=== PATIENT | male | born 1970 | race Caucasian/White ===

== ENCOUNTER 2017-03-06 20:03 | Emergency (ER) | payer MEDICARE, OTHER ==
[~2017-03-06] VITALS: Ht 185.4 cm; Wt 80.0 kg
[2017-03-06 20:05] VITALS: BP 106/65; PULSE 108; RESP 16; TEMP 99.5; O2SAT 97
[2017-03-06 20:07] VITALS: BP 106/65; PULSE 108; RESP 16; TEMP 99.5; O2SAT 97
[2017-03-06] MEDS ORDERED: MIRT30TA PO (20:44)
[2017-03-06] MEDS ORDERED: ASPI81CH CHEW (20:44)
[2017-03-06] MEDS ORDERED: OXYC1CAP PO (20:44)
[2017-03-06] MEDS ORDERED: ATOR1TAB18 PO (20:45)
[2017-03-06] MEDS ORDERED: NEXI10GR (20:45)
[2017-03-06] MEDS ORDERED: ABIL15TA2 PO (20:46)
[2017-03-06] MEDS ORDERED: GABA100C4 PO (20:46)
[2017-03-06] MEDS ORDERED: VITA200C3 PO (20:47)
[2017-03-06] MEDS ORDERED: PHYT5TAB2 PO (20:47)
[2017-03-06] MEDS ORDERED: BUSP15TA PO (20:48)
[2017-03-06] MEDS ORDERED: THERTAB17 PO (20:48)
[2017-03-06 20:49] VITALS: BP 177/99; PULSE 95; RESP 18; O2SAT 98
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
[2017-03-06] MEDS ORDERED: SODIUM CHLOR 0.9% 1000 ML INJ 1,000 ML IV SCH (21:01)
[2017-03-06] MEDS ORDERED: SODIUM CHLORIDE 0.9% FLUSH 10 ML FLUSH IV FLUSH PRN (21:15)
[2017-03-06] MEDS ORDERED: HYDROmorphone HCL PF 1 MG/ML VIAL IVS ONE (21:15)
[2017-03-06] MEDS ORDERED: ONDANSETRON HCL 4 MG/2 ML VIAL IVP ONE (21:15)
[2017-03-06 21:27] VITALS: O2SAT 98
[2017-03-06 21:43] LABS: BASOPHIL % 0.2 % (0.0-2.0); EOSINOPHIL % 0.1 % (0.0-4.0); HEMATOCRIT 43.9 % (39.0-51.0); HEMO FLAGS DIFF FINAL; LYMPH % 8.6 % (9.0-44.0); LYMPHOCYTE # 0.8 TH/MM3 (1.0-4.8); MEAN CELL VOLUME 81.4 FL (80.0-100.0); MEAN CORPUSCULAR HEMOGLOBIN 26.1 PG (27.0-34.0); MEAN CORPUSCULAR HGB CONC 32.1 % (32.0-36.0); MONO % 2.1 % (0.0-8.0); PLATELET COUNT 184 TH/MM3 (150-450); RED BLOOD COUNT 5.39 MIL/MM3 (4.50-5.90); RED CELL DISTRIBUTION WIDTH 15.4 % (11.6-17.2)
[2017-03-06 22:15] LABS: ALKALINE PHOSPHATASE 162 U/L (45-117); ALT (GPT) 42 U/L (12-78); ANION GAP 9 MEQ/L (5-15); AST (GOT) 12 U/L (15-37); BICARBONATE 29.6 MEQ/L (21.0-32.0); BLOOD UREA NITROGEN 14 MG/DL (7-18); CHLORIDE 93 MEQ/L (98-107); GLOMERULAR FILTRATION RATE 80 ML/MIN (>89); SODIUM (NA) 132 MEQ/L (136-145); TOTAL BILIRUBIN ADULT 0.7 MG/DL (0.2-1.0)
--- NOTE | 2017-03-06 22:35 | PD ---
Data Data Last Documented VS Vital Signs Date Time Temp Pulse Resp B/P Pulse Ox O2 Delivery O2 Flow Rate FiO2 03/06/17 21:27 98 Room Air 03/06/17 20:49 95 18 177/99 03/06/17 20:07 99.5 Orders Complete Blood Count With Diff (03/06/17 21:01) Comprehensive Metabolic Panel (03/06/17 21:01) Lipase (03/06/17 21:01) Urinalysis - C+S If Indicated (03/06/17 21:01) Iv Access Insert/Monitor (03/06/17 21:01) Ecg Monitoring (03/06/17 21:01) Oximetry (03/06/17 21:01) Ondansetron Inj (Zofran Inj) (03/06/17 21:15) Sodium Chlor 0.9% 1000 Ml Inj (Ns 1000 M (03/06/17 21:01) Sodium Chloride 0.9% Flush (Ns Flush) (03/06/17 21:15) Hydromorphone Pf Inj (Dilaudid Pf Inj) (03/06/17 21:15) Hydromorphone Pf Inj (Dilaudid Pf Inj) (03/06/17 23:00) Ct Abd/Pel W Iv Contrast(Rout) (03/07/17 ) Iohexol 350 Inj (Omnipaque 350 Inj) (03/07/17 00:36) Bedside Glucose BAYRON.AC&HS (03/07/17 01:01) Metoclopramide Inj (Reglan Inj) (03/07/17 01:15) Ondansetron Inj (Zofran Inj) (03/07/17 01:45) Heparin Central Flush (Heparin Central F (03/07/17 01:45) Labs Laboratory Tests Test 03/06/17 03/06/17 21:15 23:40 White Blood Count 9.0 TH/MM3 Red Blood Count 5.39 MIL/MM3 Hemoglobin 14.1 GM/DL Hematocrit 43.9 % Mean Corpuscular Volume 81.4 FL Mean Corpuscular Hemoglobin 26.1 PG Mean Corpuscular Hemoglobin 32.1 % Concent Red Cell Distribution Width 15.4 % Platelet Count 184 TH/MM3 Mean Platelet Volume 9.2 FL Neutrophils (%) (Auto) 89.0 % Lymphocytes (%) (Auto) 8.6 % Monocytes (%) (Auto) 2.1 % Eosinophils (%) (Auto) 0.1 % Basophils (%) (Auto) 0.2 % Neutrophils # (Auto) 8.0 TH/MM3 Lymphocytes # (Auto) 0.8 TH/MM3 Monocytes # (Auto) 0.2 TH/MM3 Eosinophils # (Auto) 0.0 TH/MM3 Basophils # (Auto) 0.0 TH/MM3 CBC Comment DIFF FINAL Differential Comment Sodium Level 132 MEQ/L Potassium Level 4.0 MEQ/L Chloride Level 93 MEQ/L Carbon Dioxide Level 29.6 MEQ/L Anion Gap 9 MEQ/L Blood Urea Nitrogen 14 MG/DL Creatinine 1.00 MG/DL Estimat Glomerular Filtration 80 ML/MIN Rate Random Glucose 401 MG/DL Calcium Level 9.2 MG/DL Total Bilirubin 0.7 MG/DL Aspartate Amino Transf 12 U/L (AST/SGOT) Alanine Aminotransferase 42 U/L (ALT/SGPT) Alkaline Phosphatase 162 U/L Total Protein 7.8 GM/DL Albumin 4.0 GM/DL Lipase 43 U/L Urine Color YELLOW Urine Turbidity CLEAR Urine pH 5.5 Urine Specific [place] 1.036 Urine Protein NEG mg/dL Urine Glucose (UA) 1000 mg/dL Urine Ketones 40 mg/dL Urine Occult Blood MOD Urine Nitrite NEG Urine Bilirubin NEG Urine Urobilinogen LESS THAN 2.0 MG/DL Urine Leukocyte Esterase NEG Urine RBC 11 /hpf Urine WBC 3 /hpf Microscopic Urinalysis Comment CULT NOT INDICATED MDM Scripts Promethazine Supp (Phenergan Supp)25 Mg Supp25 Mg RECTAL Q6H PRN (NAUSEA OR VOMITING) #12 SUPP Ref 1 Prov:Efrain Shaikh MD 03/07/17 Efrain Shaikh MD Mar 06, 2017 22:35
[2017-03-06] MEDS ORDERED: HYDROmorphone HCL PF 1 MG/ML VIAL IV PUSH ONE (23:00)
[2017-03-06 23:57] LABS: BLOOD, URINE MOD (NEG); COMMENT (UR) CULT NOT INDICATED; CULTURE IF INDICATED CULT NOT INDICATED; GLUCOSE,URINE 1000 mg/dL (NEG); KETONE, URINE 40 mg/dL (NEG); NITRITE,URINE NEG (NEG); PH, URINE 5.5 (5.0-8.5); URINE COLOR YELLOW (YELLW/STRAW)
[2017-03-07] MEDS ORDERED: IOHEXOL 350 MG/ML 10 ML VIAL (for RAD DIAG) IV ONE (00:36)
--- NOTE | 2017-03-07 00:43 | RADRPT ---
EXAM DATE/TIME: 03/07/2017 00:14 [place] COMPARISON: No previous studies available for comparison. INDICATIONS : Abdomen pain with vomiting. IV CONTRAST: 80 cc Omnipaque 350 (iohexol) IV ORAL CONTRAST: No oral contrast ingested. RADIATION DOSE: 6.98 CTDIvol (mGy) MEDICAL HISTORY : Cardiovascular disease. Pancreatitis. Diabetes mellitus type 2. SURGICAL HISTORY : Cholecystectomy. ENCOUNTER: Initial ACUITY: 1 day PAIN SCALE: 8/10 LOCATION: abdomen TECHNIQUE: Volumetric scanning of the abdomen and pelvis was performed. Using automated exposure control and ad justment of the mA and/or kV according to patient size, radiation dose was kept as low as reasonably achievable to obtain optimal diagnostic quality images. DICOM format image data is available electro nically for review and comparison. FINDINGS: LOWER LUNGS: The visualized lower lungs are clear. LIVER: Homogeneous density without lesion. There is no dilation of the biliary tree. Status post cholecyste ctomy. SPLEEN: Normal size without lesion. PANCREAS: Within normal limits. KIDNEYS: Normal in size and shape. There is no mass, stone or hydronephrosis on the right. 2 nonobstructing c alculi in the lower pole left kidney measure 5 and 7 mm. ADRENAL GLANDS: Within normal limits. VASCULAR: There is no aortic aneurysm. BOWEL/MESENTERY: The stomach, small bowel, and colon demonstrate no acute abnormality. There is no free intraperitone al air or fluid. Normal appendix. ABDOMINAL WALL: Within normal limits. RETROPERITONEUM: There is no lymphadenopathy. BLADDER: No wall thickening or mass. REPRODUCTIVE: Within normal limits. INGUINAL: There is no lymphadenopathy or hernia. MUSCULOSKELETAL: Within normal limits for patient age. CONCLUSION: 1. 2 nonobstructing left-sided renal calculi. 2. Status post cholecystectomy. Magdiel Reno MD on March 07, 2017 at 0:38 Board Certified Radiologist. This report was verified electronically.
[2017-03-07] MEDS ORDERED: METOCLOPRAMIDE HCL 10 MG/2 ML VIAL IV PUSH ONE (01:15)
[2017-03-07] MEDS ORDERED: PROM1SUP7 RECTAL (01:30)
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
[2017-03-07] MEDS ORDERED: ONDANSETRON HCL 4 MG/2 ML VIAL IV PUSH ONE (01:45)
== END 2017-03-07 01:57 | disposition home or self-care (01) ==
LOC: NEPE 20:03
DX: R10.10 Upper abdominal pain, unspecified (principal); R11.2 Nausea with vomiting, unspecified; R19.7 Diarrhea, unspecified; E10.9 Type 1 diabetes mellitus without complications; I25.2 Old myocardial infarction; Z79.4 Long term (current) use of insulin; Z79.01 Long term (current) use of anticoagulants; Z87.39 Personal history of other diseases of the musculoskeletal system and connective tissue; Z86.59 Personal history of other mental and behavioral disorders; Z86.79 Personal history of other diseases of the circulatory system; Z87.19 Personal history of other diseases of the digestive system
CPT/HCPCS: 74177; 80053; 81001; 83690; 85025; 96361; 96374; 96375; 96376; 99285; J1170; J1642; J2405; J2765; J7030; Q9967

== ENCOUNTER 2017-03-08 21:01 | Observation (INO) | payer MEDICARE, OTHER ==
[~2017-03-08] VITALS: Ht 185.4 cm; Wt 77.0 kg
[~2017-03-08 21:01] MED LIST: ABIL15TA2 PO; ASPI81CH CHEW; ATOR1TAB18 PO; BUSP15TA PO; GABA100C4 PO; MIRT30TA PO; NEXI10GR; OXYC1CAP PO; PHYT5TAB2 PO; PROM1SUP7 RECTAL; THERTAB17 PO; VITA200C3 PO
[2017-03-08 21:03] VITALS: BP 115/73; PULSE 108; RESP 16; TEMP 99.6; O2SAT 97
--- NOTE | 2017-03-08 21:26 | PD ---
Physical Exam Time Seen by Provider: 21:23 Narrative 47yo M c/o continued vomiting and diarrhea due to pancreatitis. Was here Saturday w/ same complaints and lipase level was low so was sent home. Has c/ o continued abdominal pain also. Low grade fever 99.6 in triage. Patient seen in triage. VS reviewed. Patient awaiting bed placement. Data Data Last Documented VS Vital Signs Date Time Temp Pulse Resp B/P Pulse Ox O2 Delivery O2 Flow Rate FiO2 03/08/17 21:03 99.6 108 16 115/73 97 Room Air MDM Supervised Visit with ESE: Bre Zamudio Mar 08, 2017 21:26
[2017-03-08] MEDS ORDERED: SODIUM CHLORIDE 0.9% FLUSH 10 ML FLUSH IV FLUSH PRN ×2 (21:30→23:30)
--- NOTE | 2017-03-08 21:42 | PD ---
Data Data Last Documented VS Vital Signs Date Time Temp Pulse Resp B/P Pulse Ox O2 Delivery O2 Flow Rate FiO2 03/08/17 21:54 89 16 122/82 98 Room Air 03/08/17 21:03 99.6 Orders Complete Blood Count With Diff (03/08/17 21:30) Comprehensive Metabolic Panel (03/08/17 21:30) Lipase (03/08/17 21:30) Urinalysis - C+S If Indicated (03/08/17 21:30) Iv Access Insert/Monitor (03/08/17 21:30) Ecg Monitoring (03/08/17 21:30) Oximetry (03/08/17 21:30) Sodium Chloride 0.9% Flush (Ns Flush) (03/08/17 21:30) Ondansetron Inj (Zofran Inj) (03/08/17 21:45) Sodium Chlor 0.9% 1000 Ml Inj (Ns 1000 M (03/08/17 21:45) Morphine Inj (Morphine Inj) (03/08/17 21:45) Morphine Inj (Morphine Inj) (03/08/17 22:00) Morphine Inj (Morphine Inj) (03/08/17 21:52) Hydromorphone Pf Inj (Dilaudid Pf Inj) (03/08/17 22:45) Admit Order (Ed Use Only) (03/08/17 23:00) Labs Laboratory Tests Test 03/08/17 22:00 White Blood Count 9.6 TH/MM3 Red Blood Count 5.23 MIL/MM3 Hemoglobin 13.8 GM/DL Hematocrit 42.3 % Mean Corpuscular Volume 80.8 FL Mean Corpuscular Hemoglobin 26.3 PG Mean Corpuscular Hemoglobin 32.5 % Concent Red Cell Distribution Width 15.3 % Platelet Count 186 TH/MM3 Mean Platelet Volume 8.9 FL Neutrophils (%) (Auto) 81.0 % Lymphocytes (%) (Auto) 13.1 % Monocytes (%) (Auto) 5.5 % Eosinophils (%) (Auto) 0.1 % Basophils (%) (Auto) 0.3 % Neutrophils # (Auto) 7.8 TH/MM3 Lymphocytes # (Auto) 1.3 TH/MM3 Monocytes # (Auto) 0.5 TH/MM3 Eosinophils # (Auto) 0.0 TH/MM3 Basophils # (Auto) 0.0 TH/MM3 CBC Comment DIFF FINAL Differential Comment Sodium Level 132 MEQ/L Potassium Level 4.0 MEQ/L Chloride Level 92 MEQ/L Carbon Dioxide Level 30.0 MEQ/L Anion Gap 10 MEQ/L Blood Urea Nitrogen 14 MG/DL Creatinine 0.98 MG/DL Estimat Glomerular Filtration 82 ML/MIN Rate Random Glucose 364 MG/DL Calcium Level 9.0 MG/DL Total Bilirubin 0.8 MG/DL Aspartate Amino Transf 22 U/L (AST/SGOT) Alanine Aminotransferase 46 U/L (ALT/SGPT) Alkaline Phosphatase 121 U/L Total Protein 7.5 GM/DL Albumin 3.8 GM/DL Lipase 42 U/L MDM Supervised Visit with ESE: Yes Narrative Course I, Dr. Shaikh, have reviewed the advance practice practitioner's documentation and am in agreement, met with the patient face to face, made the diagnosis, and the medical decision making was done by me. *My assessment and Findings: Is a 47-year-old male with a history of chronic pancreatitis, no new me from last ER admission presents emergency department for evaluation of epigastric pain nausea and vomiting. He states that currently he is in a low between his pain and nausea. He's been taking Zofran and Phenergan suppositories at home and still been throwing up. Patient seen initially by me and appears well, Edson MERIDA and seen patient is well, agree with his documentation. Patient will be admitted for intractable abdominal pain. Diagnosis Primary Impression: Abdominal pain Qualified Code: R10.13 - Epigastric pain Additional Impression: Nausea & vomiting Qualified Code: R11.2 - Nausea and vomiting, intractability of vomiting not specified, unspecified vomiting type Admitting Information Admitting Physician Requests: Observation Condition: Stable Efrain Shaikh MD Mar 08, 2017 21:42
[2017-03-08] MEDS ORDERED: ONDANSETRON HCL 4 MG/2 ML VIAL IV PUSH ONE (21:45)
[2017-03-08] MEDS ORDERED: MORPHINE SULFATE 4 MG/ML INJ IV PUSH ONE (21:45)
[2017-03-08] MEDS ORDERED: SODIUM CHLOR 0.9% 1000 ML INJ 1,000 ML IV ONE (21:45)
--- NOTE | 2017-03-08 21:47 | PD ---
HPI Chief Complaint: Abdominal Pain Time Seen by Provider: 21:38 Travel History International Travel<30 days: No Contact w/Intl Traveler<30days: No Traveled to known affect area: No History of Present Illness HPI This is a 47-year-old male with history of chronic pancreatitis who presents for evaluation of 3-4 days of epigastric abdominal pain, nausea, vomiting, diarrhea. The pain is a sharp pain which is intermittent, radiates into the back. He reports a history of having a nerve plexus block one year ago which helped significantly with his chronic pancreatitis. The nerve block Block seems to have worn off and since then his pain has been worse. He endorses some chills at home. He reports multiple episodes of diarrhea on a daily basis , approximately every 2 hours. He reports that today his stools were black. He reports minimal oral intake over the past few days. He has Phenergan suppositories at home which haven't seemed to help very much with his nausea. He denies chest pain or shortness of breath, flank pain, dysuria. The patient was seen here for evaluation of similar symptoms on March 06. His workup revealed a glucose of 401. CT of the abdomen and pelvis revealed no acute abnormalities. He returns today because symptoms have been persistent. He reports that he is unable to get an appointment with a woods laborer on an outpatient basis through the [facility] until April 22. He has no other complaints. PFSH Past Medical History Hx Anticoagulant Therapy: Yes Depression: Yes Cardiovascular Problems: Yes (DC) Diabetes: Yes (TYPE 1-INSULIN PUMP) Patient Takes Glucophage: No Diminished Hearing: No Musculoskeletal: Yes (dasha hands operation due to IUD) Myocardial Infarction: Yes (2004 with 1 stent ) Pancreatitis: Yes Past Surgical History Cholecystectomy: Yes (2009) Coronary Stent: Yes Insulin Pump: Yes Other Surgery: Yes (AMPT OF RIGHT HAND, PARTIAL LEFT HAND AMPT, WHIPPLE PROCEDURE, SKIN GRAFTS) Social History Alcohol Use: Yes (occasional) Tobacco Use: No Substance Use: Yes (marijuana ) Allergies-Medications (Allergen,Severity, Reaction): Coded Allergies: No Known Allergies (Unverified , 03/08/17) Reported Meds & Prescriptions Reported Meds & Active Scripts Active Phenergan Supp (Promethazine HCl) 25 Mg Supp 25 Mg RECTAL Q6H PRN Reported Thera-M (Multiple Vitamins W/ Minerals) 1 Tab 1 Tab PO DAILT Buspirone (Buspirone HCl) 15 Mg Tab 15 Mg PO BID Vitamin E 200 Unit Cap 400 Units PO DAILY Mephyton (Phytonadione) 5 Mg Tab 5 Mg PO DAILY Abilify (Aripiprazole) 15 Mg Tab 15 Mg PO DAILY Gabapentin 100 Mg Cap 100 Mg PO HS Nexium (Esomeprazole) 10 Mg Pkt Atorvastatin (Atorvastatin Calcium) 80 Mg Tab 40 Mg PO HS Mirtazapine 30 Mg Tab 30 Mg PO HS Oxycodone (Oxycodone HCl) 5 Mg Cap 5 Mg PO Q6H PRN Aspirin 81 Mg Chew 81 Mg CHEW ONCE Review of Systems Except as stated in HPI: all other systems reviewed are Neg Physical Exam Narrative GENERAL: Well-developed well-nourished male in no acute distress. SKIN: Warm and dry. Extensive scarring noted over most of the anterior body surface. HEAD: Atraumatic. Normocephalic. EYES: Pupils equal and round. No scleral icterus. No injection or drainage. ENT: No nasal bleeding or discharge. Mucous membranes pink and moist. NECK: Trachea midline. No JVD. CARDIOVASCULAR: Regular rate and rhythm. No murmur appreciated. RESPIRATORY: No accessory muscle use. Clear to auscultation. Breath sounds equal bilaterally. GASTROINTESTINAL: Abdomen soft, tenderness to palpation in the epigastrium. MUSCULOSKELETAL: No obvious deformities. Previous amputations noted to portions of the upper extremities. NEUROLOGICAL: Awake and alert. No obvious cranial nerve deficits. Motor grossly within normal limits. Normal speech. PSYCHIATRIC: Appropriate mood and affect; insight and judgment normal. Data Data Last Documented VS Vital Signs Date Time Temp Pulse Resp B/P Pulse Ox O2 Delivery O2 Flow Rate FiO2 03/08/17 21:54 89 16 122/82 98 Room Air 03/08/17 21:03 99.6 Orders Complete Blood Count With Diff (03/08/17 21:30) Comprehensive Metabolic Panel (03/08/17 21:30) Lipase (03/08/17 21:30) Urinalysis - C+S If Indicated (03/08/17 21:30) Iv Access Insert/Monitor (03/08/17 21:30) Ecg Monitoring (03/08/17 21:30) Oximetry (03/08/17 21:30) Sodium Chloride 0.9% Flush (Ns Flush) (03/08/17 21:30) Ondansetron Inj (Zofran Inj) (03/08/17 21:45) Sodium Chlor 0.9% 1000 Ml Inj (Ns 1000 M (03/08/17 21:45) Morphine Inj (Morphine Inj) (03/08/17 21:45) Morphine Inj (Morphine Inj) (03/08/17 22:00) Morphine Inj (Morphine Inj) (03/08/17 21:52) Hydromorphone Pf Inj (Dilaudid Pf Inj) (03/08/17 22:45) Labs Laboratory Tests Test 03/08/17 22:00 White Blood Count 9.6 TH/MM3 Red Blood Count 5.23 MIL/MM3 Hemoglobin 13.8 GM/DL Hematocrit 42.3 % Mean Corpuscular Volume 80.8 FL Mean Corpuscular Hemoglobin 26.3 PG Mean Corpuscular Hemoglobin 32.5 % Concent Red Cell Distribution Width 15.3 % Platelet Count 186 TH/MM3 Mean Platelet Volume 8.9 FL Neutrophils (%) (Auto) 81.0 % Lymphocytes (%) (Auto) 13.1 % Monocytes (%) (Auto) 5.5 % Eosinophils (%) (Auto) 0.1 % Basophils (%) (Auto) 0.3 % Neutrophils # (Auto) 7.8 TH/MM3 Lymphocytes # (Auto) 1.3 TH/MM3 Monocytes # (Auto) 0.5 TH/MM3 Eosinophils # (Auto) 0.0 TH/MM3 Basophils # (Auto) 0.0 TH/MM3 CBC Comment DIFF FINAL Differential Comment Sodium Level 132 MEQ/L Potassium Level 4.0 MEQ/L Chloride Level 92 MEQ/L Carbon Dioxide Level 30.0 MEQ/L Anion Gap 10 MEQ/L Blood Urea Nitrogen 14 MG/DL Creatinine 0.98 MG/DL Estimat Glomerular Filtration 82 ML/MIN Rate Random Glucose 364 MG/DL Calcium Level 9.0 MG/DL Total Bilirubin 0.8 MG/DL Aspartate Amino Transf 22 U/L (AST/SGOT) Alanine Aminotransferase 46 U/L (ALT/SGPT) Alkaline Phosphatase 121 U/L Total Protein 7.5 GM/DL Albumin 3.8 GM/DL Lipase 42 U/L MDM Medical Decision Making Medical Screen Exam Complete: Yes Emergency Medical Condition: Yes Medical Record Reviewed: Yes Differential Diagnosis Recurrent pancreatitis, dehydration, electrolyte abnormality, colitis, renal stone, perforated viscus, peptic ulcer disease Narrative Course 47-year-old male with history of chronic pancreatitis presents with 3 days of worsening epigastric abdominal pain, nausea, vomiting, multiple episodes of diarrhea today, decreased oral intake. His Phenergan suppositories have not been helping with his nausea. He reports black stools today. Rectal examination was performed and it was Hemoccult negative. There was no stool in his rectal vault. The patient was seen here with similar complaints 2 days ago and his symptoms have persisted since then. His temperature was slightly elevated in triage, 99.6. Plan is for basic lab work. He will be given 1 L of IV fluids, morphine and Zofran. The patient was reexamined, he continues to have persistent epigastric abdominal pain. A 0.5 mg dose of Dilaudid was administered. The patient's lab work has been reviewed which is reassuring. His blood glucose is 364. His lipase is 42. At this point in time the plan would be to admit the patient for intractable abdominal pain with persistent nausea, vomiting and diarrhea. He is agreeable to this plan. Discussed with Dr. Delgadillo who is agreeable with admission. HemaPrompt Point of Care Internal Pos. & Neg. Controls: Passed Fecal Specimen Occult Blood: Negative Diagnosis Primary Impression: Abdominal pain Qualified Code: R10.13 - Epigastric pain Additional Impression: Nausea & vomiting Qualified Code: R11.2 - Nausea and vomiting, intractability of vomiting not specified, unspecified vomiting type Admitting Information Admitting Physician Requests: Observation Edson Yang Mar 08, 2017 21:47 Edson Yang Mar 08, 2017 21:47
[2017-03-08] MEDS ORDERED: MORPHINE SULFATE 8 MG/ML INJ ONE (21:52)
[2017-03-08 21:54] VITALS: BP 122/82; PULSE 89; RESP 16; O2SAT 98
[2017-03-08] MEDS ORDERED: MORPHINE SULFATE 8 MG/ML INJ IV PUSH ONE (22:00)
[2017-03-08 22:29] LABS: AUTOMATED NEUTROPHIL # 7.8 TH/MM3 (1.8-7.7); BASOPHIL % 0.3 % (0.0-2.0); EOSINOPHIL % 0.1 % (0.0-4.0); HEMATOCRIT 42.3 % (39.0-51.0); HEMO FLAGS DIFF FINAL; LYMPH % 13.1 % (9.0-44.0); LYMPHOCYTE # 1.3 TH/MM3 (1.0-4.8); MEAN CELL VOLUME 80.8 FL (80.0-100.0); MEAN CORPUSCULAR HEMOGLOBIN 26.3 PG (27.0-34.0); MEAN CORPUSCULAR HGB CONC 32.5 % (32.0-36.0); MONO % 5.5 % (0.0-8.0); PLATELET COUNT 186 TH/MM3 (150-450); RED BLOOD COUNT 5.23 MIL/MM3 (4.50-5.90); RED CELL DISTRIBUTION WIDTH 15.3 % (11.6-17.2); WHITE BLOOD COUNT 9.6 TH/MM3 (4.0-11.0)
[2017-03-08] MEDS ORDERED: HYDROmorphone HCL PF 1 MG/ML VIAL IV PUSH ONE (22:45)
[2017-03-08 22:46] LABS: ALT (GPT) 46 U/L (12-78); ANION GAP 10 MEQ/L (5-15); AST (GOT) 22 U/L (15-37); BLOOD UREA NITROGEN 14 MG/DL (7-18); CHLORIDE 92 MEQ/L (98-107); GLOMERULAR FILTRATION RATE 82 ML/MIN (>89); SODIUM (NA) 132 MEQ/L (136-145)
[2017-03-08 22:48] LABS: ALKALINE PHOSPHATASE 121 U/L (45-117); TOTAL BILIRUBIN ADULT 0.8 MG/DL (0.2-1.0)
[2017-03-08] MEDS ORDERED: NALOXONE HCL 0.4 MG/ML AMP IV PRN (23:30)
[2017-03-08] MEDS ORDERED: LACTULOSE SYRUP 20 GM/30 ML CUP PO PRN (23:30)
[2017-03-08] MEDS ORDERED: BISACODYL 10 MG SUPP RECTAL PRN (23:30)
[2017-03-08] MEDS ORDERED: SENNOSIDES 8.6 MG TAB PO PRN (23:30)
[2017-03-08] MEDS ORDERED: MORPHINE SULFATE 8 MG/ML INJ IV PUSH PRN (23:30)
[2017-03-08] MEDS ORDERED: MAGNESIUM HYDROXIDE SUSP 30 ML CUP PO PRN (23:30)
[2017-03-08] MEDS: NS + KCL 20 MEQ INJ 1,000 ML IV SCH (23:59)
[2017-03-09] VITALS (7 sets, daily range): BP systolic 118–137; BP diastolic 58–81; PULSE 69–76; RESP 16–18; TEMP 97.2–98.8; O2SAT 95–98
[2017-03-09] MEDS ORDERED: NOVOLOGP2 SQ (00:17)
[2017-03-09] MEDS ORDERED: GLUCAGON 1 MG/ML VIAL OTHER PRN (01:45)
[2017-03-09] MEDS ORDERED: DEXTROSE 50% IN WATER 50 ML VIAL(D50) IV PRN (01:45)
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
[2017-03-09] MEDS: ONDANSETRON HCL 4 MG/2 ML VIAL IVP PRN ×3 (02:55→21:04)
[2017-03-09] MEDS: MORPHINE SULFATE 8 MG/ML INJ IV PUSH PRN ×5 (02:55→21:04)
[2017-03-09] MEDS: INSULIN ASPART SUPPLEMENTAL SCALE SQ SCH ×4 (06:33→21:00)
[2017-03-09 07:02] LABS: AUTOMATED NEUTROPHIL # 4.7 TH/MM3 (1.8-7.7); BASOPHIL % 0.3 % (0.0-2.0); EOSINOPHIL # 0.1 TH/MM3 (0-0.4); EOSINOPHIL % 1.1 % (0.0-4.0); HEMATOCRIT 38.6 % (39.0-51.0); HEMO FLAGS DIFF FINAL; LYMPH % 29.1 % (9.0-44.0); LYMPHOCYTE # 2.2 TH/MM3 (1.0-4.8); MEAN CELL VOLUME 80.4 FL (80.0-100.0); MEAN CORPUSCULAR HGB CONC 32.3 % (32.0-36.0); MONO % 5.7 % (0.0-8.0); NEUT % 63.8 % (16.0-70.0); PLATELET COUNT 162 TH/MM3 (150-450); RED CELL DISTRIBUTION WIDTH 15.3 % (11.6-17.2); WHITE BLOOD COUNT 7.4 TH/MM3 (4.0-11.0)
[2017-03-09 07:30] LABS: BICARBONATE 29.1 MEQ/L (21.0-32.0); POTASSIUM 3.9 MEQ/L (3.5-5.1)
[2017-03-09] MEDS: SODIUM CHLORIDE 0.9% FLUSH 10 ML FLUSH IV FLUSH SCH ×2 (09:00→21:00)
[2017-03-09] MEDS: NS + KCL 20 MEQ INJ 1,000 ML IV SCH ×2 (09:32→21:04)
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
[2017-03-09] MEDS: PANTOPRAZOLE SODIUM 40 MG VIAL IV PUSH SCH (11:20)
[2017-03-09 12:55] LABS: BLOOD, URINE TRACE (NEG); COMMENT (UR) CULT NOT INDICATED; CULTURE IF INDICATED CULT NOT INDICATED; GLUCOSE,URINE 1000 mg/dL (NEG); KETONE, URINE 80 mg/dL (NEG); NITRITE,URINE NEG (NEG); SQUAMOUS EPITHELIAL CELL URINE <1 /hpf (0-5); URINE COLOR YELLOW (YELLW/STRAW)
[2017-03-09] MEDS ORDERED: PROPOFOL 200 MG/20 ML AMP IV ONE (12:57)
[2017-03-09] MEDS ORDERED: DO NOT ADM ANY ANTICOAGULANT DRUGS PRN (13:11)
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
[2017-03-09] MEDS ORDERED: LIPASE/PROTEASE/AMYLASE (12,000/38,000/60,000) CAP PO SCH (13:30)
[2017-03-09] MEDS ORDERED: HYDROmorphone HCL PF 1 MG/ML VIAL IV PUSH ONE (18:15)
[2017-03-09] MEDS ORDERED: MIRTAZAPINE 15 MG TAB PO SCH (21:00)
[2017-03-09] MEDS ORDERED: GABAPENTIN 100 MG CAP PO SCH (21:00)
[2017-03-09] MEDS ORDERED: ATORVASTATIN 40 MG TAB PO SCH (21:00)
[2017-03-09] MEDS: busPIRone HCL 5 MG TAB PO SCH (21:03)
[2017-03-10] MEDS: MORPHINE SULFATE 8 MG/ML INJ IV PUSH PRN ×4 (00:06→12:11)
[2017-03-10 00:23] VITALS: BP 152/79; PULSE 62; RESP 18; TEMP 98.7; O2SAT 96
[2017-03-10] MEDS: ONDANSETRON HCL 4 MG/2 ML VIAL IVP PRN ×3 (03:42→15:00)
[2017-03-10 04:01] VITALS: BP 135/74; PULSE 64; RESP 18; TEMP 98.2; O2SAT 96
[2017-03-10] MEDS: NS + KCL 20 MEQ INJ 1,000 ML IV SCH ×2 (05:30→09:40)
[2017-03-10] MEDS: INSULIN ASPART SUPPLEMENTAL SCALE SQ SCH ×2 (06:30→11:00)
[2017-03-10 07:16] VITALS: BP 150/88; PULSE 59; RESP 17; TEMP 97.8; O2SAT 95
[2017-03-10] MEDS: PANTOPRAZOLE SODIUM 40 MG VIAL IV PUSH SCH (08:58)
[2017-03-10] MEDS ORDERED: ARIPiprazole 15 MG TAB PO SCH (09:00)
[2017-03-10] MEDS: LIPASE/PROTEASE/AMYLASE (12,000/38,000/60,000) CAP PO SCH ×2 (09:00→13:12)
[2017-03-10] MEDS: SODIUM CHLORIDE 0.9% FLUSH 10 ML FLUSH IV FLUSH SCH (09:00)
[2017-03-10] MEDS: busPIRone HCL 5 MG TAB PO SCH (09:00)
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
[2017-03-10 11:59] VITALS: BP 155/91; PULSE 84; RESP 18; TEMP 98.1; O2SAT 96
[2017-03-10] MEDS ORDERED: PROT40TA PO (12:31)
[2017-03-10] MEDS ORDERED: CREON12 PO (12:31)
--- NOTE | 2017-03-10 12:33 | HHI.DCPOC ---
Discharge Care Plan Diagnosis: (1) Gastritis (2) Duodenitis (3) Abdominal pain (4) Nausea & vomiting (5) Pancreatitis Goals to Promote Your Health * To prevent worsening of your condition and complications * To maintain your health at the optimal level Directions to Meet Your Goals Take your medications as prescribed Follow your dietary instruction Follow activity as directed Keep your appointments as scheduled Take your immunizations and boosters as scheduled If your symptoms worsen call your PCP, if no PCP go to Urgent Care Center or Emergency Room Smoking is Dangerous to Your Health. Avoid second hand smoke Call the 24-hour hour crisis hotline for domestic abuse at Rea Pang PA-C Mar 10, 2017 12:32
== END 2017-03-10 15:37 | disposition home or self-care (01) ==
LOC: NEPC 21:01 → NEDA 23:01 → NEPGCP 03-09 00:54
PROVIDERS: ADMIT Family Medicine; ATTEND Family Medicine
DX: K85.90 Acute pancreatitis without necrosis or infection, unspecified (principal); R10.13 Epigastric pain; R11.2 Nausea with vomiting, unspecified; R19.7 Diarrhea, unspecified; K29.70 Gastritis, unspecified, without bleeding; K29.80 Duodenitis without bleeding; I86.4 Gastric varices; N20.0 Calculus of kidney; R19.5 Other fecal abnormalities; R50.9 Fever, unspecified; E10.65 Type 1 diabetes mellitus with hyperglycemia; I25.2 Old myocardial infarction; K21.9 Gastro-esophageal reflux disease without esophagitis; F32.9 Major depressive disorder, single episode, unspecified; K86.1 Other chronic pancreatitis; Z79.899 Other long term (current) drug therapy; Z79.82 Long term (current) use of aspirin; Z87.891 Personal history of nicotine dependence; Z89.112 Acquired absence of left hand; Z89.111 Acquired absence of right hand; F12.90 Cannabis use, unspecified, uncomplicated
CPT/HCPCS: 00740; 43239; 80048; 80053; 81001; 82948; 83690; 85025; 88305; 88312; 96361; 96374; 96375; 99285; C9113; G0378; J1170; J2270; J2405; J3480; J7030

== ENCOUNTER 2017-04-20 19:49 | Inpatient (IN) | payer MEDICARE, OTHER ==
[~2017-04-20] VITALS: Ht 180.3 cm; Wt 82.0 kg
[~2017-04-20 19:49] MED LIST changes: +CREON12 PO; +NOVOLOGP2 SQ; +PROT40TA PO
[2017-04-20 19:51] VITALS: BP 99/66; PULSE 115; RESP 16; TEMP 101.3; O2SAT 94
[2017-04-20 22:18] VITALS: BP 118/65; PULSE 87; RESP 20; O2SAT 97
[2017-04-20] MEDS ORDERED: SODIUM CHLOR 0.9% 1000 ML INJ 400 ML IV ONE (22:31)
[2017-04-20] MEDS ORDERED: SODIUM CHLOR 0.9% 1000 ML INJ 1,000 ML IV ONE ×2 (22:31)
[2017-04-20] MEDS ORDERED: VANCOMYCIN INJ 1,000 MG in SODIUM CHLOR 0.9% 250 ML INJ 250 ML IV STA (22:31)
[2017-04-20] MEDS ORDERED: PIPERACIL-TAZO 4.5 GM PREMIX 100 ML IV STA (22:31)
[2017-04-20] MEDS ORDERED: ONDANSETRON HCL 4 MG/2 ML VIAL IV ONE (22:45)
[2017-04-20] MEDS ORDERED: ACETAMINOPHEN 325 MG TAB PO ONE (22:45)
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
[2017-04-20] MEDS ORDERED: MORPHINE SULFATE 4 MG/ML INJ IV PUSH ONE (23:45)
[2017-04-20 23:50] LABS: AUTOMATED NEUTROPHIL # 4.2 TH/MM3 (1.8-7.7); BASOPHIL % 0.4 % (0.0-2.0); EOSINOPHIL % 0.5 % (0.0-4.0); HEMATOCRIT 25.9 % (39.0-51.0); HEMO FLAGS DIFF FINAL; LYMPH % 15.2 % (9.0-44.0); LYMPHOCYTE # 0.9 TH/MM3 (1.0-4.8); MEAN CELL VOLUME 82.7 FL (80.0-100.0); MEAN CORPUSCULAR HEMOGLOBIN 27.5 PG (27.0-34.0); MEAN CORPUSCULAR HGB CONC 33.2 % (32.0-36.0); MONO % 8.2 % (0.0-8.0); NEUT % 75.7 % (16.0-70.0); PLATELET COUNT 115 TH/MM3 (150-450); RED BLOOD COUNT 3.13 MIL/MM3 (4.50-5.90); RED CELL DISTRIBUTION WIDTH 15.6 % (11.6-17.2); WHITE BLOOD COUNT 5.6 TH/MM3 (4.0-11.0)
[2017-04-21] VITALS (7 sets, daily range): BP systolic 100–130; BP diastolic 55–81; PULSE 65–77; RESP 16–20; TEMP 97.5–99.4; O2SAT 94–100
[2017-04-21 00:18] LABS: ALT (GPT) 16 U/L (12-78); ANION GAP 9 MEQ/L (5-15); AST (GOT) 10 U/L (15-37); BICARBONATE 30.3 MEQ/L (21.0-32.0); BLOOD UREA NITROGEN 12 MG/DL (7-18); CHLORIDE 97 MEQ/L (98-107); GLOMERULAR FILTRATION RATE 79 ML/MIN (>89); POTASSIUM 3.9 MEQ/L (3.5-5.1); SODIUM (NA) 136 MEQ/L (136-145)
[2017-04-21 00:21] LABS: ALKALINE PHOSPHATASE 101 U/L (45-117); TOTAL BILIRUBIN ADULT 0.3 MG/DL (0.2-1.0)
[2017-04-21] MEDS ORDERED: MAGNESIUM HYDROXIDE SUSP 30 ML CUP PO PRN (00:45)
[2017-04-21] MEDS ORDERED: SODIUM CHLORIDE 0.9% FLUSH 10 ML FLUSH IV FLUSH PRN (00:45)
[2017-04-21] MEDS ORDERED: ACETAMINOPHEN 325 MG TAB PO PRN (00:45)
[2017-04-21] MEDS ORDERED: LACTULOSE SYRUP 20 GM/30 ML CUP PO PRN (00:45)
[2017-04-21] MEDS ORDERED: BISACODYL 10 MG SUPP RECTAL PRN (00:45)
[2017-04-21] MEDS ORDERED: SENNOSIDES 8.6 MG TAB PO PRN (00:45)
[2017-04-21] MEDS ORDERED: Vancomycin Consult Pharmacy 1 EA OTHER SCH (00:45)
[2017-04-21] MEDS ORDERED: ONDANSETRON HCL 4 MG/2 ML VIAL IVP PRN (00:45)
[2017-04-21] MEDS ORDERED: GLUCAGON 1 MG/ML VIAL OTHER PRN (01:00)
[2017-04-21] MEDS ORDERED: DEXTROSE 50% IN WATER 50 ML VIAL(D50) IV PRN (01:00)
[2017-04-21] MEDS ORDERED: ASPIRIN 81 MG CHEW TAB CHEW SCH (01:00)
[2017-04-21] MEDS: diphenhydrAMINE HCL 50 MG/ML VIAL IV PUSH PRN ×2 (01:26→14:55)
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
[2017-04-21] MEDS: INSULIN ASPART SUPPLEMENTAL SCALE SQ SCH ×4 (04:52→21:00)
[2017-04-21] MEDS: MORPHINE SULFATE 4 MG/ML INJ IV PRN ×5 (04:58→23:05)
[2017-04-21] MEDS: SODIUM CHLOR 0.9% 1000 ML INJ 1,000 ML IV SCH ×2 (04:59→14:44)
[2017-04-21] MEDS: CEFEPIME INJ 1,000 MG in SODIUM CHLORIDE 0.9% INJ 100 ML IV SCH ×3 (09:00→21:21)
[2017-04-21] MEDS: ENOXAPARIN SODIUM 40 MG/0.4 ML SYRINGE SQ SCH (09:00)
[2017-04-21] MEDS: PANTOPRAZOLE SOD 40 MG DELAYED RELEASE TAB PO SCH (09:00)
[2017-04-21] MEDS: LIPASE/PROTEASE/AMYLASE (12,000/38,000/60,000) CAP PO SCH ×3 (09:00→17:29)
[2017-04-21] MEDS: DOCUSATE SODIUM 50 MG/SENNA 8.6 MG TAB PO SCH ×2 (09:00→21:21)
[2017-04-21] MEDS: SODIUM CHLORIDE 0.9% FLUSH 10 ML FLUSH IV FLUSH SCH ×2 (09:00→21:00)
[2017-04-21] MEDS: busPIRone HCL 5 MG TAB PO SCH ×2 (09:00→21:22)
[2017-04-21] MEDS: ARIPiprazole 15 MG TAB PO SCH (11:00)
[2017-04-21] MEDS: ACETAMINOPHEN/HYDROcodone 325 MG/5 MG TAB PO PRN ×2 (11:00→21:23)
--- NOTE | 2017-04-21 14:07 | HHI.PR ---
Subjective Remarks Follow-up for cellulitis failed medical therapy with questionable sepsis Patient continues to complain about swelling of his right lower extremity. Otherwise he has no complaints. Patient remains afebrile. He stated that this has happened for over a month. He stated that he had a biopsy done about 3 days ago. Patient was also put on antibiotics for month with no resolution. Objective Vitals Vital Signs Date Time Temp Pulse Resp B/P (MAP) Pulse Ox O2 Delivery O2 Flow Rate FiO2 04/21/17 12:35 16 04/21/17 12:00 16 04/21/17 04:27 99.3 69 20 111/63 (79) 100 04/21/17 01:42 73 18 108/63 (78) 97 Room Air 04/21/17 00:23 99.4 77 18 100/55 (70) 94 Room Air 04/20/17 22:18 87 20 118/65 (82) 97 Room Air 04/20/17 19:51 101.3 115 16 99/66 (77) 94 Room Air Result Diagram: 04/20/17225204/20/172252 Objective Remarks GENERAL: In no acute distress CARDIOVASCULAR: Regular rate and rhythm without murmurs, gallops, or rubs. RESPIRATORY: Breath sounds equal bilaterally. No accessory muscle use. GASTROINTESTINAL: Abdomen soft, non-tender, nondistended. MUSCULOSKELETAL: Right lower extremity with edema around the foot and ankle area. Ulcer 2 with purulent discharge. Medications and IVs Current Medications Acetaminophen (Tylenol) 650 mg ONCE ONCE PO Last administered on 04/20/17 23: 12; Start 04/20/17 at 22:45; Stop 04/20/17 at 22:46; Status DC Ondansetron HCl (Zofran Inj) 4 mg ONCE ONCE IV Last administered on 04/20/17 23:14; Start 04/20/17 at 22:45; Stop 04/20/17 at 22:46; Status DC Piperacillin Sod/ Tazobactam Sod 100 ml @ 200 mls/hr ONCE STAT IV Last administered on 04/20/17 23:16; Start 04/20/17 at 22:31; Stop 04/20/17 at 23:00 ; Status DC Vancomycin HCl 1000 mg/Sodium Chloride 250 ml @ 250 mls/hr ONCE STAT IV Last administered on 04/21/17 01:25; Start 04/20/17 at 22:31; Stop 04/20/17 at 23:30 ; Status DC Sodium Chloride 1,000 ml @ 1,000 mls/hr Q1H ONCE IV Last administered on 23:19; Start 04/20/17 at 22:31; Stop 04/20/17 at 23:30; Status DC Sodium Chloride 1,000 ml @ 1,000 mls/hr Q1H ONCE IV Last administered on 23:19; Start 04/20/17 at 22:31; Stop 04/20/17 at 23:30; Status DC Sodium Chloride 400 ml @ 1,000 mls/hr Q24M ONCE IV Last administered on 01:24; Start 04/20/17 at 22:31; Stop 04/20/17 at 22:54; Status DC Morphine Sulfate (Morphine Inj) 4 mg ONCE ONCE IV PUSH Last administered on 23:48; Start 04/20/17 at 23:45; Stop 04/20/17 at 23:46; Status DC Pharmacy Profile Note 0 ml @ 0 mls/hr UNSCH OTHER ; Start 04/21/17 at 00:45 Cefepime HCl 1000 mg/Sodium Chloride 100 ml @ 200 mls/hr Q12H IV Last administered on 04/21/17 09:00; Start 04/21/17 at 09:00 Sodium Chloride 1,000 ml @ 100 mls/hr Q10H IV Last administered on 04/21/17 04:59; Start 04/21/17 at 00:41 Sodium Chloride (NS Flush) 2 ml UNSCH PRN IV FLUSH FLUSH AFTER USING IV ACCESS ; Start 04/21/17 at 00:45 Sodium Chloride (NS Flush) 2 ml BID IV FLUSH Last administered on 04/21/17 09: 00; Start 04/21/17 at 09:00 Ondansetron HCl (Zofran Inj) 4 mg Q6H PRN IVP NAUSEA OR VOMITING; Start at 00:45 Enoxaparin Sodium (Lovenox Inj) 40 mg Q24H SQ ; Start 04/21/17 at 09:00 Acetaminophen (Tylenol) 650 mg Q6H PRN PO FEVER/PAIN SCALE 1 TO 2; Start at 00:45 Acetaminophen/ Hydrocodone Bitart ([place] 5-325 Mg) 1 tab Q4H PRN PO PAIN SCALE 3 TO 5 Last administered on 04/21/17 11:00; Start 04/21/17 at 00:45 Morphine Sulfate (Morphine Inj) 2 mg Q3H PRN IV Pain 6-10 Last administered on 04/21/17 12:30; Start 04/21/17 at 00:45 Senna/Docusate Sodium (Jackie-Colace) 1 tab BID PO ; Start 04/21/17 at 09:00 Magnesium Hydroxide (Milk Of Magnesia Liq) 30 ml Q12H PRN PO MILD - MODERATE CONSTIPATION; Start 04/21/17 at 00:45 Sennosides (Senokot) 17.2 mg Q12H PRN PO MODERATE - SEVERE CONSTIPATION; Start 04/21/17 at 00:45 Bisacodyl (Dulcolax Supp) 10 mg DAILY PRN RECTAL SEVERE CONSITIPATION; Start at 00:45 Lactulose (Lactulose Liq) 30 ml DAILY PRN PO SEVERE CONSITIPATION; Start at 00:45 Dextrose (D50w (Vial) Inj) 50 ml UNSCH PRN IV HYPOGLYCEMIA-SEE COMMENTS; Start 04/21/17 at 01:00 Glucagon (Glucagon Inj) 1 mg UNSCH PRN OTHER HYPOGLYCEMIA-SEE COMMENTS; Start 04/21/17 at 01:00 Insulin Aspart (NovoLOG SUPPLEMENTAL SCALE) 1 ACHS SLIDING SCALE SQ ; Start at 07:00 Aripiprazole (Abilify) 15 mg DAILY PO Last administered on 04/21/17 11:00; Start 04/21/17 at 09:00 Aspirin (Aspirin Chew) 81 mg ONCE CHEW ; Start 04/21/17 at 01:00; Stop 04/21/17 at 02:40; Status DC Atorvastatin Calcium (Lipitor) 40 mg HS PO ; Start 04/21/17 at 21:00 Buspirone HCl (Buspar) 15 mg BID PO Last administered on 04/21/17 09:00; Start 04/21/17 at 09:00 Mirtazapine (Remeron) 30 mg HS PO ; Start 04/21/17 at 21:00 Amylase/Lipase/ Protease (Creon 12-38-60) 2 cap TID PO Last administered on 13:00; Start 04/21/17 at 09:00 Pantoprazole Sodium (Protonix) 40 mg DAILY PO Last administered on 04/21/17 09 :00; Start 04/21/17 at 09:00 Diphenhydramine HCl (Benadryl Inj) 25 mg Q4H PRN IV PUSH ITCHING Last administered on 04/21/17 01:26; Start 04/21/17 at 01:00 Vancomycin HCl 1250 mg/Sodium Chloride 262.5 ml @ 250 mls/hr Q12H IV ; Start at 14:00 Miscellaneous Information SPECIFIC LAB TO BE DRAWN:VANCOMY... ONCE ONCE .XX ; Start 04/23/17 at 01:45; Stop 04/23/17 at 01:46 A/P Problem List: (1) Sepsis ICD Code: A41.9 - Sepsis, unspecified organism Status: Acute (2) Cellulitis ICD Code: L03.90 - Cellulitis, unspecified Status: Acute (3) Thrombocytopenia ICD Code: D69.6 - Thrombocytopenia, unspecified Status: Acute (4) Anemia ICD Code: D64.9 - Anemia, unspecified Status: Acute (5) Pancreatitis ICD Code: K85.90 - Acute pancreatitis without necrosis or infection, unspecified Status: Chronic (6) DM (diabetes mellitus) ICD Code: E11.9 - Type 2 diabetes mellitus without complications Status: Acute Assessment and Plan 47-year-old male with peripheral neuropathy and a chronic ulcer who was treated with antibiotics X 4 weeks for his foot ulcers with no improvement Sepsis: Temp 101.3, HR 115, WBC normal, Source-Right Foot Infection. S/p Blood Cultures, IV Vanc/Zosyn. -Resolved quickly. See treatment as below. -Blood cultures negative 1 day. Right Foot Infection/ulcer: Recurrent. Following w/ Podiatry at [place], s/p biopsy on Saturday04/17/17, Saturday04/19/17 developed redness/swelling, no recent antibiotics. -MRI was ordered to rule out osteomyelitis, but MRI was cancelled by radiologist most likely secondary to hardware. -Will consult ball racker for further assistance. -Continue with vancomycin and Zosyn. Anemia: Hgb 8.6, previously 12.5 on 7/8/17. - No active bleeding at this time. -Continue monitor and trend. Thrombocytopenia: Platelets 115, previously 162 on 03/09/17. As above, no active bleeding. -Stable. Continue to monitor and trend. Pancreatitis, Chronic. -Asymptomatic. -Continue with home Creon. T2DM: -Continue with insulin sliding scale and hypoglycemia protocol. DVT Prophylaxis: Mechanical contraindication secondary to lower extremity wounds. Lovenox Problem Qualifiers (1) Sepsis: (2) Cellulitis: Renee Loomis MD Apr 21, 2017 14:07
[2017-04-21] MEDS: VANCOMYCIN INJ 1,250 MG in SODIUM CHLOR 0.9% 250 ML INJ 250 ML IV SCH (14:43)
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
[2017-04-21] MEDS ORDERED: ATORVASTATIN 80 MG TAB PO SCH (21:00)
[2017-04-21] MEDS ORDERED: MIRTAZAPINE 15 MG TAB PO SCH (21:00)
[2017-04-22 00:54] VITALS: BP 136/75; PULSE 69; RESP 20; TEMP 98.7; O2SAT 96
[2017-04-22] MEDS: VANCOMYCIN INJ 1,250 MG in SODIUM CHLOR 0.9% 250 ML INJ 250 ML IV SCH ×2 (02:42→14:00)
[2017-04-22] MEDS: diphenhydrAMINE HCL 50 MG/ML VIAL IV PUSH PRN (03:45)
[2017-04-22] MEDS: MORPHINE SULFATE 4 MG/ML INJ IV PRN (03:46)
[2017-04-22 05:49] VITALS: BP 160/77; PULSE 63; RESP 20; TEMP 97.5; O2SAT 97
[2017-04-22 08:00] VITALS: BP 150/82; PULSE 59; RESP 20; TEMP 97.9; O2SAT 96
[2017-04-22] MEDS: DOCUSATE SODIUM 50 MG/SENNA 8.6 MG TAB PO SCH (09:00)
[2017-04-22] MEDS: ARIPiprazole 15 MG TAB PO SCH (09:00)
[2017-04-22] MEDS: SODIUM CHLORIDE 0.9% FLUSH 10 ML FLUSH IV FLUSH SCH (09:00)
[2017-04-22] MEDS: ENOXAPARIN SODIUM 40 MG/0.4 ML SYRINGE SQ SCH (09:00)
[2017-04-22] MEDS: CEFEPIME INJ 1,000 MG in SODIUM CHLORIDE 0.9% INJ 100 ML IV SCH (09:01)
[2017-04-22] MEDS: LIPASE/PROTEASE/AMYLASE (12,000/38,000/60,000) CAP PO SCH ×2 (09:03→14:44)
[2017-04-22] MEDS: PANTOPRAZOLE SOD 40 MG DELAYED RELEASE TAB PO SCH (09:04)
[2017-04-22] MEDS: busPIRone HCL 5 MG TAB PO SCH (09:04)
[2017-04-22] MEDS: INSULIN ASPART SUPPLEMENTAL SCALE SQ SCH ×2 (11:00→16:00)
[2017-04-22 12:00] VITALS: BP 145/82; PULSE 58; RESP 20; TEMP 97.7; O2SAT 97
[2017-04-22] MEDS: ACETAMINOPHEN/HYDROcodone 325 MG/5 MG TAB PO PRN (13:58)
[2017-04-22] MEDS: SODIUM CHLOR 0.9% 1000 ML INJ 1,000 ML IV SCH (13:58)
[2017-04-22 14:05] LABS: AUTOMATED NEUTROPHIL # 3.5 TH/MM3 (1.8-7.7); BASOPHIL % 0.5 % (0.0-2.0); EOSINOPHIL # 0.1 TH/MM3 (0-0.4); EOSINOPHIL % 1.5 % (0.0-4.0); HEMATOCRIT 36.1 % (39.0-51.0); HEMO FLAGS DIFF FINAL; LYMPH % 22.8 % (9.0-44.0); LYMPHOCYTE # 1.1 TH/MM3 (1.0-4.8); MEAN CELL VOLUME 81.9 FL (80.0-100.0); MEAN CORPUSCULAR HEMOGLOBIN 26.5 PG (27.0-34.0); MEAN CORPUSCULAR HGB CONC 32.4 % (32.0-36.0); MONO % 6.4 % (0.0-8.0); NEUT % 68.8 % (16.0-70.0); PLATELET COUNT 181 TH/MM3 (150-450); RED BLOOD COUNT 4.41 MIL/MM3 (4.50-5.90); RED CELL DISTRIBUTION WIDTH 15.7 % (11.6-17.2)
[2017-04-22 14:40] LABS: ALKALINE PHOSPHATASE 74 U/L (45-117); ALT (GPT) 17 U/L (12-78); ANION GAP 8 MEQ/L (5-15); AST (GOT) 12 U/L (15-37); BICARBONATE 31.2 MEQ/L (21.0-32.0); BLOOD UREA NITROGEN 6 MG/DL (7-18); CHLORIDE 101 MEQ/L (98-107); GLOMERULAR FILTRATION RATE 167 ML/MIN (>89); SODIUM (NA) 140 MEQ/L (136-145); TOTAL BILIRUBIN ADULT 0.4 MG/DL (0.2-1.0)
--- NOTE | 2017-04-22 14:51 | HHI.PR ---
Subjective Remarks Follow-up Diabetic foot infection 04/22/17-patient seen and examined at home currently afebrile and no acute event overnight. He would like To be discharged home. Was seen by podiatry Objective Vitals Vital Signs Date Time Temp Pulse Resp B/P (MAP) Pulse Ox O2 Delivery O2 Flow Rate FiO2 04/22/17 08:00 97.9 59 20 150/82 (104) 96 04/22/17 05:49 97.5 63 20 160/77 (104) 97 04/22/17 00:54 98.7 69 20 136/75 (95) 96 04/21/17 20:00 98.3 67 18 130/75 (93) 96 04/21/17 20:00 98.3 67 18 130/75 (93) 96 04/21/17 17:35 16 04/21/17 16:00 97.5 72 17 122/74 (90) 96 I/O 04/21/17 04/21/17 04/21/17 04/22/17 04/22/17 04/22/17 06:59 14:59 22:59 06:59 14:59 22:59 Intake Total 1000 ml Output Total 2400 ml Balance -1400 ml Intake IV Total 1000 ml Output Urine Total 2400 ml # Voids 1 6 Result Diagram: 04/22/17 1345 04/22/17 1345 Objective Remarks GENERAL: NAD SKIN: Warm and dry. HEAD: Normocephalic. EYES: No scleral icterus. No injection or drainage. NECK: Supple, trachea midline. No JVD or lymphadenopathy. CARDIOVASCULAR: Regular rate and rhythm without murmurs, gallops, or rubs. RESPIRATORY: Breath sounds equal bilaterally. No accessory muscle use. GASTROINTESTINAL: Abdomen soft, non-tender, nondistended. MUSCULOSKELETAL: No cyanosis, or edema. BACK: Nontender without obvious deformity. No CVA tenderness. Procedures none A/P Problem List: (1) Sepsis ICD Code: A41.9 - Sepsis, unspecified organism Status: Resolved (2) Cellulitis ICD Code: L03.90 - Cellulitis, unspecified Status: Acute (3) Thrombocytopenia ICD Code: D69.6 - Thrombocytopenia, unspecified Status: Acute (4) Anemia ICD Code: D64.9 - Anemia, unspecified Status: Acute (5) Pancreatitis ICD Code: K85.90 - Acute pancreatitis without necrosis or infection, unspecified Status: Chronic (6) DM (diabetes mellitus) ICD Code: E11.9 - Type 2 diabetes mellitus without complications Status: Chronic Assessment and Plan 47-year-old male with peripheral neuropathy and a chronic ulcer who was treated with antibiotics X 4 weeks for his foot ulcers with no improvement Sepsis: Resolved -Resolved quickly. See treatment as below. -Blood cultures negative x 2 days Right Foot Infection/ulcer: Recurrent. He was seen by podiatry and will follow with Dr. Kenny 04/23/17 Continue current dressing with Maxorb extra AG dressings Discharge on Bactrim DS Anemia: Hgb 8.6, previously 12.5 on 03/09/17. - No active bleeding at this time. -Continue monitor and trend. Thrombocytopenia: Platelets 115, previously 162 on 03/09/17. As above, no active bleeding. -Stable. Continue to monitor and trend. Pancreatitis, Chronic. -Asymptomatic. -Continue with home Creon. T2DM: -Continue with insulin sliding scale and hypoglycemia protocol. DVT Prophylaxis: Mechanical contraindication secondary to lower extremity wounds. Lovenox Patient's condition tremendously improved therefore he will be discharged home Discharge Planning Discharge patient to home Condition on discharge: Improved Regular Diet as tolerated Ad Shweta activity Rx written:Bactrim DS 1 tab BID Follow-up with primary care physician in1 week Podiatry 04/23/17 Problem Qualifiers (1) Sepsis: (2) Cellulitis: (3) DM (diabetes mellitus): Qualified Codes: E10.42 - Type 1 diabetes mellitus with diabetic polyneuropathy Magdiel De La Garza MD Apr 22, 2017 14:51
[2017-04-22] MEDS ORDERED: BACT800T5 PO (15:00)
[2017-04-22 15:48] VITALS: PULSE 60
[2017-04-22 16:00] VITALS: BP 120/68; PULSE 68; RESP 20; TEMP 98.1; O2SAT 97
[2017-04-23] MEDS ORDERED: PHARMACY ORDERED LAB ONE (01:45)
[2017-05-07] MEDS ORDERED: BUSP15TA PO (14:25)
[2017-05-07] MEDS ORDERED: CEPH500C PO (14:28)
== END 2017-04-22 17:40 | disposition home or self-care (01) | DRG 872 ==
LOC: NEPE 19:49 → NEDA 04-21 00:50 → OBSVTOIN 04-21 00:50 → N05A 04-21 03:08
PROVIDERS: ADMIT Hospitalist; ATTEND Hospitalist
DX: A41.9 Sepsis, unspecified organism (principal); E10.621 Type 1 diabetes mellitus with foot ulcer; E10.42 Type 1 diabetes mellitus with diabetic polyneuropathy; D69.6 Thrombocytopenia, unspecified; E10.628 Type 1 diabetes mellitus with other skin complications; K86.1 Other chronic pancreatitis; L03.115 Cellulitis of right lower limb; L97.512 Non-pressure chronic ulcer of other part of right foot with fat layer exposed; D64.9 Anemia, unspecified; I10 Essential (primary) hypertension; F41.9 Anxiety disorder, unspecified; F32.9 Major depressive disorder, single episode, unspecified; F43.10 Post-traumatic stress disorder, unspecified; M21.931 Unspecified acquired deformity of right forearm; M21.932 Unspecified acquired deformity of left forearm; I25.2 Old myocardial infarction; Z79.4 Long term (current) use of insulin; Z95.5 Presence of coronary angioplasty implant and graft
CPT/HCPCS: 80053; 82948; 83605; 85025; 87040; 96361; 96365; 96375; J0692; J1200; J1642; J2270; J2405; J2543; J3370; J7030; J7050

== ENCOUNTER 2017-05-11 19:43 | Inpatient (IN) | payer MEDICARE, OTHER ==
[~2017-05-11] VITALS: Ht 185.4 cm; Wt 80.0 kg
[~2017-05-11 19:43] MED LIST changes: +CEPH500C PO; -GABA100C4 PO
[2017-05-11 19:47] VITALS: BP 118/84; PULSE 106; RESP 16; TEMP 99.3; O2SAT 98
--- NOTE | 2017-05-11 19:51 | PD ---
Physical Exam Date Seen by Provider: May 11, 2017 Time Seen by Provider: 19:48 Data Data Last Documented VS Vital Signs Date Time Temp Pulse Resp B/P (MAP) Pulse Ox O2 Delivery O2 Flow Rate FiO2 05/11/17 19:47 99.3 106 16 118/84 (95) 98 Room Air MDM Supervised Visit with ESE: No Narrative Course 47 YO M with complaint of 5/10 upper abdominal pain, N/D today. Patient states, "It's a pancreatitis attack." Vitals reviewed. Patient seen in triage, awaiting bed placement. Elyse Rodas May 11, 2017 19:51
[2017-05-11] MEDS ORDERED: VANCOMYCIN INJ 1,500 MG in SODIUM CHLORID 0.9% 500 ML INJ 500 ML IV STA (20:10)
[2017-05-11] MEDS ORDERED: PIPERACIL-TAZO 4.5 GM PREMIX 100 ML IV STA (20:10)
[2017-05-11] MEDS ORDERED: SODIUM CHLOR 0.9% 1000 ML INJ 1,000 ML IV SCH (20:10)
[2017-05-11] MEDS ORDERED: SODIUM CHLORIDE 0.9% FLUSH 10 ML FLUSH IV FLUSH PRN ×2 (20:15→22:45)
[2017-05-11] MEDS ORDERED: ONDANSETRON HCL 4 MG/2 ML VIAL IVP ONE (20:15)
[2017-05-11] MEDS ORDERED: HYDROmorphone HCL PF 1 MG/ML VIAL IVS ONE (20:15)
--- NOTE | 2017-05-11 20:49 | RADRPT ---
EXAM DATE/TIME: 05/11/2017 20:19 [facility] COMPARISON: No previous studies available for comparison. INDICATIONS : Right Foot pain and inflammation MEDICAL HISTORY : Cardiovascular disease. Pancreatitis. Diabetes mellitus type 2. SURGICAL HISTORY : Cholecystectomy. ENCOUNTER: Initial ACUITY: 1 day PAIN SCORE: 4/10 LOCATION: Right foot FINDINGS: Focal demineralization with cortical erosion is identified involving the proximal phalanx of the grea t toe adjacent to the interphalangeal joint. Significant soft tissue swelling is seen in the great to e. Deformity of the fourth and fifth metatarsals is compatible with prior trauma and healed fractures. No other acute bony abnormalities are seen. CONCLUSION: Erosive destructive change of the proximal phalanx of the great toe which may represent osteomyelitis . Old fractures of the fourth and fifth metatarsals. Edwin Wilson MD on May 11, 2017 at 20:45 Board Certified Radiologist. This report was verified electronically.
[2017-05-11 21:08] VITALS: RESP 18
[2017-05-11 21:27] LABS: AUTOMATED NEUTROPHIL # 6.3 TH/MM3 (1.8-7.7); BASOPHIL # 0.1 TH/MM3 (0-0.2); BASOPHIL % 0.7 % (0.0-2.0); EOSINOPHIL % 0.1 % (0.0-4.0); HEMATOCRIT 37.7 % (39.0-51.0); HEMO FLAGS DIFF FINAL; LYMPH % 8.7 % (9.0-44.0); LYMPHOCYTE # 0.6 TH/MM3 (1.0-4.8); MEAN CELL VOLUME 81.2 FL (80.0-100.0); MEAN CORPUSCULAR HGB CONC 33.2 % (32.0-36.0); MONO % 3.2 % (0.0-8.0); NEUT % 87.3 % (16.0-70.0); PLATELET COUNT 363 TH/MM3 (150-450); RED BLOOD COUNT 4.65 MIL/MM3 (4.50-5.90); RED CELL DISTRIBUTION WIDTH 14.9 % (11.6-17.2); WHITE BLOOD COUNT 7.2 TH/MM3 (4.0-11.0)
[2017-05-11 21:48] LABS: ALT (GPT) 17 U/L (12-78); ANION GAP 12 MEQ/L (5-15); AST (GOT) 15 U/L (15-37); BICARBONATE 28.3 MEQ/L (21.0-32.0); BLOOD UREA NITROGEN 10 MG/DL (7-18); CHLORIDE 94 MEQ/L (98-107); GLOMERULAR FILTRATION RATE 98 ML/MIN (>89); POTASSIUM 3.7 MEQ/L (3.5-5.1); SODIUM (NA) 134 MEQ/L (136-145)
[2017-05-11 21:51] LABS: ALKALINE PHOSPHATASE 101 U/L (45-117); TOTAL BILIRUBIN ADULT 0.5 MG/DL (0.2-1.0)
[2017-05-11] MEDS ORDERED: diphenhydrAMINE HCL 50 MG/ML VIAL IV PUSH ONE (22:15)
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
[2017-05-11] MEDS ORDERED: ASPIRIN 81 MG CHEW TAB CHEW ONE (22:45)
[2017-05-11] MEDS ORDERED: GLUCAGON 1 MG/ML VIAL OTHER PRN (22:45)
[2017-05-11] MEDS ORDERED: LACTULOSE SYRUP 20 GM/30 ML CUP PO PRN (22:45)
[2017-05-11] MEDS ORDERED: ACETAMINOPHEN 325 MG TAB PO PRN (22:45)
[2017-05-11] MEDS ORDERED: DEXTROSE 50% IN WATER 50 ML VIAL(D50) IV PRN (22:45)
[2017-05-11] MEDS ORDERED: Vancomycin Consult Pharmacy 1 EA OTHER SCH (22:45)
[2017-05-11] MEDS ORDERED: MAGNESIUM HYDROXIDE SUSP 30 ML CUP PO PRN (22:45)
[2017-05-11] MEDS ORDERED: SENNOSIDES 8.6 MG TAB PO PRN (22:45)
[2017-05-11] MEDS ORDERED: BISACODYL 10 MG SUPP RECTAL PRN (22:45)
[2017-05-11 22:48] VITALS: BP 111/72; PULSE 79; RESP 16; O2SAT 97
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
[2017-05-11] MEDS: MIRTAZAPINE 15 MG TAB PO SCH (23:14)
[2017-05-12] MEDS: ONDANSETRON HCL 4 MG/2 ML VIAL IVP PRN ×3 (00:27→20:31)
[2017-05-12 00:37] VITALS: BP 129/74; PULSE 72; RESP 18; TEMP 98.2; O2SAT 96
[2017-05-12] MEDS: HYDROmorphone HCL PF 1 MG/ML VIAL IV PRN ×3 (02:18→16:44)
[2017-05-12] MEDS ORDERED: PROMETHAZINE HCL 25 MG SUPP RECTAL ONE (05:15)
[2017-05-12] MEDS: INSULIN ASPART SUPPLEMENTAL SCALE SQ SCH ×4 (05:31→21:05)
[2017-05-12 06:03] LABS: AUTOMATED NEUTROPHIL # 5.2 TH/MM3 (1.8-7.7); BASOPHIL % 0.3 % (0.0-2.0); EOSINOPHIL # 0.1 TH/MM3 (0-0.4); EOSINOPHIL % 0.7 % (0.0-4.0); HEMATOCRIT 34.3 % (39.0-51.0); HEMO FLAGS DIFF FINAL; LYMPH % 18.7 % (9.0-44.0); LYMPHOCYTE # 1.4 TH/MM3 (1.0-4.8); MEAN CELL VOLUME 80.1 FL (80.0-100.0); MEAN CORPUSCULAR HEMOGLOBIN 26.7 PG (27.0-34.0); MEAN CORPUSCULAR HGB CONC 33.4 % (32.0-36.0); MONO % 9.2 % (0.0-8.0); NEUT % 71.1 % (16.0-70.0); PLATELET COUNT 328 TH/MM3 (150-450); RED BLOOD COUNT 4.28 MIL/MM3 (4.50-5.90); RED CELL DISTRIBUTION WIDTH 15.5 % (11.6-17.2); WHITE BLOOD COUNT 7.3 TH/MM3 (4.0-11.0)
[2017-05-12 06:29] LABS: ALT (GPT) 14 U/L (12-78); ANION GAP 8 MEQ/L (5-15); AST (GOT) 10 U/L (15-37); BICARBONATE 31.2 MEQ/L (21.0-32.0); BLOOD UREA NITROGEN 11 MG/DL (7-18); CHLORIDE 99 MEQ/L (98-107); GLOMERULAR FILTRATION RATE 100 ML/MIN (>89); POTASSIUM 3.8 MEQ/L (3.5-5.1); SODIUM (NA) 138 MEQ/L (136-145)
[2017-05-12 06:32] LABS: ALKALINE PHOSPHATASE 78 U/L (45-117); TOTAL BILIRUBIN ADULT 0.4 MG/DL (0.2-1.0)
[2017-05-12 08:00] VITALS: BP 136/78; PULSE 71; RESP 19; TEMP 97.4; O2SAT 95
[2017-05-12] MEDS: ENOXAPARIN SODIUM 40 MG/0.4 ML SYRINGE SQ SCH (08:44)
[2017-05-12] MEDS: ASPIRIN 81 MG CHEW TAB CHEW SCH (08:45)
[2017-05-12] MEDS: busPIRone HCL 5 MG TAB PO SCH ×3 (08:45→16:45)
[2017-05-12] MEDS: PANTOPRAZOLE SOD 40 MG DELAYED RELEASE TAB PO SCH (08:46)
[2017-05-12] MEDS: DOCUSATE SODIUM 50 MG/SENNA 8.6 MG TAB PO SCH ×2 (08:46→20:22)
[2017-05-12] MEDS: LIPASE/PROTEASE/AMYLASE (12,000/38,000/60,000) CAP PO SCH ×3 (08:47→16:45)
[2017-05-12] MEDS: ARIPiprazole 15 MG TAB PO SCH (08:48)
[2017-05-12] MEDS: cefTRIAXone INJ 1,000 MG in SODIUM CHLORIDE 0.9% INJ 100 ML IV SCH (08:49)
[2017-05-12] MEDS: SODIUM CHLORIDE 0.9% FLUSH 10 ML FLUSH IV FLUSH SCH ×2 (08:51→20:31)
[2017-05-12] MEDS: VANCOMYCIN INJ 1,500 MG in SODIUM CHLORID 0.9% 500 ML INJ 500 ML IV SCH ×2 (09:42→21:05)
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
[2017-05-12 12:00] VITALS: BP 157/82; PULSE 70; RESP 17; TEMP 97.3; O2SAT 96
[2017-05-12 12:43] LABS: HEMOGLOBIN A1b 2.3 %; HEMOGLOBIN Ao 79.5 %; HEMOGLOBIN LA1C 2.8 %; HEMOGLOBIN P3 4.9 %
[2017-05-12 16:00] VITALS: BP 132/80; PULSE 64; RESP 17; TEMP 96.9; O2SAT 96
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
--- NOTE | 2017-05-12 19:16 | RADRPT ---
EXAM DATE/TIME: 05/12/2017 18:52 [facility] COMPARISON: No previous studies available for comparison. INDICATIONS : Evaluate for pneumonia, pneumothorax or communicable disease. Pre op foot surgery. MEDICAL HISTORY : Myocardial infarction. Pancreatitis. Diabetes mellitus type II. SURGICAL HISTORY : Coronary artery stent. ENCOUNTER: Initial ACUITY: 1 day PAIN SCORE: 0/10 LOCATION: Bilateral chest FINDINGS: PA and lateral views of the chest demonstrate the lungs to be symmetrically aerated without evidence of mass, infiltrate or effusion. The cardiomediastinal contours are unremarkable. Osseous structure s are intact. Left-sided [id number] and intrathecal catheter are noted in place. CONCLUSION: No acute disease. Edwin Wilson MD on May 12, 2017 at 19:14 Board Certified Radiologist. This report was verified electronically.
[2017-05-12] MEDS: MIRTAZAPINE 15 MG TAB PO SCH (20:31)
[2017-05-12] MEDS: ATORVASTATIN 40 MG TAB PO SCH (20:32)
[2017-05-12 20:45] VITALS: BP 125/73; PULSE 72; RESP 18; TEMP 97.6; O2SAT 96
[2017-05-12] MEDS: diphenhydrAMINE HCL 50 MG/ML VIAL IV PUSH PRN (21:52)
[2017-05-13 00:24] VITALS: BP 143/82; PULSE 66; RESP 18; TEMP 98.1; O2SAT 94
[2017-05-13 00:46] LABS: PROTHROMBIN TIME - PATIENT 11.4 SEC (9.8-11.6)
[2017-05-13] MEDS: HYDROmorphone HCL PF 1 MG/ML VIAL IV PRN ×3 (01:24→09:13)
[2017-05-13] MEDS ORDERED: SODIUM CHLORID 0.9% 500 ML IV PRN (01:45)
[2017-05-13] MEDS ORDERED: METOPROLOL TARTRATE 25 MG TAB PO PRN (01:45)
[2017-05-13] MEDS ORDERED: CHLORHEXIDINE GLUCONATE 2 % 1 PACK (2 CLOTHS) TOPICAL PRN (01:45)
[2017-05-13] MEDS ORDERED: LACTATED RINGER'S 1000 ML IV PRN (01:45)
[2017-05-13] MEDS ORDERED: POVIDONE IODINE 5% (ANTISEPSIS KIT) 4 APPLICATIONS EACH NARE PRN (01:45)
[2017-05-13] MEDS ORDERED: INSULIN HUMAN REGULAR 1,000 UNITS/10 ML VIAL SQ PRN (01:45)
[2017-05-13] MEDS: ONDANSETRON HCL 4 MG/2 ML VIAL IVP PRN ×2 (04:06→14:52)
[2017-05-13 06:16] LABS: AUTOMATED NEUTROPHIL # 4.9 TH/MM3 (1.8-7.7); BASOPHIL % 0.8 % (0.0-2.0); EOSINOPHIL % 0.6 % (0.0-4.0); HEMATOCRIT 35.9 % (39.0-51.0); HEMO FLAGS DIFF FINAL; LYMPH % 16.4 % (9.0-44.0); LYMPHOCYTE # 1.1 TH/MM3 (1.0-4.8); MEAN CELL VOLUME 81.1 FL (80.0-100.0); MEAN CORPUSCULAR HEMOGLOBIN 26.7 PG (27.0-34.0); MEAN CORPUSCULAR HGB CONC 32.9 % (32.0-36.0); MONO % 7.4 % (0.0-8.0); NEUT % 74.8 % (16.0-70.0); PLATELET COUNT 293 TH/MM3 (150-450); RED BLOOD COUNT 4.43 MIL/MM3 (4.50-5.90); RED CELL DISTRIBUTION WIDTH 15.8 % (11.6-17.2); WHITE BLOOD COUNT 6.5 TH/MM3 (4.0-11.0)
[2017-05-13] MEDS: INSULIN ASPART SUPPLEMENTAL SCALE SQ SCH ×4 (06:22→21:15)
[2017-05-13] MEDS: DOCUSATE SODIUM 50 MG/SENNA 8.6 MG TAB PO SCH ×2 (07:37→21:00)
[2017-05-13] MEDS: ENOXAPARIN SODIUM 40 MG/0.4 ML SYRINGE SQ SCH (07:37)
[2017-05-13] MEDS: LIPASE/PROTEASE/AMYLASE (12,000/38,000/60,000) CAP PO SCH ×3 (07:37→17:05)
[2017-05-13] MEDS: ARIPiprazole 15 MG TAB PO SCH (07:39)
[2017-05-13] MEDS: busPIRone HCL 5 MG TAB PO SCH ×3 (07:39→17:05)
[2017-05-13] MEDS: ASPIRIN 81 MG CHEW TAB CHEW SCH (07:39)
[2017-05-13] MEDS: PANTOPRAZOLE SOD 40 MG DELAYED RELEASE TAB PO SCH (07:40)
[2017-05-13] MEDS: cefTRIAXone INJ 1,000 MG in SODIUM CHLORIDE 0.9% INJ 100 ML IV SCH (07:41)
[2017-05-13] MEDS: SODIUM CHLORIDE 0.9% FLUSH 10 ML FLUSH IV FLUSH SCH ×2 (07:55→21:02)
[2017-05-13 08:00] VITALS: BP 130/86; PULSE 82; RESP 17; TEMP 97.8; O2SAT 93
[2017-05-13] MEDS ORDERED: LIDOCAINE HCL 1% 50 ML VIAL ONE (08:53)
[2017-05-13] MEDS ORDERED: BUPIVACAINE HCL PF 0.5% 30 ML VIAL ONE (08:53)
[2017-05-13] MEDS ORDERED: ACETAMINOPHEN 1000 MG/100 ML 100 ML IV ONE (09:44)
[2017-05-13] MEDS ORDERED: PHARMACY ORDERED LAB ONE (09:45)
[2017-05-13] MEDS: VANCOMYCIN INJ 1,500 MG in SODIUM CHLORID 0.9% 500 ML INJ 500 ML IV SCH ×2 (09:57→21:01)
[2017-05-13] MEDS ORDERED: SODIUM CHLORIDE 0.9% FLUSH 10 ML FLUSH IV FLUSH PRN (11:00)
[2017-05-13] MEDS ORDERED: MORPHINE SULFATE 4 MG/ML INJ IV PRN (11:00)
[2017-05-13] MEDS ORDERED: Post-op Orders (for Pharmacy) MISC XX ONE (11:00)
[2017-05-13] MEDS ORDERED: NALOXONE HCL 0.4 MG/ML AMP IV PRN (11:00)
[2017-05-13] MEDS ORDERED: IBUPROFEN 400 MG TAB PO PRN (11:00)
[2017-05-13] MEDS ORDERED: oxyCODONE/ACETAMINOPHEN 5 MG/325 MG TAB PO PRN (11:00)
[2017-05-13] MEDS ORDERED: *diphenhydrAMINE HCL 50 MG/ML VIAL PERIprocedural Use ONLY ONE (11:08)
[2017-05-13] MEDS ORDERED: *morphine SULFATE 8 MG/ML PERIprocedure ONLY ONE (11:08)
--- NOTE | 2017-05-13 11:08 | PD.OP ---
Operative Report Date of Surgery: May 13, 2017 Preoperative Diagnosis: (1) Osteomyelitis (2) Diabetic foot ulcers Right hallux Postoperative Diagnosis: (1) Osteomyelitis (2) Diabetic foot ulcers Right hallux Procedure: Amputation of the right hallux Anesthesia: General inhalation Surgeon: Magdiel Kenny DPM Transition Manager(s): SAMUEL Alexandre Operation and Findings: Patient is brought to the OR and placed on the operating table in the supine position. A pneumatic ankle around the right ankle after adequate web roll padding. Patient was given general inhalation anesthesia and the right foot was prepped and draped in the usual sterile manner. After the appropriate timeout was performed the right lower extremity was elevated above the operating table for a period of 3 minutes at which time the pneumatic ankle cuff was inflated to 250 mmHg. Right foot was lowered to the operating table and attention was directed to the right hallux. Should be noted that there is a plantar ulceration at the level of the interphalangeal joint and probed to bone preoperative changes on radiographs of osteomyelitis. At this time a plantar semi-elliptical incision was made proximal to the ulceration. A dorsal elliptical incision was made at the level of the interval the distal phalanx of the right hallux was necrotic and bone was resected and sent for culture and sensitivity. Using an saw the proximal phalanx was transected and the hallux and the remaining distal phalanx and distal proximal phalanx was resected and sensitivity pathology areas flushed with copious amounts of sterile saline. Subcutaneous tissue is closed using 3-0 Vicryl and skin edges were reapproximated and closed using 4-0 Prolene in simple and mattress type sutures. Surgical skin stacy were also utilized for closure. Area was anesthetized with 10 cc of 0.5% Marcaine. The incision was dressed with Adaptic 4 x 4's Eitan. Pneumatic ankle cuff was deflated at 48 minute xena. Bone was sent for culture and sensitivity. The right hallux and remaining proximal phalanx was sent for pathology. Estimated blood loss was less than 10 cc. Sponge and instrument count were noted to be correct. Patient tolerated procedures and anesthesia well and left the OR to PACU with all vital signs stable and vascular status of the remaining toes of the right foot intact Magdiel Kenny DPM May 13, 2017 11:08
[2017-05-13] MEDS ORDERED: *HYDROmorphone PF 1 MG VIAL PERIprocedural Use ONLY ONE (11:14)
--- NOTE | 2017-05-13 11:14 | EKG ---
Date Performed: 05/12/2017 Time Performed: 20:01:14 PTAGE: 47 years EKG: Sinus rhythm NORMAL ECG NO PREVIOUS TRACING DOCTOR: Nano Rene Interpretating Date/Time 05/13/2017 11:12:26
[2017-05-13 12:00] VITALS: BP 146/83; PULSE 77; RESP 15; TEMP 97.4; O2SAT 94
[2017-05-13] MEDS ORDERED: ONDANSETRON HCL 4 MG/2 ML VIAL IV PUSH ONE (12:00)
[2017-05-13] MEDS ORDERED: PROPOFOL 200 MG/20 ML AMP IV ONE (12:00)
[2017-05-13] MEDS ORDERED: PHENYLEPH/NS 1000 MCG/10 ML SYR IV ONE (12:00)
--- NOTE | 2017-05-13 12:02 | RADRPT ---
EXAM DATE/TIME: 05/13/2017 11:08 [place] COMPARISON: FOOT RIGHT LIMITED (2VWS), May 11, 2017, 20:19. INDICATIONS : Post op right hallux amputation. MEDICAL HISTORY : Cardiovascular disease. Pancreatitis. Diabetes mellitus type II. SURGICAL HISTORY : Cholecystectomy. ENCOUNTER: Initial ACUITY: 1 day PAIN SCORE: 1/10 LOCATION: Right foot FINDINGS: Postsurgical features of right first hallux amputation at the metatarsal phalangeal joint. Postsurgic al soft tissue prominence, emphysema and surgical stacy are noted. First metatarsal head appears in tact without significant erosive change or acute fracture. Remainder of exam is unchanged. CONCLUSION: Expected postsurgical features of right hallux amputation, as above. Howie Ring MD on May 13, 2017 at 11:57 Board Certified Radiologist. This report was verified electronically.
[2017-05-13] MEDS: oxyCODONE/ACETAMINOPHEN 10 MG/325 MG TAB PO PRN ×2 (14:52→21:01)
[2017-05-13 16:00] VITALS: BP 124/85; PULSE 75; RESP 18; TEMP 98.4; O2SAT 94
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
[2017-05-13] MEDS: MORPHINE SULFATE 4 MG/ML INJ IV PRN (17:06)
[2017-05-13 20:39] VITALS: BP 123/64; PULSE 77; RESP 18; TEMP 98.3; O2SAT 96
[2017-05-13] MEDS: ATORVASTATIN 40 MG TAB PO SCH (21:00)
[2017-05-13] MEDS: MIRTAZAPINE 15 MG TAB PO SCH (21:00)
[2017-05-13] MEDS: diphenhydrAMINE HCL 50 MG/ML VIAL IV PUSH PRN (21:01)
[2017-05-13] MEDS: INSULIN DETEMIR 100 UNITS/ML VIAL SQ SCH (21:14)
[2017-05-14] MEDS: MORPHINE SULFATE 4 MG/ML INJ IV PRN ×5 (00:18→21:14)
[2017-05-14 00:51] VITALS: BP 143/76; PULSE 65; RESP 18; TEMP 97.9; O2SAT 96
[2017-05-14 04:16] VITALS: BP 141/67; PULSE 65; RESP 18; TEMP 97.7; O2SAT 96
[2017-05-14] MEDS: oxyCODONE/ACETAMINOPHEN 10 MG/325 MG TAB PO PRN ×3 (05:45→19:38)
[2017-05-14] MEDS: INSULIN ASPART SUPPLEMENTAL SCALE SQ SCH ×4 (07:07→21:24)
[2017-05-14 08:00] VITALS: BP 140/73; PULSE 70; RESP 16; TEMP 97.3; O2SAT 95
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
[2017-05-14] MEDS: ENOXAPARIN SODIUM 40 MG/0.4 ML SYRINGE SQ SCH (09:00)
[2017-05-14] MEDS: DOCUSATE SODIUM 50 MG/SENNA 8.6 MG TAB PO SCH ×2 (09:00→21:00)
[2017-05-14] MEDS: ARIPiprazole 15 MG TAB PO SCH (09:00)
[2017-05-14] MEDS: ASPIRIN 81 MG CHEW TAB CHEW SCH (09:26)
[2017-05-14] MEDS: LIPASE/PROTEASE/AMYLASE (12,000/38,000/60,000) CAP PO SCH ×3 (09:27→17:32)
[2017-05-14] MEDS: PANTOPRAZOLE SOD 40 MG DELAYED RELEASE TAB PO SCH (09:27)
[2017-05-14] MEDS: busPIRone HCL 5 MG TAB PO SCH ×3 (09:28→17:32)
[2017-05-14] MEDS: cefTRIAXone INJ 1,000 MG in SODIUM CHLORIDE 0.9% INJ 100 ML IV SCH (09:28)
[2017-05-14] MEDS: SODIUM CHLORIDE 0.9% FLUSH 10 ML FLUSH IV FLUSH SCH ×2 (09:29→21:11)
[2017-05-14] MEDS: VANCOMYCIN INJ 1,500 MG in SODIUM CHLORID 0.9% 500 ML INJ 500 ML IV SCH ×2 (10:35→21:27)
[2017-05-14] MEDS: diphenhydrAMINE HCL 50 MG/ML VIAL IV PUSH PRN ×2 (10:36→21:16)
--- NOTE | 2017-05-14 10:37 | PD.WCN.NOT ---
Wound Consult Description: Consult placed for Wound Management of Foot per Dr Barney on 05/11/17 Recommendation: Follow Dr Kenny's orders for dressings post operatively. Additional Information: Patient not seen for foot wound. Patient being followed by Dr Kenny, please refer to his nursing orders for dressing changes. Ostomy Date of Surgery: May 13, 2017 [facility] May 14, 2017 10:37
[2017-05-14 12:00] VITALS: BP 149/81; PULSE 68; RESP 16; TEMP 97.1; O2SAT 95
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
[2017-05-14 16:00] VITALS: BP 119/66; PULSE 68; RESP 16; TEMP 97.6; O2SAT 94
[2017-05-14 20:00] VITALS: BP 117/77; PULSE 75; RESP 20; TEMP 98.1; O2SAT 96
[2017-05-14] MEDS: ATORVASTATIN 40 MG TAB PO SCH (21:10)
[2017-05-14] MEDS: MIRTAZAPINE 15 MG TAB PO SCH (21:10)
[2017-05-14] MEDS: INSULIN DETEMIR 100 UNITS/ML VIAL SQ SCH (21:24)
[2017-05-14] MEDS: ONDANSETRON HCL 4 MG/2 ML VIAL IVP PRN (22:59)
[2017-05-15] VITALS: BP 130/79; PULSE 69; RESP 18; TEMP 98.8; O2SAT 96
[2017-05-15] MEDS: MORPHINE SULFATE 4 MG/ML INJ IV PRN ×6 (03:00→21:10)
[2017-05-15] MEDS: oxyCODONE/ACETAMINOPHEN 10 MG/325 MG TAB PO PRN ×3 (03:56→18:15)
[2017-05-15] MEDS: INSULIN ASPART SUPPLEMENTAL SCALE SQ SCH ×5 (06:04→22:03)
[2017-05-15 08:00] VITALS: BP 172/85; PULSE 70; RESP 16; TEMP 98; O2SAT 98
[2017-05-15] MEDS: ENOXAPARIN SODIUM 40 MG/0.4 ML SYRINGE SQ SCH (08:19)
[2017-05-15] MEDS: DOCUSATE SODIUM 50 MG/SENNA 8.6 MG TAB PO SCH ×2 (08:19→21:00)
[2017-05-15] MEDS: busPIRone HCL 5 MG TAB PO SCH ×3 (08:28→16:42)
[2017-05-15] MEDS: LIPASE/PROTEASE/AMYLASE (12,000/38,000/60,000) CAP PO SCH ×3 (08:28→16:42)
[2017-05-15] MEDS: cefTRIAXone INJ 1,000 MG in SODIUM CHLORIDE 0.9% INJ 100 ML IV SCH (08:28)
[2017-05-15] MEDS: ARIPiprazole 15 MG TAB PO SCH (08:29)
[2017-05-15] MEDS: ASPIRIN 81 MG CHEW TAB CHEW SCH (08:29)
[2017-05-15] MEDS: PANTOPRAZOLE SOD 40 MG DELAYED RELEASE TAB PO SCH (08:29)
[2017-05-15] MEDS: SODIUM CHLORIDE 0.9% FLUSH 10 ML FLUSH IV FLUSH SCH ×2 (08:29→21:20)
[2017-05-15] MEDS: diphenhydrAMINE HCL 50 MG/ML VIAL IV PUSH PRN ×2 (09:49→21:10)
[2017-05-15] MEDS: VANCOMYCIN INJ 1,500 MG in SODIUM CHLORID 0.9% 500 ML INJ 500 ML IV SCH ×2 (09:50→21:09)
[2017-05-15 12:00] VITALS: BP 130/81; PULSE 66; RESP 16; TEMP 97.5; O2SAT 96
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
[2017-05-15 16:00] VITALS: BP 130/77; PULSE 77; RESP 16; TEMP 98.2; O2SAT 97
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
[2017-05-15] MEDS: ATORVASTATIN 40 MG TAB PO SCH (21:09)
[2017-05-15] MEDS: MIRTAZAPINE 15 MG TAB PO SCH (21:09)
[2017-05-15] MEDS: INSULIN DETEMIR 100 UNITS/ML VIAL SQ SCH (22:02)
[2017-05-15] MEDS ORDERED: HYDROmorphone HCL PF 0.5 MG/0.5 ML SYRINGE IV PUSH ONE (22:45)
[2017-05-15] MEDS ORDERED: HYDROmorphone HCL PF 2 MG/ML VIAL IV PUSH ONE (22:45)
[2017-05-15] MEDS ORDERED: HYDROmorphone HCL PF 2 MG/ML VIAL IV ONE (22:45)
[2017-05-16] VITALS: BP 139/86; PULSE 72; RESP 18; TEMP 98.7; O2SAT 95
[2017-05-16] MEDS: oxyCODONE/ACETAMINOPHEN 10 MG/325 MG TAB PO PRN ×2 (01:21→08:29)
[2017-05-16] MEDS: MORPHINE SULFATE 4 MG/ML INJ IV PRN ×4 (02:33→13:26)
[2017-05-16] MEDS: INSULIN ASPART SUPPLEMENTAL SCALE SQ SCH ×3 (05:49→17:34)
[2017-05-16 06:07] LABS: AUTOMATED NEUTROPHIL # 4.4 TH/MM3 (1.8-7.7); BASOPHIL % 0.5 % (0.0-2.0); EOSINOPHIL # 0.1 TH/MM3 (0-0.4); EOSINOPHIL % 1.1 % (0.0-4.0); HEMATOCRIT 32.9 % (39.0-51.0); HEMO FLAGS DIFF FINAL; LYMPH % 24.6 % (9.0-44.0); LYMPHOCYTE # 1.6 TH/MM3 (1.0-4.8); MEAN CORPUSCULAR HEMOGLOBIN 26.8 PG (27.0-34.0); MEAN CORPUSCULAR HGB CONC 33.5 % (32.0-36.0); MONO % 8.2 % (0.0-8.0); NEUT % 65.6 % (16.0-70.0); PLATELET COUNT 229 TH/MM3 (150-450); RED BLOOD COUNT 4.11 MIL/MM3 (4.50-5.90); RED CELL DISTRIBUTION WIDTH 15.1 % (11.6-17.2); WHITE BLOOD COUNT 6.6 TH/MM3 (4.0-11.0)
[2017-05-16 06:53] LABS: BICARBONATE 34.7 MEQ/L (21.0-32.0); POTASSIUM 3.7 MEQ/L (3.5-5.1)
[2017-05-16 08:00] VITALS: BP 122/76; PULSE 76; RESP 18; TEMP 97.5; O2SAT 96
[2017-05-16] MEDS: ENOXAPARIN SODIUM 40 MG/0.4 ML SYRINGE SQ SCH (08:26)
[2017-05-16] MEDS: DOCUSATE SODIUM 50 MG/SENNA 8.6 MG TAB PO SCH (08:27)
[2017-05-16] MEDS: cefTRIAXone INJ 1,000 MG in SODIUM CHLORIDE 0.9% INJ 100 ML IV SCH (08:28)
[2017-05-16] MEDS: ASPIRIN 81 MG CHEW TAB CHEW SCH (08:29)
[2017-05-16] MEDS: LIPASE/PROTEASE/AMYLASE (12,000/38,000/60,000) CAP PO SCH ×3 (08:29→17:34)
[2017-05-16] MEDS: PANTOPRAZOLE SOD 40 MG DELAYED RELEASE TAB PO SCH (08:29)
[2017-05-16] MEDS: ARIPiprazole 15 MG TAB PO SCH (08:29)
[2017-05-16] MEDS: busPIRone HCL 5 MG TAB PO SCH ×3 (08:29→17:34)
[2017-05-16] MEDS: SODIUM CHLORIDE 0.9% FLUSH 10 ML FLUSH IV FLUSH SCH (08:30)
[2017-05-16] MEDS ORDERED: PHARMACY ORDERED LAB ONE (09:45)
[2017-05-16] MEDS: VANCOMYCIN INJ 1,500 MG in SODIUM CHLORID 0.9% 500 ML INJ 500 ML IV SCH (11:12)
[2017-05-16] MEDS: diphenhydrAMINE HCL 50 MG/ML VIAL IV PUSH PRN (11:12)
[2017-05-16 12:00] VITALS: BP 160/86; PULSE 71; RESP 16; TEMP 96.7; O2SAT 98
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
[2017-05-16 16:00] VITALS: BP 155/82; PULSE 61; RESP 16; TEMP 97.3; O2SAT 97
[2017-05-16] MEDS ORDERED: CEPH500C PO (17:49)
[2017-05-16] MEDS ORDERED: LACTCHW3 CHEW (17:49)
[2017-05-16] MEDS ORDERED: LEVEMIR SQ (17:56)
[2017-05-16] MEDS ORDERED: OXYC1CAP PO (17:56)
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
== END 2017-05-16 18:41 | disposition home or self-care (01) | DRG 617 ==
LOC: NEPD 19:43 → NEDA 22:30 → N07B 05-12 00:07
PROVIDERS: ADMIT Hospitalist; ATTEND Hospitalist
PROC: 0Y6P0Z0 Detachment at Right 1st Toe, Complete, Open Approach (ICD-10-PCS; principal; 2017-05-13 09:47)
DX: E10.621 Type 1 diabetes mellitus with foot ulcer (principal); M86.60 Other chronic osteomyelitis, unspecified site; K86.1 Other chronic pancreatitis; I10 Essential (primary) hypertension; L97.514 Non-pressure chronic ulcer of other part of right foot with necrosis of bone; L03.031 Cellulitis of right toe; Z79.4 Long term (current) use of insulin; Z96.41 Presence of insulin pump (external) (internal); F43.10 Post-traumatic stress disorder, unspecified; I25.2 Old myocardial infarction; K21.9 Gastro-esophageal reflux disease without esophagitis; Z87.442 Personal history of urinary calculi; Z87.891 Personal history of nicotine dependence; Z95.5 Presence of coronary angioplasty implant and graft
CPT/HCPCS: 71020; 73620; 73630; 80048; 80053; 80202; 82565; 82948; 83036; 83690; 85025; 85610; 87015; 87040; 87070; 87077; 87186; 87205; 88305; 88307; 88311; 93005; 96365; 96375; J0131; J0696; J1170; J1200; J1642; J1815; J2270; J2370; J2405; J2543; J3010; J3370; J7030; J7040; L3260

== ENCOUNTER 2017-08-13 16:44 | Inpatient (IN) | payer MEDICARE, OTHER ==
[~2017-08-13] VITALS: Ht 185.4 cm; Wt 71.7 kg
[~2017-08-13 16:44] MED LIST changes: -ABIL15TA2 PO; +ABIL15TA3 PO; +ASPI-516 CHEW; -ASPI81CH CHEW; -ATOR1TAB18 PO; +ATOR80TA45 PO; +LACTCHW3 CHEW; +LEVEMIR SQ
[2017-08-13 16:45] VITALS: BP 115/64; PULSE 118; RESP 16; TEMP 99.5; O2SAT 95
[2017-08-13] MEDS ORDERED: IOHEXOL 350 MG/ML 10 ML VIAL (for RAD DIAG) IVCONTRAST ONE (16:45)
[2017-08-13] MEDS ORDERED: SODIUM CHLOR 0.9% 1000 ML INJ 1,000 ML IV SCH ×2 (17:26→22:54)
[2017-08-13] MEDS ORDERED: SODIUM CHLORIDE 0.9% FLUSH 10 ML FLUSH IV FLUSH PRN (17:30)
[2017-08-13] MEDS ORDERED: ONDANSETRON HCL 4 MG/2 ML VIAL IVP ONE (17:30)
[2017-08-13] MEDS ORDERED: MORPHINE SULFATE 4 MG/ML INJ IV PUSH ONE ×2 (17:30→18:30)
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
[2017-08-13 18:14] LABS: AUTOMATED NEUTROPHIL # 7.1 TH/MM3 (1.8-7.7); BASOPHIL % 0.3 % (0.0-2.0); EOSINOPHIL % 0.5 % (0.0-4.0); HEMATOCRIT 41.2 % (39.0-51.0); HEMO FLAGS DIFF FINAL; LYMPH % 16.1 % (9.0-44.0); LYMPHOCYTE # 1.5 TH/MM3 (1.0-4.8); MEAN CELL VOLUME 81.5 FL (80.0-100.0); MEAN CORPUSCULAR HEMOGLOBIN 27.9 PG (27.0-34.0); MEAN CORPUSCULAR HGB CONC 34.3 % (32.0-36.0); MONO % 6.5 % (0.0-8.0); NEUT % 76.6 % (16.0-70.0); PLATELET COUNT 190 TH/MM3 (150-450); RED BLOOD COUNT 5.05 MIL/MM3 (4.50-5.90); RED CELL DISTRIBUTION WIDTH 16.7 % (11.6-17.2); WHITE BLOOD COUNT 9.3 TH/MM3 (4.0-11.0)
[2017-08-13 18:25] LABS: APTT (PATIENT) 36.4 SEC (24.3-30.1); PROTHROMBIN TIME - PATIENT 10.6 SEC (9.8-11.6)
[2017-08-13 18:27] LABS: ANION GAP 8 MEQ/L (5-15); AST (GOT) 19 U/L (15-37); BICARBONATE 30.3 MEQ/L (21.0-32.0); BLOOD UREA NITROGEN 17 MG/DL (7-18); CHLORIDE 96 MEQ/L (98-107); GLOMERULAR FILTRATION RATE 107 ML/MIN (>89); POTASSIUM 3.6 MEQ/L (3.5-5.1); SODIUM (NA) 134 MEQ/L (136-145)
[2017-08-13 18:28] LABS: ALT (GPT) 36 U/L (12-78)
[2017-08-13 18:31] LABS: ALKALINE PHOSPHATASE 116 U/L (45-117); TOTAL BILIRUBIN ADULT 0.5 MG/DL (0.2-1.0)
[2017-08-13] MEDS ORDERED: DIATRIZOATE MEGLUM/DIATRIZOATE SOD 9 ML CUP ONE (18:33)
[2017-08-13 18:54] VITALS: PULSE 88; O2SAT 96
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
[2017-08-13 20:35] LABS: BLOOD, URINE NEG (NEG); CALCIUM OXALATE CRYSTALS,URINE RARE /hpf; COMMENT (UR) CULT NOT INDICATED; CULTURE IF INDICATED CULT NOT INDICATED; GLUCOSE,URINE 300 mg/dL (NEG); KETONE, URINE NEG (NEG); MUCUS URINE FEW /lpf (OCC); NITRITE,URINE NEG (NEG); URINE COLOR YELLOW (YELLW/STRAW)
--- NOTE | 2017-08-13 21:12 | RADRPT ---
EXAM DATE/TIME: 08/13/2017 20:30 [facility] COMPARISON: No previous studies available for comparison. INDICATIONS : Epigastric pain, nausea, vomiting, dark urine. IV CONTRAST: 71 cc Omnipaque 350 (iohexol) IV ORAL CONTRAST: Prescribed oral contrast ingested. RADIATION DOSE: 12.68 CTDIvol (mGy) MEDICAL HISTORY : Pancreatitis. Renal calculi. Diabetes mellitus type 2. SURGICAL HISTORY : Cholecystectomy. ENCOUNTER: Initial ACUITY: 1 day PAIN SCALE: 6/10 LOCATION: Bilateral upper quadrant TECHNIQUE: Volumetric scanning of the abdomen and pelvis was performed. Using automated exposure control and ad justment of the mA and/or kV according to patient size, radiation dose was kept as low as reasonably achievable to obtain optimal diagnostic quality images. DICOM format image data is available electro nically for review and comparison. FINDINGS: Lung bases are clear. No acute findings in the liver, spleen, adrenals. Previous cholecystectomy. [place] creatic calcifications characteristic chronic pancreatitis. Nonobstructing calculi lower pole left ki dney ranging in size from 2-7 mm. No right renal calculi. No pelvic masses or free fluid. Spinal tube in otherwise present. CONCLUSION: 1. Multiple nonobstructing calculi lower pole left kidney. No hydronephrosis. 2. Chronic pancreatitis. 3. Previous cholecystectomy with mild biliary ductal dilatation. Kvng Brewster MD on August 13, 2017 at 21:07 Board Certified Radiologist. This report was verified electronically.
[2017-08-13] MEDS ORDERED: HYDROmorphone HCL PF 2 MG/ML VIAL IV PUSH ONE (21:15)
[2017-08-13] MEDS ORDERED: ONDANSETRON HCL 4 MG/2 ML VIAL IV PUSH ONE (21:15)
[2017-08-13 21:23] VITALS: BP 183/95; PULSE 89; RESP 20; O2SAT 97
[2017-08-13 22:07] VITALS: BP 144/83; PULSE 78; RESP 16; O2SAT 97
[2017-08-13 22:52] VITALS: BP 130/72; PULSE 77; RESP 16; O2SAT 96
[2017-08-13] MEDS ORDERED: GLUCAGON 1 MG/ML VIAL OTHER PRN (23:00)
[2017-08-13] MEDS ORDERED: DEXTROSE 50% IN WATER 50 ML VIAL(D50) IV PUSH PRN (23:00)
[2017-08-13] MEDS: SODIUM CHLORIDE 0.9% FLUSH 10 ML FLUSH IV FLUSH PRN (23:53)
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
[2017-08-14] MEDS: SODIUM CHLORIDE 0.9% FLUSH 10 ML FLUSH IV FLUSH PRN ×2 (00:23→03:27)
[2017-08-14] MEDS: HYDROmorphone HCL PF 2 MG/ML VIAL IV PUSH PRN ×5 (00:23→21:20)
[2017-08-14 00:28] VITALS: BP 146/86; PULSE 85; RESP 18; O2SAT 99
[2017-08-14] MEDS ORDERED: diphenhydrAMINE HCL 25 MG CAP PO ONE (01:30)
[2017-08-14] MEDS ORDERED: ASPIRIN 81 MG CHEW TAB CHEW SCH (01:30)
[2017-08-14] MEDS: ONDANSETRON HCL 4 MG/2 ML VIAL IV PUSH PRN ×3 (03:27→18:12)
[2017-08-14 04:10] VITALS: BP 156/67; PULSE 70; RESP 18; TEMP 98.2
[2017-08-14 07:18] LABS: AUTOMATED NEUTROPHIL # 3.9 TH/MM3 (1.8-7.7); BASOPHIL % 0.4 % (0.0-2.0); EOSINOPHIL # 0.1 TH/MM3 (0-0.4); EOSINOPHIL % 1.2 % (0.0-4.0); HEMATOCRIT 34.1 % (39.0-51.0); HEMO FLAGS DIFF FINAL; LYMPH % 34.9 % (9.0-44.0); LYMPHOCYTE # 2.4 TH/MM3 (1.0-4.8); MEAN CORPUSCULAR HEMOGLOBIN 27.7 PG (27.0-34.0); MEAN CORPUSCULAR HGB CONC 34.2 % (32.0-36.0); MONO % 5.9 % (0.0-8.0); NEUT % 57.6 % (16.0-70.0); PLATELET COUNT 143 TH/MM3 (150-450); RED BLOOD COUNT 4.21 MIL/MM3 (4.50-5.90); RED CELL DISTRIBUTION WIDTH 16.4 % (11.6-17.2); WHITE BLOOD COUNT 6.8 TH/MM3 (4.0-11.0)
[2017-08-14 07:28] LABS: BICARBONATE 28.7 MEQ/L (21.0-32.0)
[2017-08-14 07:37] LABS: POTASSIUM 2.6 MEQ/L (3.5-5.1)
[2017-08-14] MEDS ORDERED: POTASSIUM CHLORIDE 10 MEQ CONTROLLED RELEASE TAB PO ONE (07:45)
[2017-08-14 07:48] LABS: CALCIUM-PROTEIN CORRECTED 8.1 MG/DL (8.5-10.1)
[2017-08-14] MEDS: INSULIN ASPART SUPPLEMENTAL SCALE SQ SCH ×4 (08:00→21:00)
[2017-08-14] MEDS ORDERED: D5W + KCL 20 MEQ INJ 1,000 ML IV SCH (08:00)
[2017-08-14 08:10] VITALS: BP 124/76; PULSE 78; RESP 18; TEMP 98.1
[2017-08-14] MEDS: SODIUM CHLORIDE 0.9% FLUSH 10 ML FLUSH IV FLUSH SCH ×2 (09:00→21:15)
[2017-08-14] MEDS: busPIRone HCL 5 MG TAB PO SCH ×3 (09:00→18:07)
[2017-08-14] MEDS: NS + KCL 20 MEQ INJ 1,000 ML IV SCH ×2 (10:00→21:26)
[2017-08-14] MEDS ORDERED: PANTOPRAZOLE SOD 40 MG DELAYED RELEASE TAB PO ONE (10:00)
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
[2017-08-14] MEDS: CALCIUM CARBONATE 500 MG CHEWABLE TAB CHEW SCH ×2 (11:11→21:15)
[2017-08-14] MEDS: ARIPiprazole 15 MG TAB PO SCH (11:11)
[2017-08-14] MEDS ORDERED: POLYETHYLENE GLYCOL 17 GM PKG PO ONE (12:00)
[2017-08-14 12:07] VITALS: BP 142/79; PULSE 79; RESP 20; TEMP 98.2; O2SAT 97
[2017-08-14] MEDS ORDERED: MAGNESIUM SULFATE 1 GM PREMIX 100 ML IV ONE (12:30)
[2017-08-14] MEDS: LIPASE/PROTEASE/AMYLASE (12,000/38,000/60,000) CAP PO SCH ×2 (12:53→18:07)
--- NOTE | 2017-08-14 15:47 | EKG ---
Date Performed: 08/13/2017 Time Performed: 19:16:44 PTAGE: 47 years EKG: Sinus rhythm NORMAL ECG PREVIOUS TRACING : 05/12/2017 20.01 DOCTOR: Moises Peguero Interpretating Date/Time 08/14/2017 15:46:04
[2017-08-14 16:25] VITALS: BP 138/74; PULSE 74; RESP 20; TEMP 98.5; O2SAT 97
[2017-08-14] MEDS ORDERED: MIRTAZAPINE 15 MG TAB PO SCH (21:00)
[2017-08-14] MEDS ORDERED: ATORVASTATIN 40 MG TAB PO SCH (21:00)
[2017-08-14] MEDS: DOCUSATE SODIUM 50 MG/SENNA 8.6 MG TAB PO SCH (21:00)
[2017-08-14 21:06] VITALS: BP 154/84; PULSE 81; RESP 18; TEMP 98.6; O2SAT 97
[2017-08-14] MEDS: LACTOBACILLUS ACIDOPHILUS TAB PO SCH (21:16)
[2017-08-15 00:52] VITALS: BP 137/80; PULSE 82; RESP 18; TEMP 98.3; O2SAT 96
[2017-08-15] MEDS: MAGNESIUM OXIDE 400 MG TAB PO SCH ×2 (00:56→09:51)
[2017-08-15] MEDS: HYDROmorphone HCL PF 2 MG/ML VIAL IV PUSH PRN ×2 (00:57→06:42)
[2017-08-15] MEDS: ONDANSETRON HCL 4 MG/2 ML VIAL IV PUSH PRN ×2 (00:57→06:42)
[2017-08-15 05:11] VITALS: BP 124/74; PULSE 76; RESP 18; TEMP 98.4; O2SAT 96
[2017-08-15 07:20] VITALS: BP 138/96; PULSE 73; RESP 20; TEMP 96.7; O2SAT 96
[2017-08-15] MEDS ORDERED: oxyCODONE/ACETAMINOPHEN 10 MG/325 MG TAB PO PRN (07:45)
[2017-08-15] MEDS ORDERED: oxyCODONE/ACETAMINOPHEN 5 MG/325 MG TAB PO PRN (07:45)
[2017-08-15 07:58] LABS: BICARBONATE 31.8 MEQ/L (21.0-32.0); MAGNESIUM 1.9 MG/DL (1.5-2.5); POTASSIUM 3.3 MEQ/L (3.5-5.1)
[2017-08-15] MEDS: INSULIN ASPART SUPPLEMENTAL SCALE SQ SCH ×2 (08:00→12:00)
[2017-08-15] MEDS ORDERED: MULTIVITAMINS/MINERALS THERAPEUTIC TAB PO SCH (09:00)
[2017-08-15] MEDS ORDERED: PANTOPRAZOLE SOD 40 MG DELAYED RELEASE TAB PO SCH (09:00)
[2017-08-15] MEDS: SODIUM CHLORIDE 0.9% FLUSH 10 ML FLUSH IV FLUSH SCH (09:00)
[2017-08-15] MEDS: NS + KCL 20 MEQ INJ 1,000 ML IV SCH (09:50)
[2017-08-15] MEDS: LACTOBACILLUS ACIDOPHILUS TAB PO SCH (09:51)
[2017-08-15] MEDS: DOCUSATE SODIUM 50 MG/SENNA 8.6 MG TAB PO SCH (09:51)
[2017-08-15] MEDS: CALCIUM CARBONATE 500 MG CHEWABLE TAB CHEW SCH (09:51)
[2017-08-15] MEDS: ARIPiprazole 15 MG TAB PO SCH (09:52)
[2017-08-15] MEDS: busPIRone HCL 5 MG TAB PO SCH ×2 (09:52→14:01)
[2017-08-15] MEDS: LIPASE/PROTEASE/AMYLASE (12,000/38,000/60,000) CAP PO SCH ×2 (09:52→14:00)
[2017-08-15 11:08] VITALS: BP 139/86; PULSE 77; RESP 18; TEMP 96.1; O2SAT 98
[2017-08-15 15:17] VITALS: BP 137/77; PULSE 71; RESP 18; TEMP 95.9; O2SAT 99
--- NOTE | 2017-08-15 16:11 | HHI.DCPOC ---
Discharge Care Plan Diagnosis: (1) Abdominal pain (2) Nausea & vomiting (3) Hypocalcemia (4) Hypoglycemia (5) Pancreatitis (6) DM (diabetes mellitus) (7) Intractable abdominal pain (8) Intractable nausea and vomiting Goals to Promote Your Health * To prevent worsening of your condition and complications * To maintain your health at the optimal level Directions to Meet Your Goals Please follow up with design coordinator tomorrow to have insulin pump recalibrated to adjust basal insulin dose due to low blood sugars Take your medications as prescribed Follow your dietary instruction Follow activity as directed Keep your appointments as scheduled Take your immunizations and boosters as scheduled If your symptoms worsen call your PCP, if no PCP go to Urgent Care Center or Emergency Room Smoking is Dangerous to Your Health. Avoid second hand smoke Call the 24-hour hour crisis hotline for domestic abuse at Cata Antoine Aug 15, 2017 16:11
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
== END 2017-08-15 17:23 | disposition home or self-care (01) | DRG 440 ==
LOC: NEPE 16:44 → NEDA 21:29 → NEPHCDU 23:35 → OBSVTOIN 08-14 16:26
PROVIDERS: ADMIT Hospitalist; ATTEND Hospitalist
DX: K86.1 Other chronic pancreatitis (principal); E10.649 Type 1 diabetes mellitus with hypoglycemia without coma; I10 Essential (primary) hypertension; I25.2 Old myocardial infarction; K21.9 Gastro-esophageal reflux disease without esophagitis; I25.10 Atherosclerotic heart disease of native coronary artery without angina pectoris; E78.5 Hyperlipidemia, unspecified; E87.6 Hypokalemia; E83.51 Hypocalcemia; E83.42 Hypomagnesemia; M19.90 Unspecified osteoarthritis, unspecified site; F12.90 Cannabis use, unspecified, uncomplicated; F32.9 Major depressive disorder, single episode, unspecified; F41.9 Anxiety disorder, unspecified; F43.10 Post-traumatic stress disorder, unspecified; Z79.4 Long term (current) use of insulin; Z87.891 Personal history of nicotine dependence; Z90.411 Acquired partial absence of pancreas; Z95.5 Presence of coronary angioplasty implant and graft; Z96.41 Presence of insulin pump (external) (internal)
CPT/HCPCS: 74177; 80048; 80053; 81001; 82948; 83690; 83735; 84132; 84155; 85025; 85610; 85730; 93005; 96361; 96374; 96375; 96376; G0378; G8987-GP; G8988-GP; J1170; J2270; J2405; J3475; J3480; J7030; Q9963; Q9967

== ENCOUNTER 2017-09-03 14:11 | Inpatient (IN) | payer MEDICARE, OTHER ==
[~2017-09-03] VITALS: Ht 185.4 cm; Wt 67.4 kg
[~2017-09-03 14:11] MED LIST changes: -CEPH500C PO; -LEVEMIR SQ; -NEXI10GR; -OXYC1CAP PO; -PROM1SUP7 RECTAL
[2017-09-03 14:14] VITALS: BP 118/65; PULSE 100; RESP 15; TEMP 98.9; O2SAT 99
[2017-09-03] MEDS ORDERED: SODIUM CHLOR 0.9% 1000 ML INJ 1,000 ML IV ONE (15:00)
[2017-09-03] MEDS ORDERED: MORPHINE SULFATE 4 MG/ML INJ IV PUSH ONE (15:00)
[2017-09-03] MEDS ORDERED: VANCOMYCIN INJ 1,050 MG in SODIUM CHLOR 0.9% 250 ML INJ 250 ML IV ONE (15:00)
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
[2017-09-03] MEDS ORDERED: MORPHINE SULFATE 2 MG/ML INJ IV PUSH ONE (15:30)
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
[2017-09-03 16:25] LABS: AUTOMATED NEUTROPHIL # 5.3 TH/MM3 (1.8-7.7); BASOPHIL % 0.4 % (0.0-2.0); EOSINOPHIL # 0.1 TH/MM3 (0-0.4); EOSINOPHIL % 0.9 % (0.0-4.0); HEMATOCRIT 36.8 % (39.0-51.0); HEMOGLOBIN 12.6 GM/DL (13.0-17.0); LYMPHOCYTE # 1.8 TH/MM3 (1.0-4.8); MEAN CELL VOLUME 82.2 FL (80.0-100.0); MEAN CORPUSCULAR HEMOGLOBIN 28.1 PG (27.0-34.0); MEAN CORPUSCULAR HGB CONC 34.2 % (32.0-36.0); MEAN PLATELET VOLUME 7.5 FL (7.0-11.0); MONO % 6.7 % (0.0-8.0); MONOCYTE # 0.5 TH/MM3 (0-0.9); PLATELET COUNT 249 TH/MM3 (150-450); RED BLOOD COUNT 4.47 MIL/MM3 (4.50-5.90); RED CELL DISTRIBUTION WIDTH 15.8 % (11.6-17.2); WHITE BLOOD COUNT 7.6 TH/MM3 (4.0-11.0)
[2017-09-03 16:29] LABS: BICARBONATE 30.4 MEQ/L (21.0-32.0); C-REACTIVE PROTEIN 2.3 MG/DL (0.00-0.30); CALCIUM 8.7 MG/DL (8.5-10.1); CREATININE 0.79 MG/DL (0.60-1.30); INTERNATIONAL NORMALIZED RATIO 1.1 RATIO; PROTHROMBIN TIME - PATIENT 10.9 SEC (9.8-11.6)
[2017-09-03] MEDS ORDERED: NALOXONE HCL 0.4 MG/ML AMP IV PUSH PRN (17:45)
[2017-09-03] MEDS ORDERED: Vancomycin Consult Pharmacy 1 EA OTHER SCH (17:45)
[2017-09-03 18:14] VITALS: BP 111/75
[2017-09-03] MEDS: MORPHINE SULFATE 2 MG/ML INJ IV PUSH PRN ×2 (18:16→21:45)
[2017-09-03 19:02] VITALS: BP 107/67; PULSE 80; RESP 18; TEMP 98.1; O2SAT 96
[2017-09-03] MEDS ORDERED: ACETAMINOPHEN/HYDROcodone 325 MG/5 MG TAB PO PRN (20:45)
[2017-09-03] MEDS ORDERED: ASPIRIN 81 MG CHEW TAB CHEW SCH (20:45)
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
[2017-09-03] MEDS ORDERED: VANCOMYCIN 500 MG/NS 100 ML IV ONE ×2 (21:00)
[2017-09-03] MEDS ORDERED: diphenhydrAMINE HCL 50 MG/ML VIAL IV PUSH ONE (21:00)
[2017-09-03] MEDS ORDERED: DEXTROSE 50% IN WATER 50 ML VIAL(D50) IV PUSH PRN (21:00)
[2017-09-03] MEDS ORDERED: GLUCAGON 1 MG/ML VIAL OTHER PRN (21:00)
[2017-09-03] MEDS: INSULIN ASPART SUPPLEMENTAL SCALE SQ SCH (21:45)
[2017-09-03] MEDS: SODIUM CHLORIDE 0.9% FLUSH 10 ML FLUSH IV FLUSH SCH (21:45)
[2017-09-03] MEDS: LACTOBACILLUS ACIDOPHILUS TAB PO SCH (21:46)
[2017-09-03] MEDS: ATORVASTATIN 40 MG TAB PO SCH (21:46)
[2017-09-03] MEDS: MIRTAZAPINE 15 MG TAB PO SCH (21:46)
[2017-09-03] MEDS: PIPERACIL-TAZO 4.5 GM PREMIX 100 ML IV SCH (22:39)
[2017-09-03 23:28] VITALS: BP 141/93; PULSE 79; RESP 18; TEMP 98.2; O2SAT 95
[2017-09-04 03:46] VITALS: BP 133/82; PULSE 67; RESP 18; TEMP 98; O2SAT 97
[2017-09-04 04:25] LABS: AUTOMATED NEUTROPHIL # 3.6 TH/MM3 (1.8-7.7); BASOPHIL % 0.6 % (0.0-2.0); EOSINOPHIL # 0.1 TH/MM3 (0-0.4); EOSINOPHIL % 1.5 % (0.0-4.0); HEMATOCRIT 35.7 % (39.0-51.0); LYMPH % 24.9 % (9.0-44.0); LYMPHOCYTE # 1.4 TH/MM3 (1.0-4.8); MEAN CELL VOLUME 81.5 FL (80.0-100.0); MEAN CORPUSCULAR HEMOGLOBIN 27.4 PG (27.0-34.0); MEAN CORPUSCULAR HGB CONC 33.6 % (32.0-36.0); MEAN PLATELET VOLUME 7.1 FL (7.0-11.0); MONO % 7.7 % (0.0-8.0); MONOCYTE # 0.4 TH/MM3 (0-0.9); NEUT % 65.3 % (16.0-70.0); PLATELET COUNT 227 TH/MM3 (150-450); RED BLOOD COUNT 4.38 MIL/MM3 (4.50-5.90); RED CELL DISTRIBUTION WIDTH 15.8 % (11.6-17.2); WHITE BLOOD COUNT 5.5 TH/MM3 (4.0-11.0)
[2017-09-04] MEDS: PIPERACIL-TAZO 4.5 GM PREMIX 100 ML IV SCH ×4 (04:41→17:49)
[2017-09-04 04:54] LABS: BICARBONATE 26.6 MEQ/L (21.0-32.0); CALCIUM 6.7 MG/DL (8.5-10.1); CREATININE 0.55 MG/DL (0.60-1.30)
[2017-09-04 05:06] LABS: TOTAL PROTEIN 6.3 GM/DL (6.4-8.2)
[2017-09-04 05:07] LABS: CALCIUM-PROTEIN CORRECTED 7.1 MG/DL (8.5-10.1)
[2017-09-04] MEDS: MORPHINE SULFATE 2 MG/ML INJ IV PUSH PRN ×3 (05:21→22:17)
[2017-09-04] MEDS: diphenhydrAMINE HCL 50 MG/ML VIAL IV PUSH SCH ×2 (05:21→17:44)
[2017-09-04] MEDS ORDERED: VANCOMYCIN INJ 1,250 MG in SODIUM CHLOR 0.9% 250 ML INJ 250 ML IV SCH (06:00)
[2017-09-04 07:08] VITALS: PULSE 55
[2017-09-04 08:13] VITALS: BP 135/84; PULSE 72; RESP 18; TEMP 97.7; O2SAT 96
--- NOTE | 2017-09-04 08:39 | HHI.PR ---
Subjective Remarks f/u; infection of the right second toe resting comfortably. has mild pain to the right second toe. afebrile. no other complaints. Objective Vitals Vital Signs Date Time Temp Pulse Resp B/P (MAP) Pulse Ox O2 Delivery O2 Flow Rate FiO2 09/04/17 08:13 97.7 72 18 135/84 (101) 96 09/04/17 03:46 98.0 67 18 133/82 (99) 97 09/03/17 23:28 98.2 79 18 141/93 (109) 95 09/03/17 19:02 98.1 80 18 107/67 (80) 96 09/03/17 18:14 82 18 111/75 (87) 99 09/03/17 17:16 18 09/03/17 14:14 98.9 100 15 118/65 (82) 99 I/O 09/03/17 09/03/17 09/03/17 09/04/17 09/04/17 09/04/17 07:00 15:00 23:00 07:00 15:00 23:00 Intake Total 1250 ml Balance 1250 ml Intake IV Total 1250 ml Result Diagram: 09/04/17 0343 09/04/17 0343 Imaging Last Impressions Tibia/Fibula X-Ray 09/03/17 0000 Signed Impressions: Service Date/Time: Sunday, September 03, 2017 15:18 - CONCLUSION: No definite signs of osteomyelitis. René Kauffman MD Foot X-Ray 09/03/17 0000 Signed Impressions: Service Date/Time: Sunday, September 03, 2017 15:17 - CONCLUSION: No definite signs of osteomyelitis the technique. René Kauffman MD Objective Remarks GENERAL: This is a well-nourished, well-developed patient, in no apparent distress. CARDIOVASCULAR: Regular rate and regular rhythm without murmurs, gallops, or rubs. RESPIRATORY: Clear to auscultation. Breath sounds equal bilaterally. No wheezes , rales, or rhonchi. GASTROINTESTINAL: Abdomen soft, non-tender, nondistended. Normal, active bowel sounds MUSCULOSKELETAL: erythema, swelling of the right second toe. NEURO: Alert & Oriented x4 to person, place, time, situation. Moves all ext x4 Medications and IVs Inpatient Medications Acetaminophen/ Hydrocodone Bitart ([place] 5-325 Mg) 1 tab Q4H PRN PO PAIN SCALE 3 TO 5; Start 09/03/17 at 20:45 Acetaminophen/ Hydrocodone Bitart ([place] 7.5-325 Mg) 1 tab Q4H PRN PO PAIN SCALE 6 TO 10; Start 09/03/17 at 20:45 Amylase/Lipase/ Protease ([place] 12-38-60) 2 cap TID PO ; Start 09/04/17 at 09:00 Aripiprazole (Abilify) 15 mg DAILY PO ; Start 09/04/17 at 09:00 Aspirin (Aspirin Chew) 81 mg ONCE CHEW ; Start 09/03/17 at 20:45; Stop 09/03/17 at 20:54; Status DC Aspirin (Ecotrin Ec) 81 mg DAILY PO ; Start 09/04/17 at 09:00 Atorvastatin Calcium (Lipitor) 40 mg HS PO Last administered on 09/03/17at 21:46 ; Start 09/03/17 at 21:00 Buspirone HCl (Buspar) 15 mg TID PO ; Start 09/04/17 at 09:00 Calcium Carbonate (Tums Chew) 500 mg Q12HR CHEW ; Start 09/04/17 at 09:00; Stop 09/05/17 at 21:01 Dextrose (D50w (Vial) Inj) 50 ml UNSCH PRN IV PUSH HYPOGLYCEMIA-SEE COMMENTS; Start 09/03/17 at 21:00 Diphenhydramine HCl (Benadryl Inj) 25 mg ONCE ONCE IV PUSH Last administered on 09/03/17at 21:45; Start 09/03/17 at 21:00; Stop 09/03/17 at 21:01; Status DC Glucagon (Glucagon Inj) 1 mg UNSCH PRN OTHER HYPOGLYCEMIA-SEE COMMENTS; Start 09/03/17 at 21:00 Insulin Aspart (NovoLOG SUPPLEMENTAL SCALE) 1 ACHS SLIDING SCALE SQ Last administered on 09/03/17at 21:45; Start 09/03/17 at 21:00 Lactobacillus Acidophilus (Lactinex) 1 tab BID PO Last administered on at 21:46; Start 09/03/17 at 21:00 Mirtazapine (Remeron) 30 mg HS PO Last administered on 09/03/17at 21:46; Start at 21:00 Miscellaneous Information SPECIFIC LAB TO BE ... ONCE ONCE .XX ; Start at 05:45; Stop 09/05/17 at 05:46 Morphine Sulfate (Morphine Inj) 2 mg Q3H PRN IV PUSH breakthrough pain Last administered on 09/04/17at 05:21; Start 09/03/17 at 17:45 Multivitamins/ Minerals Therapeutic (Theragran M Tab) 1 tab DAILY PO ; Start 09/04/17 at 09:00 Naloxone HCl (Narcan Inj) 0.4 mg UNSCH PRN IV PUSH SEE LABEL COMMENTS; Start at 17:45 Pantoprazole Sodium (Protonix) 40 mg DAILY PO ; Start 09/04/17 at 09:00 Pharmacy Profile Note 0 ml @ 0 mls/hr UNSCH OTHER ; Start 09/03/17 at 17:45 Phytonadione (Mephyton Liq) 5 mg DAILY PO ; Start 09/04/17 at 09:00 Piperacillin Sod/ Tazobactam Sod 100 ml @ 200 mls/hr Q6H IV Last administered on 09/04/17at 04:41; Start 09/03/17 at 22:00 Sodium Chloride (NS Flush) 2 ml BID IV FLUSH Last administered on 09/03/17at 21: 45; Start 09/03/17 at 21:00 Vancomycin HCl 500 mg/Sodium Chloride 100 ml @ 200 mls/hr ONCE ONCE IV Last administered on 09/03/17at 21:44; Start 09/03/17 at 21:00; Stop 09/03/17 at 21:29; Status DC Vancomycin HCl 1050 mg/Sodium Chloride 260.5 ml @ 250 mls/hr ONCE ONCE IV Last administered on 09/03/17at 16:31; Start 09/03/17 at 15:00; Stop 09/03/17 at 16: 02; Status DC Vancomycin HCl 1250 mg/Sodium Chloride 262.5 ml @ 250 mls/hr Q12H IV Last administered on 09/04/17at 05:21; Start 09/04/17 at 06:00 A/P Problem List: (1) Cellulitis ICD Code: L03.90 - Cellulitis, unspecified Status: Acute (2) DM (diabetes mellitus) ICD Code: E11.9 - Type 2 diabetes mellitus without complications Status: Chronic Assessment and Plan A/P Right 2nd Toe Diabetic Foot Ulcer with Cellulitis, suspected Osteomyelitis: Failed Outpatient. S/p 1 week of Cipro 750mg bid prescribed by radar engineer at the [place]. +cellulitis on exam. -Right foot and tib/fib xray images reviewed and unremarkable -Unable to have MRI secondary to spinal stimulator -Continue antibiotics with IV Zosyn and IV Vancomycin . -[place] prn pain scale, IV morphine prn breakthrough pain -Consulted podiatry Diabetes mellitus, insulin-dependent: Patient typically on insulin pump at home , however fell off this morning. Last HgbA1c 8.7 on 05/12/17. -Monitor Accu-checks and cover with SSI -Diabetic diet CAD s/p Stent, Hypertension, Hyperlipidemia: chronic, stable, no complaints of chest pain -continue patient's aspirin and statin -BP well controlled, not on medications hypokalemia; will replace and monitor Anxiety/Depression: chronic, stable -continue home meds including mirtazapine, abilify, buspirone DVT Prophylaxis: teds/SCDs; avoid chemoprophylaxis until seen by podiatry incase surgery is indicated Problem Qualifiers (1) Cellulitis: Qualified Codes: L03.031 - Cellulitis of right toe Cari Davis MD Sep 04, 2017 08:38
[2017-09-04] MEDS ORDERED: ASPIRIN EC 81 MG TABEC PO SCH (09:00)
[2017-09-04] MEDS ORDERED: POTASSIUM CHLORIDE 10 MEQ CONTROLLED RELEASE TAB PO ONE ×2 (09:00→13:00)
[2017-09-04] MEDS: PANTOPRAZOLE SOD 40 MG DELAYED RELEASE TAB PO SCH (10:07)
[2017-09-04] MEDS: busPIRone HCL 5 MG TAB PO SCH ×3 (10:07→17:44)
[2017-09-04] MEDS: CALCIUM CARBONATE 500 MG CHEWABLE TAB CHEW SCH ×2 (10:07→20:14)
[2017-09-04] MEDS: MULTIVITAMINS/MINERALS THERAPEUTIC TAB PO SCH (10:07)
[2017-09-04] MEDS: LACTOBACILLUS ACIDOPHILUS TAB PO SCH ×2 (10:07→20:13)
[2017-09-04] MEDS: LIPASE/PROTEASE/AMYLASE (12,000/38,000/60,000) CAP PO SCH ×3 (10:08→17:44)
[2017-09-04] MEDS: PHYTONADIONE 5 MG/SWFI 5 ML ORAL SYR PO SCH (10:10)
[2017-09-04] MEDS: SODIUM CHLORIDE 0.9% FLUSH 10 ML FLUSH IV FLUSH SCH ×2 (10:11→20:22)
--- NOTE | 2017-09-04 10:14 | MP ---
cc: BLUE,SANDY DATE OF SURGERY 09/04/2017 CHIEF COMPLAINT Right second digit ulceration with cellulitis. HISTORY OF PRESENT ILLNESS Mr. Shannon is a 47-year-old male patient with type 1 diabetes. The patient states that about a week and half ago he noticed drainage and redness around the distal aspect of the second digit. He saw his PA grizzly worker at that time, was placed on ciprofloxacin. He did complete one week of Cipro, but states that the symptoms did not improve and in fact the pain began to worsen within the last one to two days. He was admitted to [facility] due to failed outpatient antibiotic treatment of an infection. Of note, the patient did have a right hallux amputation just a few months ago which did heal uneventfully. This was done with Dr. Kenny. Dr. Kenny was consulted by the patient, but deferred the consult to on-call doctor. The patient denied any nausea, vomiting, fever, headaches or chills. PAST MEDICAL HISTORY Includes: 1. Insulin dependent diabetes 2. Hypertension 3. Osteomyelitis of the right hallux 4. Arthritis 5. Anxiety 6. Depression 7. Coronary artery disease 8. GERD PAST SURGICAL HISTORY Includes: 1. Cholecystectomy 2. Three-quarter pancreas resection 3. Spinal stimulator 4. Cardiac catheterization 5. Right hand amputation 6. Left hand amputations 7. Shrapnel removal from bilateral leg 8. Multiple skin grafts ALLERGIES None MEDICATIONS Please see list. FAMILY HISTORY Noncontributory SOCIAL HISTORY The patient lives with family. Rarely uses alcohol. Does use marijuana on a fairly routine basis. PHYSICAL EXAM VITAL SIGNS: Temperature is 97.7 with a T-max of 98.9, pulse 72, respiratory rate 18, blood pressure 135/84, pulse ox 96% O2 on room air. LABORATORY DATA White count is 5.5 down from 7.6, hemoglobin 12.0, hematocrit 35.7, platelets 227. Sodium 149, potassium 3.1, chloride 106, carbon dioxide 26.6, BUN 9, creatinine 0.55, C-reactive protein 2.3, INR 1.1. Blood cultures are pending. Wound cultures are pending. IMAGING STUDIES X-rays are negative for any gas in the soft tissue and no definitive signs of osteomyelitis. However, there is a questionable erosion around the distal phalanx of the right second digit. PHYSICAL EXAMINATION On physical exam, the patient has severe trophic skin changes due to the skin grafts and davey bilaterally. Palpable PT and DP pulses. Cap fill time less than three seconds. Rigid hammer toes bilaterally. Left foot is ulceration-free. Right foot has a heavy hypertrophic sub met five and sub met four. The second digit has heavy at the distal aspect and approximately 5 mm x 5 mm x 5 mm ulceration which does probe to bone and is draining a sanguinous purulent drainage, erythema extends to the level of the MPJ. Mild tenderness on palpation. ASSESSMENT/PLAN 1)Right second digit cellulitis with suspected osteomyelitis. -The patient's radiographs read negative for osteomyelitis, however given the small area of concern, radiographs are not always clear. MRI is not available due to spinal stimulator. I spoke to the patient about the deep probing, as well as the pain he is experiencing and the questionable bony erosion on the radiograph and explained why I believe there is a strong likelihood that this is osteomyelitis. The patient is agreeing to the diagnosis and agreeable to the proposed treatment plan. -I spoke to the patient about amputating the distal aspect of the second digit in the near future. I would like to allow for an additional 24-48 hours of IV antibiotics to reduce the cellulitis and improve the likelihood of healing post amputation. -Wound cultures obtained and pending -Wound care orders entered for nursing staff. -We will plan for partial amputation in one to two days. Thank you for this consultation. Sandy DIXON /9:20 AM /9:48 AM CRISTHIAN
[2017-09-04] MEDS: INSULIN ASPART SUPPLEMENTAL SCALE SQ SCH ×4 (10:16→20:26)
[2017-09-04] MEDS: BACITRACIN OINT 0.9 GM PKT TOPICAL SCH (10:30)
[2017-09-04 11:07] VITALS: BP 135/92; PULSE 83; RESP 18; TEMP 97.7; O2SAT 96
[2017-09-04] MEDS: ARIPiprazole 15 MG TAB PO SCH (11:29)
[2017-09-04] MEDS: ACETAMINOPHEN/HYDROcodone 325 MG/7.5 MG TAB PO PRN ×2 (15:13→20:14)
[2017-09-04 16:00] VITALS: BP_SYST 145; BP_SYST 152; BP_DIAS 86; BP_DIAS 91; PULSE 70; PULSE 78; RESP 17; TEMP 97.4; TEMP 97.7; O2SAT 97; O2SAT 98
[2017-09-04] MEDS ORDERED: ONDANSETRON HCL 4 MG/2 ML VIAL IV PUSH PRN (16:45)
[2017-09-04] MEDS: VANCOMYCIN INJ 1,500 MG in SODIUM CHLORID 0.9% 500 ML INJ 500 ML IV SCH (17:42)
[2017-09-04 20:00] VITALS: BP 131/79; PULSE 70; RESP 16; TEMP 97.6; O2SAT 96
[2017-09-04] MEDS: ATORVASTATIN 40 MG TAB PO SCH (20:14)
[2017-09-04] MEDS: MIRTAZAPINE 15 MG TAB PO SCH (20:14)
[2017-09-05 00:29] VITALS: BP 112/70; PULSE 69; RESP 16; TEMP 97.9; O2SAT 92
[2017-09-05] MEDS: ACETAMINOPHEN/HYDROcodone 325 MG/7.5 MG TAB PO PRN ×5 (00:57→18:29)
[2017-09-05] MEDS: MORPHINE SULFATE 2 MG/ML INJ IV PUSH PRN ×4 (02:20→17:07)
[2017-09-05 04:15] VITALS: BP 115/78; PULSE 78; RESP 16; TEMP 97.8; O2SAT 94
[2017-09-05] MEDS: PIPERACIL-TAZO 4.5 GM PREMIX 100 ML IV SCH ×4 (04:17→21:39)
[2017-09-05] MEDS: diphenhydrAMINE HCL 50 MG/ML VIAL IV PUSH SCH ×2 (05:08→18:20)
[2017-09-05] MEDS: VANCOMYCIN INJ 1,500 MG in SODIUM CHLORID 0.9% 500 ML INJ 500 ML IV SCH ×2 (05:12→18:20)
[2017-09-05] MEDS ORDERED: PHARMACY ORDERED LAB ONE ×3 (05:45→17:45)
[2017-09-05 06:36] LABS: BICARBONATE 29.6 MEQ/L (21.0-32.0); CALCIUM 8.9 MG/DL (8.5-10.1); CREATININE 0.74 MG/DL (0.60-1.30)
[2017-09-05] MEDS: INSULIN ASPART SUPPLEMENTAL SCALE SQ SCH ×4 (07:43→20:31)
[2017-09-05] MEDS: LIPASE/PROTEASE/AMYLASE (12,000/38,000/60,000) CAP PO SCH ×3 (07:44→18:20)
[2017-09-05] MEDS: busPIRone HCL 5 MG TAB PO SCH ×3 (07:45→18:19)
[2017-09-05] MEDS: PHYTONADIONE 5 MG/SWFI 5 ML ORAL SYR PO SCH (07:45)
[2017-09-05] MEDS: PANTOPRAZOLE SOD 40 MG DELAYED RELEASE TAB PO SCH (07:45)
[2017-09-05] MEDS: LACTOBACILLUS ACIDOPHILUS TAB PO SCH ×2 (07:45→20:12)
[2017-09-05] MEDS: MULTIVITAMINS/MINERALS THERAPEUTIC TAB PO SCH (07:45)
[2017-09-05] MEDS: CALCIUM CARBONATE 500 MG CHEWABLE TAB CHEW SCH ×2 (07:47→20:12)
[2017-09-05] MEDS: SODIUM CHLORIDE 0.9% FLUSH 10 ML FLUSH IV FLUSH SCH ×2 (07:54→20:12)
[2017-09-05 08:00] VITALS: BP 121/84; PULSE 82; RESP 22; TEMP 97.7; O2SAT 96
[2017-09-05] MEDS: ARIPiprazole 15 MG TAB PO SCH (09:42)
[2017-09-05] MEDS: BACITRACIN OINT 0.9 GM PKT TOPICAL SCH (09:47)
[2017-09-05 11:39] VITALS: BP 135/60; PULSE 75; RESP 19; TEMP 98; O2SAT 96
--- NOTE | 2017-09-05 13:47 | HHI.PR ---
Subjective Remarks Resting comfortably in bed No event overnight Denied chest and or short of breath No fever or chills Objective Vitals Vital Signs Date Time Temp Pulse Resp B/P (MAP) Pulse Ox O2 Delivery O2 Flow Rate FiO2 09/05/17 11:39 98.0 75 19 135/60 (85) 96 09/05/17 08:00 97.7 82 22 121/84 (96) 96 09/05/17 04:15 97.8 78 16 115/78 (90) 94 09/05/17 00:29 97.9 69 16 112/70 (84) 92 09/04/17 20:00 97.6 70 16 131/79 (96) 96 09/04/17 16:13 18 09/04/17 16:00 97.4 70 17 152/91 (111) 98 09/04/17 16:00 97.7 78 17 145/86 (105) 97 I/O 09/04/17 09/04/17 09/04/17 09/05/17 09/05/17 09/05/17 07:00 15:00 23:00 07:00 15:00 23:00 Intake Total 755 ml 100 ml 120 ml Output Total 525 ml 750 ml Balance 230 ml -650 ml 120 ml Intake Oral 240 ml 120 ml IV Total 515 ml 100 ml Output Urine Total 525 ml 750 ml # Bowel Movements 0 Result Diagram: 09/04/17 0343 09/05/17 0551 Objective Remarks GENERAL: This is a well-nourished, well-developed patient, in no apparent distress. CARDIOVASCULAR: Regular rate and regular rhythm without murmurs, gallops, or rubs. RESPIRATORY: Clear to auscultation. Breath sounds equal bilaterally. No wheezes , rales, or rhonchi. GASTROINTESTINAL: Abdomen soft, non-tender, nondistended. Normal, active bowel sounds MUSCULOSKELETAL: right second toe , multiple amputations in upper extremities due to serving in [place] NEURO: Alert & Oriented x4 to person, place, time, situation. Moves all ext x4 A/P Problem List: (1) Cellulitis ICD Code: L03.90 - Cellulitis, unspecified Status: Acute (2) DM (diabetes mellitus) ICD Code: E11.9 - Type 2 diabetes mellitus without complications Status: Chronic Assessment and Plan 09/05/17: Culture showed 1 tube with MRSA we will repeat culture and monitor A/P: Right 2nd Toe Diabetic Foot Ulcer with Cellulitis, suspected Osteomyelitis: Failed Outpatient. S/p 1 week of Cipro 750mg bid prescribed by station mechanic at the [place]. +cellulitis on exam. -Right foot and tib/fib xray images reviewed and unremarkable -Unable to have MRI secondary to spinal stimulator -Continue antibiotics with IV Zosyn and IV Vancomycin . -[place] prn pain scale, IV morphine prn breakthrough pain -Appreciate podiatry consult status post debridement and amputation of gangrenous lesion in the second right toe Diabetes mellitus, insulin-dependent: Patient typically on insulin pump at home , however fell off this morning. Last HgbA1c 8.7 on 05/12/17. -Monitor Accu-checks and cover with SSI -Diabetic diet CAD s/p Stent, Hypertension, Hyperlipidemia: chronic, stable, no complaints of chest pain -continue patient's aspirin and statin -BP well controlled, not on medications hypokalemia; will replace and monitor Anxiety/Depression: chronic, stable -continue home meds including mirtazapine, abilify, buspirone DVT Prophylaxis: teds/SCDs; avoid chemoprophylaxis until seen by podiatry incase surgery is indicated Problem Qualifiers (1) Cellulitis: Qualified Codes: L03.031 - Cellulitis of right toe Oneyda Moore MD Sep 05, 2017 13:47
[2017-09-05 16:00] VITALS: BP 132/79; PULSE 87; RESP 21; TEMP 98.5; O2SAT 95
[2017-09-05] MEDS: SODIUM CHLORIDE 0.9% FLUSH 10 ML FLUSH IV FLUSH PRN ×2 (17:06→18:20)
[2017-09-05 20:00] VITALS: BP 134/76; PULSE 83; RESP 20; TEMP 98.6; O2SAT 98
[2017-09-05] MEDS: ACETAMINOPHEN/HYDROcodone 325 MG/10 MG TAB PO PRN (20:11)
[2017-09-05] MEDS: ATORVASTATIN 40 MG TAB PO SCH (20:12)
[2017-09-05] MEDS: MIRTAZAPINE 15 MG TAB PO SCH (20:12)
[2017-09-05] MEDS: MORPHINE SULFATE 2 MG/ML INJ IV PRN (21:39)
[2017-09-05] MEDS ORDERED: MORPHINE SULFATE 2 MG/ML INJ IV PUSH ONE (23:45)
[2017-09-06] VITALS (8 sets, daily range): BP systolic 117–143; BP diastolic 66–85; PULSE 75–93; RESP 16–20; TEMP 96.1–99.2; O2SAT 93–100
[2017-09-06] MEDS ORDERED: LACTATED RINGER'S 1000 ML IV PRN (01:00)
[2017-09-06] MEDS: ACETAMINOPHEN/HYDROcodone 325 MG/10 MG TAB PO PRN ×2 (02:59→23:48)
[2017-09-06] MEDS: MORPHINE SULFATE 2 MG/ML INJ IV PRN ×4 (04:29→22:20)
[2017-09-06] MEDS: PIPERACIL-TAZO 4.5 GM PREMIX 100 ML IV SCH ×4 (04:29→22:20)
[2017-09-06] MEDS: VANCOMYCIN INJ 1,500 MG in SODIUM CHLORID 0.9% 500 ML INJ 500 ML IV SCH ×3 (05:18→18:36)
[2017-09-06] MEDS: diphenhydrAMINE HCL 50 MG/ML VIAL IV PUSH SCH ×2 (05:20→18:38)
[2017-09-06] MEDS ORDERED: PHARMACY ORDERED LAB ONE (05:45)
[2017-09-06] MEDS ORDERED: BUPIVACAINE HCL PF 0.25% 30 ML VIAL ONE (06:34)
[2017-09-06] MEDS ORDERED: ACETAMINOPHEN 1000 MG/100 ML 100 ML IV ONE (07:22)
[2017-09-06] MEDS ORDERED: FAMOTIDINE 20 MG/2 ML VIAL ONE (07:22)
[2017-09-06] MEDS ORDERED: MIDAZOLAM HCL 2 MG/2 ML VIAL ONE (07:41)
[2017-09-06] MEDS: INSULIN ASPART SUPPLEMENTAL SCALE SQ SCH ×4 (08:00→21:00)
[2017-09-06] MEDS ORDERED: DO NOT ADM ANY ANTICOAGULANT DRUGS PRN (08:50)
[2017-09-06] MEDS ORDERED: *morphine SULFATE 10 MG/ML PERIprocedure ONLY ONE (08:58)
[2017-09-06] MEDS: BACITRACIN OINT 0.9 GM PKT TOPICAL SCH (09:00)
[2017-09-06] MEDS: PHYTONADIONE 5 MG/SWFI 5 ML ORAL SYR PO SCH (09:00)
[2017-09-06] MEDS: MULTIVITAMINS/MINERALS THERAPEUTIC TAB PO SCH (11:08)
[2017-09-06] MEDS: LACTOBACILLUS ACIDOPHILUS TAB PO SCH ×2 (11:08→22:21)
[2017-09-06] MEDS: PANTOPRAZOLE SOD 40 MG DELAYED RELEASE TAB PO SCH (11:08)
[2017-09-06] MEDS: busPIRone HCL 5 MG TAB PO SCH ×3 (11:09→18:06)
[2017-09-06] MEDS: LIPASE/PROTEASE/AMYLASE (12,000/38,000/60,000) CAP PO SCH ×3 (11:09→18:06)
[2017-09-06] MEDS: SODIUM CHLORIDE 0.9% FLUSH 10 ML FLUSH IV FLUSH SCH ×2 (11:10→22:20)
--- NOTE | 2017-09-06 11:11 | RADRPT ---
EXAM DATE/TIME: 09/06/2017 09:23 [facility] COMPARISON: FOOT RIGHT COMPLETE ([id number]), May 13, 2017, 11:08. INDICATIONS : Post-op partial amputation second toe. MEDICAL HISTORY : Diabetes mellitus type II. Hypertension SURGICAL HISTORY : Cholecystectomy. External fixator right ankle. Amputation right first toe. ENCOUNTER: Initial ACUITY: 4 - 6 days PAIN SCORE: 4/10 LOCATION: Right foot. FINDINGS: Status post resection of the first ray. Postoperative changes are evident. Minimal air is seen in t he soft tissues. CONCLUSION: Postoperative changes as above. Israel Johnston MD FACR on September 06, 2017 at 11:04 Board Certified Radiologist. This report was verified electronically.
[2017-09-06] MEDS: ARIPiprazole 15 MG TAB PO SCH (11:34)
[2017-09-06] MEDS ORDERED: ONDANSETRON HCL 4 MG/2 ML VIAL IV PUSH ONE (12:00)
[2017-09-06] MEDS ORDERED: LIDOCAINE HCL 1% PF 5 ML SYRINGE OTHER ONE (12:00)
[2017-09-06] MEDS ORDERED: PROPOFOL 200 MG/20 ML AMP IV ONE (12:00)
[2017-09-06] MEDS ORDERED: DEXAMETHASONE SOD PHOS 4 MG/ML VIAL IV ONE (12:00)
--- NOTE | 2017-09-06 16:59 | MP ---
cc: BYRON BLUE DPM DATE OF SURGERY 09/06/[address] Erum Blue GROCERY CLERK CHECKING Staff provided offset assistant press operator PREOPERATIVE DIAGNOSIS Right foot second digit osteomyelitis. POSTOPERATIVE DIAGNOSIS Right foot second digit osteomyelitis. Right foot third digit wound PROCEDURE 1. Right foot second digit amputation 2. Right foot wound debridement third digit. ANESTHESIA General HEMOSTASIS Pneumatic ankle tourniquet 250 mmHg ESTIMATED BLOOD LOSS 5 mL MATERIALS USED 3-0 Prolene COMPLICATIONS None INJECTABLES Six mL of 0.5% Marcaine plain COMPLICATIONS None INDICATIONS Mr. Shannon is a 47-year-old neuropathic male patient who developed a deep ulceration on the right second digit which appeared to be osteomyelitic on radiographs. The decision was made to amputate the distal aspect of the right second digit to remove the infection. He also has a subsequently wound on the right third digit. PROCEDURE IN DETAIL The patient was brought into the operating room, placed on the operating table in supine position. Following IV sedation pneumatic ankle tourniquet was applied around the right ankle and foot and then scrubbed, prepped and draped in the usual aseptic manner. An Esmarch bandage was used to exsanguinate the right foot. Attention was directed to the distal aspect of the second digit where there was a deep probing to bone ulceration. Two semi-elliptical incisions were created, one dorsally and one plantarly over the DIPJ deepened through skin and subcutaneous tissue with care being taken to identify and retract any vital neurovascular structures. The distal phalanx was disarticulated and removed from the field in toto and sent to pathology for further evaluation. The area was flushed with copious amounts of sterile saline and again all nonviable soft tissue was removed and the tendons were retracted away from the incision site and severed. The area was closed with 3-0 Prolene. Attention was directed to the distal aspect of the third metatarsal where a wound was noted as well. This one measured 0.5 cm x 0.5 cm x 0.5 cm. It did probe very deep, but there did not appear to be a feeling of bone and there was no exposed bone. The wound was debrided to a level of healthy bleeding tissue. This area was also cleansed with sterile saline and dressed with bacitracin and Adaptic. Adaptic was placed over the suture line as well. The pneumatic ankle tourniquet was released. There was a prompt hyperemic response to all digits of the right foot. Sterile dressing of 4x4s, cast padding and a light Javi wrap was applied. The patient tolerated the procedure and the anesthesia well. He will recover in the PACU for a period of time before being discharged back to his room. Byron MICHEL/ /4:08 PM /4:36 PM MTDMichelle
--- NOTE | 2017-09-06 19:44 | HHI.PR ---
Subjective Remarks Resting in bed doing well no complain No fever no chills no night sweat Objective Vitals Vital Signs Date Time Temp Pulse Resp B/P (MAP) Pulse Ox O2 Delivery O2 Flow Rate FiO2 09/06/17 17:49 97 Nasal Cannula 3.00 09/06/17 16:00 97.6 91 20 130/80 (97) 97 09/06/17 15:59 18 09/06/17 12:00 97.0 93 19 130/75 (93) 95 09/06/17 10:00 96.9 88 16 124/66 (85) 100 09/06/17 09:35 98.2 84 15 123/66 (85) 97 Room Air 09/06/17 09:15 82 15 118/68 (85) 97 Room Air 09/06/17 09:00 81 16 128/71 (90) 95 Room Air 09/06/17 08:45 84 15 133/72 (92) 98 Nasal Cannula 3 09/06/17 08:33 98.0 82 15 123/66 (85) 98 Nasal Cannula 3 09/06/17 04:55 96.1 75 18 143/85 (104) 96 09/06/17 00:00 97.7 77 18 143/76 (98) 96 09/05/17 20:00 98.6 83 20 134/76 (95) 98 I/O 09/05/17 09/05/17 09/05/17 09/06/17 09/06/17 09/06/17 07:00 15:00 23:00 07:00 15:00 23:00 Intake Total 100 ml 120 ml 100 ml 615 ml 700 ml 1200 ml Output Total 750 ml 700 ml 5 ml 1200 ml Balance -650 ml 120 ml 100 ml -85 ml 695 ml 0 ml Intake Oral 120 ml 1200 ml IV Total 100 ml 100 ml 615 ml 700 ml Output Urine Total 750 ml 700 ml 1200 ml Estimated Blood Loss 5 ml # Bowel Movements 1 Result Diagram: 09/04/17 0343 09/05/17 0551 Objective Remarks GENERAL: This is a well-nourished, well-developed patient, in no apparent distress. CARDIOVASCULAR: Regular rate and regular rhythm without murmurs, gallops, or rubs. RESPIRATORY: Clear to auscultation. Breath sounds equal bilaterally. No wheezes , rales, or rhonchi. GASTROINTESTINAL: Abdomen soft, non-tender, nondistended. Normal, active bowel sounds MUSCULOSKELETAL: right second toe , multiple amputations in upper extremities due to serving in [place] NEURO: Alert & Oriented x4 to person, place, time, situation. Moves all ext x4 A/P Problem List: (1) Cellulitis ICD Code: L03.90 - Cellulitis, unspecified Status: Acute (2) DM (diabetes mellitus) ICD Code: E11.9 - Type 2 diabetes mellitus without complications Status: Chronic Assessment and Plan 09/05/17: Culture showed 1 tube with MRSA we will repeat culture and monitor 09/06/17: Status post amputation and debridement, will continue following the repeated blood culture, no fever or chills no leukocytosis A/P: Right 2nd Toe Diabetic Foot Ulcer with Cellulitis, suspected Osteomyelitis: Failed Outpatient. S/p 1 week of Cipro 750mg bid prescribed by sleeper cutter at the [place]. +cellulitis on exam. -Right foot and tib/fib xray images reviewed and unremarkable -Unable to have MRI secondary to spinal stimulator -Continue antibiotics with IV Zosyn and IV Vancomycin . -[place] prn pain scale, IV morphine prn breakthrough pain -Appreciate podiatry consult status post debridement and amputation of gangrenous lesion in the second right toe Diabetes mellitus, insulin-dependent: Patient typically on insulin pump at home , however fell off this morning. Last HgbA1c 8.7 on 05/12/17. -Monitor Accu-checks and cover with SSI -Diabetic diet CAD s/p Stent, Hypertension, Hyperlipidemia: chronic, stable, no complaints of chest pain -continue patient's aspirin and statin -BP well controlled, not on medications hypokalemia; will replace and monitor Anxiety/Depression: chronic, stable -continue home meds including mirtazapine, abilify, buspirone DVT Prophylaxis: teds/SCDs; avoid chemoprophylaxis until seen by podiatry incase surgery is indicated Problem Qualifiers (1) Cellulitis: Qualified Codes: L03.031 - Cellulitis of right toe Oneyda Moore MD Sep 06, 2017 19:44
[2017-09-06] MEDS: ATORVASTATIN 40 MG TAB PO SCH (22:21)
[2017-09-06] MEDS: MIRTAZAPINE 15 MG TAB PO SCH (22:21)
[2017-09-07] VITALS: BP 121/69; PULSE 83; RESP 18; TEMP 98.5; O2SAT 96
[2017-09-07] MEDS: MORPHINE SULFATE 2 MG/ML INJ IV PRN ×3 (01:28→23:33)
[2017-09-07] MEDS: PIPERACIL-TAZO 4.5 GM PREMIX 100 ML IV SCH ×4 (03:54→20:27)
[2017-09-07] MEDS: diphenhydrAMINE HCL 50 MG/ML VIAL IV PUSH SCH ×2 (04:33→17:05)
[2017-09-07] MEDS: VANCOMYCIN INJ 1,500 MG in SODIUM CHLORID 0.9% 500 ML INJ 500 ML IV SCH ×2 (04:34→17:04)
[2017-09-07 08:00] VITALS: BP 138/62; PULSE 72; RESP 17; TEMP 97.6; O2SAT 95
[2017-09-07] MEDS: MULTIVITAMINS/MINERALS THERAPEUTIC TAB PO SCH (08:31)
[2017-09-07] MEDS: busPIRone HCL 5 MG TAB PO SCH ×3 (08:31→17:03)
[2017-09-07] MEDS: PANTOPRAZOLE SOD 40 MG DELAYED RELEASE TAB PO SCH (08:31)
[2017-09-07] MEDS: LACTOBACILLUS ACIDOPHILUS TAB PO SCH ×2 (08:31→20:27)
[2017-09-07] MEDS: LIPASE/PROTEASE/AMYLASE (12,000/38,000/60,000) CAP PO SCH ×3 (08:31→17:03)
[2017-09-07] MEDS: ARIPiprazole 15 MG TAB PO SCH (08:31)
[2017-09-07] MEDS: BACITRACIN TOP OINT 15 GM TUBE TOPICAL SCH (08:32)
[2017-09-07] MEDS: SODIUM CHLORIDE 0.9% FLUSH 10 ML FLUSH IV FLUSH SCH ×2 (08:32→20:27)
[2017-09-07] MEDS: ACETAMINOPHEN/HYDROcodone 325 MG/10 MG TAB PO PRN ×4 (08:43→20:28)
[2017-09-07] MEDS: INSULIN ASPART SUPPLEMENTAL SCALE SQ SCH ×4 (08:43→20:26)
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
[2017-09-07 12:00] VITALS: BP 122/64; PULSE 70; RESP 18; TEMP 97.6; O2SAT 98
--- NOTE | 2017-09-07 14:28 | HHI.IDPN ---
Note Infectious Disease Note Patient seen and examined. Full consult dictated. Vital Signs Date Time Temp Pulse Resp B/P (MAP) Pulse Ox O2 Delivery O2 Flow Rate FiO2 09/07/17 12:00 97.6 70 18 122/64 (83) 98 09/07/17 08:00 97.6 72 17 138/62 (87) 95 09/07/17 00:00 98.5 83 18 121/69 (86) 96 09/06/17 20:05 89 09/06/17 20:00 99.2 88 18 117/71 (86) 93 09/06/17 17:49 97 Nasal Cannula 3.00 09/06/17 16:00 97.6 91 20 130/80 (97) 97 09/06/17 16:00 88 09/06/17 15:59 18 MRSA bacteremia. 1 of 4 bottles positive. MRSA not typical contaminant. However patient is without symptoms of sepsis. Recommend: Follow blood culture to completion. If negative at 3 days he can be discharged on PO clindamycin 500 tid x 2 weeks because he has an infusaport in place. He has been notified to seek medical attention if he gets chills or fever after discharge. Christian Valdez MD Sep 07, 2017 14:28
[2017-09-07 16:00] VITALS: BP 131/71; PULSE 66; RESP 18; TEMP 96.3; O2SAT 92
--- NOTE | 2017-09-07 16:46 | MB ---
cc: NIEVES ADAME MD DATE OF CONSULTATION 09/07/[address] Moore REASON FOR CONSULTATION Bacteremia due to MRSA HISTORY OF PRESENT ILLNESS This is a 47-year-old white male who presented to the emergency department on September 03 with worsening pain and changes at the right second toe suggesting infection. He was seen by podiatry and was treated with ciprofloxacin, but after a week it was not improving. He reportedly had pain radiating up his right foot to mid calf and also chills. He recently had amputation of the right hallux in May 2017 for osteomyelitis. Culture at the time from the foot had E-coli. The patient underwent surgery this time on September 04 with right second digit partial amputation and third digit wound debridement at the tuft of the third toe. Blood cultures were taken on September 02 and one bottle from September 05 came back positive for MRSA. The patient has had no fevers and his white blood cell count has been normal. He denies chills, nausea or vomiting. Sedimentation rate was 30. X-rays studies of the foot did not show evidence of osteomyelitis. This consultation is requested because of the MRSA in the blood stream. The patient states that he feels fine. The repeat blood culture has no growth in 48 hours. The patient had an Rgpoyh-K-Dbuq in the right chest which was placed there for IV access and fluids. This has been in place for two years. The patient sustained multiple injuries from an IUD while serving in [facility] two years ago. PAST MEDICAL HISTORY 1. Insulin-dependent diabetes, 2. Hypertension, 3. Arthritis, 4. Anxiety, depression, 5. Gastroesophageal reflux disease, 6. Coronary artery disease 7. History of cholecystectomy, 8. History of the partial pancreas resection 9. 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 Multiple skin grafts for injuries from IUD. MEDICATIONS 1. Vancomycin. 2. Abilify 3. BuSpar 4. Theragran 5. Creon 6. Protonix 7. Rochelle 10 p.r.n. 8. Piperacillin/tazobactam 9. Lipitor 10. Remeron 11. Lactinex. SOCIAL HISTORY No tobacco. Occasional alcohol. No illicit drugs. FAMILY HISTORY Noncontributory. REVIEW OF SYSTEMS Negative on 10-point review. PHYSICAL EXAMINATION GENERAL: This is a pleasant well-developed male who is in no acute distress. He is awake, alert and oriented. VITAL SIGNS: Temperature 97.6, BP 122/64, respirations 18, heart rate 70. HEENT: Extraocular movements grossly intact, pupils reactive to light. No icterus. Oropharynx moist mucosa without lesions. NECK: Supple. No adenopathy. LUNGS: Clear breath sounds HEART: Regular S1-S2 without murmurs. ABDOMEN: Bowel sounds present, soft, nontender. RECTAL: Not performed. EXTREMITIES: The right second toe is post amputation and the suture line appears intact. The tuft OF the third toe at the tip appears clean and has no drainage. No visible erythema at the foot. Distal pulses are intact. SKIN: Multiple skin grafts apparent over the extremities and face which are well-healed. NEUROLOGIC: Nonfocal PSYCHIATRIC: The patient is calm and cooperative. LABORATORY DATA WBC 5.5, platelet 227, hemoglobin 12.06, 5% neutrophils, 24% lymphocytes. Creatinine 0.74, BUN nine, sodium 136. IMPRESSION 1. MRSA bacteremia. 2. Status post partial amputation of the left second toe secondary to cellulitis and wound which was not responsive to outpatient antibiotics. The patient has no clinical signs suggestive of sepsis. However, he does have an Aoyqak-A-Mfuf via which the blood cultures were taken and typically MRSA bacteremia is unlikely to be contaminant, but he is clinically stable and without signs of sepsis. He has been receiving vancomycin since 09/04/2017. RECOMMENDATIONS It is likely that this could be contamination. However, because of his Rmilfn-D-Ydvj I would follow up on the blood culture and, if it is negative at 72 hours, then he can be discharged on oral clindamycin for two weeks. He has been notified that if he gets any fever or feels sick, he will need to have evaluation and additional blood cultures since that might indicate the Puxkwu-W-Mblb being infected in which case it probably will have to be removed. Thank you for this consultation. Nieves Adame MD FD/ /1:58 PM /4:17 PM
[2017-09-07 16:53] LABS: CREATININE 0.82 MG/DL (0.60-1.30)
[2017-09-07 17:43] VITALS: O2SAT 92
[2017-09-07 20:00] VITALS: BP 131/68; PULSE 70; PULSE 73; RESP 20; TEMP 97.3; O2SAT 95
[2017-09-07] MEDS: ATORVASTATIN 40 MG TAB PO SCH (20:27)
[2017-09-07] MEDS: MIRTAZAPINE 15 MG TAB PO SCH (20:27)
--- NOTE | 2017-09-07 21:23 | HHI.PR ---
Subjective Remarks Resting comfortably in bed No event overnight Denied chest and or short of breath No fever or chills Objective Vitals Vital Signs Date Time Temp Pulse Resp B/P (MAP) Pulse Ox O2 Delivery O2 Flow Rate FiO2 09/07/17 20:00 97.3 70 20 131/68 (89) 95 09/07/17 17:43 92 Nasal Cannula 3.00 09/07/17 16:00 96.3 66 18 131/71 (91) 92 09/07/17 12:00 97.6 70 18 122/64 (83) 98 09/07/17 08:00 97.6 72 17 138/62 (87) 95 09/07/17 00:00 98.5 83 18 121/69 (86) 96 I/O 09/06/17 09/06/17 09/06/17 09/07/17 09/07/17 09/07/17 06:59 14:59 22:59 06:59 14:59 22:59 Intake Total 615 ml 800 ml 1815 ml 920 ml 100 ml 460 ml Output Total 700 ml 5 ml 1200 ml 600 ml Balance -85 ml 795 ml 615 ml 320 ml 100 ml 460 ml Intake Oral 1200 ml 720 ml 360 ml IV Total 615 ml 800 ml 615 ml 200 ml 100 ml 100 ml Output Urine Total 700 ml 1200 ml 600 ml Estimated Blood Loss 5 ml # Voids 3 3 # Bowel Movements 1 0 0 Result Diagram: 09/04/17 0343 09/07/17 1620 Objective Remarks GENERAL: This is a well-nourished, well-developed patient, in no apparent distress. CARDIOVASCULAR: Regular rate and regular rhythm without murmurs, gallops, or rubs. RESPIRATORY: Clear to auscultation. Breath sounds equal bilaterally. No wheezes , rales, or rhonchi. GASTROINTESTINAL: Abdomen soft, non-tender, nondistended. Normal, active bowel sounds MUSCULOSKELETAL: right second toe , multiple amputations in upper extremities due to serving in [place] NEURO: Alert & Oriented x4 to person, place, time, situation. Moves all ext x4 A/P Problem List: (1) Cellulitis ICD Code: L03.90 - Cellulitis, unspecified Status: Acute (2) DM (diabetes mellitus) ICD Code: E11.9 - Type 2 diabetes mellitus without complications Status: Chronic Assessment and Plan 09/05/17: Culture showed 1 tube with MRSA we will repeat culture and monitor 09/06/17: Status post amputation and debridement, , will continue following the repeated blood culture, no fever or chills no leukocytosis 09/07/17:Consult ID discussed with Dr. Valdez , he agree MRSA unlikely to be contamination but it's not impossible A/P: Right 2nd Toe Diabetic Foot Ulcer with Cellulitis, suspected Osteomyelitis: Failed Outpatient. S/p 1 week of Cipro 750mg bid prescribed by surgical garment assembler at the [facility]. +cellulitis on exam. -Right foot and tib/fib xray images reviewed and unremarkable -Unable to have MRI secondary to spinal stimulator -Continue antibiotics with IV Zosyn and IV Vancomycin . -[place] prn pain scale, IV morphine prn breakthrough pain -Appreciate podiatry consult status post debridement and amputation of gangrenous lesion in the second right toe Diabetes mellitus, insulin-dependent: Patient typically on insulin pump at home , however fell off this morning. Last HgbA1c 8.7 on 05/12/17. -Monitor Accu-checks and cover with SSI -Diabetic diet CAD s/p Stent, Hypertension, Hyperlipidemia: chronic, stable, no complaints of chest pain -continue patient's aspirin and statin -BP well controlled, not on medications hypokalemia; will replace and monitor Anxiety/Depression: chronic, stable -continue home meds including mirtazapine, abilify, buspirone DVT Prophylaxis: teds/SCDs; avoid chemoprophylaxis until seen by podiatry incase surgery is indicated Problem Qualifiers (1) Cellulitis: Qualified Codes: L03.031 - Cellulitis of right toe Oneyda Moore MD Sep 07, 2017 21:23
[2017-09-08] VITALS (7 sets, daily range): BP systolic 123–141; BP diastolic 58–81; PULSE 63–76; RESP 16–20; TEMP 97.2–98.2; O2SAT 94–97
[2017-09-08] MEDS: PIPERACIL-TAZO 4.5 GM PREMIX 100 ML IV SCH ×4 (04:09→21:08)
[2017-09-08] MEDS: diphenhydrAMINE HCL 50 MG/ML VIAL IV PUSH SCH ×2 (04:57→17:25)
[2017-09-08] MEDS: VANCOMYCIN INJ 1,500 MG in SODIUM CHLORID 0.9% 500 ML INJ 500 ML IV SCH ×2 (04:57→17:26)
[2017-09-08] MEDS: INSULIN ASPART SUPPLEMENTAL SCALE SQ SCH ×4 (08:00→21:07)
[2017-09-08] MEDS: PANTOPRAZOLE SOD 40 MG DELAYED RELEASE TAB PO SCH (08:17)
[2017-09-08] MEDS: LACTOBACILLUS ACIDOPHILUS TAB PO SCH ×2 (08:17→21:07)
[2017-09-08] MEDS: MULTIVITAMINS/MINERALS THERAPEUTIC TAB PO SCH (08:17)
[2017-09-08] MEDS: LIPASE/PROTEASE/AMYLASE (12,000/38,000/60,000) CAP PO SCH ×3 (08:17→17:26)
[2017-09-08] MEDS: ARIPiprazole 15 MG TAB PO SCH (08:17)
[2017-09-08] MEDS: BACITRACIN TOP OINT 15 GM TUBE TOPICAL SCH (08:17)
[2017-09-08] MEDS: busPIRone HCL 5 MG TAB PO SCH ×3 (08:17→17:26)
[2017-09-08] MEDS: SODIUM CHLORIDE 0.9% FLUSH 10 ML FLUSH IV FLUSH SCH ×2 (08:23→21:08)
[2017-09-08] MEDS: ACETAMINOPHEN/HYDROcodone 325 MG/10 MG TAB PO PRN (15:45)
--- NOTE | 2017-09-08 17:15 | ECHRPT ---
Indication: Positive BCX CONCLUSIONS Normal left ventricular size and wall thickness. The left ventricular systolic function is normal wi th an estimated ejection fraction in the range of 60-65%. Left ventricular diastolic function parameters a re normal. There is mild tricuspid valve regurgitation. The estimated pulmonary arterial pressure is 35.8 mmHg. Trace mitral valve regurgitation. BP: 129 / 68 HR: 99 Rhythm: Sinus MEASUREMENTS (Male / Female) Normal Values Technical Quality:Good 2D ECHO LV Diastolic Diameter PLAX 5.1 cm 4.2 - 5.9 / 3.9 - 5.3 cm LV Systolic Diameter PLAX 3.7 cm IVS Diastolic Thickness 1.0 cm 0.6 - 1.0 / 0.6 - 0.9 cm LVPW Diastolic Thickness 1.0 cm 0.6 - 1.0 / 0.6 - 0.9 cm LV Relative Wall Thickness 0.4 LVOT Diameter 2.0 cm M-MODE Aortic Root Diameter MM 3.2 cm LA Systolic Diameter MM 3.8 cm LA Ao Ratio MM 1.2 AV Cusp Separation MM 2.2 cm DOPPLER AV Peak Velocity 130.0 cm/s AV Peak Gradient 6.8 mmHg LVOT Peak Velocity 128.0 cm/s LVOT Peak Gradient 6.6 mmHg AV Area Cont Eq pk 3.1 cm MR Peak Velocity 360.0 cm/s MR Peak Gradient 51.8 mmHg Mitral E Point Velocity 81.4 cm/s Mitral A Point Velocity 40.0 cm/s Mitral E to A Ratio 2.0 LV E' Lateral Velocity 10.2 cm/s Mitral E to LV E' Lateral Ratio 8.0 LV E' Septal Velocity 10.0 cm/s Mitral E to LV E' Septal Ratio 8.1 TR Peak Velocity 254.0 cm/s TR Peak Gradient 25.8 mmHg Right Atrial Pressure 10.0 mmHg Pulmonary Artery Systolic Pressu 35.8 mmHg Right Ventricular Systolic Press 35.8 mmHg PV Peak Velocity 102.0 cm/s PV Peak Gradient 4.2 mmHg FINDINGS LEFT VENTRICLE Normal left ventricular size and wall thickness. The left ventricular systolic function is normal wi th an estimated ejection fraction in the range of 60-65%. Left ventricular diastolic function parameters a re normal. RIGHT VENTRICLE Normal right ventricular size and systolic function. LEFT ATRIUM The left atrial size is normal. RIGHT ATRIUM The right atrial size is normal. ATRIAL SEPTUM Normal atrial septal thickness without atrial level shunting by limited color doppler interrogation. AORTA The aortic root and proximal ascending aorta are normal in size on limited imaging. MITRAL VALVE Trace mitral valve regurgitation. AORTIC VALVE Trileaflet aortic valve. No aortic valve stenosis or regurgitation. TRICUSPID VALVE There is mild tricuspid valve regurgitation. The estimated pulmonary arterial pressure is 35.8 mmHg. PULMONARY VALVE No pulmonary valve regurgitation or stenosis. VESSELS The inferior vena cava is normal in size. PERICARDIUM No pericardial effusion. Bashir Zapata MD (Electronically Signed) Final Date:08 September 2017 17:14
[2017-09-08] MEDS: MORPHINE SULFATE 2 MG/ML INJ IV PRN ×2 (17:25→21:19)
--- NOTE | 2017-09-08 20:23 | HHI.PR ---
Subjective Remarks No acute issue overnight Afebrile No chest pain short of breath no night sweat Objective Vitals Vital Signs Date Time Temp Pulse Resp B/P (MAP) Pulse Ox O2 Delivery O2 Flow Rate FiO2 09/08/17 16:00 98.2 63 16 130/81 (97) 97 09/08/17 12:00 97.7 66 16 141/81 (101) 94 09/08/17 10:06 97 21 09/08/17 08:00 98.1 68 18 130/81 (97) 96 09/08/17 04:00 98.2 66 20 129/68 (88) 96 09/08/17 00:00 98.2 76 20 123/58 (79) 95 I/O 09/07/17 09/07/17 09/07/17 09/08/17 09/08/17 09/08/17 07:00 15:00 23:00 07:00 15:00 23:00 Intake Total 820 ml 100 ml 1075 ml 855 ml 100 ml 460 ml Output Total 600 ml 600 ml Balance 220 ml 100 ml 1075 ml 255 ml 100 ml 460 ml Intake Oral 720 ml 360 ml 240 ml 360 ml IV Total 100 ml 100 ml 715 ml 615 ml 100 ml 100 ml Output Urine Total 600 ml 600 ml # Voids 3 3 2 # Bowel Movements 0 0 0 1 Result Diagram: 09/04/17 0343 09/07/17 1620 Objective Remarks GENERAL: This is a well-nourished, well-developed patient, in no apparent distress. CARDIOVASCULAR: Regular rate and regular rhythm without murmurs, gallops, or rubs. RESPIRATORY: Clear to auscultation. Breath sounds equal bilaterally. No wheezes , rales, or rhonchi. GASTROINTESTINAL: Abdomen soft, non-tender, nondistended. Normal, active bowel sounds MUSCULOSKELETAL: right second toe , multiple amputations in upper extremities due to serving in [place] NEURO: Alert & Oriented x4 to person, place, time, situation. Moves all ext x4 A/P Problem List: (1) Cellulitis ICD Code: L03.90 - Cellulitis, unspecified Status: Acute (2) DM (diabetes mellitus) ICD Code: E11.9 - Type 2 diabetes mellitus without complications Status: Chronic Assessment and Plan A/P: Right 2nd Toe Diabetic Foot Ulcer with Cellulitis, suspected Osteomyelitis: Failed Outpatient. S/p 1 week of Cipro 750mg bid prescribed by stripper machine operator at the [place]. +cellulitis on exam. -Right foot and tib/fib xray images reviewed and unremarkable -Unable to have MRI secondary to spinal stimulator -Continue antibiotics with IV Zosyn and IV Vancomycin . -[place] prn pain scale, IV morphine prn breakthrough pain -Appreciate podiatry consult status post debridement and amputation of gangrenous lesion in the second right toe MRSA on 1 tube of blood culture, 2 days repeated blood culture no growth, discussed with ID he recommended following repeated blood culture and if it's no growth for 72 hours patient can be discharged on clindamycin for 2 weeks Otherwise he will need further workup Diabetes mellitus, insulin-dependent: Patient typically on insulin pump at home , however fell off this morning. Last HgbA1c 8.7 on 05/12/17. -Monitor Accu-checks and cover with SSI -Diabetic diet CAD s/p Stent, Hypertension, Hyperlipidemia: chronic, stable, no complaints of chest pain -continue patient's aspirin and statin -BP well controlled, not on medications hypokalemia; will replace and monitor Anxiety/Depression: chronic, stable -continue home meds including mirtazapine, abilify, buspirone DVT Prophylaxis: teds/SCDs; avoid chemoprophylaxis until seen by podiatry incase surgery is indicated Problem Qualifiers (1) Cellulitis: Qualified Codes: L03.031 - Cellulitis of right toe Oneyda Moore MD Sep 08, 2017 20:23
[2017-09-08] MEDS: ATORVASTATIN 40 MG TAB PO SCH (21:07)
[2017-09-08] MEDS: MIRTAZAPINE 15 MG TAB PO SCH (21:08)
[2017-09-09] VITALS: BP 116/62; PULSE 79; RESP 17; TEMP 98.6; O2SAT 96
[2017-09-09] MEDS: ACETAMINOPHEN/HYDROcodone 325 MG/10 MG TAB PO PRN (00:52)
[2017-09-09 04:00] VITALS: BP 152/89; PULSE 70; RESP 17; TEMP 97.1; O2SAT 96
[2017-09-09] MEDS: PIPERACIL-TAZO 4.5 GM PREMIX 100 ML IV SCH ×2 (04:50→09:18)
[2017-09-09] MEDS: VANCOMYCIN INJ 1,500 MG in SODIUM CHLORID 0.9% 500 ML INJ 500 ML IV SCH (05:33)
[2017-09-09] MEDS: diphenhydrAMINE HCL 50 MG/ML VIAL IV PUSH SCH (05:34)
[2017-09-09] MEDS ORDERED: PHARMACY ORDERED LAB ONE (05:45)
[2017-09-09 06:24] LABS: CREATININE 0.82 MG/DL (0.60-1.30); VANCOMYCIN TROUGH 13.3 MCG/ML (5.0-10.0)
[2017-09-09] MEDS: LACTOBACILLUS ACIDOPHILUS TAB PO SCH (07:58)
[2017-09-09] MEDS: PANTOPRAZOLE SOD 40 MG DELAYED RELEASE TAB PO SCH (07:58)
[2017-09-09] MEDS: ARIPiprazole 15 MG TAB PO SCH (07:58)
[2017-09-09] MEDS: LIPASE/PROTEASE/AMYLASE (12,000/38,000/60,000) CAP PO SCH ×2 (07:58→12:49)
[2017-09-09] MEDS: MULTIVITAMINS/MINERALS THERAPEUTIC TAB PO SCH (07:58)
[2017-09-09] MEDS: BACITRACIN TOP OINT 15 GM TUBE TOPICAL SCH (07:59)
[2017-09-09] MEDS: SODIUM CHLORIDE 0.9% FLUSH 10 ML FLUSH IV FLUSH SCH (07:59)
[2017-09-09] MEDS: busPIRone HCL 5 MG TAB PO SCH ×2 (07:59→12:49)
[2017-09-09 08:00] VITALS: BP 161/87; PULSE 64; RESP 16; TEMP 96.2; O2SAT 96
[2017-09-09] MEDS: INSULIN ASPART SUPPLEMENTAL SCALE SQ SCH ×2 (08:00→12:00)
[2017-09-09 12:00] VITALS: BP 136/76; PULSE 62; RESP 16; TEMP 96.8; O2SAT 98
--- NOTE | 2017-09-09 14:18 | HHI.PR ---
Subjective Remarks no complains looking forward to going home states good hypoglycemic awareness states have all supplies at home and goes to [facility] for diabetic care Objective Vitals Vital Signs Date Time Temp Pulse Resp B/P (MAP) Pulse Ox O2 Delivery O2 Flow Rate FiO2 09/09/17 12:00 96.8 62 16 136/76 (96) 98 09/09/17 08:00 96.2 64 16 161/87 (111) 96 09/09/17 04:00 97.1 70 17 152/89 (110) 96 09/09/17 00:00 98.6 79 17 116/62 (80) 96 09/08/17 20:00 74 09/08/17 20:00 97.2 68 17 135/77 (96) 97 09/08/17 16:00 98.2 63 16 130/81 (97) 97 I/O 09/08/17 09/08/17 09/08/17 09/09/17 09/09/17 09/09/17 07:00 15:00 23:00 07:00 15:00 23:00 Intake Total 855 ml 100 ml 1075 ml 340 ml Output Total 600 ml 600 ml 400 ml Balance 255 ml 100 ml 1075 ml -260 ml -400 ml Intake Oral 240 ml 360 ml 240 ml IV Total 615 ml 100 ml 715 ml 100 ml Output Urine Total 600 ml 600 ml 400 ml # Voids 2 2 # Bowel Movements 0 1 Result Diagram: 09/09/17 0545 Imaging Last Impressions Foot X-Ray 09/06/17 0000 Signed Impressions: Service Date/Time: Wednesday, September 06, 2017 09:23 - CONCLUSION: Postoperative changes as above. Israel Johnston MD FACR Tibia/Fibula X-Ray 09/03/17 0000 Signed Impressions: Service Date/Time: Sunday, September 03, 2017 15:18 - CONCLUSION: No definite signs of osteomyelitis. René Kauffman MD Objective Remarks awake and alert, no acute distress anicteric lungs clear regular rhythm abdomen soft, nontender right foot- 2nd toe- post distal amputation- sutures in place, dry no leg swelling neuroexam- unremarkable A/P Problem List: (1) Cellulitis ICD Code: L03.90 - Cellulitis, unspecified Status: Acute (2) DM (diabetes mellitus) ICD Code: E11.9 - Type 2 diabetes mellitus without complications Status: Chronic Assessment and Plan S/P debridement and amputation of distal 2nd right toe Right 2nd Toe Diabetic Foot Ulcer with Cellulitis, suspected Osteomyelitis: Failed Outpatient. S/p 1 week of Cipro 750mg bid prescribed [facility] human resources manager [facility]. +cellulitis on exam. -Right foot and tib/fib xray images reviewed and unremarkable -Unable to have MRI secondary to spinal stimulator -on IV Zosyn and IV Vancomycin .- change to po clindamycin on DC -[place] prn pain scale, IV morphine prn breakthrough pain - cleared for DC- OP ff up with Podiatry have po pain meds at home MRSA on 1 tube of blood culture, 2 days repeated blood culture no growth, discussed with ID he recommended following repeated blood culture and if it's no growth for 72 hours patient can be discharged on clindamycin for 2 weeks - DC today on clindamycin 600 mg po tid x 2 weeks Diabetes mellitus, insulin-dependent: Patient typically on insulin pump at home , however fell off this morning. Last HgbA1c 8.7 on 05/12/17. -Monitor Accu-checks and cover with SSI -Diabetic diet - per patient- family - care takers - all supplies complete CAD s/p Stent, Hypertension, Hyperlipidemia: chronic, stable, no complaints of chest pain -continue patient's aspirin and statin -BP well controlled, not on medications hypokalemia;corrected Anxiety/Depression: chronic, stable -continue home meds including mirtazapine, abilify, buspirone DC today OP ffup with [facility] OP ff up with Podiatry Problem Qualifiers (1) Cellulitis: Qualified Codes: L03.031 - Cellulitis of right toe Antonio Lal MD Sep 09, 2017 14:18
[2017-09-09] MEDS ORDERED: CLIN300C5 PO (14:21)
--- NOTE | 2017-09-09 14:24 | HHI.DS ---
Discharge Summary Admission Date Sep 04, 2017 at 10:35 Discharge Date: Sep 09, 2017 Admitting Diagnosis Cellulitis that failed outpatient, possible osteomyelitis (1) Cellulitis ICD Code: L03.90 - Cellulitis, unspecified Diagnosis: Principal Status: Acute (2) DM (diabetes mellitus) ICD Code: E11.9 - Type 2 diabetes mellitus without complications Diagnosis: Secondary Status: Chronic Procedures Debridement and amputation of right 2nd toe Brief History - From Admission 47-year-old male with history of type 1 diabetes, hypertension, osteomyelitis right hallux s/p amputation, anxiety/depression, CAD s/p stent, presents with a one-week history of right second toe pain and swelling. The patient reports approximately one week ago he started to notice increasing right second toe pain , edema, slight purulent discharge, and foul odor. He denies any fevers but does report chills. He states he saw his electrical test technician at the [facility] who prescribed him ciprofloxacin 750 mg bid x1 week which he recently completed. He states the symptoms did not improve. He has 5/10 constant throbbing pain at the right second toe with radiation up to the midcalf, worse with any ambulation. He has been smoking marijuana at home for pain relief. The patient usually follows with the electrical test technician at the [facility], however he is also known to Dr. Kenny who performed his right hallux amputation. The patient denies any other medical complaints at this time including no headache, lightheadedness, chest pain, palpitations, shortness of breath, abdominal pain, nausea/vomiting, or diarrhea. CBC/BMP: 09/09/17 0545 Significant Findings Laboratory Tests Test 09/07/17 16:20 09/09/17 05:45 Vancomycin Level Trough 13.3 MCG/ML (5.0-10.0) Imaging Last Impressions Foot X-Ray 09/06/17 0000 Signed Impressions: Service Date/Time: Wednesday, September 06, 2017 09:23 - CONCLUSION: Postoperative changes as above. Israel Johnston MD FACR Tibia/Fibula X-Ray 09/03/17 0000 Signed Impressions: Service Date/Time: Sunday, September 03, 2017 15:18 - CONCLUSION: No definite signs of osteomyelitis. K. Jimbo Kauffman MD PE at Discharge awake and alert, no acute distress anicteric lungs clear regular rhythm abdomen soft, nontender right foot- 2nd toe- post distal amputation- sutures in place, dry no leg swelling neuroexam- unremarkable Pt update on day of discharge awake and alert, afebrile no pain post op site- dry Hospital Course S/P debridement and amputation of distal 2nd right toe Right 2nd Toe Diabetic Foot Ulcer with Cellulitis, suspected Osteomyelitis: Failed Outpatient. S/p 1 week of Cipro 750mg bid prescribed by electrical test technician at the [facility]. +cellulitis on exam. -Right foot and tib/fib xray images reviewed and unremarkable -Unable to have MRI secondary to spinal stimulator -on antibiotics with IV Zosyn and IV Vancomycin .- change to po clindamycin on DC -[place] prn pain scale, IV morphine prn breakthrough pain - cleared for DC- OP ff up with Podiatry have po pain meds at home MRSA on 1 tube of blood culture, 2 days repeated blood culture no growth, discussed with ID he recommended following repeated blood culture and if it's no growth for 72 hours patient can be discharged on clindamycin for 2 weeks - DC today on clindamycin 600 mg po tid x 2 weeks Diabetes mellitus, insulin-dependent: Patient typically on insulin pump at home , however fell off this morning. Last HgbA1c 8.7 on 05/12/17. -Monitor Accu-checks and cover with SSI -Diabetic diet - per patient- family - care takers - all supplies complete CAD s/p Stent, Hypertension, Hyperlipidemia: chronic, stable, no complaints of chest pain -continue patient's aspirin and statin -BP well controlled, not on medications hypokalemia;corrected Anxiety/Depression: chronic, stable -continue home meds including mirtazapine, abilify, buspirone DC today OP ffup with [facility] OP ff up with Podiatry Pt Condition on Discharge: Stable Discharge Disposition: Discharge Home Discharge Time: <= 30 minutes Discharge Instructions DIET: Follow Instructions for: Heart Healthy Diet, Diabetic Diet Speech Therapy-Diet Recommends: Regular Activities you can perform: Weight Bearing as Александр Follow up Referrals: PCP Follow-up - [facility] - 3-5 Days with Sandy Campoverde DPM New Medications: Clindamycin (Clindamycin) 300 Mg Cap 600 MG PO Q8H for Infection for 12 Days, #72 CAP 0 Refills Continued Medications: Aripiprazole (Abilify) 15 Mg Tab 15 MG PO DAILY, #30 TAB 0 Refills Aspirin (Aspirin) 81 Mg Chew 81 MG CHEW ONCE, #1 TAB 0 Refills Atorvastatin (Atorvastatin) 80 Mg Tab 40 MG PO HS for Cholesterol Management, #30 TAB 0 Refills Buspirone (Buspirone) 15 Mg Tab 15 MG PO TID for Anxiety, TAB 0 Refills Insulin Aspart Inj (Novolog Inj) 1,000 Unit/10 Ml Vial 0 SQ DIRECTED for Blood Sugar Management, #10 ML 0 Refills Sliding Scale as directed. Lactobacillus Acidophilus (Lactinex) 1 Chew 1 TAB CHEW BID for Nutritional Supplement for 30 Days, #60 TAB 0 Refills Mirtazapine (Mirtazapine) 30 Mg Tab 30 MG PO HS for Depression Control, #30 TAB 0 Refills Multiple Vitamins W/ Minerals (Thera-M) 1 Tab 1 TAB PO DAILT for Nutritional Supplement, TAB 0 Refills Pancrelipase (Creon) 12,000-38,000-60,000 Units Cap 2 CAP PO TID for pancreas, #180 CAP Pantoprazole (Protonix) 40 Mg Tab 40 MG PO DAILY for gastritis, #30 TAB 0 Refills Phytonadione (Mephyton) 5 Mg Tab 5 MG PO DAILY, TAB 0 Refills Vitamin E (Vitamin E) 200 Unit Cap 400 UNITS PO DAILY for Nutritional Supplement, CAP 0 Refills Antonio Lal MD Sep 09, 2017 14:24
[2017-09-10] MEDS ORDERED: PHARMACY ORDERED LAB ONE (17:45)
== END 2017-09-09 15:42 | disposition home or self-care (01) | DRG 617 ==
LOC: NEPC 14:11 → NEDA 17:34 → NEPFCDU 18:19 → OBSVTOIN 09-04 10:35 → N07B 09-04 12:34
PROVIDERS: ADMIT Internal Medicine; ATTEND Internal Medicine
PROC: 0JDQ0ZZ Extraction of Right Foot Subcutaneous Tissue and Fascia, Open Approach (ICD-10-PCS; 2017-09-06)
PROC: 0Y6R0Z0 Detachment at Right 2nd Toe, Complete, Open Approach (ICD-10-PCS; principal; 2017-09-06 08:02)
DX: E10.69 Type 1 diabetes mellitus with other specified complication (principal); R78.81 Bacteremia; M86.171 Other acute osteomyelitis, right ankle and foot; E10.52 Type 1 diabetes mellitus with diabetic peripheral angiopathy with gangrene; I96 Gangrene, not elsewhere classified; L03.031 Cellulitis of right toe; E10.621 Type 1 diabetes mellitus with foot ulcer; I10 Essential (primary) hypertension; E78.5 Hyperlipidemia, unspecified; E87.6 Hypokalemia; I25.10 Atherosclerotic heart disease of native coronary artery without angina pectoris; K21.9 Gastro-esophageal reflux disease without esophagitis; F43.10 Post-traumatic stress disorder, unspecified; I25.2 Old myocardial infarction; L97.514 Non-pressure chronic ulcer of other part of right foot with necrosis of bone; B95.62 Methicillin resistant Staphylococcus aureus infection as the cause of diseases classified elsewhere; M19.90 Unspecified osteoarthritis, unspecified site; F12.90 Cannabis use, unspecified, uncomplicated; F32.9 Major depressive disorder, single episode, unspecified; Z79.4 Long term (current) use of insulin; Z89.111 Acquired absence of right hand; Z87.891 Personal history of nicotine dependence; Z89.112 Acquired absence of left hand; Z95.5 Presence of coronary angioplasty implant and graft; Z96.41 Presence of insulin pump (external) (internal)
CPT/HCPCS: 73590; 73620; 73630; 80048; 80202; 82040; 82565; 82948; 83605; 84155; 85025; 85610; 85652; 85730; 86140; 87040; 87186; 87205; 88305; 88311; 93306; 96365; 96366; 96372; 96375; 96376; G0378; J0131; J1100; J1200; J1815; J2250; J2270; J2405; J2543; J3010; J3370; J7030; J7040; J7050; L3260

== ENCOUNTER 2017-09-23 16:09 | Observation (INO) | payer MEDICARE, OTHER ==
[~2017-09-23 16:09] MED LIST changes: +CLIN300C5 PO
[2017-09-23 16:10] VITALS: BP 154/93; PULSE 89; RESP 16; TEMP 97.7; O2SAT 98
[2017-09-23] MEDS ORDERED: HYDROmorphone HCL PF 1 MG/ML VIAL IVS ONE (17:45)
[2017-09-23] MEDS ORDERED: KETOROLAC TROMETHAMINE 30 MG/ML (IVP) VIAL IVP ONE (17:45)
[2017-09-23] MEDS ORDERED: SODIUM CHLORIDE 0.9% FLUSH 10 ML FLUSH IV FLUSH PRN ×2 (17:45→22:45)
[2017-09-23] MEDS ORDERED: ONDANSETRON HCL 4 MG/2 ML VIAL IVP ONE (17:45)
[2017-09-23] MEDS: SODIUM CHLOR 0.9% 1000 ML INJ 1,000 ML IV SCH ×2 (18:00→19:08)
[2017-09-23] MEDS ORDERED: HYDROmorphone HCL PF 2 MG/ML VIAL IV ONE (18:15)
[2017-09-23 18:18] VITALS: O2SAT 98
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
[2017-09-23 18:46] LABS: AUTOMATED NEUTROPHIL # 7.5 TH/MM3 (1.8-7.7); BASOPHIL % 0.2 % (0.0-2.0); EOSINOPHIL % 0.1 % (0.0-4.0); HEMATOCRIT 40.6 % (39.0-51.0); HEMOGLOBIN 13.9 GM/DL (13.0-17.0); LYMPH % 12.5 % (9.0-44.0); LYMPHOCYTE # 1.2 TH/MM3 (1.0-4.8); MEAN CELL VOLUME 80.9 FL (80.0-100.0); MEAN CORPUSCULAR HEMOGLOBIN 27.7 PG (27.0-34.0); MEAN CORPUSCULAR HGB CONC 34.2 % (32.0-36.0); MEAN PLATELET VOLUME 8.4 FL (7.0-11.0); MONO % 5.9 % (0.0-8.0); MONOCYTE # 0.5 TH/MM3 (0-0.9); NEUT % 81.3 % (16.0-70.0); PLATELET COUNT 234 TH/MM3 (150-450); RED BLOOD COUNT 5.02 MIL/MM3 (4.50-5.90); RED CELL DISTRIBUTION WIDTH 16.1 % (11.6-17.2); WHITE BLOOD COUNT 9.2 TH/MM3 (4.0-11.0)
[2017-09-23 19:02] LABS: ALBUMIN 3.5 GM/DL (3.4-5.0); AST (GOT) 17 U/L (15-37); BICARBONATE 28.1 MEQ/L (21.0-32.0); BLOOD UREA NITROGEN 15 MG/DL (7-18); CALCIUM 8.1 MG/DL (8.5-10.1); CHLORIDE 100 MEQ/L (98-107); CREATININE 0.74 MG/DL (0.60-1.30); GLOMERULAR FILTRATION RATE 114 ML/MIN (>89); GLUCOSE,RANDOM 245 MG/DL (74-106); LIPASE 33 U/L (73-393); MAGNESIUM 1.3 MG/DL (1.5-2.5); SODIUM (NA) 138 MEQ/L (136-145)
[2017-09-23 19:08] VITALS: BP 114/67; PULSE 80; RESP 17; O2SAT 96
[2017-09-23 19:10] LABS: ALKALINE PHOSPHATASE 94 U/L (45-117); ALT (GPT) 21 U/L (12-78); TOTAL BILIRUBIN ADULT 0.5 MG/DL (0.2-1.0); TOTAL PROTEIN 6.6 GM/DL (6.4-8.2)
[2017-09-23] MEDS ORDERED: diphenhydrAMINE HCL 50 MG/ML VIAL IV PUSH ONE (20:00)
[2017-09-23] MEDS ORDERED: PROCHLORPERAZINE INJ 10 MG/2 ML VIAL IV PUSH ONE (20:00)
--- NOTE | 2017-09-23 20:40 | PD ---
Physical Exam Time Seen by Provider: 20:40 Narrative Please refer to previous providers documentation for details 9 patient's current visit. Data Data Last Documented VS Vital Signs Date Time Temp Pulse Resp B/P (MAP) Pulse Ox O2 Delivery O2 Flow Rate FiO2 09/23/17 19:09 17 09/23/17 19:08 80 114/67 (83) 96 Room Air 09/23/17 16:10 97.7 Orders Orders Complete Blood Count With Diff (09/23/17 17:36) Comprehensive Metabolic Panel (09/23/17 17:36) Lipase (09/23/17 17:36) Lactic Acid (09/23/17 17:36) Urinalysis - C+S If Indicated (09/23/17 17:36) Iv Access Insert/Monitor (09/23/17 17:36) Ecg Monitoring (09/23/17 17:36) Oximetry (09/23/17 17:36) Ondansetron Inj (Zofran Inj) (09/23/17 17:45) Sodium Chlor 0.9% 1000 Ml Inj (Ns 1000 M (09/23/17 17:36) Sodium Chloride 0.9% Flush (Ns Flush) (09/23/17 17:45) Ketorolac Inj (Toradol Inj) (09/23/17 17:45) Magnesium (Mg) (09/23/17 17:36) Hydromorphone Pf Inj (Dilaudid Pf Inj) (09/23/17 18:15) Prochlorperazine Inj (Compazine Inj) (09/23/17 20:00) Diphenhydramine Inj (Benadryl Inj) (09/23/17 20:00) Admit Order (Ed Use Only) (09/23/17 22:16) Labs Laboratory Tests Test 09/23/17 18:00 09/23/17 18:10 09/23/17 21:10 White Blood Count 9.2 TH/MM3 Red Blood Count 5.02 MIL/MM3 Hemoglobin 13.9 GM/DL Hematocrit 40.6 % Mean Corpuscular Volume 80.9 FL Mean Corpuscular Hemoglobin 27.7 PG Mean Corpuscular Hemoglobin Concent 34.2 % Red Cell Distribution Width 16.1 % Platelet Count 234 TH/MM3 Mean Platelet Volume 8.4 FL Neutrophils (%) (Auto) 81.3 % Lymphocytes (%) (Auto) 12.5 % Monocytes (%) (Auto) 5.9 % Eosinophils (%) (Auto) 0.1 % Basophils (%) (Auto) 0.2 % Neutrophils # (Auto) 7.5 TH/MM3 Lymphocytes # (Auto) 1.2 TH/MM3 Monocytes # (Auto) 0.5 TH/MM3 Eosinophils # (Auto) 0.0 TH/MM3 Basophils # (Auto) 0.0 TH/MM3 CBC Comment DIFF FINAL Differential Comment Blood Urea Nitrogen 15 MG/DL Creatinine 0.74 MG/DL Random Glucose 245 MG/DL Total Protein 6.6 GM/DL Albumin 3.5 GM/DL Calcium Level 8.1 MG/DL Magnesium Level 1.3 MG/DL Alkaline Phosphatase 94 U/L Aspartate Amino Transf (AST/SGOT) 17 U/L Alanine Aminotransferase (ALT/SGPT) 21 U/L Total Bilirubin 0.5 MG/DL Sodium Level 138 MEQ/L Potassium Level 3.3 MEQ/L Chloride Level 100 MEQ/L Carbon Dioxide Level 28.1 MEQ/L Anion Gap 10 MEQ/L Estimat Glomerular Filtration Rate 114 ML/MIN Lipase 33 U/L Lactic Acid Level 1.8 mmol/L Urine Color YELLOW Urine Turbidity HAZY Urine pH 7.0 Urine Specific [place] 1.015 Urine Protein NEG mg/dL Urine Glucose (UA) 300 mg/dL Urine Ketones 40 mg/dL Urine Occult Blood NEG Urine Nitrite NEG Urine Bilirubin NEG Urine Urobilinogen LESS THAN 2.0 MG/DL Urine Leukocyte Esterase NEG Urine RBC LESS THAN 1 /hpf Urine WBC 3 /hpf Urine Squamous Epithelial Cells <1 /hpf Urine Amorphous Sediment MOD Urine Bacteria OCC /hpf Urine Mucus FEW /lpf Microscopic Urinalysis Comment CULT NOT INDICATED MDM Medical Record Reviewed: Yes Supervised Visit with ESE: No Narrative Course Patient was signed out to me after being treated for pain is second time. I going discussed with the patient at that this time he is completely pain-free. I have suggested a by mouth challenge and he agrees to this prior to being a definite admission for observation. Patient drinks a small amount of water begins vomiting again. His abdominal pain returns. I discussed the patient my attending physician. We agree it is in his best interest to be admitted observation. I discussed the patient Dr. Sheehan. Patient be admitted [facility]. Diagnosis Primary Impression: Nausea & vomiting Qualified Codes: R11.14 - Bilious vomiting Additional Impression: Abdominal pain Qualified Codes: R10.84 - Generalized abdominal pain Condition: Stable Elmira Patricia Sep 23, 2017 20:40
[2017-09-23 21:47] LABS: AMORPHOUS SEDIMENT, URINE MOD; BACTERIA, URINE OCC /hpf; BILIRUBIN, URINE NEG (NEG); BLOOD, URINE NEG (NEG); GLUCOSE,URINE 300 mg/dL (NEG); KETONE, URINE 40 mg/dL (NEG); MUCUS URINE FEW /lpf (OCC); NITRITE,URINE NEG (NEG); SQUAMOUS EPITHELIAL CELL URINE <1 /hpf (0-5); URINE COLOR YELLOW (YELLW/STRAW); URINE LEUKOCYTE ESTERASE NEG (NEG)
[2017-09-23 22:27] VITALS: BP 196/91; PULSE 59; RESP 15; O2SAT 98
[2017-09-23] MEDS ORDERED: NS + KCL 20 MEQ INJ 1,000 ML IV SCH (22:43)
[2017-09-23] MEDS ORDERED: ONDANSETRON HCL 4 MG/2 ML VIAL IV PUSH PRN (22:45)
[2017-09-23] MEDS ORDERED: METOCLOPRAMIDE HCL 10 MG/2 ML VIAL IVS PRN (22:45)
[2017-09-23] MEDS ORDERED: MAGNESIUM SULFATE 1 GM PREMIX 100 ML IV ONE (22:45)
[2017-09-23] MEDS ORDERED: POTASSIUM CHLORIDE INJ 20 MEQ in DEXT 5%-NACL 0.9% 1000 ML INJ 1,000 ML IV SCH (23:00)
[2017-09-23] MEDS ORDERED: GLUCAGON 1 MG/ML VIAL OTHER PRN (23:00)
[2017-09-23] MEDS ORDERED: DEXTROSE 50% IN WATER 50 ML VIAL(D50) IV PUSH PRN (23:00)
[2017-09-23] MEDS: HYDROmorphone HCL PF 2 MG/ML VIAL IV PUSH PRN (23:40)
[2017-09-24 00:04] VITALS: BP 118/66; PULSE 77; RESP 15; O2SAT 96
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
[2017-09-24] MEDS: D5-NS + KCL 20 MEQ INJ 1,000 ML IV SCH ×2 (00:51→09:46)
[2017-09-24 03:27] VITALS: BP 148/78; PULSE 65; RESP 16; O2SAT 96
[2017-09-24] MEDS: HYDROmorphone HCL PF 2 MG/ML VIAL IV PUSH PRN (03:35)
[2017-09-24 03:48] VITALS: TEMP 98
[2017-09-24 04:25] LABS: AUTOMATED NEUTROPHIL # 4.4 TH/MM3 (1.8-7.7); BASOPHIL % 0.3 % (0.0-2.0); EOSINOPHIL # 0.1 TH/MM3 (0-0.4); EOSINOPHIL % 1.4 % (0.0-4.0); HEMATOCRIT 35.8 % (39.0-51.0); LYMPH % 26.4 % (9.0-44.0); LYMPHOCYTE # 1.8 TH/MM3 (1.0-4.8); MEAN CELL VOLUME 81.5 FL (80.0-100.0); MEAN CORPUSCULAR HEMOGLOBIN 27.2 PG (27.0-34.0); MEAN CORPUSCULAR HGB CONC 33.4 % (32.0-36.0); MONO % 5.7 % (0.0-8.0); MONOCYTE # 0.4 TH/MM3 (0-0.9); NEUT % 66.2 % (16.0-70.0); PLATELET COUNT 176 TH/MM3 (150-450); RED BLOOD COUNT 4.39 MIL/MM3 (4.50-5.90); RED CELL DISTRIBUTION WIDTH 15.6 % (11.6-17.2); WHITE BLOOD COUNT 6.7 TH/MM3 (4.0-11.0)
[2017-09-24 05:00] LABS: ALBUMIN 3.2 GM/DL (3.4-5.0); ALT (GPT) 22 U/L (12-78); AST (GOT) 13 U/L (15-37); BICARBONATE 32.5 MEQ/L (21.0-32.0); BLOOD UREA NITROGEN 14 MG/DL (7-18); CALCIUM 7.8 MG/DL (8.5-10.1); CHLORIDE 97 MEQ/L (98-107); CREATININE 0.77 MG/DL (0.60-1.30); GLOMERULAR FILTRATION RATE 109 ML/MIN (>89); GLUCOSE,RANDOM 293 MG/DL (74-106); MAGNESIUM 1.8 MG/DL (1.5-2.5); SODIUM (NA) 134 MEQ/L (136-145)
[2017-09-24 05:02] LABS: ALKALINE PHOSPHATASE 86 U/L (45-117); TOTAL BILIRUBIN ADULT 0.6 MG/DL (0.2-1.0); TOTAL PROTEIN 6.6 GM/DL (6.4-8.2)
[2017-09-24 07:41] VITALS: BP 143/83; PULSE 73; RESP 20; TEMP 98; O2SAT 96
[2017-09-24] MEDS ORDERED: ARIPiprazole 15 MG TAB PO SCH (09:00)
[2017-09-24] MEDS ORDERED: LACTOBACILLUS ACIDOPHILUS TAB PO SCH (09:00)
[2017-09-24] MEDS ORDERED: PHYTONADIONE 5 MG/SWFI 5 ML ORAL SYR PO SCH (09:00)
[2017-09-24] MEDS ORDERED: PANTOPRAZOLE SOD 40 MG DELAYED RELEASE TAB PO SCH (09:00)
[2017-09-24] MEDS ORDERED: SODIUM CHLORIDE 0.9% FLUSH 10 ML FLUSH IV FLUSH SCH (09:00)
[2017-09-24] MEDS: LIPASE/PROTEASE/AMYLASE (12,000/38,000/60,000) CAP PO SCH ×2 (09:13→13:03)
[2017-09-24] MEDS: busPIRone HCL 5 MG TAB PO SCH ×2 (09:13→13:03)
[2017-09-24] MEDS: INSULIN ASPART SUPPLEMENTAL SCALE SQ SCH ×2 (09:15→12:00)
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
[2017-09-24 11:35] VITALS: BP 142/75; PULSE 79; RESP 18; TEMP 97.2; O2SAT 97
--- NOTE | 2017-09-24 15:37 | HHI.DCPOC ---
Discharge Care Plan Diagnosis: (1) Nausea & vomiting (2) Abdominal pain (3) Pancreatitis (4) DM (diabetes mellitus) Goals to Promote Your Health * To prevent worsening of your condition and complications * To maintain your health at the optimal level Directions to Meet Your Goals Take your medications as prescribed Follow your dietary instruction Follow activity as directed Keep your appointments as scheduled Take your immunizations and boosters as scheduled If your symptoms worsen call your PCP, if no PCP go to Urgent Care Center or Emergency Room Smoking is Dangerous to Your Health. Avoid second hand smoke Call the 24-hour hour crisis hotline for domestic abuse at Rea Pang PA-C Sep 24, 2017 15:37
[2017-09-24 17:12] VITALS: BP 140/83; PULSE 73; RESP 18; TEMP 98.1; O2SAT 96
[2017-09-24] MEDS ORDERED: MIRTAZAPINE 15 MG TAB PO SCH (21:00)
[2017-09-24] MEDS ORDERED: ATORVASTATIN 40 MG TAB PO SCH (21:00)
== END 2017-09-24 18:03 | disposition home or self-care (01) ==
LOC: NEPD 16:09 → NEDA 22:18 → NEPFCDU 09-24 00:23
PROVIDERS: ADMIT Internal Medicine; ATTEND Internal Medicine
DX: K86.1 Other chronic pancreatitis (principal); E10.65 Type 1 diabetes mellitus with hyperglycemia; I25.10 Atherosclerotic heart disease of native coronary artery without angina pectoris; E78.5 Hyperlipidemia, unspecified; K21.9 Gastro-esophageal reflux disease without esophagitis; I10 Essential (primary) hypertension; R11.2 Nausea with vomiting, unspecified; F43.10 Post-traumatic stress disorder, unspecified; Z90.411 Acquired partial absence of pancreas; K86.81 Exocrine pancreatic insufficiency; M86.8X7 Other osteomyelitis, ankle and foot; M54.9 Dorsalgia, unspecified; Z79.4 Long term (current) use of insulin
CPT/HCPCS: 80053; 81001; 82948; 83605; 83690; 83735; 85025; 96361; 96365; 96366; 96375; 96376; 99285; G0378; J0780; J1170; J1200; J1642; J1815; J1885; J2405; J3475; J3480; J7030

== ENCOUNTER 2017-10-11 15:48 | Inpatient (IN) | payer MEDICARE, OTHER ==
[~2017-10-11] VITALS: Ht 185.4 cm; Wt 72.4 kg
[~2017-10-11 15:48] MED LIST changes: -CLIN300C5 PO
[2017-10-11 15:53] VITALS: BP 122/70; PULSE 91; RESP 16; TEMP 98.2; O2SAT 97
[2017-10-11] MEDS ORDERED: SODIUM CHLOR 0.9% 1000 ML INJ 1,000 ML IV SCH (19:42)
[2017-10-11] MEDS ORDERED: HYDROmorphone HCL PF 1 MG/ML VIAL IVS ONE (19:45)
[2017-10-11] MEDS ORDERED: SODIUM CHLORIDE 0.9% FLUSH 10 ML FLUSH IV FLUSH PRN ×2 (19:45→22:15)
[2017-10-11] MEDS ORDERED: ONDANSETRON HCL 4 MG/2 ML VIAL IVP ONE (19:45)
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
[2017-10-11] MEDS ORDERED: HYDROmorphone HCL PF 2 MG/ML VIAL ONE (20:02)
--- NOTE | 2017-10-11 20:22 | RADRPT ---
EXAM DATE/TIME: 10/11/2017 20:04 [facility] COMPARISON: No previous studies available for comparison. INDICATIONS : Cough. MEDICAL HISTORY : Myocardial infarction. Pancreatitis. Diabetes mellitus type II. Osteomyelitis. SURGICAL HISTORY : Coronary artery stent. Stimulator. Port. ENCOUNTER: Initial ACUITY: 1 day PAIN SCORE: 0/10 LOCATION: Bilateral chest FINDINGS: A single view of the chest demonstrates the lungs to be symmetrically aerated without evidence of mas s, infiltrate or effusion. The cardiomediastinal contours are unremarkable. Osseous structures are intact. There is a right-sided Drimml-m-Jhmi in place. There is a spinal catheter with the tip at the level of T6. There surgical clips in the left angle. CONCLUSION: No acute pulmonary infiltrates. Darrel Maya MD on October 11, 2017 at 20:19 Board Certified Radiologist. This report was verified electronically.
--- NOTE | 2017-10-11 20:27 | RADRPT ---
EXAM DATE/TIME: 10/11/2017 19:56 [facility] COMPARISON: FOOT RIGHT COMPLETE ([id number]), September 06, 2017, 9:23. INDICATIONS : Right foot pain and infection. MEDICAL HISTORY : Diabetes mellitus type II. Hypertension. Myocardial infarction. Pancreatitis. Osteomyelitis. SURGICAL HISTORY : Cholecystectomy. External fixator right ankle. Amputation right first toe. Coronary artery stent. ENCOUNTER: Initial ACUITY: 1 day PAIN SCORE: 4/10 LOCATION: Right Entired right foot. FINDINGS: Today's exam is compared to the prior study of 09/06/2017. There have been no new or significant change in the appearance of the foot. Patient is status post a previous amputation of the first toe.. There is an old healed fractures involving the fourth and fifth metatarsals. There is chronic calcificatio ns in the soft tissues adjacent to the first metatarsal. No bony destruction is seen. There is no air in the soft tissues. No significant soft tissue swelling. There is osteopenia. CONCLUSION: Stable plain films of the right foot compared to the prior examination. Darrel Maya MD on October 11, 2017 at 20:23 Board Certified Radiologist. This report was verified electronically.
[2017-10-11 20:45] VITALS: BP 102/56; PULSE 70; RESP 18; O2SAT 100
[2017-10-11 21:00] VITALS: BP 99/62; PULSE 72; RESP 16; O2SAT 97
[2017-10-11 21:02] LABS: AUTOMATED NEUTROPHIL # 4.9 TH/MM3 (1.8-7.7); BASOPHIL % 0.4 % (0.0-2.0); EOSINOPHIL # 0.1 TH/MM3 (0-0.4); EOSINOPHIL % 1.7 % (0.0-4.0); HEMOGLOBIN 12.5 GM/DL (13.0-17.0); LYMPH % 29.5 % (9.0-44.0); LYMPHOCYTE # 2.3 TH/MM3 (1.0-4.8); MEAN CELL VOLUME 81.3 FL (80.0-100.0); MEAN CORPUSCULAR HEMOGLOBIN 27.4 PG (27.0-34.0); MEAN CORPUSCULAR HGB CONC 33.7 % (32.0-36.0); MEAN PLATELET VOLUME 7.9 FL (7.0-11.0); MONO % 5.9 % (0.0-8.0); MONOCYTE # 0.5 TH/MM3 (0-0.9); NEUT % 62.5 % (16.0-70.0); PLATELET COUNT 213 TH/MM3 (150-450); RED BLOOD COUNT 4.55 MIL/MM3 (4.50-5.90); RED CELL DISTRIBUTION WIDTH 16.2 % (11.6-17.2); WHITE BLOOD COUNT 7.8 TH/MM3 (4.0-11.0)
[2017-10-11 21:15] LABS: PROTHROMBIN TIME - PATIENT 9.9 SEC (9.8-11.6)
[2017-10-11 21:19] LABS: ALBUMIN 3.6 GM/DL (3.4-5.0); AST (GOT) 23 U/L (15-37); BICARBONATE 32.8 MEQ/L (21.0-32.0); BLOOD UREA NITROGEN 18 MG/DL (7-18); CALCIUM 8.8 MG/DL (8.5-10.1); CHLORIDE 100 MEQ/L (98-107); CREATININE 0.82 MG/DL (0.60-1.30); GLOMERULAR FILTRATION RATE 101 ML/MIN (>89); GLUCOSE,RANDOM 81 MG/DL (74-106); SODIUM (NA) 137 MEQ/L (136-145)
[2017-10-11 21:21] LABS: ALT (GPT) 35 U/L (12-78)
[2017-10-11 21:23] LABS: ALKALINE PHOSPHATASE 107 U/L (45-117); TOTAL BILIRUBIN ADULT 0.2 MG/DL (0.2-1.0); TOTAL PROTEIN 6.8 GM/DL (6.4-8.2)
[2017-10-11 22:00] VITALS: BP 112/67; PULSE 74; RESP 15; O2SAT 97
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
[2017-10-11] MEDS ORDERED: ACETAMINOPHEN/HYDROcodone 325 MG/5 MG TAB PO PRN (22:15)
[2017-10-11] MEDS ORDERED: GLUCAGON 1 MG/ML VIAL OTHER PRN (22:15)
[2017-10-11] MEDS ORDERED: BISACODYL 10 MG SUPP RECTAL PRN (22:15)
[2017-10-11] MEDS ORDERED: ACETAMINOPHEN 325 MG TAB PO PRN (22:15)
[2017-10-11] MEDS ORDERED: MAGNESIUM HYDROXIDE SUSP 30 ML CUP PO PRN (22:15)
[2017-10-11] MEDS ORDERED: Vancomycin Consult Pharmacy 1 EA OTHER SCH (22:15)
[2017-10-11] MEDS ORDERED: SENNOSIDES 8.6 MG TAB PO PRN (22:15)
[2017-10-11] MEDS ORDERED: LACTULOSE SYRUP 20 GM/30 ML CUP PO PRN (22:15)
[2017-10-11 23:00] VITALS: BP 108/56; PULSE 74; RESP 15; O2SAT 96
[2017-10-12] VITALS (7 sets, daily range): BP systolic 102–154; BP diastolic 63–78; PULSE 66–71; RESP 15–20; TEMP 96.5–97.5; O2SAT 96–98
[2017-10-12] MEDS ORDERED: VANCOMYCIN 1,500 MG/NS 500 ML IV ONE ×2
[2017-10-12] MEDS: CEFEPIME INJ 1,000 MG in SODIUM CHLORIDE 0.9% INJ 100 ML IV SCH ×3 (00:21→11:50)
[2017-10-12] MEDS: MORPHINE SULFATE 2 MG/ML INJ IV PUSH PRN ×2 (00:21→03:29)
[2017-10-12] MEDS: SODIUM CHLOR 0.9% 1000 ML INJ 1,000 ML IV SCH ×3 (00:21→14:12)
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
[2017-10-12 07:25] LABS: AUTOMATED NEUTROPHIL # 3.4 TH/MM3 (1.8-7.7); BASOPHIL % 0.4 % (0.0-2.0); EOSINOPHIL # 0.1 TH/MM3 (0-0.4); EOSINOPHIL % 1.9 % (0.0-4.0); HEMOGLOBIN 11.2 GM/DL (13.0-17.0); LYMPH % 32.5 % (9.0-44.0); LYMPHOCYTE # 1.9 TH/MM3 (1.0-4.8); MEAN CELL VOLUME 81.2 FL (80.0-100.0); MEAN CORPUSCULAR HEMOGLOBIN 27.7 PG (27.0-34.0); MEAN CORPUSCULAR HGB CONC 34.1 % (32.0-36.0); MEAN PLATELET VOLUME 7.7 FL (7.0-11.0); MONOCYTE # 0.4 TH/MM3 (0-0.9); NEUT % 58.2 % (16.0-70.0); PLATELET COUNT 182 TH/MM3 (150-450); RED BLOOD COUNT 4.06 MIL/MM3 (4.50-5.90); RED CELL DISTRIBUTION WIDTH 16.4 % (11.6-17.2); WHITE BLOOD COUNT 5.9 TH/MM3 (4.0-11.0)
[2017-10-12 07:43] LABS: ALBUMIN 3.1 GM/DL (3.4-5.0); ALKALINE PHOSPHATASE 83 U/L (45-117); ALT (GPT) 28 U/L (12-78); AST (GOT) 20 U/L (15-37); BICARBONATE 29.5 MEQ/L (21.0-32.0); BLOOD UREA NITROGEN 15 MG/DL (7-18); CALCIUM 7.9 MG/DL (8.5-10.1); CHLORIDE 104 MEQ/L (98-107); CREATININE 0.62 MG/DL (0.60-1.30); GLOMERULAR FILTRATION RATE 140 ML/MIN (>89); GLUCOSE,RANDOM 53 MG/DL (74-106); SODIUM (NA) 139 MEQ/L (136-145); TOTAL BILIRUBIN ADULT 0.2 MG/DL (0.2-1.0)
[2017-10-12] MEDS: DEXTROSE 50% IN WATER 50 ML VIAL(D50) IV PUSH PRN ×2 (07:58→13:00)
[2017-10-12] MEDS: INSULIN ASPART SUPPLEMENTAL SCALE SQ SCH ×3 (08:00→16:52)
[2017-10-12] MEDS ORDERED: SODIUM CHLORIDE 0.9% FLUSH 10 ML FLUSH IV FLUSH SCH (09:00)
[2017-10-12] MEDS ORDERED: PANTOPRAZOLE SOD 40 MG DELAYED RELEASE TAB PO SCH (09:00)
[2017-10-12] MEDS: LIPASE/PROTEASE/AMYLASE (12,000/38,000/60,000) CAP PO SCH ×3 (09:00→16:53)
[2017-10-12] MEDS ORDERED: DOCUSATE SODIUM 50 MG/SENNA 8.6 MG TAB PO SCH (09:00)
[2017-10-12] MEDS ORDERED: ARIPiprazole 15 MG TAB PO SCH (09:00)
[2017-10-12] MEDS: busPIRone HCL 5 MG TAB PO SCH ×3 (09:01→16:52)
[2017-10-12] MEDS ORDERED: BUPIVACAINE HCL PF 0.25% 30 ML VIAL ONE (10:52)
[2017-10-12] MEDS ORDERED: NEOMYCIN/POLYMYXIN/BACITRACIN OINT 15 GM TUBE ONE (10:52)
[2017-10-12] MEDS ORDERED: NEOMYCIN/POLYMYXIN 1 ML G.U. IRRIGANT ONE (10:53)
[2017-10-12] MEDS ORDERED: ACETAMINOPHEN 1000 MG/100 ML 0 ML IV ONE (11:16)
[2017-10-12] MEDS ORDERED: ARTIFICIAL TEARS OPTH OINT 3.5 APPLIC/3.5 GM TUBO ONE (11:16)
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
[2017-10-12] MEDS ORDERED: PROPOFOL 200 MG/20 ML AMP IV ONE (12:00)
[2017-10-12] MEDS ORDERED: LIDOCAINE HCL 1% PF 5 ML SYRINGE OTHER ONE (12:00)
[2017-10-12] MEDS ORDERED: ONDANSETRON HCL 4 MG/2 ML VIAL IV ONE (12:00)
[2017-10-12] MEDS ORDERED: MIDAZOLAM HCL 2 MG/2 ML VIAL ONE (12:59)
[2017-10-12] MEDS ORDERED: Post-op Orders (for Pharmacy) XX ONE (13:00)
[2017-10-12] MEDS ORDERED: NALOXONE HCL 0.4 MG/ML AMP IV PUSH PRN (13:00)
[2017-10-12] MEDS ORDERED: VANCOMYCIN INJ 1,250 MG in SODIUM CHLOR 0.9% 250 ML INJ 250 ML IV SCH (13:00)
[2017-10-12] MEDS ORDERED: DO NOT ADM ANY ANTICOAGULANT DRUGS PRN (13:15)
[2017-10-12] MEDS ORDERED: *morphine SULFATE 4 MG/ML PERIprocedure ONLY ONE (13:24)
--- NOTE | 2017-10-12 14:09 | RADRPT ---
EXAM DATE/TIME: 10/12/2017 13:27 [facility] COMPARISON: FOOT RIGHT COMPLETE ([id number]), October 11, 2017, 19:56. INDICATIONS : Post op 2nd and 3rd digit amputations MEDICAL HISTORY : Diabetes mellitus type II. Hypertension. Myocardial infarction. Pancreatitis. Osteomyelitis SURGICAL HISTORY : Cholecystectomy. External fixator right ankle. Amputation right first toe. Coronary artery stent ENCOUNTER: Initial ACUITY: 1 day PAIN SCORE: 4/10 LOCATION: Right 2nd and 3rd digits FINDINGS: The views of the right foot are stable other than antrum amputation of the second and third toes beyo nd the distal aspect of the proximal phalanx. CONCLUSION: Surgical amputation second and third toes beyond the distal aspect of proximal phalanx. Cornel Fish MD on October 12, 2017 at 14:05 Board Certified Radiologist. This report was verified electronically.
[2017-10-12] MEDS ORDERED: BACT800T5 PO (16:36)
--- NOTE | 2017-10-12 16:37 | HHI.DCPOC ---
Discharge Care Plan Diagnosis: (1) Osteomyelitis (2) DM (diabetes mellitus) Goals to Promote Your Health * To prevent worsening of your condition and complications * To maintain your health at the optimal level Directions to Meet Your Goals Take your medications as prescribed Follow your dietary instruction Follow activity as directed Keep your appointments as scheduled Take your immunizations and boosters as scheduled If your symptoms worsen call your PCP, if no PCP go to Urgent Care Center or Emergency Room Smoking is Dangerous to Your Health. Avoid second hand smoke Call the 24-hour hour crisis hotline for domestic abuse at Kyler Delgadillo MD Oct 12, 2017 16:37
[2017-10-12] MEDS ORDERED: ATORVASTATIN 40 MG TAB PO SCH (21:00)
[2017-10-12] MEDS ORDERED: MIRTAZAPINE 15 MG TAB PO SCH (21:00)
--- NOTE | 2017-10-12 23:44 | EKG ---
Date Performed: 10/11/2017 Time Performed: 21:06:34 PTAGE: 47 years EKG: Sinus rhythm NORMAL ECG PREVIOUS TRACING : 08/13/2017 19.16 Since the prior tracing, there has been no significant peraza DOCTOR: Demarcus Gooden Interpretating Date/Time 10/12/2017 23:43:01
[2017-10-13] MEDS ORDERED: PHARMACY ORDERED LAB ONE (12:45)
--- NOTE | 2017-10-30 10:50 | MP ---
cc: Bren Borja DPM DATE OF OPERATION: 10/12/2017 SURGEON: Bren Borja DPM LEARNING MANAGER: None. PROCEDURE: Right second and third digit amputation. PREOPERATIVE DIAGNOSIS: Osteomyelitis. POSTOPERATIVE DIAGNOSIS: Osteomyelitis. ANESTHESIA: General. HEMOSTASIS: None. ESTIMATED BLOOD LOSS: Less than 5 ml MATERIALS: 3-0 Prolene. INJECTABLES: None. COMPLICATIONS: None. INDICATIONS: The patient was seen by Dr. Campoverde in the office at which time there was noted to be exposed bone to digits. The patient has been trying to heal ulcer, however, has been unsuccessful. He understands all risks, benefits, alternatives, and complications associated with the procedure. He would like to proceed with the procedure. DESCRIPTION OF PROCEDURE: The patient was brought back to the operating room, placed on the operating room table in the supine position. General anesthesia was then induced. A 10 mL of 0.5% Marcaine plain was infiltrated about the right foot. Right foot was then prepped and draped in the usual sterile fashion. Attention was then directed to the right second and third digits. There was noted to be exposed bone to both digits. [place] incision was made to both digits and they were disarticulated at the proximal interphalangeal joint. The proximal phalanx head was then resected and sent to pathology as a clear margin. Soft tissue cultures were taken. Sites were copiously irrigated with normal saline and skin was closed with 3-0 nylon, Adaptic, 4 x 4's, Eitan. Javi was then applied to the right foot. The patient tolerated procedure and anesthesia well. He was transferred from the OR to PACU with neurovascular status intact. Bren Borja DPM JIBrandy/DL/ , 07:55 AM , 09:08 AM
== END 2017-10-12 18:31 | disposition home or self-care (01) | DRG 617 ==
LOC: NEPC 15:48 → NEDA 21:52 → OBSVTOIN 22:05 → N07B 10-12 01:18
PROVIDERS: ADMIT Family Medicine; ATTEND Family Medicine
PROC: 0Y6T0Z1 Detachment at Right 3rd Toe, High, Open Approach (ICD-10-PCS; 2017-10-12)
PROC: 0Y6R0Z1 Detachment at Right 2nd Toe, High, Open Approach (ICD-10-PCS; principal; 2017-10-12 11:38)
DX: E11.69 Type 2 diabetes mellitus with other specified complication (principal); M86.8X7 Other osteomyelitis, ankle and foot; L97.518 Non-pressure chronic ulcer of other part of right foot with other specified severity; Z79.84 Long term (current) use of oral hypoglycemic drugs; F41.9 Anxiety disorder, unspecified; F32.9 Major depressive disorder, single episode, unspecified; G89.21 Chronic pain due to trauma; I25.2 Old myocardial infarction; Z95.5 Presence of coronary angioplasty implant and graft; Z94.7 Corneal transplant status; Z79.3 Long term (current) use of hormonal contraceptives; F12.90 Cannabis use, unspecified, uncomplicated
CPT/HCPCS: 71045; 73630; 80053; 82948; 83605; 85025; 85610; 85730; 87015; 87070; 87102; 87116; 87205; 87206; 88305; 88311; 93005; 94150; 96361; 96374; 96375; J0131; J0692; J1170; J1642; J2250; J2270; J2405; J3010; J3370; J7030; J7040; J7050

== ENCOUNTER 2017-10-16 20:42 | Inpatient (IN) | payer MEDICARE, OTHER ==
[~2017-10-16] VITALS: Ht 185.4 cm; Wt 67.3 kg
[~2017-10-16 20:42] MED LIST changes: +BACT800T5 PO
[2017-10-16 20:43] VITALS: BP 158/91; PULSE 90; RESP 20; TEMP 99.5; O2SAT 100
[2017-10-16 20:52] VITALS: BP 168/83; PULSE 111; RESP 22; O2SAT 100
[2017-10-16] MEDS ORDERED: CIPR500T2 PO (20:59)
[2017-10-16] MEDS ORDERED: FAMOTIDINE 20 MG/2 ML VIAL IV PUSH SCH (21:00)
[2017-10-16] MEDS ORDERED: ONDANSETRON HCL 4 MG/2 ML VIAL IV PUSH ONE (21:00)
[2017-10-16] MEDS ORDERED: SODIUM CHLOR 0.9% 1000 ML INJ 1,000 ML IV ONE (21:15)
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
[2017-10-16 21:51] LABS: AUTOMATED NEUTROPHIL # 7.4 TH/MM3 (1.8-7.7); BASOPHIL % 0.1 % (0.0-2.0); EOSINOPHIL % 0.2 % (0.0-4.0); HEMATOCRIT 40.5 % (39.0-51.0); HEMOGLOBIN 13.8 GM/DL (13.0-17.0); LYMPH % 9.8 % (9.0-44.0); LYMPHOCYTE # 0.8 TH/MM3 (1.0-4.8); MEAN CELL VOLUME 80.9 FL (80.0-100.0); MEAN CORPUSCULAR HEMOGLOBIN 27.6 PG (27.0-34.0); MEAN CORPUSCULAR HGB CONC 34.2 % (32.0-36.0); MONOCYTE # 0.3 TH/MM3 (0-0.9); NEUT % 86.9 % (16.0-70.0); PLATELET COUNT 245 TH/MM3 (150-450); WHITE BLOOD COUNT 8.5 TH/MM3 (4.0-11.0)
[2017-10-16 22:14] LABS: ALBUMIN 4.2 GM/DL (3.4-5.0); ALT (GPT) 30 U/L (12-78); AST (GOT) 17 U/L (15-37); BICARBONATE 28.2 MEQ/L (21.0-32.0); BLOOD UREA NITROGEN 16 MG/DL (7-18); CALCIUM 9.7 MG/DL (8.5-10.1); CHLORIDE 97 MEQ/L (98-107); GLOMERULAR FILTRATION RATE 65 ML/MIN (>89); GLUCOSE,RANDOM 158 MG/DL (74-106); SODIUM (NA) 136 MEQ/L (136-145)
[2017-10-16 22:17] LABS: ALKALINE PHOSPHATASE 107 U/L (45-117); TOTAL BILIRUBIN ADULT 0.6 MG/DL (0.2-1.0)
[2017-10-16 23:33] VITALS: BP 107/58; PULSE 79; RESP 18; O2SAT 98
[2017-10-17] VITALS (8 sets, daily range): BP systolic 121–155; BP diastolic 67–89; PULSE 18–88; RESP 15–20; TEMP 98.1–98.8; O2SAT 96–99
[2017-10-17] MEDS ORDERED: ONDANSETRON HCL 4 MG/2 ML VIAL IV PUSH ONE
[2017-10-17] MEDS ORDERED: PANTOPRAZOLE SODIUM 40 MG VIAL IV PUSH ONE (00:15)
[2017-10-17] MEDS ORDERED: PROCHLORPERAZINE 25 MG SUPP RECTAL PRN (01:00)
[2017-10-17] MEDS ORDERED: SODIUM CHLORIDE 0.9% FLUSH 10 ML FLUSH IV FLUSH PRN (01:00)
[2017-10-17] MEDS ORDERED: NALOXONE HCL 0.4 MG/ML AMP IV PUSH PRN (01:00)
[2017-10-17] MEDS: D5-1/2 NS + KCL 20 MEQ INJ 1,000 ML IV SCH ×2 (01:57→13:22)
[2017-10-17] MEDS: POTASSIUM CHLOR 20 MEQ PREMIX 100 ML IV SCH ×2 (01:57→03:58)
[2017-10-17] MEDS: ONDANSETRON HCL 4 MG/2 ML VIAL IVP PRN ×4 (02:48→23:01)
[2017-10-17] MEDS ORDERED: MORPHINE SULFATE 2 MG/ML INJ IV PUSH PRN (03:45)
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
[2017-10-17] MEDS: MORPHINE SULFATE 4 MG/ML INJ IV PUSH PRN ×5 (04:47→21:25)
[2017-10-17] MEDS: VITAMIN E 400 UNIT CAP PO SCH ×2 (05:00→09:19)
[2017-10-17] MEDS ORDERED: DEXTROSE 50% IN WATER 50 ML VIAL(D50) IV PUSH PRN (05:15)
[2017-10-17] MEDS ORDERED: GLUCAGON 1 MG/ML VIAL OTHER PRN (05:15)
[2017-10-17 05:25] LABS: AUTOMATED NEUTROPHIL # 6.8 TH/MM3 (1.8-7.7); BASOPHIL % 0.2 % (0.0-2.0); EOSINOPHIL % 0.4 % (0.0-4.0); HEMATOCRIT 37.2 % (39.0-51.0); HEMOGLOBIN 12.5 GM/DL (13.0-17.0); LYMPH % 22.3 % (9.0-44.0); LYMPHOCYTE # 2.2 TH/MM3 (1.0-4.8); MEAN CELL VOLUME 81.3 FL (80.0-100.0); MEAN CORPUSCULAR HEMOGLOBIN 27.4 PG (27.0-34.0); MEAN CORPUSCULAR HGB CONC 33.7 % (32.0-36.0); MEAN PLATELET VOLUME 7.6 FL (7.0-11.0); MONO % 6.4 % (0.0-8.0); MONOCYTE # 0.6 TH/MM3 (0-0.9); NEUT % 70.7 % (16.0-70.0); PLATELET COUNT 219 TH/MM3 (150-450); RED BLOOD COUNT 4.57 MIL/MM3 (4.50-5.90); RED CELL DISTRIBUTION WIDTH 16.2 % (11.6-17.2); WHITE BLOOD COUNT 9.7 TH/MM3 (4.0-11.0)
[2017-10-17 05:52] LABS: ALBUMIN 3.6 GM/DL (3.4-5.0); ALKALINE PHOSPHATASE 88 U/L (45-117); ALT (GPT) 23 U/L (12-78); AST (GOT) 12 U/L (15-37); BICARBONATE 30.7 MEQ/L (21.0-32.0); BLOOD UREA NITROGEN 17 MG/DL (7-18); CALCIUM 8.9 MG/DL (8.5-10.1); CHLORIDE 101 MEQ/L (98-107); CREATININE 0.94 MG/DL (0.60-1.30); GLOMERULAR FILTRATION RATE 86 ML/MIN (>89); GLUCOSE,RANDOM 125 MG/DL (74-106); SODIUM (NA) 139 MEQ/L (136-145); TOTAL BILIRUBIN ADULT 0.4 MG/DL (0.2-1.0); TOTAL PROTEIN 7.1 GM/DL (6.4-8.2)
[2017-10-17] MEDS: INSULIN ASPART SUPPLEMENTAL SCALE SQ SCH ×4 (08:00→21:00)
[2017-10-17] MEDS: LIPASE/PROTEASE/AMYLASE (12,000/38,000/60,000) CAP PO SCH ×4 (09:00→19:18)
[2017-10-17] MEDS ORDERED: PHYTONADIONE 5 MG TAB PO SCH (09:00)
[2017-10-17] MEDS: MULTIVITAMINS/MINERALS THERAPEUTIC TAB PO SCH (09:19)
[2017-10-17] MEDS: busPIRone HCL 5 MG TAB PO SCH ×3 (09:19→17:09)
[2017-10-17] MEDS: SULFAMETHOXAZOLE-TRIMETHOPRIM DS 800-160 MG TAB PO SCH ×2 (09:19→21:22)
[2017-10-17] MEDS: CIPROFLOXACIN 500 MG TAB PO SCH ×2 (09:19→21:22)
[2017-10-17] MEDS: ARIPiprazole 15 MG TAB PO SCH (09:19)
[2017-10-17] MEDS: SODIUM CHLORIDE 0.9% FLUSH 10 ML FLUSH IV FLUSH SCH ×2 (09:21→21:22)
[2017-10-17] MEDS: PHYTONADIONE 5 MG/SWFI 5 ML ORAL SYR PO SCH (09:21)
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
[2017-10-17] MEDS ORDERED: LIDOCAINE HCL 1% PF 5 ML SYRINGE OTHER ONE (12:00)
[2017-10-17] MEDS ORDERED: PROPOFOL 200 MG/20 ML AMP IV ONE (12:00)
--- NOTE | 2017-10-17 14:31 | HHI.PR ---
Addendum to Inpatient Note Addendum Reason: Additional Documentation Additional Information Follow-up coffee ground emesis Plan for EGD today 10/17/17 Magdiel De La Garza MD Oct 17, 2017 14:31
--- NOTE | 2017-10-17 16:11 | PD.PROCEDR ---
GI Procedure PROCEDURE PERFORMED EGD with biopsy INDICATION FOR PROCEDURE Coffee-ground emesis, epigastric pain, anemia PROCEDURE: The procedure, risks and benefits were discussed with Mr. Shannon and informed consent was obtained. Anesthesia sedated him with Diprivan. He was placed in the left lateral decubitus position. EGD: The Pentax videoscope was introduced through the oropharynx and advanced to the second portion of the duodenum under direct visualization. Retroflexion was performed in the stomach. FINDINGS: The esophagus appeared to be unremarkable and within normal limits The stomach the gastric mucosa appeared to be somewhat edematous with erythema noted in the gastric fundus and upper body as well as patchy erythema in the antrum these areas were biopsied there was also some food residue noted in the stomach suggesting gastroparesis The duodenum this was normal ESTIMATED BLOOD LOSS: None SPECIMENS REMOVED: Gastric biopsies COMPLICATIONS: None IMPRESSION: [place] gastritis Probable gastroparesis PLAN: We'll obtain gastric emptying scan Recommend PPI Await biopsies Advance diet Further recommendations shall depend on his hospital course Ander Martinez MD Oct 17, 2017 16:11
[2017-10-17] MEDS: PANTOPRAZOLE INJ 80 MG in SODIUM CHLORIDE 0.9% INJ 100 ML IV SCH (17:08)
[2017-10-17] MEDS ORDERED: LACTATED RINGER'S 1000 ML INJ 1,000 ML ONE (17:11)
[2017-10-17] MEDS: MIRTAZAPINE 15 MG TAB PO SCH (21:22)
[2017-10-17] MEDS: ATORVASTATIN 80 MG TAB PO SCH (21:22)
[2017-10-17] MEDS ORDERED: CHLORHEXIDINE GLUCONATE 2 % 1 PACK (2 CLOTHS) TOPICAL PRN (21:45)
[2017-10-17] MEDS ORDERED: SODIUM CHLORID 0.9% 500 ML IV PRN (21:45)
[2017-10-17] MEDS ORDERED: POVIDONE IODINE 5% (ANTISEPSIS KIT) 4 APPLICATIONS EACH NARE PRN (21:45)
[2017-10-17] MEDS ORDERED: LACTATED RINGER'S 1000 ML IV PRN (21:45)
[2017-10-17] MEDS ORDERED: METOPROLOL TARTRATE 25 MG TAB PO PRN (21:45)
[2017-10-18] VITALS (8 sets, daily range): BP systolic 130–175; BP diastolic 60–89; PULSE 60–88; RESP 17–20; TEMP 98.1–98.9; O2SAT 96–99
[2017-10-18] MEDS: D5-1/2 NS + KCL 20 MEQ INJ 1,000 ML IV SCH ×4 (01:02→16:20)
[2017-10-18] MEDS: PANTOPRAZOLE INJ 80 MG in SODIUM CHLORIDE 0.9% INJ 100 ML IV SCH ×3 (01:23→20:58)
[2017-10-18] MEDS: MORPHINE SULFATE 4 MG/ML INJ IV PUSH PRN ×5 (01:24→21:01)
[2017-10-18] MEDS: ONDANSETRON HCL 4 MG/2 ML VIAL IVP PRN ×4 (05:17→23:04)
[2017-10-18 05:47] LABS: HEMATOCRIT 35.1 % (39.0-51.0); HEMOGLOBIN 11.9 GM/DL (13.0-17.0); MEAN CELL VOLUME 81.6 FL (80.0-100.0); MEAN CORPUSCULAR HEMOGLOBIN 27.7 PG (27.0-34.0); MEAN PLATELET VOLUME 7.6 FL (7.0-11.0); PLATELET COUNT 181 TH/MM3 (150-450); RED BLOOD COUNT 4.31 MIL/MM3 (4.50-5.90); RED CELL DISTRIBUTION WIDTH 16.8 % (11.6-17.2); WHITE BLOOD COUNT 5.3 TH/MM3 (4.0-11.0)
[2017-10-18 06:03] LABS: ALBUMIN 3.5 GM/DL (3.4-5.0); AST (GOT) 18 U/L (15-37); BLOOD UREA NITROGEN 9 MG/DL (7-18); CALCIUM 8.5 MG/DL (8.5-10.1); CHLORIDE 101 MEQ/L (98-107); CREATININE 0.84 MG/DL (0.60-1.30); GLOMERULAR FILTRATION RATE 98 ML/MIN (>89); GLUCOSE,RANDOM 168 MG/DL (74-106); SODIUM (NA) 137 MEQ/L (136-145)
[2017-10-18 06:04] LABS: ALT (GPT) 26 U/L (12-78)
[2017-10-18 06:06] LABS: ALKALINE PHOSPHATASE 86 U/L (45-117); TOTAL BILIRUBIN ADULT 0.6 MG/DL (0.2-1.0); TOTAL PROTEIN 6.7 GM/DL (6.4-8.2)
[2017-10-18] MEDS: SODIUM CHLORIDE 0.9% FLUSH 10 ML FLUSH IV FLUSH SCH ×2 (07:38→21:00)
[2017-10-18] MEDS: INSULIN ASPART SUPPLEMENTAL SCALE SQ SCH ×4 (07:38→21:00)
[2017-10-18] MEDS: MULTIVITAMINS/MINERALS THERAPEUTIC TAB PO SCH (07:39)
[2017-10-18] MEDS: VITAMIN E 400 UNIT CAP PO SCH (07:39)
[2017-10-18] MEDS: LIPASE/PROTEASE/AMYLASE (12,000/38,000/60,000) CAP PO SCH ×3 (07:40→16:22)
[2017-10-18] MEDS: ARIPiprazole 15 MG TAB PO SCH ×2 (07:53→17:04)
[2017-10-18] MEDS: SULFAMETHOXAZOLE-TRIMETHOPRIM DS 800-160 MG TAB PO SCH ×2 (07:53→21:02)
[2017-10-18] MEDS: PHYTONADIONE 5 MG/SWFI 5 ML ORAL SYR PO SCH (07:54)
[2017-10-18] MEDS: CIPROFLOXACIN 500 MG TAB PO SCH ×2 (07:54→21:02)
[2017-10-18] MEDS: busPIRone HCL 5 MG TAB PO SCH ×3 (07:54→16:57)
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
--- NOTE | 2017-10-18 12:03 | HHI.GIFU ---
Subjective Remarks Continued epigastric pain. n/v improved, no further hematemesis. Awaiting GES. (Rosanna Ram) Objective Vitals I&O Vital Signs Date Time Temp Pulse Resp B/P (MAP) Pulse Ox O2 Delivery O2 Flow Rate FiO2 10/18/17 11:31 98.9 60 20 149/80 (103) 96 10/18/17 08:16 98.4 77 20 175/89 (117) 99 10/18/17 08:00 88 10/18/17 04:30 98.3 67 18 130/60 (83) 98 10/18/17 00:40 98.1 64 17 130/67 (88) 97 10/17/17 23:42 71 10/17/17 21:00 98.6 75 16 142/75 (97) 99 10/17/17 19:43 75 10/17/17 16:10 97.9 65 18 123/76 (92) 98 10/17/17 12:17 98.1 70 20 138/86 (103) 98 I/O 10/17/17 10/17/17 10/17/17 10/18/17 10/18/17 10/18/17 06:59 14:59 22:59 06:59 14:59 22:59 Intake Total 100 ml 900 ml 900 ml 40 ml Output Total 0 ml 3100 ml Balance 100 ml 900 ml -2200 ml 40 ml Intake Oral 0 ml 800 ml 900 ml IV Total 100 ml 40 ml Other 100 ml Output Urine Total 0 ml 3100 ml # Voids 2 # Bowel Movements 0 0 Laboratory Laboratory Tests Test 10/18/17 05:15 White Blood Count 5.3 Red Blood Count 4.31 Hemoglobin 11.9 Hematocrit 35.1 Mean Corpuscular Volume 81.6 Mean Corpuscular Hemoglobin 27.7 Mean Corpuscular Hemoglobin Concent 34.0 Red Cell Distribution Width 16.8 Platelet Count 181 Mean Platelet Volume 7.6 Blood Urea Nitrogen 9 Creatinine 0.84 Random Glucose 168 Total Protein 6.7 Albumin 3.5 Calcium Level 8.5 Alkaline Phosphatase 86 Aspartate Amino Transf (AST/SGOT) 18 Alanine Aminotransferase (ALT/SGPT) 26 Total Bilirubin 0.6 Sodium Level 137 Potassium Level 4.2 Chloride Level 101 Carbon Dioxide Level 28.0 Anion Gap 8 Estimat Glomerular Filtration Rate 98 Physical Exam HEENT: PERRL; normocephalic; atraumatic; no jaundice. CHEST: CTA CARDIAC: RRR ABDOMEN: Soft, nondistended, epigastric TTP; no hepatosplenomegaly; bowel sounds are present in all four quadrants. EXTREMITIES: LUE amputation SKIN: scarring throughout TISSUE TECHNOLOGIST: No focal deficits; alert and oriented times three. (Rosanna Ram) Assessment and Plan Plan ASSESSMENT - coffee ground emesis, epigastric pain - UGIB could be variceal vs ulcer. recent onsent n/v with coffee ground appearance and epigastric pain. had EGD 03/2017 showed duodenitis and gastric varices. hx chronic pancreatitis. - anemia - mild, HH was WNL on admission, had mild drop overnight. normocytic. 10/18/17 s/p EGD found pangastritis, probable gastroparesis. will have GES today. no further bleeding. mild drop HH 2/2 dilution? PLAN - await GES - monitor HH - further recs to follow pt seen by myself and Dr Martinez and this note is written on his behalf (Rosanna Ram) Physician Comments Patient seen and examined Agree with above Continue with current supportive care Monitor labs (Ander Martinez MD) Rosanna Ram Oct 18, 2017 12:03 Ander Martinez MD Oct 18, 2017 19:23
[2017-10-18] MEDS: ATORVASTATIN 80 MG TAB PO SCH (21:02)
[2017-10-18] MEDS: MIRTAZAPINE 15 MG TAB PO SCH (21:02)
[2017-10-18] MEDS: METOCLOPRAMIDE HCL 10 MG/2 ML VIAL IM PRN (21:52)
[2017-10-19] VITALS (8 sets, daily range): BP systolic 118–172; BP diastolic 71–98; PULSE 70–89; RESP 17–18; TEMP 98–99.4; O2SAT 97–99
[2017-10-19] MEDS: D5-1/2 NS + KCL 20 MEQ INJ 1,000 ML IV SCH ×2 (01:46→12:01)
[2017-10-19] MEDS: MORPHINE SULFATE 4 MG/ML INJ IV PUSH PRN ×4 (02:39→21:14)
[2017-10-19] MEDS: ONDANSETRON HCL 4 MG/2 ML VIAL IVP PRN ×3 (06:17→17:35)
[2017-10-19 06:25] LABS: HEMATOCRIT 39.6 % (39.0-51.0); HEMOGLOBIN 13.5 GM/DL (13.0-17.0)
[2017-10-19] MEDS: INSULIN ASPART SUPPLEMENTAL SCALE SQ SCH ×4 (07:31→21:00)
[2017-10-19] MEDS: SODIUM CHLORIDE 0.9% FLUSH 10 ML FLUSH IV FLUSH SCH ×2 (07:56→21:00)
[2017-10-19] MEDS: PANTOPRAZOLE INJ 80 MG in SODIUM CHLORIDE 0.9% INJ 100 ML IV SCH ×2 (07:57→15:43)
[2017-10-19] MEDS: ARIPiprazole 15 MG TAB PO SCH (07:58)
[2017-10-19] MEDS: VITAMIN E 400 UNIT CAP PO SCH (07:58)
[2017-10-19] MEDS: SULFAMETHOXAZOLE-TRIMETHOPRIM DS 800-160 MG TAB PO SCH ×2 (07:58→21:09)
[2017-10-19] MEDS: busPIRone HCL 5 MG TAB PO SCH ×3 (07:58→17:35)
[2017-10-19] MEDS: MULTIVITAMINS/MINERALS THERAPEUTIC TAB PO SCH (07:58)
[2017-10-19] MEDS: CIPROFLOXACIN 500 MG TAB PO SCH ×2 (07:58→21:09)
[2017-10-19] MEDS: PHYTONADIONE 5 MG/SWFI 5 ML ORAL SYR PO SCH (07:58)
[2017-10-19] MEDS: LIPASE/PROTEASE/AMYLASE (12,000/38,000/60,000) CAP PO SCH ×3 (07:59→17:35)
--- NOTE | 2017-10-19 11:51 | HHI.GIFU ---
Subjective Remarks Pt did not have GES yesterday but he is feeling better. He wants to eat. (Rosanna Ram) Objective Vitals I&O Vital Signs Date Time Temp Pulse Resp B/P (MAP) Pulse Ox O2 Delivery O2 Flow Rate FiO2 10/19/17 08:00 88 10/19/17 07:43 98.0 88 18 172/98 (122) 98 10/19/17 04:00 98.7 85 17 150/83 (105) 97 10/19/17 02:47 17 10/19/17 00:00 98.8 80 18 118/71 (87) 97 10/18/17 20:00 98.8 84 19 141/82 (101) 98 10/18/17 15:38 98.5 69 20 169/75 (106) 98 10/18/17 14:08 67 I/O 10/18/17 10/18/17 10/18/17 10/19/17 10/19/17 10/19/17 07:00 15:00 23:00 07:00 15:00 23:00 Intake Total 900 ml 40 ml 956 ml Output Total 2600 ml 700 ml 600 ml 1600 ml Balance -1700 ml -660 ml 356 ml -1600 ml Intake Oral 900 ml 0 ml IV Total 40 ml 956 ml Output Urine Total 2600 ml 700 ml 600 ml 1600 ml # Voids 2 # Bowel Movements 0 0 Laboratory Laboratory Tests Test 10/19/17 06:00 Hemoglobin 13.5 Hematocrit 39.6 Physical Exam HEENT: PERRL; normocephalic; atraumatic; no jaundice. CHEST: CTA CARDIAC: RRR ABDOMEN: Soft, nondistended, epigastric TTP; no hepatosplenomegaly; bowel sounds are present in all four quadrants. EXTREMITIES: LUE amputation SKIN: scarring throughout PRIMARY CARE NURSE: No focal deficits; alert and oriented times three. (Rosanna Ram) Assessment and Plan Plan ASSESSMENT - coffee ground emesis, epigastric pain - UGIB could be variceal vs ulcer. recent onsent n/v with coffee ground appearance and epigastric pain. had EGD 03/2017 showed duodenitis and gastric varices. hx chronic pancreatitis. - anemia - mild, HH was WNL on admission, had mild drop overnight. normocytic. 10/18/17 s/p EGD found pangastritis, probable gastroparesis. will have GES today. no further bleeding. mild drop HH 10/04 dilution? 10/19/17 GES not done. PRn reglan started, pt feels somewhat better. pain somewhat improved, wants to eat. PLAN - await GES - PRN reglan for now - no reglan prior to GES, - monitor HH pt seen by myself and Dr Andrea and this note is written on her behalf (Rosanna Ram) Physician Comments seen, examined agree with above (Daphnie Andrea MD) Rosanna Ram Oct 19, 2017 11:51 Daphnie Andrea MD Oct 19, 2017 18:37
[2017-10-19] MEDS: METOCLOPRAMIDE HCL 10 MG/2 ML VIAL IM PRN (13:30)
[2017-10-19] MEDS ORDERED: ENALAPRILAT 1.25 MG/ML VIAL IV PUSH PRN (15:00)
--- NOTE | 2017-10-19 15:26 | HHI.PR ---
Subjective Remarks Pt states he is feeling better, nausea has improved since starting the reglan. no vomiting. some epigastric pain but not as bad as before. Objective Vitals Vital Signs Date Time Temp Pulse Resp B/P (MAP) Pulse Ox O2 Delivery O2 Flow Rate FiO2 10/19/17 11:51 98.4 89 18 166/93 (117) 97 10/19/17 08:00 88 10/19/17 07:43 98.0 88 18 172/98 (122) 98 10/19/17 04:00 98.7 85 17 150/83 (105) 97 10/19/17 02:47 17 10/19/17 00:00 98.8 80 18 118/71 (87) 97 10/18/17 20:00 98.8 84 19 141/82 (101) 98 10/18/17 15:38 98.5 69 20 169/75 (106) 98 I/O 10/18/17 10/18/17 10/18/17 10/19/17 10/19/17 10/19/17 07:00 15:00 23:00 07:00 15:00 23:00 Intake Total 900 ml 40 ml 956 ml Output Total 2600 ml 700 ml 600 ml 1600 ml Balance -1700 ml -660 ml 356 ml -1600 ml Intake Oral 900 ml 0 ml IV Total 40 ml 956 ml Output Urine Total 2600 ml 700 ml 600 ml 1600 ml # Voids 2 # Bowel Movements 0 0 Result Diagram: 10/19/17 0600 10/18/17 0515 Objective Remarks GENERAL: appears more comfortable today SKIN: well healed skin grafts EYES: Extraocular motions intact. ENT: Airway patent. NECK: Trachea midline. CARDIOVASCULAR: Regular rate and rhythm without murmurs RESPIRATORY: Clear to auscultation. Breath sounds equal bilaterally. No wheezes GASTROINTESTINAL: Abdomen soft, epigastric tenderness but less compared to before, nondistended. MUSCULOSKELETAL: Extremities without edema. No joint tenderness, effusion, or edema noted. No calf tenderness. NEUROLOGICAL: Awake and alert. Motor and sensory grossly within normal limits. Normal speech. A/P Problem List: (1) Abdominal pain ICD Code: R10.9 - Unspecified abdominal pain Status: Acute (2) Type 1 diabetes ICD Code: E10.9 - Type 1 diabetes mellitus without complications Status: Chronic (3) Intractable nausea and vomiting ICD Code: R11.2 - Nausea with vomiting, unspecified (4) Osteomyelitis ICD Code: M86.9 - Osteomyelitis, unspecified Assessment and Plan 47 y/o male with a history of DM type 1, Multiple skin grafts from davey, gerd, anxiety and depression presented to the ED with complaints of abdominal pain, nausea and vomiting that began day before admission Intractable Abdominal pain with intractable nausea and vomiting, coffee ground emesis, suspect upper gi bleed -GI following, s/p EGD showing pangastritis and possible gastroparesis. scheduled for gastric emptying test on saturday. -continue pain management. -Protonix IV drip -Antiemetics as needed -IVF for hydration -reglan prn/zofran prn Hypokalemia secondary to vomiting -resolved. 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 Campoverde if needed DM, chronic -Accu checks with SSI DVT prophylaxis: SCDs Discharge Planning f/u on GI recs, scheduled for gastric emptying study on saturday Problem Qualifiers (1) Type 1 diabetes: Qualified Codes: E10.9 - Type 1 diabetes mellitus without complications Jo Abdi MD Oct 19, 2017 15:26
[2017-10-19] MEDS: amLODIPine BESYLATE 5 MG TAB PO SCH (15:42)
[2017-10-19] MEDS ORDERED: METOCLOPRAMIDE HCL 10 MG/2 ML VIAL IV PRN (16:15)
[2017-10-19] MEDS: ATORVASTATIN 80 MG TAB PO SCH (21:10)
[2017-10-19] MEDS: MIRTAZAPINE 15 MG TAB PO SCH (21:14)
[2017-10-20] VITALS (8 sets, daily range): BP systolic 113–158; BP diastolic 69–97; PULSE 78–104; RESP 18; TEMP 97.8–99.8; O2SAT 95–100
[2017-10-20] MEDS: ONDANSETRON HCL 4 MG/2 ML VIAL IVP PRN ×2 (00:39→10:35)
[2017-10-20] MEDS: MORPHINE SULFATE 4 MG/ML INJ IV PUSH PRN ×5 (00:43→22:02)
[2017-10-20] MEDS: PANTOPRAZOLE INJ 80 MG in SODIUM CHLORIDE 0.9% INJ 100 ML IV SCH (05:00)
[2017-10-20] MEDS: INSULIN ASPART SUPPLEMENTAL SCALE SQ SCH ×4 (08:00→21:00)
[2017-10-20] MEDS: busPIRone HCL 5 MG TAB PO SCH ×3 (09:50→18:26)
[2017-10-20] MEDS: LIPASE/PROTEASE/AMYLASE (12,000/38,000/60,000) CAP PO SCH ×3 (09:51→18:26)
[2017-10-20] MEDS: ARIPiprazole 15 MG TAB PO SCH (09:51)
[2017-10-20] MEDS: CIPROFLOXACIN 500 MG TAB PO SCH ×2 (09:51→22:02)
[2017-10-20] MEDS: VITAMIN E 400 UNIT CAP PO SCH (09:51)
[2017-10-20] MEDS: MULTIVITAMINS/MINERALS THERAPEUTIC TAB PO SCH (09:51)
[2017-10-20] MEDS: PHYTONADIONE 5 MG/SWFI 5 ML ORAL SYR PO SCH (09:52)
[2017-10-20] MEDS: amLODIPine BESYLATE 5 MG TAB PO SCH (09:52)
[2017-10-20] MEDS: SODIUM CHLORIDE 0.9% FLUSH 10 ML FLUSH IV FLUSH SCH ×2 (09:53→22:03)
[2017-10-20] MEDS: SULFAMETHOXAZOLE-TRIMETHOPRIM DS 800-160 MG TAB PO SCH ×2 (09:54→22:02)
--- NOTE | 2017-10-20 09:56 | HHI.PR ---
Subjective Remarks Patient states he feels much better this morning. No nausea at this time or vomiting. He was able to tolerate some potatoes last night and kept it down. Currently denies any pain. Objective Vitals Vital Signs Date Time Temp Pulse Resp B/P (MAP) Pulse Ox O2 Delivery O2 Flow Rate FiO2 10/20/17 07:41 98.6 91 18 158/90 (112) 99 10/20/17 04:37 97.8 97 18 154/97 (116) 95 10/20/17 01:10 99.8 97 18 113/76 (88) 97 10/19/17 21:09 99.4 87 18 141/82 (101) 99 10/19/17 17:27 83 10/19/17 15:41 98.3 70 18 155/92 (113) 98 10/19/17 11:51 98.4 89 18 166/93 (117) 97 I/O 10/19/17 10/19/17 10/19/17 10/20/17 10/20/17 10/20/17 06:59 14:59 22:59 06:59 14:59 22:59 Intake Total 544 ml 100 ml Output Total 1600 ml 600 ml Balance -1600 ml 544 ml -500 ml IV Total 544 ml 100 ml Output Urine Total 1600 ml 600 ml # Voids 6 Result Diagram: 10/19/17 0600 10/18/17 0515 Objective Remarks GENERAL: appears more comfortable this morning SKIN: well healed skin grafts EYES: Extraocular motions intact. CARDIOVASCULAR: Regular rate and rhythm without murmurs RESPIRATORY: Clear to auscultation. Breath sounds equal bilaterally. No wheezes GASTROINTESTINAL: Abdomen soft, nontender on exam this morning, nondistended. MUSCULOSKELETAL: Extremities without edema. No joint tenderness, effusion, or edema noted. No calf tenderness. NEUROLOGICAL: Awake and alert. Motor and sensory grossly within normal limits. Normal speech. A/P Problem List: (1) Abdominal pain ICD Code: R10.9 - Unspecified abdominal pain Status: Acute (2) Type 1 diabetes ICD Code: E10.9 - Type 1 diabetes mellitus without complications Status: Chronic (3) Intractable nausea and vomiting ICD Code: R11.2 - Nausea with vomiting, unspecified (4) Osteomyelitis ICD Code: M86.9 - Osteomyelitis, unspecified Assessment and Plan 47 y/o male with a history of DM type 1, Multiple skin grafts from davey, gerd, anxiety and depression presented to the ED with complaints of abdominal pain, nausea and vomiting that began day before admission Intractable Abdominal pain with intractable nausea and vomiting, coffee ground emesis, suspect upper gi bleed -GI following, s/p EGD showing pangastritis and possible gastroparesis. scheduled for gastric emptying test on saturday. -continue pain management. -We will switch to po Protonix daily -continue to alternate zofran/reglan as needed -IVF for hydration Hypokalemia secondary to vomiting -resolved. monitor HTN pt started on amlodipine 5mg po daily and BP's better controlled. continue to monitor and adjust BP meds. vasotec prn available. 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 Campoverde if needed DM, chronic -Accu checks with SSI DVT prophylaxis: SCDs Discharge Planning f/u on GI recs, scheduled for gastric emptying study on saturday Problem Qualifiers (1) Type 1 diabetes: Qualified Codes: E10.9 - Type 1 diabetes mellitus without complications Jo Abdi MD Oct 20, 2017 09:56
[2017-10-20] MEDS: PANTOPRAZOLE SOD 40 MG DELAYED RELEASE TAB PO SCH (10:34)
[2017-10-20 12:18] LABS: BICARBONATE 27.8 MEQ/L (21.0-32.0); CALCIUM 8.8 MG/DL (8.5-10.1); CREATININE 0.94 MG/DL (0.60-1.30)
--- NOTE | 2017-10-20 15:19 | HHI.PR ---
Subjective Remarks NOT seen Objective Vitals Vital Signs Date Time Temp Pulse Resp B/P (MAP) Pulse Ox O2 Delivery O2 Flow Rate FiO2 10/20/17 11:56 98.7 78 18 135/82 (99) 96 10/20/17 08:00 83 10/20/17 07:41 98.6 91 18 158/90 (112) 99 10/20/17 04:37 97.8 97 18 154/97 (116) 95 10/20/17 01:10 99.8 97 18 113/76 (88) 97 10/19/17 21:09 99.4 87 18 141/82 (101) 99 10/19/17 17:27 83 10/19/17 15:41 98.3 70 18 155/92 (113) 98 I/O 10/19/17 10/19/17 10/19/17 10/20/17 10/20/17 10/20/17 07:00 15:00 23:00 07:00 15:00 23:00 Intake Total 544 ml 100 ml Output Total 1600 ml 600 ml Balance -1600 ml 544 ml -500 ml IV Total 544 ml 100 ml Output Urine Total 1600 ml 600 ml # Voids 6 Result Diagram: 10/19/17 0600 10/20/17 1045 Objective Remarks GENERAL: SKIN: well healed skin grafts EYES: Extraocular motions intact. CARDIOVASCULAR: Regular rate and rhythm without murmurs RESPIRATORY: Clear to auscultation. Breath sounds equal bilaterally. No wheezes GASTROINTESTINAL: Abdomen soft, nontender on exam this morning, nondistended. MUSCULOSKELETAL: Extremities without edema. No joint tenderness, effusion, or edema noted. No calf tenderness. NEUROLOGICAL: Awake and alert. Motor and sensory grossly within normal limits. Normal speech. Procedures EGD A/P Problem List: (1) Abdominal pain ICD Code: R10.9 - Unspecified abdominal pain Status: Acute (2) Type 1 diabetes ICD Code: E10.9 - Type 1 diabetes mellitus without complications Status: Chronic (3) Intractable nausea and vomiting ICD Code: R11.2 - Nausea with vomiting, unspecified (4) Osteomyelitis ICD Code: M86.9 - Osteomyelitis, unspecified Assessment and Plan 47 y/o male with a history of DM type 1, Multiple skin grafts from davey, gerd, anxiety and depression presented to the ED with complaints of abdominal pain, nausea and vomiting that began day before admission Intractable Abdominal pain with intractable nausea and vomiting, coffee ground emesis, suspect upper gi bleed -GI following, s/p EGD showing pangastritis and possible gastroparesis. scheduled for gastric emptying test today -continue pain management. -We will switch to po Protonix daily -continue to alternate zofran/reglan as needed -IVF for hydration -hx CAD restart asa if ok with GI Hypokalemia secondary to vomiting -resolved. monitor HTN pt started on amlodipine 5mg po daily and BP's better controlled. continue to monitor and adjust BP meds. vasotec prn available. 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 Campoverde if needed DM, chronic -Accu checks with SSI Coagulopathy on Vit K DVT prophylaxis: SCDs. No chemical prophylaxis suspected GIB Problem Qualifiers (1) Type 1 diabetes: Qualified Codes: E10.9 - Type 1 diabetes mellitus without complications Gallo Aguilera MD Oct 20, 2017 15:19
[2017-10-20] MEDS: MIRTAZAPINE 15 MG TAB PO SCH (22:02)
[2017-10-20] MEDS: ATORVASTATIN 80 MG TAB PO SCH (22:03)
[2017-10-21 01:00] VITALS: PULSE 82
[2017-10-21 01:12] VITALS: BP 111/75; PULSE 89; RESP 18; TEMP 98.3; O2SAT 93
[2017-10-21] MEDS: MORPHINE SULFATE 4 MG/ML INJ IV PUSH PRN ×4 (02:14→13:58)
[2017-10-21 05:29] VITALS: BP 146/84; PULSE 92; RESP 18; TEMP 98.3; O2SAT 98
[2017-10-21] MEDS: D5-1/2 NS + KCL 20 MEQ INJ 1,000 ML IV SCH (06:12)
[2017-10-21 06:49] LABS: AUTOMATED NEUTROPHIL # 4.2 TH/MM3 (1.8-7.7); BASOPHIL % 0.4 % (0.0-2.0); EOSINOPHIL # 0.2 TH/MM3 (0-0.4); EOSINOPHIL % 2.2 % (0.0-4.0); HEMATOCRIT 40.5 % (39.0-51.0); HEMOGLOBIN 13.8 GM/DL (13.0-17.0); LYMPHOCYTE # 2.3 TH/MM3 (1.0-4.8); MEAN CELL VOLUME 80.4 FL (80.0-100.0); MEAN CORPUSCULAR HEMOGLOBIN 27.4 PG (27.0-34.0); MEAN CORPUSCULAR HGB CONC 34.1 % (32.0-36.0); MEAN PLATELET VOLUME 7.5 FL (7.0-11.0); MONO % 7.2 % (0.0-8.0); MONOCYTE # 0.5 TH/MM3 (0-0.9); NEUT % 58.2 % (16.0-70.0); PLATELET COUNT 194 TH/MM3 (150-450); RED BLOOD COUNT 5.04 MIL/MM3 (4.50-5.90); WHITE BLOOD COUNT 7.2 TH/MM3 (4.0-11.0)
[2017-10-21 07:07] LABS: BICARBONATE 28.9 MEQ/L (21.0-32.0); CALCIUM 8.9 MG/DL (8.5-10.1); CREATININE 0.93 MG/DL (0.60-1.30)
[2017-10-21 07:22] LABS: INTERNATIONAL NORMALIZED RATIO 1.1 RATIO; PROTHROMBIN TIME - PATIENT 10.9 SEC (9.8-11.6)
[2017-10-21 08:00] VITALS: BP 125/88; PULSE 105; RESP 18; TEMP 98.7; O2SAT 99
[2017-10-21] MEDS: VITAMIN E 400 UNIT CAP PO SCH (08:49)
[2017-10-21] MEDS: MULTIVITAMINS/MINERALS THERAPEUTIC TAB PO SCH (08:49)
[2017-10-21] MEDS: SULFAMETHOXAZOLE-TRIMETHOPRIM DS 800-160 MG TAB PO SCH (08:49)
[2017-10-21] MEDS: ARIPiprazole 15 MG TAB PO SCH (08:49)
[2017-10-21] MEDS: busPIRone HCL 5 MG TAB PO SCH ×2 (08:49→13:57)
[2017-10-21] MEDS: amLODIPine BESYLATE 5 MG TAB PO SCH (08:49)
[2017-10-21] MEDS: PHYTONADIONE 5 MG/SWFI 5 ML ORAL SYR PO SCH (08:50)
[2017-10-21] MEDS: PANTOPRAZOLE SOD 40 MG DELAYED RELEASE TAB PO SCH (08:50)
[2017-10-21] MEDS: CIPROFLOXACIN 500 MG TAB PO SCH (08:50)
[2017-10-21] MEDS: SODIUM CHLORIDE 0.9% FLUSH 10 ML FLUSH IV FLUSH SCH (08:51)
[2017-10-21] MEDS: INSULIN ASPART SUPPLEMENTAL SCALE SQ SCH ×2 (08:51→12:00)
[2017-10-21] MEDS: ONDANSETRON HCL 4 MG/2 ML VIAL IVP PRN (08:58)
[2017-10-21] MEDS: LIPASE/PROTEASE/AMYLASE (12,000/38,000/60,000) CAP PO SCH ×2 (09:00→13:00)
--- NOTE | 2017-10-21 09:53 | HHI.PR ---
Objective Vitals Vital Signs Date Time Temp Pulse Resp B/P (MAP) Pulse Ox O2 Delivery O2 Flow Rate FiO2 10/21/17 08:00 98.7 105 18 125/88 (100) 99 10/21/17 06:24 18 10/21/17 05:29 98.3 92 18 146/84 (104) 98 10/21/17 01:12 98.3 89 18 111/75 (87) 93 10/21/17 01:00 82 10/20/17 20:42 99.1 93 18 125/80 (95) 100 10/20/17 20:00 96 10/20/17 15:34 98.9 104 18 133/69 (90) 99 10/20/17 11:56 98.7 78 18 135/82 (99) 96 I/O 10/20/17 10/20/17 10/20/17 10/21/17 10/21/17 10/21/17 07:00 15:00 23:00 07:00 15:00 23:00 Intake Total 100 ml 546 ml Output Total 600 ml Balance -500 ml 546 ml IV Total 100 ml 546 ml Output Urine Total 600 ml # Voids 6 # Bowel Movements 1 Result Diagram: 10/21/17 0600 10/21/17 0600 Objective Remarks GENERAL: SKIN: well healed skin grafts EYES: Extraocular motions intact. CARDIOVASCULAR: Regular rate and rhythm without murmurs RESPIRATORY: Clear to auscultation. Breath sounds equal bilaterally. No wheezes GASTROINTESTINAL: Abdomen soft, nontender on exam this morning, nondistended. MUSCULOSKELETAL: Extremities without edema. No joint tenderness, effusion, or edema noted. No calf tenderness. NEUROLOGICAL: Awake and alert. Motor and sensory grossly within normal limits. Normal speech. Procedures EGD A/P Problem List: (1) Abdominal pain ICD Code: R10.9 - Unspecified abdominal pain Status: Acute (2) Type 1 diabetes ICD Code: E10.9 - Type 1 diabetes mellitus without complications Status: Chronic (3) Intractable nausea and vomiting ICD Code: R11.2 - Nausea with vomiting, unspecified (4) Osteomyelitis ICD Code: M86.9 - Osteomyelitis, unspecified Assessment and Plan 47 y/o male with a history of DM type 1, Multiple skin grafts from davey, gerd, anxiety and depression presented to the ED with complaints of abdominal pain, nausea and vomiting that began day before admission Intractable Abdominal pain with intractable nausea and vomiting, coffee ground emesis, suspect upper gi bleed -GI following, s/p EGD showing pangastritis and possible gastroparesis. scheduled for gastric emptying test today -continue pain management. -We will switch to po Protonix daily -continue to alternate zofran/reglan as needed -IVF for hydration -hx CAD restart asa if ok with GI Hypokalemia secondary to vomiting -resolved. monitor HTN pt started on amlodipine 5mg po daily and BP's better controlled. continue to monitor and adjust BP meds. vasotec prn available. 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 Campoverde if needed DM, chronic -Accu checks with SSI Coagulopathy on Vit K DVT prophylaxis: SCDs. No chemical prophylaxis suspected GIB Problem Qualifiers (1) Type 1 diabetes: Qualified Codes: E10.9 - Type 1 diabetes mellitus without complications Gallo Aguilera MD Oct 21, 2017 09:52
--- NOTE | 2017-10-21 11:24 | HHI.FF ---
Face to Face Verification Diagnosis: (1) Nausea & vomiting Home Health Nursing Order: Medical education Signs/symptoms of disease process Diabetic education Nursing assessment with vital signs I have seen patient Cruzito Shannon on 10/21/17. My clinical findings support the need for the requested home health care services because: Deconditioned w/ increased weakness I certify that my clinical findings support that this patient is homebound because: Unsafe to leave home unassisted Gallo Aguilera MD Oct 21, 2017 11:24
[2017-10-21] MEDS ORDERED: METOCLOPRAMIDE HCL 10 MG/2 ML VIAL ONE (12:30)
--- NOTE | 2017-10-21 13:41 | RADRPT ---
EXAM DATE/TIME: 10/21/2017 10:53 [facility] COMPARISON: No previous studies available for comparison. INDICATIONS : Nausea and vomiting. DOSE: 1 mCi Tc99m Sulfur Colloid Labeled Whole egg PO MEDICATONS: 1.) 5 mg Reglan IV at 90 minutes IMAGIN hrs MEDICAL HISTORY : Myocardial infarction. Hypertension. SURGICAL HISTORY : Cholecystectomy. Whipple and right hand amputation. ENCOUNTER: Initial ACUITY: >1 yr PAIN SCALE: 3/10 LOCATION: Bilateral Abdomen. TECHNIQUE: Following the oral ingestion of radiotracer-labeled meal, dynamic sequential images in the JAVIER projec tion were acquired with simultaneous computer acquisition. The data set was decay-corrected. FINDINGS: LAG PHASE: There is a 79 minutes before onset of gastric emptying. EMPTYING: Very little gastric emptying is observed with less than 10% emptying at the end of 2 hours. INTERVENTION: No change in gastric emptying after IV Reglan. CONCLUSION: Severe gastroparesis with a half-time of emptying in excess of 6 hours. There is also a markedly pro longed lag phase lasting longer than an hour. Willy Eldridge MD on October 21, 2017 at 13:37 Board Certified Radiologist. This report was verified electronically.
--- NOTE | 2017-10-21 13:58 | HHI.GIFU ---
Subjective Remarks Pt back from GES. Denies n/v. Still has some epigastric tenderness. (Rosanna Ram) Objective Vitals I&O Vital Signs Date Time Temp Pulse Resp B/P (MAP) Pulse Ox O2 Delivery O2 Flow Rate FiO2 10/21/17 08:00 98.7 105 18 125/88 (100) 99 10/21/17 06:24 18 10/21/17 05:29 98.3 92 18 146/84 (104) 98 10/21/17 01:12 98.3 89 18 111/75 (87) 93 10/21/17 01:00 82 10/20/17 20:42 99.1 93 18 125/80 (95) 100 10/20/17 20:00 96 10/20/17 15:34 98.9 104 18 133/69 (90) 99 I/O 10/20/17 10/20/17 10/20/17 10/21/17 10/21/17 10/21/17 06:59 14:59 22:59 06:59 14:59 22:59 Intake Total 100 ml 546 ml Output Total 600 ml Balance -500 ml 546 ml IV Total 100 ml 546 ml Output Urine Total 600 ml # Voids 6 # Bowel Movements 1 Laboratory Laboratory Tests Test 10/21/17 06:00 White Blood Count 7.2 Red Blood Count 5.04 Hemoglobin 13.8 Hematocrit 40.5 Mean Corpuscular Volume 80.4 Mean Corpuscular Hemoglobin 27.4 Mean Corpuscular Hemoglobin Concent 34.1 Red Cell Distribution Width 16.0 Platelet Count 194 Mean Platelet Volume 7.5 Neutrophils (%) (Auto) 58.2 Lymphocytes (%) (Auto) 32.0 Monocytes (%) (Auto) 7.2 Eosinophils (%) (Auto) 2.2 Basophils (%) (Auto) 0.4 Neutrophils # (Auto) 4.2 Lymphocytes # (Auto) 2.3 Monocytes # (Auto) 0.5 Eosinophils # (Auto) 0.2 Basophils # (Auto) 0.0 CBC Comment DIFF FINAL Differential Comment Prothrombin Time 10.9 Prothromb Time International Ratio 1.1 Activated Partial Thromboplast Time 27.9 Blood Urea Nitrogen 9 Creatinine 0.93 Random Glucose 60 Calcium Level 8.9 Sodium Level 136 Potassium Level 3.5 Chloride Level 101 Carbon Dioxide Level 28.9 Anion Gap 6 Estimat Glomerular Filtration Rate 87 Imaging Last Impressions Gastric Emptying Nuclear Medicine 10/21/17 0000 Signed Impressions: Service Date/Time: Saturday, October 21, 2017 10:53 - CONCLUSION: Severe gastroparesis with a half-time of emptying in excess of 6 hours. There is also a markedly prolonged lag phase lasting longer than an hour. Willy Eldridge MD Physical Exam HEENT: PERRL; normocephalic; atraumatic; no jaundice. CHEST: CTA CARDIAC: RRR ABDOMEN: Soft, nondistended, epigastric TTP; no hepatosplenomegaly; bowel sounds are present in all four quadrants. 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 (Rosanna Ram) Assessment and Plan Plan ASSESSMENT - coffee ground emesis, epigastric pain - UGIB could be variceal vs ulcer. recent onsent n/v with coffee ground appearance and epigastric pain. had EGD 03/2017 showed duodenitis and gastric varices. hx chronic pancreatitis. - anemia - mild, HH was WNL on admission, had mild drop overnight. normocytic. 10/18/17 s/p EGD found pangastritis, probable gastroparesis. will have GES today. no further bleeding. mild drop HH 2/2 dilution? 10/19/17 GES not done. PRn reglan started, pt feels somewhat better. pain somewhat improved, wants to eat. 10/21/17 GES noted, severe gastroparesis, no change with reglan so no need start regular reglan. would trial EES but concern for poss interaction with zofran, other QT prolonging meds. low residue diet per RN pt needing zofran maybe once per day. seems to be improved from admission HH improved, path still pending PLAN - trial bethanechol 25mg q8h - low residue diet - await EGD bx - monitor HH - supportive care pt seen by myself and Dr Sethi and this note is written on his behalf (Rosanna Ram) Physician Comments Seen and examined with [employer], GES shows gastroparesis. Going home today on bethanecol. GI fu in 02 weeks upon dc. Discussed with him and family. Thank you (Yury Sethi MD) Rosanna Ram Oct 21, 2017 13:58 Yury Sethi MD Oct 21, 2017 17:25
[2017-10-21] MEDS ORDERED: BETHANECHOL CHL 25 MG TAB PO SCH (14:00)
[2017-10-21] MEDS ORDERED: PANT40TA3 PO (15:29)
[2017-10-21] MEDS ORDERED: AMLO5 PO (15:29)
[2017-10-21] MEDS ORDERED: BETH25 PO (15:29)
--- NOTE | 2017-10-21 15:29 | HHI.DCPOC ---
Discharge Care Plan Diagnosis: (1) Intractable nausea and vomiting Your Health Problems Are: Difficulty with ADL Exercise Tolerance Goals to Promote Your Health * To prevent worsening of your condition and complications * To maintain your health at the optimal level Directions to Meet Your Goals Take your medications as prescribed Follow your dietary instruction Follow activity as directed Keep your appointments as scheduled Take your immunizations and boosters as scheduled If your symptoms worsen call your PCP, if no PCP go to Urgent Care Center or Emergency Room Smoking is Dangerous to Your Health. Avoid second hand smoke Call the 24-hour hour crisis hotline for domestic abuse at Gallo Aguilera MD Oct 21, 2017 15:29
[2017-10-21 16:08] VITALS: BP 134/89; PULSE 102; RESP 18; TEMP 97.8; O2SAT 97
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
== END 2017-10-21 18:13 | disposition home health service (06) | DRG 73 ==
LOC: NEPE 20:42 → NEDA 10-17 01:28 → NEDH 10-17 06:22 → N05A 10-17 12:03 → OBSVTOIN 10-18 08:53
PROVIDERS: ADMIT Internal Medicine; ATTEND Internal Medicine
PROC: 0DB68ZX Excision of Stomach, Via Natural or Artificial Opening Endoscopic, Diagnostic (ICD-10-PCS; principal; 2017-10-17 15:38)
DX: E10.43 Type 1 diabetes mellitus with diabetic autonomic (poly)neuropathy (principal); K29.71 Gastritis, unspecified, with bleeding; D68.9 Coagulation defect, unspecified; K86.1 Other chronic pancreatitis; K86.81 Exocrine pancreatic insufficiency; K31.84 Gastroparesis; I86.4 Gastric varices; E87.6 Hypokalemia; F12.90 Cannabis use, unspecified, uncomplicated; I25.10 Atherosclerotic heart disease of native coronary artery without angina pectoris; I10 Essential (primary) hypertension; K29.80 Duodenitis without bleeding; I25.2 Old myocardial infarction; K21.9 Gastro-esophageal reflux disease without esophagitis; D64.9 Anemia, unspecified; F32.9 Major depressive disorder, single episode, unspecified; F41.9 Anxiety disorder, unspecified; Z79.4 Long term (current) use of insulin; Z87.891 Personal history of nicotine dependence; Z89.422 Acquired absence of other left toe(s); Z89.021 Acquired absence of right finger(s); Z89.112 Acquired absence of left hand; Z90.411 Acquired partial absence of pancreas; Z94.7 Corneal transplant status; Z95.5 Presence of coronary angioplasty implant and graft; Z96.41 Presence of insulin pump (external) (internal)
CPT/HCPCS: 78264; 80048; 80053; 82948; 83690; 85014; 85018; 85025; 85027; 85610; 85730; 88305; 88312; 96361; 96365; 96366; 96375; 96376; A9541; C9113; G0378; J1642; J2270; J2405; J2765; J3010; J3480; J7030; J7120

== ENCOUNTER 2017-11-24 07:34 | Observation (INO) | payer MEDICARE, OTHER ==
[~2017-11-24] VITALS: Ht 185.4 cm; Wt 70.5 kg
[~2017-11-24 07:34] MED LIST changes: +AMLO5 PO; +BETH25 PO; +CIPR500T2 PO; -LACTCHW3 CHEW; +PANT40TA3 PO; -PROT40TA PO
[2017-11-24] MEDS ORDERED: SODIUM CHLOR 0.9% 1000 ML INJ 1,000 ML IV SCH (07:55)
[2017-11-24] MEDS ORDERED: SODIUM CHLORIDE 0.9% FLUSH 10 ML FLUSH IV FLUSH PRN (08:00)
[2017-11-24] MEDS ORDERED: ONDANSETRON HCL 4 MG/2 ML VIAL IVP ONE (08:00)
[2017-11-24] MEDS ORDERED: MORPHINE SULFATE 4 MG/ML INJ IV PUSH ONE (08:00)
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
[2017-11-24 08:12] VITALS: BP 177/86; PULSE 62; RESP 12; O2SAT 98
[2017-11-24 08:38] LABS: AUTOMATED NEUTROPHIL # 5.4 TH/MM3 (1.8-7.7); BASOPHIL % 0.3 % (0.0-2.0); EOSINOPHIL # 0.1 TH/MM3 (0-0.4); HEMATOCRIT 42.1 % (39.0-51.0); HEMOGLOBIN 14.3 GM/DL (13.0-17.0); LYMPH % 20.4 % (9.0-44.0); LYMPHOCYTE # 1.5 TH/MM3 (1.0-4.8); MEAN CELL VOLUME 83.3 FL (80.0-100.0); MEAN CORPUSCULAR HEMOGLOBIN 28.3 PG (27.0-34.0); MEAN CORPUSCULAR HGB CONC 33.9 % (32.0-36.0); MEAN PLATELET VOLUME 8.2 FL (7.0-11.0); MONO % 6.9 % (0.0-8.0); MONOCYTE # 0.5 TH/MM3 (0-0.9); NEUT % 71.4 % (16.0-70.0); PLATELET COUNT 217 TH/MM3 (150-450); RED BLOOD COUNT 5.05 MIL/MM3 (4.50-5.90); RED CELL DISTRIBUTION WIDTH 16.4 % (11.6-17.2); WHITE BLOOD COUNT 7.6 TH/MM3 (4.0-11.0)
[2017-11-24 08:44] VITALS: BP 158/88; PULSE 58; RESP 16; O2SAT 99
[2017-11-24 08:56] LABS: AST (GOT) 19 U/L (15-37); BICARBONATE 28.9 MEQ/L (21.0-32.0); BLOOD UREA NITROGEN 19 MG/DL (7-18); CALCIUM 9.5 MG/DL (8.5-10.1); CHLORIDE 96 MEQ/L (98-107); GLOMERULAR FILTRATION RATE 104 ML/MIN (>89); GLUCOSE,RANDOM 176 MG/DL (74-106); SODIUM (NA) 135 MEQ/L (136-145)
[2017-11-24 08:57] LABS: ALT (GPT) 35 U/L (12-78)
[2017-11-24 08:59] LABS: ALKALINE PHOSPHATASE 106 U/L (45-117); TOTAL BILIRUBIN ADULT 0.6 MG/DL (0.2-1.0); TOTAL PROTEIN 7.9 GM/DL (6.4-8.2)
[2017-11-24] MEDS ORDERED: IOHEXOL 350 MG/ML 10 ML VIAL (for RAD DIAG) IVCONTRAST ONE (10:30)
[2017-11-24] MEDS ORDERED: MORPHINE SULFATE 2 MG/ML INJ IV PUSH ONE (10:45)
[2017-11-24] MEDS ORDERED: ONDANSETRON HCL 4 MG/2 ML VIAL IV PUSH ONE (10:45)
--- NOTE | 2017-11-24 10:58 | RADRPT ---
EXAM DATE/TIME: 11/24/2017 10:07 [facility] COMPARISON: CT ABDOMEN & PELVIS W CONTRAST, August 13, 2017, 20:30. INDICATIONS : Epigastric pain with nausea and vomiting today. IV CONTRAST: 72 cc Omnipaque 350 (iohexol) IV ORAL CONTRAST: No oral contrast ingested. RADIATION DOSE: 6.64 CTDIvol (mGy) MEDICAL HISTORY : Pancreatitis. Gastroesophageal reflux disease. SURGICAL HISTORY : Cholecystectomy. whipple ENCOUNTER: Initial ACUITY: 1 day PAIN SCALE: 4/10 LOCATION: epigastric abdomen TECHNIQUE: Volumetric scanning of the abdomen and pelvis was performed. Using automated exposure control and ad justment of the mA and/or kV according to patient size, radiation dose was kept as low as reasonably achievable to obtain optimal diagnostic quality images. DICOM format image data is available electro nically for review and comparison. FINDINGS: LOWER LUNGS: The visualized lower lungs are clear. LIVER: Homogeneous density without lesion. Minimal chronic biliary ductal dilatation is stable. The patient is status post cholecystectomy. No calcified gallstones. SPLEEN: Normal size without lesion. PANCREAS: Scattered punctate ulcerations are noted within the pancreas consistent with chronic calcific pancrea titis. No acute pancreatitis is noted. KIDNEYS: Normal in size and shape. Multiple calcified nonobstructing lower pole left renal calculi are again noted with the largest measuring 9 mm. There is no mass or hydronephrosis. ADRENAL GLANDS: Within normal limits. VASCULAR: There is no aortic aneurysm. BOWEL/MESENTERY: The stomach, small bowel, and colon demonstrate no acute abnormality. There is no free intraperitone al air or fluid. ABDOMINAL WALL: Within normal limits. RETROPERITONEUM: There is no lymphadenopathy. BLADDER: No wall thickening or mass. REPRODUCTIVE: Within normal limits. INGUINAL: There is no lymphadenopathy or hernia. MUSCULOSKELETAL: Minimal degenerative changes and scoliosis of the lumbar spine are noted. CONCLUSION: 1. Stable calcified nonobstructing lower pole left renal calculi. 2. Stable chronic calcific pancreatitis. 3. Stable mild biliary ductal dilatation. 4. No significant change compared to 08/13/17. Efrain Jones MD on November 24, 2017 at 10:51 Board Certified Radiologist. This report was verified electronically.
[2017-11-24] MEDS ORDERED: NALOXONE HCL 0.4 MG/ML AMP IV PUSH PRN (11:30)
[2017-11-24] MEDS ORDERED: BISACODYL 10 MG SUPP RECTAL PRN (11:30)
[2017-11-24] MEDS ORDERED: SENNOSIDES 8.6 MG TAB PO PRN (11:30)
[2017-11-24] MEDS ORDERED: MORPHINE SULFATE 4 MG/ML INJ IV PUSH PRN (11:30)
[2017-11-24] MEDS ORDERED: MORPHINE SULFATE 2 MG/ML INJ IV PUSH PRN (11:30)
[2017-11-24] MEDS ORDERED: LACTULOSE SYRUP 20 GM/30 ML CUP PO PRN (11:30)
[2017-11-24] MEDS ORDERED: MAGNESIUM HYDROXIDE SUSP 30 ML CUP PO PRN (11:30)
[2017-11-24] MEDS ORDERED: ACETAMINOPHEN 325 MG TAB PO PRN (11:30)
[2017-11-24 11:53] VITALS: BP 102/69; PULSE 77; RESP 17; TEMP 97.9; O2SAT 99
[2017-11-24] MEDS ORDERED: NS + KCL 20 MEQ INJ 1,000 ML IV SCH (12:00)
[2017-11-24] MEDS ORDERED: GLUCAGON 1 MG/ML VIAL OTHER PRN (13:30)
[2017-11-24] MEDS ORDERED: DEXTROSE 50% IN WATER 50 ML VIAL(D50) IV PUSH PRN (13:30)
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
[2017-11-24 13:50] VITALS: BP 124/77; TEMP 97.8
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
[2017-11-24 15:30] VITALS: BP 142/85; PULSE 67; RESP 18; TEMP 98.5; O2SAT 95
[2017-11-24] MEDS: D5-NS + KCL 20 MEQ INJ 1,000 ML IV SCH (15:58)
[2017-11-24 16:02] LABS: BILIRUBIN, URINE NEG (NEG); BLOOD, URINE MOD (NEG); GLUCOSE,URINE NEG (NEG); KETONE, URINE 10 mg/dL (NEG); NITRITE,URINE NEG (NEG); URINE COLOR YELLOW (YELLW/STRAW); URINE LEUKOCYTE ESTERASE NEG (NEG)
[2017-11-24] MEDS: ONDANSETRON HCL 4 MG/2 ML VIAL IVP PRN ×2 (16:15→22:08)
[2017-11-24] MEDS: BETHANECHOL CHL 25 MG TAB PO SCH ×2 (16:53→21:58)
[2017-11-24] MEDS: INSULIN ASPART SUPPLEMENTAL SCALE SQ SCH ×2 (17:00→21:00)
[2017-11-24] MEDS: SUCRALFATE 1 GM/10 ML CUP PO SCH ×2 (18:27→21:58)
[2017-11-24] MEDS: busPIRone HCL 5 MG TAB PO SCH (18:27)
[2017-11-24] MEDS: LIPASE/PROTEASE/AMYLASE (12,000/38,000/60,000) CAP PO SCH (18:43)
[2017-11-24] MEDS ORDERED: HYDROmorphone HCL PF 2 MG/ML VIAL IV PRN (19:00)
[2017-11-24] MEDS: HYDROmorphone HCL PF 2 MG/ML VIAL IV PRN (19:20)
[2017-11-24 20:50] VITALS: BP 115/76; PULSE 81; RESP 18; TEMP 98.6; O2SAT 96
[2017-11-24] MEDS: DOCUSATE SODIUM 50 MG/SENNA 8.6 MG TAB PO SCH (21:00)
[2017-11-24] MEDS ORDERED: MIRTAZAPINE 15 MG TAB PO SCH (21:00)
[2017-11-25 01:50] VITALS: BP 193/103; PULSE 75; RESP 18; TEMP 98.5; O2SAT 98
[2017-11-25] MEDS: HYDROmorphone HCL PF 2 MG/ML VIAL IV PRN ×2 (02:02→08:33)
[2017-11-25] MEDS: D5-NS + KCL 20 MEQ INJ 1,000 ML IV SCH (02:12)
[2017-11-25 05:21] LABS: INTERNATIONAL NORMALIZED RATIO 1.1 RATIO; PROTHROMBIN TIME - PATIENT 10.9 SEC (9.8-11.6)
[2017-11-25 05:39] LABS: BICARBONATE 32.3 MEQ/L (21.0-32.0); CALCIUM 8.1 MG/DL (8.5-10.1); CREATININE 0.58 MG/DL (0.60-1.30); MAGNESIUM 1.7 MG/DL (1.5-2.5)
[2017-11-25] MEDS ORDERED: LACTATED RINGER'S 1000 ML IV PRN (06:00)
[2017-11-25] MEDS ORDERED: CHLORHEXIDINE GLUCONATE 2 % 1 PACK (2 CLOTHS) TOPICAL PRN (06:00)
[2017-11-25] MEDS ORDERED: SODIUM CHLORID 0.9% 500 ML IV PRN (06:00)
[2017-11-25] MEDS ORDERED: POVIDONE IODINE 5% (ANTISEPSIS KIT) 4 APPLICATIONS EACH NARE PRN (06:00)
[2017-11-25] MEDS: BETHANECHOL CHL 25 MG TAB PO SCH ×2 (06:04→14:20)
[2017-11-25] MEDS: ONDANSETRON HCL 4 MG/2 ML VIAL IVP PRN ×2 (06:32→12:31)
[2017-11-25] MEDS: INSULIN ASPART SUPPLEMENTAL SCALE SQ SCH ×2 (08:00→13:30)
[2017-11-25 08:25] VITALS: BP 176/88; PULSE 67; RESP 16; TEMP 98.4; O2SAT 99
[2017-11-25] MEDS: SUCRALFATE 1 GM/10 ML CUP PO SCH ×2 (08:29→12:00)
[2017-11-25] MEDS: busPIRone HCL 5 MG TAB PO SCH ×2 (08:30→14:21)
[2017-11-25] MEDS: DOCUSATE SODIUM 50 MG/SENNA 8.6 MG TAB PO SCH (08:31)
[2017-11-25] MEDS: LIPASE/PROTEASE/AMYLASE (12,000/38,000/60,000) CAP PO SCH ×2 (08:31→13:00)
[2017-11-25] MEDS ORDERED: ARIPiprazole 15 MG TAB PO SCH (09:00)
[2017-11-25] MEDS ORDERED: PHYTONADIONE 5 MG/SWFI 5 ML ORAL SYR PO SCH (09:00)
[2017-11-25] MEDS ORDERED: MULTIVITAMINS/MINERALS THERAPEUTIC TAB PO SCH (09:00)
[2017-11-25] MEDS ORDERED: PANTOPRAZOLE SOD 40 MG DELAYED RELEASE TAB PO SCH (09:00)
[2017-11-25] MEDS ORDERED: MAGNESIUM SULFATE 1 GM PREMIX 100 ML IV ONE (10:00)
[2017-11-25 11:12] VITALS: BP 186/99; PULSE 80; RESP 18; TEMP 98.4; O2SAT 99
[2017-11-25] MEDS: ONABOTULINUMTOXINA INJ 100 UNITS/VIAL PRN ×2 (13:05→14:57)
[2017-11-25] MEDS ORDERED: DO NOT ADM ANY ANTICOAGULANT DRUGS PRN (14:00)
--- NOTE | 2017-11-25 14:17 | PD.PROCEDR ---
GI Procedure PROCEDURE PERFORMED Upper endoscopy with Botox injection in the pylorus INDICATION FOR PROCEDURE Gastroparesis, nausea vomiting PROCEDURE: The procedure, risks and benefits were discussed with Mr. Shannon and informed consent was obtained. Anesthesia sedated him with Diprivan. He was placed in the left lateral decubitus position. EGD: The Pentax videoscope was introduced through the oropharynx and advanced to the second portion of the duodenum under direct visualization. Retroflexion was performed in the stomach. 100 units of Botox was injected in every quarter in the pylorus for a total of 400 FINDINGS: Normal exam ESTIMATED BLOOD LOSS: None SPECIMENS REMOVED: None COMPLICATIONS: None Normal upper endoscopy Botox injection was done Plan Clear liquid advance as tolerated If tolerated diet patient can be discharged home Follow up with GI in 2 weeks EGD with injection of Botox as needed in 6 month Thais Berman MD Nov 25, 2017 14:17
--- NOTE | 2017-11-25 14:19 | HHI.GIFU ---
Subjective Remarks Patient is laying in bed comfortably, no new complaint, had some nausea earlier today Objective Vitals I&O Vital Signs Date Time Temp Pulse Resp B/P (MAP) Pulse Ox O2 Delivery O2 Flow Rate FiO2 11/25/17 13:40 76 15 129/81 (97) 96 11/25/17 13:30 75 16 136/90 (105) 97 Room Air 11/25/17 13:18 98.6 79 15 138/95 (109) 97 11/25/17 11:12 98.4 80 18 186/99 (128) 99 11/25/17 08:25 98.4 67 16 176/88 (117) 99 11/25/17 01:50 98.5 75 18 193/103 (133) 98 11/24/17 20:50 98.6 81 18 115/76 (89) 96 11/24/17 15:30 98.5 67 18 142/85 (104) 95 I/O 11/24/17 11/24/17 11/24/17 11/25/17 11/25/17 11/25/17 07:00 15:00 23:00 07:00 15:00 23:00 Intake Total 1150 ml 500 ml Output Total 450 ml Balance 1150 ml 50 ml Intake IV Total 1150 ml Other 500 ml Output Urine Total 450 ml Laboratory Laboratory Tests Test 11/24/17 14:30 11/25/17 04:35 Urine Color YELLOW Urine Turbidity HAZY Urine pH 7.0 Urine Specific [place] 1.050 Urine Protein TRACE Urine Glucose (UA) NEG Urine Ketones 10 Urine Occult Blood MOD Urine Nitrite NEG Urine Bilirubin NEG Urine Urobilinogen LESS THAN 2.0 Urine Leukocyte Esterase NEG Urine RBC 172 Urine WBC 7 Microscopic Urinalysis Comment CULT NOT INDICATED Prothrombin Time 10.9 Prothromb Time International Ratio 1.1 Blood Urea Nitrogen 10 Creatinine 0.58 Random Glucose 87 Calcium Level 8.1 Magnesium Level 1.7 Sodium Level 140 Potassium Level 3.2 Chloride Level 102 Carbon Dioxide Level 32.3 Anion Gap 6 Estimat Glomerular Filtration Rate 151 Physical Exam HEENT: Pupils round and reactive to light; normocephalic; atraumatic; no jaundice. Throat is clear. NECK: Neck is supple, no JVD, no lymphadenopathy. CHEST: Chest is clear to auscultation and percussion. CARDIAC: Regular rate and rhythm with no murmur gallop or rubs. ABDOMEN: Soft, nondistended, moderate diffuse tenderness; no hepatosplenomegaly ; bowel sounds are present in all four quadrants. EXTREMITIES: No clubbing, cyanosis, or edema. SKIN: no jaundice. RADAR SYSTEMS ENGINEER: No focal deficits; . Assessment and Plan Plan Assessment: - Epigastric pain, nausea, vomiting- Pain began suddenly at 3am this morning, states sharp, constant. Associated nausea and vomiting, denies hematemesis, coffee ground emesis. States recent EGD in [place] a few weeks ago which was normal. Previous EGD done here while inpatient Oct 17, 2017 --> Pangastritis. Probable gastroparesis. Pathology (gastric antral mucosa) chemical gastropathy (gastric body) without significant histopathologic abnormality negative for gastritis, gastropathy, metaplasia, and dysplasia. Denies sick contacts with similar symptoms, unsure of chills, can not regulate body temperature because of davey. - "Dark stool"- Denies black, tarry stool. Denies BRBPR. H/H stable. - Gastroparesis- Takes Bethanechol at home - DM with insulin pump - Chronic pancreatitis S/P whipple procedure and celiac plexus block takes Creon with meals. CT abdomen and pelvis done in ER --> Stable chronic calcific pancreatitis. Stable mild biliary dilatation. No significant change compared to prior exam in August. 11/25/2017, patient is doing okay, chronic pancreatitis status post Whipple upper endoscopy was done Plan: Request records from recent tests done in [place] Bethanechol Carafate Protonix Clear liquid diet Normal upper endoscopy Botox injection was done Plan Clear liquid advance as tolerated If tolerated diet patient can be discharged home Follow up with GI in 2 weeks EGD with injection of Botox as needed in 6 month Thais Berman MD Nov 25, 2017 14:19
[2017-11-25] MEDS: POTASSIUM CHLOR 10 MEQ PREMIX 100 ML IV SCH ×3 (14:29→16:28)
[2017-11-25 15:50] VITALS: BP 158/99; PULSE 79; RESP 16; TEMP 98.4; O2SAT 98
--- NOTE | 2017-11-25 16:49 | HHI.PR ---
Subjective Remarks Patient seen this afternoon after EGD. Says he is feeling well. Denies any chest pain or shortness of breath Later discussed with nursing. Patient tolerating diet. Objective Vital Signs Date Time Temp Pulse Resp B/P (MAP) Pulse Ox O2 Delivery O2 Flow Rate FiO2 11/25/17 15:50 98.4 79 16 158/99 (118) 98 11/25/17 13:40 76 15 129/81 (97) 96 11/25/17 13:30 75 16 136/90 (105) 97 Room Air 11/25/17 13:18 98.6 79 15 138/95 (109) 97 11/25/17 11:12 98.4 80 18 186/99 (128) 99 11/25/17 08:25 98.4 67 16 176/88 (117) 99 11/25/17 01:50 98.5 75 18 193/103 (133) 98 11/24/17 20:50 98.6 81 18 115/76 (89) 96 I/O 11/24/17 11/24/17 11/24/17 11/25/17 11/25/17 11/25/17 07:00 15:00 23:00 07:00 15:00 23:00 Intake Total 1150 ml 1100 ml 200 ml Output Total 450 ml Balance 1150 ml 650 ml 200 ml Intake IV Total 1150 ml 100 ml 200 ml Other 1000 ml Output Urine Total 450 ml Result Diagram: 11/24/17 0815 11/25/17 0435 Imaging Last Impressions Abdomen/Pelvis CT 11/24/17 0755 Signed Impressions: Service Date/Time: Friday, November 24, 2017 10:07 - CONCLUSION: 1. Stable calcified nonobstructing lower pole left renal calculi. 2. Stable chronic calcific pancreatitis. 3. Stable mild biliary ductal dilatation. 4. No significant change compared to 08/13/17. Efrain Jones MD Objective Remarks GENERAL: Patient lying in bed. Appears comfortable. Alert and oriented 4. SKIN: Warm and dry. HEAD: Normocephalic. EYES: No scleral icterus. No injection or drainage. NECK: Supple, trachea midline. No JVD. CARDIOVASCULAR: Regular rate and rhythm without murmurs, gallops, or rubs. RESPIRATORY: Breath sounds equal bilaterally. No accessory muscle use. GASTROINTESTINAL: Abdomen soft, non-tender, nondistended. MUSCULOSKELETAL: No cyanosis, or edema. BACK: Nontender without obvious deformity. No CVA tenderness. A/P Assessment and Plan // Abdominal pain, nausea, vomiting: Possibly gastroenteritis. The patient had an upper GI bleed 1 month ago. Will consult gastroenterology. Prior workup showed severe gastroparesis. Continue IV fluids, pain control. Continue PPI. = S post EGD with Botox injection. Patient cleared for discharge by GI. Follow -up GI as outpatient. // Type 1 diabetes mellitus: Patient has an insulin pump implanted. Monitor Accu-Cheks and cover with sliding scale insulin. Will continued D5 in his IV fluids as he has poor oral intake at this time. = Glucose acceptable. Continue home regimen. // Mild hypokalemia: Supplement potassium again. Expect improved with improved appetite. Follow-up primary care. // Anxiety/depression/PTSD: Continue home medications. // DVT prophylaxis: SCDs, MARIAM dewitt. Discharge Planning Discharge home in good condition. Continue diabetic diet. Activity ad holli. Please see discharge medication reconciliation for medication list. Follow-up with gastroenterology, primary care as outpatient. Zack Trujillo MD Nov 25, 2017 16:49
== END 2017-11-25 17:58 | disposition home or self-care (01) ==
LOC: NEPE 07:34 → NEDA 11:25 → NEPFCDU 14:23
PROVIDERS: ADMIT Internal Medicine; ATTEND Internal Medicine
DX: E10.43 Type 1 diabetes mellitus with diabetic autonomic (poly)neuropathy (principal); K31.84 Gastroparesis; E87.6 Hypokalemia; I25.10 Atherosclerotic heart disease of native coronary artery without angina pectoris; I10 Essential (primary) hypertension; K86.1 Other chronic pancreatitis; N20.0 Calculus of kidney; F43.10 Post-traumatic stress disorder, unspecified; F32.9 Major depressive disorder, single episode, unspecified; F41.9 Anxiety disorder, unspecified; F12.90 Cannabis use, unspecified, uncomplicated; Z95.5 Presence of coronary angioplasty implant and graft; Z79.899 Other long term (current) drug therapy; Z79.82 Long term (current) use of aspirin; Z87.891 Personal history of nicotine dependence; Z96.41 Presence of insulin pump (external) (internal)
CPT/HCPCS: 00731; 43236; 74177; 80048; 80053; 81001; 82948; 83690; 83735; 85025; 85610; 96361; 96365; 96366; 96367; 96375; 96376; 99285; G0378; J1170; J2270; J2405; J3475; J3480; J7030; J7120; Q9967; J0585

== ENCOUNTER 2018-01-15 09:25 | Emergency (ER) | payer MEDICARE, OTHER ==
[~2018-01-15] VITALS: Ht 185.4 cm; Wt 63.6 kg
[~2018-01-15 09:25] MED LIST changes: -AMLO5 PO; -BACT800T5 PO; -CIPR500T2 PO
[2018-01-15 09:30] VITALS: BP 135/92; PULSE 111; RESP 20; TEMP 98.9
[2018-01-15 09:45] VITALS: RESP 17; O2SAT 98
[2018-01-15 10:42] LABS: AUTOMATED NEUTROPHIL # 6.1 TH/MM3 (1.8-7.7); BASOPHIL % 0.4 % (0.0-2.0); EOSINOPHIL # 0.1 TH/MM3 (0-0.4); EOSINOPHIL % 1.2 % (0.0-4.0); HEMATOCRIT 42.9 % (39.0-51.0); HEMOGLOBIN 14.3 GM/DL (13.0-17.0); LYMPH % 18.5 % (9.0-44.0); LYMPHOCYTE # 1.5 TH/MM3 (1.0-4.8); MEAN CELL VOLUME 82.6 FL (80.0-100.0); MEAN CORPUSCULAR HEMOGLOBIN 27.5 PG (27.0-34.0); MEAN CORPUSCULAR HGB CONC 33.3 % (32.0-36.0); MEAN PLATELET VOLUME 7.7 FL (7.0-11.0); MONO % 5.7 % (0.0-8.0); MONOCYTE # 0.5 TH/MM3 (0-0.9); NEUT % 74.2 % (16.0-70.0); PLATELET COUNT 209 TH/MM3 (150-450); RED CELL DISTRIBUTION WIDTH 14.8 % (11.6-17.2); WHITE BLOOD COUNT 8.3 TH/MM3 (4.0-11.0)
[2018-01-15 11:02] LABS: ALBUMIN 3.7 GM/DL (3.4-5.0); AST (GOT) 14 U/L (15-37); BICARBONATE 30.7 MEQ/L (21.0-32.0); BLOOD UREA NITROGEN 13 MG/DL (7-18); CALCIUM 8.9 MG/DL (8.5-10.1); CHLORIDE 96 MEQ/L (98-107); CREATININE 0.75 MG/DL (0.60-1.30); GLOMERULAR FILTRATION RATE 112 ML/MIN (>89); GLUCOSE,RANDOM 124 MG/DL (74-106); SODIUM (NA) 135 MEQ/L (136-145)
[2018-01-15 11:03] LABS: ALT (GPT) 34 U/L (12-78); C-REACTIVE PROTEIN LESS THAN 0.29 MG/DL (0.00-0.30)
[2018-01-15 11:06] LABS: ALKALINE PHOSPHATASE 104 U/L (45-117); TOTAL BILIRUBIN ADULT 0.7 MG/DL (0.2-1.0); TOTAL PROTEIN 8.2 GM/DL (6.4-8.2)
[2018-01-15] MEDS ORDERED: diphenhydrAMINE HCL 50 MG/ML VIAL IV PUSH ONE (11:15)
[2018-01-15] MEDS ORDERED: MORPHINE SULFATE 2 MG/ML SYRINGE IV PUSH ONE (11:15)
[2018-01-15] MEDS ORDERED: METOCLOPRAMIDE HCL 10 MG/2 ML VIAL IV PUSH ONE (11:15)
[2018-01-15] MEDS ORDERED: SODIUM CHLOR 0.9% 1000 ML INJ 1,000 ML IV ONE (11:15)
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
[2018-01-15] MEDS ORDERED: MORPHINE SULFATE 4 MG/ML INJ ONE (11:22)
[2018-01-15 11:29] VITALS: BP 132/87; PULSE 85; RESP 17; TEMP 97.9; O2SAT 99
[2018-01-15 11:30] VITALS: RESP 16
--- NOTE | 2018-01-15 12:51 | RADRPT ---
EXAM DATE/TIME: 01/15/2018 12:04 [facility] COMPARISON: FOOT RIGHT COMPLETE ([id number]), October 12, 2017, 13:27. INDICATIONS : Right foot pain. MEDICAL HISTORY : Diabetes mellitus type II. Hypertension. Myocardial infarction. Pancreatitis. Osteomyelitis. SURGICAL HISTORY : Cholecystectomy. External fixator right ankle. Amputation right first toe. ENCOUNTER: Initial ACUITY: 1 day PAIN SCORE: 9/10 LOCATION: Right foot FINDINGS: Deformity is noted of the forefoot. The patient has undergone complete amputation of the great toe an d proximal partial amputations of the second and third toes. Significant sclerosis and deformity is identified of the fourth and fifth metatarsals. The distal head of the fourth metatarsal demonstrates thinning and marginal erosion. Bony structures are diffusely demineralized. Calcifications seen along the plantar tendon. No clearly destructive changes are seen. CONCLUSION: 1. Forefoot deformity as described. 2. 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 3. Fourth metatarsophalangeal joint deformity which may be related to previous inflammatory disease. 4. Significant bone demineralization. 5. No evidence of clearly destructive changes. Edwin Wilson MD on January 15, 2018 at 12:46 Board Certified Radiologist. This report was verified electronically.
[2018-01-15] MEDS ORDERED: PROM25TA10 PO (13:02)
[2018-01-15] MEDS ORDERED: BACT800T5 PO (13:11)
[2018-01-15] MEDS ORDERED: CEPH-460 PO (13:11)
--- NOTE | 2018-01-15 13:11 | PD ---
Data Data Last Documented VS Vital Signs Date Time Temp Pulse Resp B/P (MAP) Pulse Ox O2 Delivery O2 Flow Rate FiO2 01/15/18 11:30 16 01/15/18 11:29 97.9 85 132/87 (102) 99 Room Air Orders Orders Sepsis Workup Initiated (01/15/18 ) Complete Blood Count With Diff (01/15/18 09:39) Comprehensive Metabolic Panel (01/15/18 09:39) Lactic Acid Sepsis Protocol (01/15/18 09:39) Blood Culture (01/15/18 09:39) Blood Glucose (01/15/18 09:39) Ecg Monitoring (01/15/18 09:39) Iv Access Insert/Monitor (01/15/18 09:39) Oximetry (01/15/18 09:39) Oxygen Administration (01/15/18 09:39) Westergren Sedimentation Rate (01/15/18 09:39) C-Reactive Protein (Crp) (01/15/18 09:39) Sodium Chlor 0.9% 1000 Ml Inj (Ns 1000 M (01/15/18 11:15) Morphine Inj (Morphine Inj) (01/15/18 11:15) Metoclopramide Inj (Reglan Inj) (01/15/18 11:15) Diphenhydramine Inj (Benadryl Inj) (01/15/18 11:15) Foot, Complete ([id number]) (01/15/18 ) Morphine Inj (Morphine Inj) (01/15/18 11:22) Ed Discharge Order (01/15/18 12:56) Labs Laboratory Tests Test 01/15/18 10:00 White Blood Count 8.3 TH/MM3 Red Blood Count 5.20 MIL/MM3 Hemoglobin 14.3 GM/DL Hematocrit 42.9 % Mean Corpuscular Volume 82.6 FL Mean Corpuscular Hemoglobin 27.5 PG Mean Corpuscular Hemoglobin Concent 33.3 % Red Cell Distribution Width 14.8 % Platelet Count 209 TH/MM3 Mean Platelet Volume 7.7 FL Neutrophils (%) (Auto) 74.2 % Lymphocytes (%) (Auto) 18.5 % Monocytes (%) (Auto) 5.7 % Eosinophils (%) (Auto) 1.2 % Basophils (%) (Auto) 0.4 % Neutrophils # (Auto) 6.1 TH/MM3 Lymphocytes # (Auto) 1.5 TH/MM3 Monocytes # (Auto) 0.5 TH/MM3 Eosinophils # (Auto) 0.1 TH/MM3 Basophils # (Auto) 0.0 TH/MM3 CBC Comment DIFF FINAL Differential Comment Erythrocyte Sedimentation Rate 4 mm/hr Blood Urea Nitrogen 13 MG/DL Creatinine 0.75 MG/DL Random Glucose 124 MG/DL Total Protein 8.2 GM/DL Albumin 3.7 GM/DL Calcium Level 8.9 MG/DL Alkaline Phosphatase 104 U/L Aspartate Amino Transf (AST/SGOT) 14 U/L Alanine Aminotransferase (ALT/SGPT) 34 U/L Total Bilirubin 0.7 MG/DL Sodium Level 135 MEQ/L Potassium Level 3.4 MEQ/L Chloride Level 96 MEQ/L Carbon Dioxide Level 30.7 MEQ/L Anion Gap 8 MEQ/L Estimat Glomerular Filtration Rate 112 ML/MIN Lactic Acid Level 0.6 mmol/L C-Reactive Protein LESS THAN 0.29 MG/DL MDM Supervised Visit with ESE: Yes Narrative Course The history, exam, and medical decision-making in the associated midlevel provider note were completed with my assistance. I reviewed and agree with the findings presented. I attest that I had a [id number] encounter with the patient on the same day, and personally performed and documented my assessment and findings in the medical record. *My assessment and Findings: This is a 47-year-old male who has a history of diabetes who presents to the emergency department with increasing swelling and discharge from his right fourth toe. On exam he has minimal erythema around a wound which has some clear drainage. Inflammatory markers and labs are all reassuring. I think the patient is appropriate for outpatient antibiotic therapy and follow-up with podiatry. He will return if his symptoms worsen. Diagnosis Primary Impression: Diabetic foot ulcers Additional Impressions: Nausea & vomiting Qualified Codes: R11.2 - Nausea with vomiting, unspecified Abdominal pain Qualified Codes: R10.12 - Left upper quadrant pain Referrals: Bob[facility] Tender Primary Care Physician Patient Instructions: General Instructions, Chronic Wound Care (DC), Acute Nausea and Vomiting (ED), Diabetic Foot Ulcers (ED) Departure Forms: Tests/Procedures Additional Instruction: Follow-up with the cigar head perforator Follow-up with your primary care provider Seek wound care evaluation Return immediately with acute worsening symptoms Scripts Promethazine (Phenergan) 25 Mg Tablet 25 MG PO Q6H Y for NAUSEA OR VOMITING, #15 TAB 0 Refills Prov: Elmira Patricia LOLA 01/15/18 Disposition: 01 DISCHARGE HOME Condition: Stable Nette Sanchez MD January 15, 2018 13:11
[2018-01-15 13:46] VITALS: BP 133/76; TEMP 97.9
== END 2018-01-15 13:46 | disposition home or self-care (01) ==
LOC: NEPC 09:25
DX: E10.621 Type 1 diabetes mellitus with foot ulcer (principal); L97.419 Non-pressure chronic ulcer of right heel and midfoot with unspecified severity; R10.12 Left upper quadrant pain; R11.2 Nausea with vomiting, unspecified; I10 Essential (primary) hypertension; I25.2 Old myocardial infarction; Z89.421 Acquired absence of other right toe(s); Z88.8 Allergy status to other drugs, medicaments and biological substances; Z79.4 Long term (current) use of insulin; Z79.899 Other long term (current) drug therapy
CPT/HCPCS: 73630; 80053; 83605; 85025; 85652; 86140; 87040; 96361; 96374; 96375; 99284; J1200; J1642; J2270; J2765; J7030

== ENCOUNTER 2018-02-07 12:17 | Emergency (ER) | payer MEDICARE, OTHER ==
[~2018-02-07] VITALS: Ht 185.4 cm; Wt 68.0 kg
[~2018-02-07 12:17] MED LIST changes: +BACT800T5 PO; +CEPH-460 PO; +PROM25TA10 PO
[2018-02-07 12:25] VITALS: BP 150/71; PULSE 70; RESP 16; TEMP 98.3; O2SAT 99
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
[2018-02-07] MEDS ORDERED: SODIUM CHLOR 0.9% 1000 ML INJ 1,000 ML IV SCH (12:57)
[2018-02-07] MEDS ORDERED: METOCLOPRAMIDE HCL 10 MG/2 ML VIAL IV PUSH ONE (13:00)
[2018-02-07] MEDS ORDERED: KETOROLAC TROMETHAMINE 30 MG/ML (IVP) VIAL IVP ONE (13:00)
[2018-02-07] MEDS ORDERED: SODIUM CHLORIDE 0.9% FLUSH 10 ML FLUSH IV FLUSH PRN (13:00)
[2018-02-07] MEDS ORDERED: diphenhydrAMINE HCL 50 MG/ML VIAL IV PUSH ONE (13:00)
[2018-02-07] MEDS ORDERED: MORPHINE SULFATE 4 MG/ML INJ IV PUSH ONE ×2 (13:00→15:30)
[2018-02-07 13:13] VITALS: RESP 18; O2SAT 100
[2018-02-07 13:13] LABS: AUTOMATED NEUTROPHIL # 6.5 TH/MM3 (1.8-7.7); BASOPHIL % 0.1 % (0.0-2.0); EOSINOPHIL % 0.3 % (0.0-4.0); HEMATOCRIT 36.2 % (39.0-51.0); HEMOGLOBIN 12.1 GM/DL (13.0-17.0); LYMPH % 8.4 % (9.0-44.0); LYMPHOCYTE # 0.6 TH/MM3 (1.0-4.8); MEAN CELL VOLUME 83.9 FL (80.0-100.0); MEAN CORPUSCULAR HGB CONC 33.4 % (32.0-36.0); MEAN PLATELET VOLUME 7.9 FL (7.0-11.0); MONO % 4.1 % (0.0-8.0); MONOCYTE # 0.3 TH/MM3 (0-0.9); NEUT % 87.1 % (16.0-70.0); PLATELET COUNT 174 TH/MM3 (150-450); RED BLOOD COUNT 4.32 MIL/MM3 (4.50-5.90); RED CELL DISTRIBUTION WIDTH 14.7 % (11.6-17.2); WHITE BLOOD COUNT 7.4 TH/MM3 (4.0-11.0)
[2018-02-07 13:14] VITALS: BP 131/90; PULSE 61; RESP 12; O2SAT 99
[2018-02-07 13:50] LABS: ALBUMIN 2.9 GM/DL (3.4-5.0); BICARBONATE 23.2 MEQ/L (21.0-32.0); CALCIUM 7.2 MG/DL (8.5-10.1); CALCIUM-PROTEIN CORRECTED 7.9 MG/DL (8.5-10.1); CREATININE 0.69 MG/DL (0.60-1.30); TOTAL BILIRUBIN ADULT 0.5 MG/DL (0.2-1.0); TOTAL PROTEIN 5.7 GM/DL (6.4-8.2)
[2018-02-07] MEDS ORDERED: POTASSIUM CHLOR 10 MEQ PREMIX 100 ML IV ONE (14:00)
[2018-02-07] MEDS ORDERED: HYDROmorphone HCL PF 2 MG/ML VIAL IV PUSH ONE (14:00)
[2018-02-07 15:51] VITALS: BP 129/84; PULSE 73; RESP 14; O2SAT 96
[2018-02-07 16:37] VITALS: BP 125/79
== END 2018-02-07 16:39 | disposition home or self-care (01) ==
LOC: NEPE 12:17
DX: R11.2 Nausea with vomiting, unspecified (principal); R10.13 Epigastric pain; F12.90 Cannabis use, unspecified, uncomplicated; E11.43 Type 2 diabetes mellitus with diabetic autonomic (poly)neuropathy; K31.84 Gastroparesis; K21.9 Gastro-esophageal reflux disease without esophagitis; Z79.4 Long term (current) use of insulin
CPT/HCPCS: 80053; 83690; 85025; 96361; 96365; 96375; 96376; 99284; J1170; J1200; J1885; J2270; J2765; J3480; J7030

== ENCOUNTER 2018-02-09 19:32 | Emergency (ER) | payer MEDICARE, OTHER ==
[~2018-02-09] VITALS: Ht 185.4 cm; Wt 70.0 kg
[~2018-02-09 19:32] MED LIST changes: -BACT800T5 PO; -CEPH-460 PO; -PROM25TA10 PO
[2018-02-09 19:35] VITALS: BP 154/90; PULSE 113; RESP 18; TEMP 98.7; O2SAT 94
[2018-02-09 19:45] VITALS: BP 181/112; PULSE 64; RESP 20; O2SAT 98
[2018-02-09 20:09] VITALS: O2SAT 98
[2018-02-09] MEDS ORDERED: METOCLOPRAMIDE HCL 10 MG/2 ML VIAL IV PUSH ONE (20:15)
[2018-02-09] MEDS ORDERED: SODIUM CHLOR 0.9% 1000 ML INJ 1,000 ML IV ONE ×2 (20:15→21:45)
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
[2018-02-09] MEDS ORDERED: MORPHINE SULFATE 8 MG/ML INJ IV PUSH ONE ×2 (20:30→21:45)
--- NOTE | 2018-02-09 20:40 | RADRPT ---
EXAM DATE: 02/09/2018 8:34 PM EDT AGE/SEX: 47 years / Male INDICATIONS: Evaluate for free air, abdomen pain CLINICAL DATA: This is the patient's initial encounter. Patient reports that signs and symptoms have been present for 3 days and indicates a pain score of 6/10. MEDICAL/SURGICAL HISTORY: Cardiovascular disease. Coronary artery stent. COMPARISON: [facility] – [place] SINGLE AP, 10/11/2017. . FINDINGS: Vuakqi-r-Spxw tip in superior vena cava. Spinal stimulator wire overlies the mid thoracic spine. No f ocal consolidation or effusion. No pneumothorax. Heart size is normal. CONCLUSION: No active disease. No evidence for free intraperitoneal air. Electronically signed by: Kvng Brewster MD 02/09/2018 8:39 PM EDT
[2018-02-09 20:44] LABS: AUTOMATED NEUTROPHIL # 6.3 TH/MM3 (1.8-7.7); BASOPHIL % 0.2 % (0.0-2.0); EOSINOPHIL % 0.3 % (0.0-4.0); HEMATOCRIT 43.6 % (39.0-51.0); HEMOGLOBIN 14.5 GM/DL (13.0-17.0); LYMPH % 17.5 % (9.0-44.0); LYMPHOCYTE # 1.4 TH/MM3 (1.0-4.8); MEAN CELL VOLUME 83.1 FL (80.0-100.0); MEAN CORPUSCULAR HEMOGLOBIN 27.6 PG (27.0-34.0); MEAN CORPUSCULAR HGB CONC 33.2 % (32.0-36.0); MEAN PLATELET VOLUME 8.4 FL (7.0-11.0); MONO % 5.4 % (0.0-8.0); MONOCYTE # 0.4 TH/MM3 (0-0.9); NEUT % 76.6 % (16.0-70.0); PLATELET COUNT 210 TH/MM3 (150-450); RED BLOOD COUNT 5.24 MIL/MM3 (4.50-5.90); RED CELL DISTRIBUTION WIDTH 14.9 % (11.6-17.2); WHITE BLOOD COUNT 8.3 TH/MM3 (4.0-11.0)
[2018-02-09 21:09] LABS: ALBUMIN 3.9 GM/DL (3.4-5.0); ALT (GPT) 41 U/L (12-78); AST (GOT) 19 U/L (15-37); BICARBONATE 26.1 MEQ/L (21.0-32.0); BLOOD UREA NITROGEN 12 MG/DL (7-18); CALCIUM 9.8 MG/DL (8.5-10.1); CHLORIDE 95 MEQ/L (98-107); CREATININE 0.75 MG/DL (0.60-1.30); GLOMERULAR FILTRATION RATE 112 ML/MIN (>89); GLUCOSE,RANDOM 140 MG/DL (74-106); MAGNESIUM 1.6 MG/DL (1.5-2.5); SODIUM (NA) 135 MEQ/L (136-145)
[2018-02-09 21:26] VITALS: BP 124/72; PULSE 78; RESP 18; O2SAT 95
[2018-02-09 21:26] LABS: ALKALINE PHOSPHATASE 123 U/L (45-117); C-REACTIVE PROTEIN 0.39 MG/DL (0.00-0.30); TOTAL BILIRUBIN ADULT 0.5 MG/DL (0.2-1.0); TOTAL PROTEIN 8.1 GM/DL (6.4-8.2)
[2018-02-09] MEDS ORDERED: BETHANECHOL CHL 10 MG TAB PO ONE (21:45)
[2018-02-09] MEDS ORDERED: PANTOPRAZOLE SODIUM 40 MG VIAL IV PUSH ONE (21:45)
[2018-02-09] MEDS ORDERED: IOHEXOL 350 MG/ML 10 ML VIAL (for RAD DIAG) IVCONTRAST ONE (21:59)
--- NOTE | 2018-02-09 22:16 | RADRPT ---
EXAM DATE: 02/09/2018 10:04 PM EDT AGE/SEX: 47 years / Male INDICATIONS: Abdominal pain. CLINICAL DATA: This is the patient's subsequent encounter. Patient reports that signs and symptoms h ave been present for 3 days and indicates a pain score of 6/10. MEDICAL/SURGICAL HISTORY: Cardiovascular disease. Pancreatitis. Diabetes. GERD Cholecystect bri. AV shunt, cornea transplant, Whipple ORAL CONTRAST: No oral contrast ingested. RADIATION DOSE: 6.29 CTDI (mGy) [place] [facility] [place]/24/2017. . TECHNIQUE: Multiple contiguous axial images were obtained through the abdomen and pelvis following b olus infusion of 96 ml Omnipaque 350 (iohexol) nonionic water-soluble contrast as a single exam dos e. No oral contrast ingested. Using automated exposure control and adjustment of the mA and/or kV ac cording to patient size, the radiation dose was kept as low as reasonably achievable to obtain optima l diagnostic quality images. FINDINGS: Lung bases are clear. Mild fatty liver. Cholecystectomy with mild biliary ductal dilatation, stable s pastor November 24. Spleen, adrenals, kidneys and pancreas demonstrate no acute findings. Stable nonobstru cting calculi lower pole left kidney. Stable pancreatic calcifications. There are numerous vascular collaterals in the anterior abdomen of uncertain etiology. Questionable r emote distal splenic vein thrombosis. No free fluid. No bowel obstruction. No adenopathy. Spinal stimulator wire seen extending into lower thoracic canal. CONCLUSION: 1. No acute findings. 2. 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 Electronically signed by: Kvng Brewster MD 02/09/2018 10:15 PM EDT
[2018-02-09] MEDS ORDERED: CARA1SUS3 PO (22:23)
[2018-02-09 22:39] LABS: BILIRUBIN, URINE NEG (NEG); BLOOD, URINE MOD (NEG); GLUCOSE,URINE NEG (NEG); KETONE, URINE NEG (NEG); NITRITE,URINE NEG (NEG); PH, URINE 7.5 (5.0-8.5); URINE COLOR YELLOW (YELLW/STRAW); URINE LEUKOCYTE ESTERASE NEG (NEG)
--- NOTE | 2018-02-10 14:50 | EKG ---
Date Performed: 02/09/2018 Time Performed: 20:19:23 PTAGE: 47 years EKG: Sinus rhythm WITH SINUS ARRHYTHMIA NORMAL ECG INTERPRETATION BASED ON A DEFAULT AGE OF 40 YEARS Since the PREVIOUS TRACING , no significant change noted PREVIOUS TRACIN10/11/2017 @21.06 DOCTOR: Delmar Decker Interpretating Date/Time 02/10/2018 14:48:29
== END 2018-02-09 23:26 | disposition home or self-care (01) ==
LOC: NEPC 19:32
DX: R10.84 Generalized abdominal pain (principal); N20.0 Calculus of kidney; K31.84 Gastroparesis; F12.90 Cannabis use, unspecified, uncomplicated; K21.9 Gastro-esophageal reflux disease without esophagitis; K86.1 Other chronic pancreatitis; E10.9 Type 1 diabetes mellitus without complications; I25.10 Atherosclerotic heart disease of native coronary artery without angina pectoris; I10 Essential (primary) hypertension; F43.10 Post-traumatic stress disorder, unspecified; F32.9 Major depressive disorder, single episode, unspecified; Z79.4 Long term (current) use of insulin; Z87.442 Personal history of urinary calculi; I25.2 Old myocardial infarction; Z94.7 Corneal transplant status; Z95.5 Presence of coronary angioplasty implant and graft; Z90.49 Acquired absence of other specified parts of digestive tract
CPT/HCPCS: 71045; 74177; 80053; 81001; 82010; 83690; 83735; 85025; 86140; 93005; 96361; 96374; 96375; 96376; 99285; C9113; J1642; J2270; J2765; J7030; Q9967

== ENCOUNTER 2018-02-11 15:22 | Emergency (ER) | payer MEDICARE, OTHER ==
[~2018-02-11] VITALS: Ht 185.4 cm; Wt 70.0 kg
[~2018-02-11 15:22] MED LIST changes: +CARA1SUS3 PO
[2018-02-11 15:38] VITALS: BP 128/84; PULSE 109; RESP 22; TEMP 99.6
[2018-02-11] MEDS ORDERED: SODIUM CHLOR 0.9% 1000 ML INJ 1,000 ML IV SCH (15:57)
[2018-02-11 16:00] VITALS: RESP 18; O2SAT 96
[2018-02-11] MEDS ORDERED: MORPHINE SULFATE 4 MG/ML INJ IV PUSH ONE (16:00)
[2018-02-11] MEDS ORDERED: SODIUM CHLORIDE 0.9% FLUSH 10 ML FLUSH IV FLUSH PRN (16:00)
[2018-02-11] MEDS ORDERED: FAMOTIDINE 20 MG/2 ML VIAL IV PUSH ONE (16:00)
[2018-02-11] MEDS ORDERED: METOCLOPRAMIDE HCL 10 MG/2 ML VIAL IV PUSH ONE (16:00)
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
[2018-02-11 16:31] LABS: AUTOMATED NEUTROPHIL # 4.4 TH/MM3 (1.8-7.7); BASOPHIL % 0.2 % (0.0-2.0); EOSINOPHIL % 0.5 % (0.0-4.0); HEMATOCRIT 41.1 % (39.0-51.0); HEMOGLOBIN 13.9 GM/DL (13.0-17.0); LYMPH % 16.7 % (9.0-44.0); MEAN CELL VOLUME 83.4 FL (80.0-100.0); MEAN CORPUSCULAR HEMOGLOBIN 28.1 PG (27.0-34.0); MEAN CORPUSCULAR HGB CONC 33.7 % (32.0-36.0); MEAN PLATELET VOLUME 8.3 FL (7.0-11.0); MONO % 8.2 % (0.0-8.0); MONOCYTE # 0.5 TH/MM3 (0-0.9); NEUT % 74.4 % (16.0-70.0); PLATELET COUNT 186 TH/MM3 (150-450); RED BLOOD COUNT 4.93 MIL/MM3 (4.50-5.90); RED CELL DISTRIBUTION WIDTH 14.8 % (11.6-17.2); WHITE BLOOD COUNT 5.9 TH/MM3 (4.0-11.0)
[2018-02-11] MEDS ORDERED: HYDROmorphone HCL PF 1 MG/ML VIAL IV PUSH ONE (17:00)
[2018-02-11] MEDS ORDERED: ONDANSETRON ODT 4 MG TAB PO ONE (17:00)
[2018-02-11] MEDS ORDERED: SODIUM CHLOR 0.9% 1000 ML INJ 1,000 ML IV ONE (17:00)
[2018-02-11 17:12] LABS: ALBUMIN 3.8 GM/DL (3.4-5.0); ALKALINE PHOSPHATASE 111 U/L (45-117); ALT (GPT) 52 U/L (12-78); AST (GOT) 26 U/L (15-37); BICARBONATE 27.8 MEQ/L (21.0-32.0); BLOOD UREA NITROGEN 14 MG/DL (7-18); CHLORIDE 95 MEQ/L (98-107); CREATININE 0.81 MG/DL (0.60-1.30); GLOMERULAR FILTRATION RATE 103 ML/MIN (>89); GLUCOSE,RANDOM 231 MG/DL (74-106); SODIUM (NA) 133 MEQ/L (136-145); TOTAL BILIRUBIN ADULT 0.6 MG/DL (0.2-1.0); TOTAL PROTEIN 7.4 GM/DL (6.4-8.2)
[2018-02-11] MEDS ORDERED: HYDROmorphone HCL PF 2 MG/ML VIAL IV PUSH ONE (17:15)
[2018-02-11 17:27] VITALS: BP 139/82; PULSE 85; RESP 16; O2SAT 98
[2018-02-11] MEDS ORDERED: diphenhydrAMINE HCL 50 MG/ML VIAL IV PUSH ONE (18:45)
== END 2018-02-11 19:24 | disposition home or self-care (01) ==
LOC: NEPC 15:22
DX: E10.43 Type 1 diabetes mellitus with diabetic autonomic (poly)neuropathy (principal); K31.84 Gastroparesis; F12.90 Cannabis use, unspecified, uncomplicated; I10 Essential (primary) hypertension; K21.9 Gastro-esophageal reflux disease without esophagitis; Z79.4 Long term (current) use of insulin; Z79.899 Other long term (current) drug therapy; Z90.49 Acquired absence of other specified parts of digestive tract
CPT/HCPCS: 80053; 83605; 83690; 85025; 96361; 96374; 96375; 99284; J1170; J1200; J2270; J2765; J7030

== ENCOUNTER 2018-07-31 18:27 | Inpatient (IN) ==
--- NOTE | 2018-07-31 18:54 | ED ---
HPI General Chief Complaint: Abdominal Pain Stated Complaint: n/v/ abd pain Time Seen by Provider: 07/31/18 18:42 Source: patient and family Mode of arrival: ambulatory Limitations: no limitations History of Present Illness HPI narrative: Patient is totally disabled as a result of your injury and chronic pancreatitis and gastroparesis. Patient has had cramping epigastric pain localized to his right upper quadrant increasing in severity 7 out of 10 for 4 days. This episode started with profuse diarrhea however there has been no diarrhea at all for the last 2 days. No food intake secondary to profuse nausea and vomiting that does not respond to Zofran. However patient has been taking Phenergan rectal suppositories periodically but not enough. Related Data Home Medications Medication Instructions Recorded Confirmed aripiprazole 15 mg PO DAILY 03/18/18 07/31/18 aspirin [Aspirin Childrens] 81 mg PO DAILY 03/18/18 07/31/18 atorvastatin 40 mg PO DAILY 03/18/18 07/31/18 bethanechol chloride 12.5 mg PO DAILY 03/18/18 07/31/18 buspirone 20 mg PO BID 03/18/18 07/31/18 cholecalciferol (vitamin D3) 2,000 unit PO BID 03/18/18 07/31/18 [Vitamin D3] duloxetine 90 mg PO DAILY 03/18/18 07/31/18 trazodone 100 mg PO DAILY 03/18/18 07/31/18 vitamin B complex 1 cap PO EVERY OTHER DAY 03/18/18 07/31/18 Previous Rx's Medication Instructions Recorded pantoprazole 40 mg PO DAILY #14 tab 05/29/18 promethazine [Phenergan] 25 mg RECTAL Q6H PRN #12 each 05/29/18 Allergies Allergy/AdvReac Type Severity Reaction Status Date / Time quetiapine AdvReac Severe nauseas Verified 07/31/18 18:37 MRI PRECAUTION AdvReac Severe MRI Uncoded 07/31/18 18:37 PRECAUTION Review of Systems ROS: all other systems reviewed are negative [facility] Medical History Medical History Amputation of hand, right (Acute) Chronic abdominal pain (Acute) Coronary artery disease (Acute) Diabetes type 1, controlled (Acute) Gastroparesis (Acute) Surgical History Surgical History H/O heart artery stent (Acute) History of cholecystectomy (Acute) History of partial pancreatectomy (Acute) History of skin graft (Acute) History of vascular access device (Acute) Hx of insertion of insulin pump (Acute) Social History Social History Substance History: Active Abuse Second Hand Smoke Exposure: No Smoking Status: Never smoker How Often Do You Have a Drink Containing Alcohol: Never Recent Travel in [facility] within the Last 8 Weeks: No Recent Out of Country Travel within the Last 8 Weeks: No Exam Narrative Exam Narrative: GENERAL: Generalized weakness with nausea and vomiting [-] SKIN: Focused skin assessment warm/dry. HEAD: Atraumatic. Normocephalic. EYES: Pupils equal and round. No scleral icterus. No injection or drainage. ENT: No nasal bleeding or discharge. Mucous membranes pink and moist. NECK: Trachea midline. No JVD. CARDIOVASCULAR: Regular rate and rhythm. No murmur appreciated. RESPIRATORY: No accessory muscle use. Clear to auscultation. Breath sounds equal bilaterally. GASTROINTESTINAL: Abdomen soft, non-tender, nondistended. Hepatic and splenic margins not palpable. MUSCULOSKELETAL: Significant scar tissue to anterior abdomen with localized tenderness and guarding to the right upper quadrant. Bowel sounds reduced no organomegaly. No abdominal distention. NEUROLOGICAL: Awake and alert. No obvious cranial nerve deficits. Motor grossly within normal limits. Normal speech. PSYCHIATRIC: Appropriate mood and affect; insight and judgment normal. Course Reevaluation(s) Reevaluation #1: Patient still has cramping abdominal pain not responding to Bentyl. Time: 20:15 Reevaluation #2: Patient still has pain 7 out of 10 with no response to analgesia. E force review showed no significant problems. However [facility] Patient states he does not use narcotics at all. CT shows potential ileus or changes with gastroenteritis. Time: 22:10 Initial Documented Vital Signs Temperature 98.8 F 07/31/18 18:37 Pulse Rate 102 H 07/31/18 18:37 Respiratory Rate 22 07/31/18 18:37 Blood Pressure 168/113 H 07/31/18 18:37 Pulse Oximetry 98 07/31/18 18:37 Last Documented Vital Signs Temperature 98.8 F 07/31/18 18:37 Pulse Rate 86 07/31/18 21:18 Respiratory Rate 16 07/31/18 22:18 Blood Pressure 119/79 07/31/18 21:18 Pulse Oximetry 96 07/31/18 21:18 Critical Care Time Critical Care Time: Yes Total Critical Care Time: 60 Attestation: NA Medical Decision Making MDM Narrative Medical decision making narrative: Patient has history of gastroparesis and CT shows changes of possible ileus. E force evaluation is negative for abuse. Labs so no significant abnormality. However given patient is returning after persistent symptoms for 2 days from last ED visit patient needs admission for 23 hours for further evaluation. Medical Screen Exam Complete: Yes Emergency Medical Condition: Yes Lab Data Result diagrams: 07/31/18 19:22 07/31/18 19:22 Lab Results 07/31/18 07/31/18 07/31/18 Range/Units 19:22 19:22 19:22 CBC w Diff Auto diff final WBC 8.0 (4.0-11.0) th/mm3 RBC 4.73 (4.50-5.90) mil/mm3 Hgb 13.0 (13.0-17.0) gm/dL Hct 40.5 (39.0-51.0) % MCV 85.5 (80.0-100.0) fL MCH 27.6 (27.0-34.0) pg MCHC 32.2 (32.0-36.0) % RDW 14.3 (11.6-17.2) % Plt Count 206 (150-450) th/mm3 MPV 8.0 (7.0-11.0) fL Neut % (Auto) 78.8 H (16.0-70.0) % Lymph % (Auto) 11.2 (9.0-44.0) % [place] % (Auto) 6.8 (0.0-8.0) % Eos % (Auto) 0.7 (0.0-4.0) % Baso % (Auto) 2.5 H (0.0-2.0) % Neut # (Auto) 6.3 (1.8-7.7) th/mm3 Lymph # (Auto) 0.9 L (1.0-4.8) th/mm3 [place] # (Auto) 0.5 (0.0-0.9) th/mm3 Eos # (Auto) 0.1 (0.0-0.4) th/mm3 Baso # (Auto) 0.2 (0.0-0.2) th/mm3 WBC Differential . Differential Comment . Sodium 134 L (136-145) meq/L Potassium 3.3 L (3.5-5.1) meq/L Chloride 95 L (98-107) meq/L Carbon Dioxide 30.9 (21.0-32.0) meq/L Anion Gap 8 (5-15) meq/L BUN 13 (7-18) mg/dL Creatinine 0.66 (0.60-1.30) mg/dL Estimated GFR Greater than 89 (>89) mL/min Random Glucose 217 H D (74-106) mg/dL Lactic Acid 0.8 (0.4-2.0) mmol/L Calcium 8.8 (8.5-10.1) mg/dL Magnesium 1.7 (1.5-2.5) mg/dL Total Bilirubin 0.5 (0.2-1.0) mg/dL AST 18 (15-37) U/L ALT 31 (12-78) U/L Alkaline Phosphatase 98 (45-117) U/L Total Protein 7.3 (6.4-8.2) g/dL Albumin 3.4 (3.4-5.0) g/dL Lipase 29 L (73-393) U/L Urine Color (Yellw/Straw) Urine Clarity (Clear) Urine pH (5.0-8.5) Ur Specific [place] (1.002-1.035) Urine Protein (Neg-Trace) mg/dL Urine Glucose (UA) (Negative) mg/dL Urine Ketones (Negative) mg/dL Urine Occult Blood (Negative) Urine Nitrate (Negative) Urine Bilirubin (Negative) Urine Urobilinogen (Less than 2) mg/dL Ur Leukocyte Esterase (Negative) Urine RBC (0-3) /hpf Urine WBC (0-5) /hpf Ur Squamous Epith Cells (0-5) /hpf Micro UA Comment Ur Microscopic Review Urine Culture Comments 07/31/18 Range/Units 21:49 CBC w Diff WBC (4.0-11.0) th/mm3 RBC (4.50-5.90) mil/mm3 Hgb (13.0-17.0) gm/dL Hct (39.0-51.0) % MCV (80.0-100.0) fL MCH (27.0-34.0) pg MCHC (32.0-36.0) % RDW (11.6-17.2) % Plt Count (150-450) th/mm3 MPV (7.0-11.0) fL Neut % (Auto) (16.0-70.0) % Lymph % (Auto) (9.0-44.0) % [place] % (Auto) (0.0-8.0) % Eos % (Auto) (0.0-4.0) % Baso % (Auto) (0.0-2.0) % Neut # (Auto) (1.8-7.7) th/mm3 Lymph # (Auto) (1.0-4.8) th/mm3 [place] # (Auto) (0.0-0.9) th/mm3 Eos # (Auto) (0.0-0.4) th/mm3 Baso # (Auto) (0.0-0.2) th/mm3 WBC Differential Differential Comment Sodium (136-145) meq/L Potassium (3.5-5.1) meq/L Chloride (98-107) meq/L Carbon Dioxide (21.0-32.0) meq/L Anion Gap (5-15) meq/L BUN (7-18) mg/dL Creatinine (0.60-1.30) mg/dL Estimated GFR (>89) mL/min Random Glucose (74-106) mg/dL Lactic Acid (0.4-2.0) mmol/L Calcium (8.5-10.1) mg/dL Magnesium (1.5-2.5) mg/dL Total Bilirubin (0.2-1.0) mg/dL AST (15-37) U/L ALT (12-78) U/L Alkaline Phosphatase (45-117) U/L Total Protein (6.4-8.2) g/dL Albumin (3.4-5.0) g/dL Lipase (73-393) U/L Urine Color Yellow (Yellw/Straw) Urine Clarity Clear (Clear) Urine pH 7.0 (5.0-8.5) Ur Specific [place] 1.010 (1.002-1.035) Urine Protein Negative (Neg-Trace) mg/dL Urine Glucose (UA) 500 H (Negative) mg/dL Urine Ketones Negative (Negative) mg/dL Urine Occult Blood Trace (Negative) Urine Nitrate Negative (Negative) Urine Bilirubin Negative (Negative) Urine Urobilinogen 0.2 (Less than 2) mg/dL Ur Leukocyte Esterase Negative (Negative) Urine RBC 0-3 (0-3) /hpf Urine WBC 0-5 (0-5) /hpf Ur Squamous Epith Cells 0-5 (0-5) /hpf Micro UA Comment Culture not ind Ur Microscopic Review Microscopic reviewed Urine Culture Comments Culture not ind Imaging Data Radiologist's impression: Abdomen/Pelvis CT 07/31/18 19:00 CONCLUSION: 1. Multiple nonobstructing left renal calculi again noted without significant change. 2. Nonspecific, nonobstructive bowel gas pattern which may represent an ileus or gastroenteritis. 3. Status post cholecystectomy. 4. Able appearance of the pancreas with findings of chronic pancreatitis again noted. Discharge Plan Discharge Disposition Patient Disposition: 30 Still Patient Discharge Condition Condition: Stable Discharge Details Diagnosis: Abdominal pain, Ileus, Gastroenteritis, Dehydration Physicians Team ED Provider: Isidro Rodriguez Primary Care Provider: [facility],Physician 's Attending Provider: Merline Sheehan Status ED Status: Admitted Observation Patient
[2018-07-31] MEDS ORDERED: Dicyclomine Inj 20 MG/2 ML Ampul IM ONE (19:00)
[2018-07-31] MEDS ORDERED: Sod Chloride 0.9% Inj 1,000 ML IV.SIG ONE (19:00)
[2018-07-31] MEDS ORDERED: Sod Chloride 0.9% Inj 1,000 ML IV.CONT SCH (19:00)
[2018-07-31 19:32] LABS: Baso # (Auto) 0.2 th/mm3 (0.0-0.2); Baso % (Auto) 2.5 % (0.0-2.0); Eos # (Auto) 0.1 th/mm3 (0.0-0.4); Eos % (Auto) 0.7 % (0.0-4.0); Hematocrit 40.5 % (39.0-51.0); Lymph # (Auto) 0.9 th/mm3 (1.0-4.8); Lymph % (Auto) 11.2 % (9.0-44.0); Mean Corpuscular HGB Conc 32.2 % (32.0-36.0); Mean Corpuscular Hemoglobin 27.6 pg (27.0-34.0); Mean Corpuscular Volume 85.5 fL (80.0-100.0); Mono # (Auto) 0.5 th/mm3 (0.0-0.9); Mono % (Auto) 6.8 % (0.0-8.0); Neut # (Auto) 6.3 th/mm3 (1.8-7.7); Neut % (Auto) 78.8 % (16.0-70.0); Platelet Count 206 th/mm3 (150-450); Red Blood Count 4.73 mil/mm3 (4.50-5.90); Red Cell Distribution Width 14.3 % (11.6-17.2)
[2018-07-31 19:41] LABS: Chloride 95 meq/L (98-107); Potassium 3.3 meq/L (3.5-5.1); Sodium 134 meq/L (136-145)
[2018-07-31 19:45] LABS: Albumin 3.4 g/dL (3.4-5.0); Anion Gap 8 meq/L (5-15); Blood Urea Nitrogen 13 mg/dL (7-18); Calcium 8.8 mg/dL (8.5-10.1); Carbon Dioxide 30.9 meq/L (21.0-32.0); Glucose,Random 217 mg/dL (74-106); Lipase 29 U/L (73-393); Magnesium 1.7 mg/dL (1.5-2.5)
[2018-07-31 19:48] LABS: Alanine Aminotransferase 31 U/L (12-78); Aspartate Aminotransferase 18 U/L (15-37); Glomerular Filtration Rate Greater Than 89 mL/min (>89)
[2018-07-31 19:50] LABS: Total Protein 7.3 g/dL (6.4-8.2)
[2018-07-31 19:51] LABS: Alkaline Phosphatase 98 U/L (45-117)
[2018-07-31] MEDS ORDERED: Ketorolac Inj 30 MG/ML (IVP) Vial IV.PUSH ONE (20:13)
--- NOTE | 2018-07-31 21:03 | CT ---
EXAM DATE: 07/31/2018 8:54 PM EST AGE/SEX: 48 years / Male INDICATIONS: Upper abdomen pain for four days. CLINICAL DATA: This is the patient's initial encounter. Patient reports that signs and symptoms have been present for 4 - 6 days and indicates a pain score of 8/10. MEDICAL/SURGICAL HISTORY: Diabetes. Gastroparesis. Pancreatitis. Coronary artery stent. Chol ecystectomy. partial pancreatectomy ORAL CONTRAST: No oral contrast ingested. RADIATION DOSE: 9.55 CTDI (mGy) COMPARISON: [facility] [place], CT ABDOMEN & PELVIS W CONTRAST, 05/29/2018. . TECHNIQUE: Multiple contiguous axial images were obtained through the abdomen and pelvis following b olus infusion of 75 ml Omnipaque 350 (iohexol) nonionic water-soluble contrast as a single exam dos e. No oral contrast ingested. Using automated exposure control and adjustment of the mA and/or kV ac cording to patient size, radiation dose was kept as low as reasonably achievable to obtain optimal di agnostic quality images. DICOM format image data is available electronically for review and comparis on. FINDINGS: Lower Lungs: The visualized lower lungs are clear. Liver: The liver has a homogeneous density without space-occupying lesion. There is no dilation of th e biliary tree. There is mild hepatic steatosis again noted. The patient is status post cholecystecto my. Spleen: Homogeneous density without enlargement. Multiple collateral vessels are again noted in the region of the splenic hilum. Pancreas: Normal in appearance with multiple small calcifications. Kidneys: Normal in size and shape. No evidence of mass or hydronephrosis. The left renal calculi are again noted in the lower pole. Adrenal Glands: Unremarkable. Aorta: The aorta and proximal iliac vessels are grossly unremarkable without aneurysmal dilation. Bowel/Mesentery: No oral contrast was given limiting the sensitivity examination. There are multiple loops of nondilated air-containing small bowel with several small air-fluid levels. Gas and stool no radha segmentally in the colon. There is no free air. Abdominal Wall: Intact. Retroperitoneum: No evidence of adenopathy in the retrocrural, para-aortic, or deep pelvic regions. Bladder: Contours are smooth. Reproductive Organs: No abnormal masses or calcifications seen. Inguinal: The inguinal region is unremarkable without evidence of adenopathy. Bony Structures: Unremarkable. CONCLUSION: 1. Multiple nonobstructing left renal calculi again noted without significant change. 2. Nonspecific, nonobstructive bowel gas pattern which may represent an ileus or gastroenteritis. 3. Status post cholecystectomy. 4. Able appearance of the pancreas with findings of chronic pancreatitis again noted. Electronically signed by: Ramiro Heard MD 07/31/2018 9:02 PM EST
[2018-07-31 21:53] LABS: Bilirubin,Urine Negative (Negative); Clarity,Urine Clear (Clear); Color,Urine Yellow (Yellw/Straw); Glucose,Urine (UA) 500 mg/dL (Negative); Leukocyte Esterase,Urine Negative (Negative); Nitrite,Urine Negative (Negative); Urobilinogen,Urine 0.2 mg/dL (Less than 2)
[2018-07-31] MEDS ORDERED: Morphine Inj 4 MG/ML Vial IV.PUSH ONE (22:05)
[2018-07-31 22:06] LABS: RBC,Urine 0-3 /hpf (0-3); Squamous Epithelial Cell,Urine 0-5 /hpf (0-5); WBC,Urine 0-5 /hpf (0-5)
[2018-07-31] MEDS ORDERED: Bisacodyl 10 MG Supp RECTAL PRN (22:23)
[2018-07-31] MEDS ORDERED: Acetaminophen 325 MG Tablet PO PRN (22:23)
[2018-07-31] MEDS ORDERED: KCL 20 mEq/D5W/NaCl 0.45% Inj 1,000 ML IV.CONT SCH (22:30)
[2018-08-01] MEDS: Ketorolac Inj 30 MG/ML (IVP) Vial IV.PUSH PRN ×2 (00:14→08:50)
[2018-08-01] MEDS: Morphine Inj 4 MG/ML Vial IV.PUSH PRN ×3 (00:15→08:50)
[2018-08-01 06:09] LABS: Baso % (Auto) 0.6 % (0.0-2.0); Eos # (Auto) 0.1 th/mm3 (0.0-0.4); Hematocrit 37.5 % (39.0-51.0); Hemoglobin 12.5 gm/dL (13.0-17.0); Lymph # (Auto) 1.5 th/mm3 (1.0-4.8); Lymph % (Auto) 19.9 % (9.0-44.0); Mean Corpuscular HGB Conc 33.4 % (32.0-36.0); Mean Corpuscular Hemoglobin 27.9 pg (27.0-34.0); Mean Corpuscular Volume 83.6 fL (80.0-100.0); Mean Platelet Volume 7.8 fL (7.0-11.0); Mono # (Auto) 0.6 th/mm3 (0.0-0.9); Mono % (Auto) 7.4 % (0.0-8.0); Neut # (Auto) 5.4 th/mm3 (1.8-7.7); Neut % (Auto) 71.1 % (16.0-70.0); Platelet Count 207 th/mm3 (150-450); Red Blood Count 4.48 mil/mm3 (4.50-5.90); Red Cell Distribution Width 14.1 % (11.6-17.2); White Blood Count 7.6 th/mm3 (4.0-11.0)
[2018-08-01 06:15] LABS: Chloride 102 meq/L (98-107); Potassium 3.3 meq/L (3.5-5.1); Sodium 140 meq/L (136-145)
[2018-08-01 06:32] LABS: Anion Gap 7 meq/L (5-15); Blood Urea Nitrogen 12 mg/dL (7-18); Calcium 7.9 mg/dL (8.5-10.1); Carbon Dioxide 31.4 meq/L (21.0-32.0); Glomerular Filtration Rate Greater Than 89 mL/min (>89); Glucose,Random 68 mg/dL (74-106)
[2018-08-01] MEDS ORDERED: Dextrose 50% in Water 50 ML Vial IV.PUSH PRN (07:24)
[2018-08-01] MEDS ORDERED: Dextrose 5%/NaCl 0.45% Inj 1,000 ML IV.CONT SCH (07:30)
[2018-08-01] MEDS: Insulin NovoLOG Aspart Correctional Sugar Inj SQ SCH ×4 (07:48→21:26)
[2018-08-01] MEDS ORDERED: Insulin NovoLOG Aspart Correctional Sugar Inj SQ SCH (08:00)
[2018-08-01] MEDS ORDERED: Acetaminophen 325 MG Tablet PO PRN (08:52)
--- NOTE | 2018-08-01 08:52 | P.HPIM ---
History of Present Illness Primary Care Physician: [facility]ician [facility] Patient is a 48-year-old with past medical history of pink otitis, gastroparesis, myocardial infarction (2011) with one drug-eluting stent placed, and type 1 diabetes ( insulin pump) presenting hospital for abdominal pain. Patient reports symptoms started on Saturday with nausea, nonbilious non-bloody emesis, and diarrhea that progressively worsened during the week prompting him to come to hospital. Patient reports presenting to emergency department earlier this week and being given fluids and pain medication with discharge home and plan to follow-up with primary doctor but says that symptoms progressively got worse prompting him to come back to the hospital on . Patient denies sick contacts or recent illness. Patient reports that blood glucose levels tend to run high 150-160 range. Patient reports that at its worst pain was 10/10, sharp, stabbing, and located just below the sternum without radiation to the back. Patient reported chills but denies subjective fever. Patient is able to pass gas. Patient reports similar hospitalizations in the past. During those hospitalizations patient requires pain management with opioids, IV fluid hydration, bowel rest with subsequent improvement. Review of systems otherwise negative as per patient. Diagnosis (1) Chronic pancreatitis: (2) Type 1 diabetes mellitus: (3) Nausea & vomiting: (4) Gastroparesis due to DM: (5) History of [place] (myocardial infarction): (6) Intractable abdominal pain: Review of Systems Review of Systems: all other systems reviewed are negative [facility] Medical History Medical History Amputation of hand, right (Acute) Chronic abdominal pain (Acute) Coronary artery disease (Acute) Diabetes type 1, controlled (Acute) Gastroparesis (Acute) Surgical History Surgical History H/O heart artery stent (Acute) History of cholecystectomy (Acute) History of partial pancreatectomy (Acute) History of skin graft (Acute) History of vascular access device (Acute) Hx of insertion of insulin pump (Acute) Social History Social History Substance History: Active Abuse Second Hand Smoke Exposure: No Smoking Status: Never smoker How Often Do You Have a Drink Containing Alcohol: Monthly or less Recent Travel in [place] within the Last 8 Weeks: No Recent Out of Country Travel within the Last 8 Weeks: No Substance Abuse Detail Marijuana: Substance Use Status: Active Route Used Substance Abuse: Inhalation Substance Abuse Comment: pain relief nightly Immunization History Tetanus Immunization: <5 Years Tetanus Immunization Year if Known: 2013 Medications and Allergies Allergies Allergy/AdvReac Type Severity Reaction Status Date / Time quetiapine AdvReac Severe nauseas Verified 07/31/18 18:37 MRI PRECAUTION AdvReac Severe MRI Uncoded 07/31/18 18:37 PRECAUTION Home Medications Medication Instructions Recorded Confirmed Type aripiprazole 15 mg PO DAILY 03/18/18 07/31/18 History aspirin [Aspirin Childrens] 81 mg PO DAILY 03/18/18 07/31/18 History atorvastatin 40 mg PO DAILY 03/18/18 07/31/18 History bethanechol chloride 12.5 mg PO DAILY 03/18/18 07/31/18 History buspirone 20 mg PO BID 03/18/18 07/31/18 History cholecalciferol (vitamin D3) 2,000 unit PO BID 03/18/18 07/31/18 History [Vitamin D3] duloxetine 90 mg PO DAILY 03/18/18 07/31/18 History trazodone 100 mg PO DAILY 03/18/18 07/31/18 History vitamin B complex 1 cap PO EVERY OTHER DAY 03/18/18 07/31/18 History Active Medications: Active Medications Acetaminophen (Tylenol) 650 mg PO Q4H PRN PRN Reason: Temp > 100.4 Al Hydroxide/Mg Hydroxide (Milk Of Magnsamina Liq) 30 ml PO Q12H PRN PRN Reason: Mild Constipation Bisacodyl (Dulcolax Supp) 10 mg RECTAL DAILY PRN PRN Reason: SEVERE CONSITIPATION Dextrose (D50w Vial) 50 ml IV.PUSH UNSCH PRN PRN Reason: PER HYPOGLYCEMIA PROTOCOL Glucagon (Glucagon Inj) 1 mg OTHER PRN PRN PRN Reason: for Hypoglycemia Protocol Dextrose/Sodium Chloride (D5w/1/2 Ns Inj) 1,000 mls @ 30 mls/hr IV.CONT .Q24H NEFTALI Insulin Aspart (Novolog Insulin Correctional Sugar Inj) 0 unit SQ Q4H NEFTALI; Protocol Last Admin: 08/01/18 07:48 Dose: Not Given Ketorolac Tromethamine (Toradol Inj) 30 mg IV.PUSH Q6H PRN PRN Reason: pain > 3 Stop: 08/05/18 22:26 Last Admin: 08/01/18 00:14 Dose: 30 mg Morphine Sulfate (Morphine Inj) 4 mg IV.PUSH Q4H PRN PRN Reason: BREAKTHROUGH PAIN Last Admin: 08/01/18 04:13 Dose: 4 mg Ondansetron HCl (Zofran Inj) 4 mg IV.PUSH Q6H PRN PRN Reason: NAUSEA OR VOMITING Last Admin: 08/01/18 06:09 Dose: 4 mg Sennosides (Senokot) 17.2 mg PO Q12H PRN PRN Reason: Moderate Constipation Sodium Chloride (Ns Flush) 2 ml IV.FLUSH BID NEFTALI Sodium Chloride (Ns Flush) 2 ml IV.FLUSH PRN PRN PRN Reason: FLUSH AFTER USING IV ACCESS Physical Exam Vital signs: Last Vital Signs Temp 98.1 F 08/01/18 07:40 Pulse 88 08/01/18 07:40 Resp 18 08/01/18 07:40 BP 166/100 H 08/01/18 07:40 Pulse Ox 98 08/01/18 07:40 Intake & Output 07/30/18 07/31/18 08/01/18 08/02/18 06:59 06:59 06:59 06:59 Intake Total 2927 / 2927 Output Total 400 / 400 Balance 2527 / 2527 Weight 64.3 kg General: No acute distress, compensation HEENT: EOMI, PERRLA Cardiovascular: S1/S2. No murmurs, rubs, or gallops noted Respiratory: Clear to auscultation Gastrointestinal: Tender to palpation diffusely particularly below sternum and epigastric region, nondistended, no guarding, no rebound. Positive bowel sounds. Postsurgical scars all over abdomen. Extremity: Radial pulse 2+. No lower extremity edema. Orthopedics: Multiple amputations upper extremity including right upper extremity and hand. Results Labs CBC & Chem 7: 08/01/18 04:55 08/01/18 04:55 Imaging Impressions Abdomen/Pelvis CT 07/31/18 19:00 CONCLUSION: 1. Multiple nonobstructing left renal calculi again noted without significant change. 2. Nonspecific, nonobstructive bowel gas pattern which may represent an ileus or gastroenteritis. 3. Status post cholecystectomy. 4. Able appearance of the pancreas with findings of chronic pancreatitis again noted. Caprini VTE Risk Assessment Caprini VTE Risk Assessment: No/Low Risk (score <= 1) Caprini Risk Assessment Model: Point Value = 1 Point Value = 2 Point Value = 3 Point Value = 5 Age 41-60 Minor surgery BMI > 25 kg/m2 Swollen legs Varicose veins or History of unexplained or recurrent spontaneous Oral contraceptives or hormone replacement Sepsis (< 1 month) Serious lung disease, including pneumonia (< 1 month) Abnormal pulmonary function Acute myocardial infarction Congestive heart failure (< 1 month) History of inflammatory bowel disease Medical patient at bed rest Age 61-74 Arthroscopic surgery Major open surgery (> 45 min) Laparoscopic surgery (> 45 min) Malignancy Confined to bed (> 72 hours) Immobilizing plaster cast Central venous access Age >= 75 History of VTE Family history of VTE Factor V Leiden Prothrombin [id number] Lupus anticoagulant Anticardiolipin antibodies Elevated serum homocysteine Heparin-induced thrombocytopenia Other congenital or acquired thrombophilia Stroke (< 1 month) Elective arthroplasty Hip, pelvis, or leg fracture Acute spinal cord injury (< 1 month) Prophylaxis Regimen: Total Risk Factor Score Risk Level Prophylaxis Regimen 0-1 Low Early ambulation 2 Moderate Order ONE of the following: *Sequential Compression Device (SCD) *Heparin 5000 units SQ BID 3-4 Higher Order ONE of the following medications: *Heparin 5000 units SQ TID *Enoxaparin/Lovenox 40 mg SQ daily (WT < 150 kg, CrCl > 30 mL/min) *Enoxaparin/Lovenox 30 mg SQ daily (WT < 150 kg, CrCl > 10-29 mL/min) *Enoxaparin/Lovenox 30 mg SQ BID (WT < 150 kg, CrCl > 30 mL/min) AND/OR *Sequential Compression Device (SCD) 5 or more Highest Order ONE of the following medications: *Heparin 5000 units SQ TID (Preferred with Epidurals) *Enoxaparin/Lovenox 40 mg SQ daily (WT < 150 kg, CrCl > 30 mL/min) *Enoxaparin/Lovenox 30 mg SQ daily (WT < 150 kg, CrCl > 10-29 mL/min) *Enoxaparin/Lovenox 30 mg SQ BID (WT < 150 kg, CrCl > 30 mL/min) AND *Sequential Compression Device (SCD) Assessment and Plan (1) Chronic pancreatitis: Code(s): K86.1 - Other chronic pancreatitis Status: Acute (2) Type 1 diabetes mellitus: Code(s): E10.9 - Type 1 diabetes mellitus without complications Status: Acute (3) Nausea & vomiting: Code(s): R11.2 - Nausea with vomiting, unspecified Status: Acute (4) Gastroparesis due to DM: Code(s): E11.43 - Type 2 diabetes mellitus with diabetic autonomic (poly)neuropathy; K31.84 - Gastroparesis Status: Acute (5) History of MD (myocardial infarction): Code(s): I25.2 - Old myocardial infarction Status: Acute (6) Intractable abdominal pain: Code(s): R10.9 - Unspecified abdominal pain Status: Acute Plan Endocrinology: Diabetes type 1 Patient with insulin pump. Insulin rate at 1. 6 5 units/h. Insulin type NovoLog. Patient follows with dr alberto ([place]) -Continue insulin pump with initiation of D5 one half normal saline. Pain management 0.5 mg Dilaudid. Monitor for respiratory depression N.p.o. for now - consider clear liquids first for PO. Gastroenterology: Gastroparesis Reglan as needed as needed nausea Cardiology: Myocardial infarction (2011) Patient with one drug-eluting stent placed after myocardial infarction 2011. Continue aspirin 81 mg daily, atorvastatin 40 mg daily Psychiatry: PTSD - continue home medications. CODE STATUS: Full code DVT prophylaxis Diet: N.p.o. status Disposition: Medical service H&P: Quality VTE Deep Vein Thrombosis/Pulmonary Embolism Present on Admission: No
[2018-08-01] MEDS: HYDROmorphone PF Inj 0.5 MG/0.5 ML Syringe IV.PUSH PRN ×3 (10:54→21:27)
[2018-08-01] MEDS: Senna/Docusate Sodium 8.6/50 MG Tablet PO SCH ×2 (10:56→21:29)
[2018-08-01] MEDS ORDERED: Promethazine 25 MG Supp RECTAL PRN (16:46)
[2018-08-01] MEDS: Dextrose 5%/NaCl 0.45% Inj 1,000 ML IV.CONT SCH (17:09)
[2018-08-01] MEDS: Pantoprazole Inj 40 MG Vial IV.PUSH SCH (17:36)
[2018-08-02] MEDS: Insulin NovoLOG Aspart Correctional Sugar Inj SQ SCH ×6 (00:29→20:03)
[2018-08-02] MEDS: Ketorolac Inj 30 MG/ML (IVP) Vial IV.PUSH PRN ×2 (00:32→21:20)
[2018-08-02] MEDS: HYDROmorphone PF Inj 0.5 MG/0.5 ML Syringe IV.PUSH PRN ×5 (02:01→20:16)
[2018-08-02] MEDS: Dextrose 5%/NaCl 0.45% Inj 1,000 ML IV.CONT SCH ×2 (02:08→15:03)
[2018-08-02] MEDS: Pantoprazole Inj 40 MG Vial IV.PUSH SCH ×2 (05:18→17:20)
[2018-08-02 07:15] LABS: Hematocrit 38.1 % (39.0-51.0); Hemoglobin 12.5 gm/dL (13.0-17.0); Mean Corpuscular HGB Conc 32.8 % (32.0-36.0); Mean Corpuscular Hemoglobin 27.4 pg (27.0-34.0); Mean Corpuscular Volume 83.5 fL (80.0-100.0); Mean Platelet Volume 7.4 fL (7.0-11.0); Platelet Count 207 th/mm3 (150-450); Red Blood Count 4.57 mil/mm3 (4.50-5.90); Red Cell Distribution Width 13.7 % (11.6-17.2); White Blood Count 6.6 th/mm3 (4.0-11.0)
[2018-08-02 07:34] LABS: Chloride 100 meq/L (98-107); Sodium 137 meq/L (136-145)
[2018-08-02 07:37] LABS: Anion Gap 6 meq/L (5-15); Blood Urea Nitrogen 10 mg/dL (7-18); Carbon Dioxide 31.2 meq/L (21.0-32.0); Glucose,Random 79 mg/dL (74-106)
[2018-08-02 07:41] LABS: Glomerular Filtration Rate Greater Than 89 mL/min (>89); Phosphorus 2.8 mg/dL (2.5-4.9)
[2018-08-02] MEDS: traZODone 100 MG Tablet PO SCH (08:27)
[2018-08-02] MEDS: Senna/Docusate Sodium 8.6/50 MG Tablet PO SCH ×2 (08:28→20:15)
--- NOTE | 2018-08-02 10:46 | P.PNIM ---
Subjective Interval history: BG overnight in high 70's to low 80's range. no symptoms of abdominal pain endorsed currently but episode overnight around 2-3am. Patient ready to try a diabetic diet of 2,00 calories and will monitor improvement. Physical Exam Vital signs: Last Vital Signs Temp 98.6 F 08/02/18 08:00 Pulse 75 08/02/18 08:00 Resp 20 08/02/18 08:29 BP 151/83 H 08/02/18 08:00 Pulse Ox 97 08/02/18 08:00 Intake & Output 07/31/18 08/01/18 08/02/18 08/03/18 06:59 06:59 06:59 06:59 Intake Total 2927 / 2927 3240 / 3240 Output Total 400 / 400 600 / 600 Balance 2527 / 2527 2640 / 2640 Weight 64.3 kg 64.5 kg gen: nad heent: eomi cvs: s1/s2 resp: CTA bilaterally GI: minimal tenderness, + bowel sounds, no guarding or rebound noted. ext: no edema Results Labs CBC & Chem 7: 08/02/18 06:00 08/02/18 06:00 Assessment and Plan (1) Chronic pancreatitis: Code(s): K86.1 - Other chronic pancreatitis Status: Acute (2) Type 1 diabetes mellitus: Code(s): E10.9 - Type 1 diabetes mellitus without complications Status: Acute (3) Nausea & vomiting: Code(s): R11.2 - Nausea with vomiting, unspecified Status: Acute (4) Gastroparesis due to DM: Code(s): E11.43 - Type 2 diabetes mellitus with diabetic autonomic (poly)neuropathy; K31.84 - Gastroparesis Status: Acute (5) History of [place] (myocardial infarction): Code(s): I25.2 - Old myocardial infarction Status: Acute (6) Intractable abdominal pain: Code(s): R10.9 - Unspecified abdominal pain Status: Acute Plan Endocrinology: Diabetes type 1 Patient with insulin pump. Insulin rate at 1. 6 5 units/h. Insulin type NovoLog. Patient follows with dr alberto ([place]) -Continue insulin pump Pain management 0.5 mg Dilaudid. Monitor for respiratory depression Continue to monitor patient for clinical improvement and tolerance of diet. If stable in a.m. will be discharged home with planned outpatient follow-up with PMD Gastroenterology: Gastroparesis Reglan as needed as needed nausea Cardiology: Myocardial infarction (2011) Patient with one drug-eluting stent placed after myocardial infarction 2011. Continue aspirin 81 mg daily, atorvastatin 40 mg daily Psychiatry: PTSD - continue home medications. CODE STATUS: Full code DVT prophylaxis Diet: Diabetic diet Disposition: Medical service. Anticipated discharge within 24 hours Progress Note: Quality VTE Deep Vein Thrombosis/Pulmonary Embolism Present on Admission: No
[2018-08-03] MEDS: Insulin NovoLOG Aspart Correctional Sugar Inj SQ SCH ×3 (00:19→09:01)
[2018-08-03] MEDS: HYDROmorphone PF Inj 0.5 MG/0.5 ML Syringe IV.PUSH PRN ×2 (01:17→05:29)
[2018-08-03] MEDS: Dextrose 5%/NaCl 0.45% Inj 1,000 ML IV.CONT SCH (04:01)
[2018-08-03] MEDS: Ketorolac Inj 30 MG/ML (IVP) Vial IV.PUSH PRN (04:01)
[2018-08-03] MEDS: Pantoprazole Inj 40 MG Vial IV.PUSH SCH (05:30)
[2018-08-03] MEDS: traZODone 100 MG Tablet PO SCH (08:57)
[2018-08-03] MEDS ORDERED: Vitamin B Complex/Vitamin C Tablet PO SCH (09:00)
[2018-08-03] MEDS: Senna/Docusate Sodium 8.6/50 MG Tablet PO SCH (09:00)
--- NOTE | 2018-08-03 12:29 | P.DS ---
DS: Providers Date of admission: 08/01/18 08:52 Primary care physician: Physician [facility] DS: Diagnosis Discharge Diagnosis (1) Chronic pancreatitis: Status: Acute (2) Type 1 diabetes mellitus: Status: Acute (3) Nausea & vomiting: Status: Acute (4) Gastroparesis due to DM: Status: Acute (5) History of [place] (myocardial infarction): Status: Acute (6) Intractable abdominal pain: Status: Acute DS: Summary Patient is a 48-year-old male who presented to the emergency department for complaints of worsening abdominal pain non-remitting in nature. Patient was admitted to medical service with following treatments and services were provided. Patient was initially made n.p.o. and given aggressive fluid hydration with slow clinical improvement in symptomatology. While hospitalized patient was continued on insulin pump with fluids to maintain adequate blood glucose levels. Patient was slowly advanced on diet and tolerated well without further nausea, vomiting, or abdominal pain. Suspect that patient's symptoms may be secondary to gastroparesis and encourage patient to continue tight glucose control as well as regular primary follow-up while outpatient. Patient clinically stable for discharge. Time Spent with Patient Total time spent providing and/or coordinating discharge services: >30 min Patient is a 48-year-old male who presented to the emergency department for complaints of worsening abdominal pain non-remitting in nature. Patient was admitted to medical service with following treatments and services were provided. Patient was initially made n.p.o. and given aggressive fluid hydration with slow clinical improvement in symptomatology. While hospitalized patient was continued on insulin pump with fluids to maintain adequate blood glucose levels. Patient was slowly advanced on diet and tolerated well without further nausea, vomiting, or abdominal pain. Suspect that patient's symptoms may be secondary to gastroparesis and encourage patient to continue tight glucose control as well as regular primary follow-up while outpatient. Patient clinically stable for discharge. Quality: VTE Deep Vein Thrombosis/Pulmonary Embolism Present on Admission: No Exam Narrative Exam Narrative: General: No acute distress, conversational Cardiovascular: S1/S2 Respiratory: Clear to auscultation anteriorly and posteriorly without wheezing, rales, or rhonchi Gastrointestinal: Soft, nontender, nondistended, no guarding or rebound Results Labs on day of discharge: Labs from last 24 hours 08/03/18 08/03/18 08/03/18 06:04 05:39 00:11 POC Glucose 91 67 L 82 08/02/18 08/02/18 20:00 16:30 POC Glucose 172 H 116 H Impressions ITS Impressions Abdomen/Pelvis CT 07/31/18 19:00 CONCLUSION: 1. Multiple nonobstructing left renal calculi again noted without significant change. 2. Nonspecific, nonobstructive bowel gas pattern which may represent an ileus or gastroenteritis. 3. Status post cholecystectomy. 4. Able appearance of the pancreas with findings of chronic pancreatitis again noted. Discharge Plan Discharge Disposition Patient Disposition: Discharge Home Discharge Condition Condition: Stable Discharge Order Discharge Orders: Discharge Order (Routine); Ordered 08/03/18 Ordered By: Efrain Contreras Discharge Details Anticipated Discharge Date: 08/03/18 Discharge Comment: Follow up PMD on discharge Physicians Team Primary Care Provider: [facility] Attending Provider: Efrain Contreras Rxs /Orders / Referrals /Forms Prescriptions: Continue atorvastatin 80 mg Tablet 40 mg PO DAILY RF: 0 bethanechol chloride 25 mg Tablet 12.5 mg PO DAILY RF: 0 trazodone 100 mg Tablet 100 mg PO DAILY RF: 0 buspirone 10 mg Tablet 20 mg PO BID RF: 0 aspirin [Aspirin Childrens] 81 mg Tablet,Chewable 81 mg PO DAILY RF: 0 vitamin B complex Capsule 1 cap PO EVERY OTHER DAY RF: 0 aripiprazole 20 mg Tablet 15 mg PO DAILY RF: 0 duloxetine 30 mg Capsule,Delayed Release(Dr/Ec) 90 mg PO DAILY RF: 0 cholecalciferol (vitamin D3) [Vitamin D3] 1,000 unit Tablet 2,000 unit PO BID RF: 0 promethazine [Phenergan] 25 mg suppository 25 mg RECTAL Q6H PRN (Reason: nausea and vomiting) Qty: 12 RF: 0 pantoprazole 40 mg tablet,delayed release (DR/EC) 40 mg PO DAILY Qty: 14 RF: 0 Referrals: [facility],Physician 's [Other] - See Instructions [facility] [Primary Care Provider] - See Instructions Discharge Instructions Patient Printed Instructions: Gastroparesis (DC) Status ED Status: Left Department Discharge Information Discharge Date/Time: 08/03/18 10:06
== END 2018-08-03 10:06 | disposition home or self-care (01) ==
LOC: PHED 18:27 → PHEDA 18:27 → PH3 23:45
PROVIDERS: ADMIT Internal Medicine; ATTEND Internal Medicine
DX: Z79.82 Long term (current) use of aspirin; Z95.5 Presence of coronary angioplasty implant and graft; K31.84 Gastroparesis; I25.2 Old myocardial infarction; Z88.8 Allergy status to other drugs, medicaments and biological substances; Z96.41 Presence of insulin pump (external) (internal); R10.11 Right upper quadrant pain; Z89.111 Acquired absence of right hand; Z90.49 Acquired absence of other specified parts of digestive tract; I25.10 Atherosclerotic heart disease of native coronary artery without angina pectoris; K86.1 Other chronic pancreatitis; Z90.411 Acquired partial absence of pancreas; E86.0 Dehydration; R11.2 Nausea with vomiting, unspecified; E10.43 Type 1 diabetes mellitus with diabetic autonomic (poly)neuropathy; Z79.4 Long term (current) use of insulin; G89.29 Other chronic pain; F43.10 Post-traumatic stress disorder, unspecified
CPT/HCPCS: 74177; 80048; 80053; 81001; 82948; 82962; 83605; 83690; 83735; 84100; 85025; 85027; C9113; J0500; J1170; J1885; J2270; J2405; J2765; J3480; J7030; Q9967

== ENCOUNTER 2018-09-01 01:21 | Observation (INO) ==
[2018-09-01] MEDS ORDERED: Ketamine Inj 50 MG/5 ML Syringe IV.PUSH ONE ×3 (02:44→16:29)
[2018-09-01] MEDS ORDERED: Ketamine Inj 500 MG/10 ML Vial IV.PUSH SCH (03:00)
[2018-09-01 03:25] LABS: Baso % (Auto) 0.6 % (0.0-2.0); Eos % (Auto) 0.7 % (0.0-4.0); Hematocrit 42.1 % (39.0-51.0); Hemoglobin 13.5 gm/dL (13.0-17.0); Lymph # (Auto) 1.2 th/mm3 (1.0-4.8); Lymph % (Auto) 18.6 % (9.0-44.0); Mean Corpuscular Hemoglobin 27.6 pg (27.0-34.0); Mean Corpuscular Volume 86.1 fL (80.0-100.0); Mean Platelet Volume 8.3 fL (7.0-11.0); Mono # (Auto) 0.4 th/mm3 (0.0-0.9); Mono % (Auto) 6.7 % (0.0-8.0); Neut % (Auto) 73.4 % (16.0-70.0); Platelet Count 202 th/mm3 (150-450); Red Blood Count 4.89 mil/mm3 (4.50-5.90); Red Cell Distribution Width 14.6 % (11.6-17.2); White Blood Count 6.6 th/mm3 (4.0-11.0)
[2018-09-01 03:35] LABS: Chloride 95 meq/L (98-107); Potassium 3.6 meq/L (3.5-5.1); Sodium 134 meq/L (136-145)
[2018-09-01 03:38] LABS: Albumin 3.3 g/dL (3.4-5.0); Anion Gap 9 meq/L (5-15); Calcium 8.7 mg/dL (8.5-10.1); Carbon Dioxide 29.7 meq/L (21.0-32.0); Lipase 34 U/L (73-393)
[2018-09-01 03:39] LABS: Blood Urea Nitrogen 15 mg/dL (7-18); Glucose,Random 243 mg/dL (74-106); Magnesium 1.6 mg/dL (1.5-2.5)
[2018-09-01 03:41] LABS: Alanine Aminotransferase 34 U/L (12-78); Aspartate Aminotransferase 16 U/L (15-37); Glomerular Filtration Rate Greater Than 89 mL/min (>89)
[2018-09-01 03:43] LABS: Total Protein 7.4 g/dL (6.4-8.2)
[2018-09-01 03:44] LABS: Alkaline Phosphatase 102 U/L (45-117)
[2018-09-01] MEDS ORDERED: Sod Chloride 0.9% Inj 1,000 ML IV.SIG SCH ×2 (04:30→09:15)
--- NOTE | 2018-09-01 07:16 | ED ---
HPI General Chief Complaint: Abdominal Pain Stated Complaint: N/V/Abdominal pain Time Seen by Provider: 09/01/18 02:33 Source: patient Mode of arrival: ambulatory Limitations: no limitations History of Present Illness HPI narrative: 48-year-old man, history of severe abdominal pain, recurrent chronic pancreatitis, gastritis, severe davey, presents to the emergency department complaining of recurrent abdominal pain. He states he is normally well between episodes and has frequent exam associate with nausea vomiting. Recent admissions for the same. Does not use opiates at home. Like to avoid opiates as he had trouble with opiate dependency following his major burn and injuries. Related Data Home Medications Medication Instructions Recorded Confirmed aripiprazole 15 mg PO DAILY 03/18/18 09/01/18 aspirin [Aspirin Childrens] 81 mg PO DAILY 03/18/18 09/01/18 atorvastatin 40 mg PO DAILY 03/18/18 09/01/18 bethanechol chloride 12.5 mg PO DAILY 03/18/18 09/01/18 buspirone 20 mg PO BID 03/18/18 09/01/18 cholecalciferol (vitamin D3) 2,000 unit PO BID 03/18/18 09/01/18 [Vitamin D3] duloxetine 90 mg PO DAILY 03/18/18 09/01/18 trazodone 100 mg PO DAILY 03/18/18 09/01/18 vitamin B complex 1 cap PO EVERY OTHER DAY 03/18/18 09/01/18 Previous Rx's Medication Instructions Recorded pantoprazole 40 mg PO DAILY #14 tab 05/29/18 promethazine [Phenergan] 25 mg RECTAL Q6H PRN #12 each 05/29/18 Allergies Allergy/AdvReac Type Severity Reaction Status Date / Time quetiapine AdvReac Severe nauseas Verified 09/01/18 02:23 MRI PRECAUTION AdvReac Severe MRI Uncoded 09/01/18 02:23 PRECAUTION Review of Systems ROS: all other systems reviewed are negative [facility] Medical History Medical History Amputation of hand, right (Acute) Chronic abdominal pain (Acute) Coronary artery disease (Acute) Diabetes type 1, controlled (Acute) Gastroparesis (Acute) Surgical History Surgical History H/O heart artery stent (Acute) History of cholecystectomy (Acute) History of partial pancreatectomy (Acute) History of skin graft (Acute) History of vascular access device (Acute) Hx of insertion of insulin pump (Acute) Social History Social History Substance History: Active Abuse Second Hand Smoke Exposure: No Smoking Status: Never smoker How Often Do You Have a Drink Containing Alcohol: Never Recent Travel in [facility] within the Last 8 Weeks: No Recent Out of Country Travel within the Last 8 Weeks: No Substance Abuse Detail Marijuana: Substance Use Status: Active Route Used Substance Abuse: Inhalation Substance Abuse Comment: smokes for pain control Immunization History Tetanus Immunization: >5 Years Tetanus Immunization Year if Known: 2013 Exam Narrative Exam Narrative: GENERAL: Well-appearing 48-year-old man, no acute distress. SKIN: Focused skin assessment warm/dry. HEAD: Atraumatic. Normocephalic. EYES: Pupils equal and round. No scleral icterus. No injection or drainage. ENT: No nasal bleeding or discharge. Mucous membranes pink and moist. NECK: Trachea midline. No JVD. CARDIOVASCULAR: Regular rate and rhythm. No murmur appreciated. RESPIRATORY: No accessory muscle use. Clear to auscultation. Breath sounds equal bilaterally. GASTROINTESTINAL: Abdomen soft, non-tender, nondistended. Hepatic and splenic margins not palpable. MUSCULOSKELETAL: No obvious deformities. No clubbing. No cyanosis. No edema. NEUROLOGICAL: Awake and alert. No obvious cranial nerve deficits. Motor grossly within normal limits. Normal speech. PSYCHIATRIC: Appropriate mood and affect; insight and judgment normal. Course Reevaluation(s) Reevaluation #1: Patient continues to have abdominal pain. He states he has significant relief following each dose of i.v. sub-dissociative dose to ketamine. However pain recurs an hour or so thereafter. Vomiting is improved. Will observe him for another hours on the emergency department. If he continues to have intractable pain, will recommend admission. Time: 07:15 Initial Documented Vital Signs Temperature 99.0 F 09/01/18 01:32 Pulse Rate 116 H 09/01/18 01:32 Respiratory Rate 20 09/01/18 01:32 Blood Pressure 152/118 H 09/01/18 01:32 Last Documented Vital Signs Temperature 98.4 F 09/01/18 06:56 Pulse Rate 77 09/01/18 09:12 Respiratory Rate 16 09/01/18 09:12 Blood Pressure 151/98 H 09/01/18 09:12 Pulse Oximetry 97 09/01/18 09:12 Sign Out Sign Out Data: Patient Sign Out occurred on 09/01/18 at 07:31. Patient's care was discussed, and care was transferred from Moises Flores MD to Nat Tomlinson MD. Sign Out Comment: 48-year-old male, acute on chronic abdominal pain related to chronic pancreatitis from previous injuries, type I diabetic, responding well to 10 mg of IV ketamine at a bolus, 3 boluses in the ED as well as IV acetaminophen. However patient has recurrent pain after an hour or so. Last dose at 7 AM. Reevaluate at 9 AM. If well can be discharged, otherwise admit. Last updated by Moises Flores MD at 09/01/18 07:20 Post-Handoff Eval: Case signed out to me by Dr. christensen at 7 AM, please see previous notes for further details. He has history of chronic pain, chronic pancreatitis, gastroparesis, and is coming in for increasing pain, vomiting, and has been given multiple doses of ketamine, Tylenol last night, including antiemetics. At 8 AM, she is in pain again, requiring further therapy with an additional bolus of ketamine and I have also given him Reglan. On reevaluation at 9 AM, at this point, seems to be requiring multiple doses of pain medication and nausea medic plan would be to admit him for control of acute on chronic pain and nausea and vomiting. Case was discussed with Dr. Trujillo for admission. Medical Decision Making MDM Narrative Medical decision making narrative: 48-year-old male with acute recurrent abdominal pain. Labs are unremarkable. Good response to IV acetaminophen and 10 mg of ketamine. We will monitor him in the emergency department for repeat evaluation. Medical Screen Exam Complete: Yes Emergency Medical Condition: Yes Lab Data Lab results reviewed: Yes I reviewed the patient's lab results. Result diagrams: 09/01/18 03:13 09/01/18 03:13 Lab Results 09/01/18 09/01/18 Range/Units 03:13 03:13 CBC w Diff Auto diff final WBC 6.6 (4.0-11.0) th/mm3 RBC 4.89 (4.50-5.90) mil/mm3 Hgb 13.5 (13.0-17.0) gm/dL Hct 42.1 (39.0-51.0) % MCV 86.1 (80.0-100.0) fL MCH 27.6 (27.0-34.0) pg MCHC 32.0 (32.0-36.0) % RDW 14.6 (11.6-17.2) % Plt Count 202 (150-450) th/mm3 MPV 8.3 (7.0-11.0) fL Neut % (Auto) 73.4 H (16.0-70.0) % Lymph % (Auto) 18.6 (9.0-44.0) % [place] % (Auto) 6.7 (0.0-8.0) % Eos % (Auto) 0.7 (0.0-4.0) % Baso % (Auto) 0.6 (0.0-2.0) % Neut # (Auto) 5.0 (1.8-7.7) th/mm3 Lymph # (Auto) 1.2 (1.0-4.8) th/mm3 [place] # (Auto) 0.4 (0.0-0.9) th/mm3 Eos # (Auto) 0.0 (0.0-0.4) th/mm3 Baso # (Auto) 0.0 (0.0-0.2) th/mm3 WBC Differential . Differential Comment . Sodium 134 L (136-145) meq/L Potassium 3.6 (3.5-5.1) meq/L Chloride 95 L (98-107) meq/L Carbon Dioxide 29.7 (21.0-32.0) meq/L Anion Gap 9 (5-15) meq/L BUN 15 (7-18) mg/dL Creatinine 0.75 (0.60-1.30) mg/dL Estimated GFR Greater than 89 (>89) mL/min Random Glucose 243 H (74-106) mg/dL Calcium 8.7 (8.5-10.1) mg/dL Magnesium 1.6 (1.5-2.5) mg/dL Total Bilirubin 1.0 (0.2-1.0) mg/dL AST 16 (15-37) U/L ALT 34 (12-78) U/L Alkaline Phosphatase 102 (45-117) U/L Total Protein 7.4 (6.4-8.2) g/dL Albumin 3.3 L (3.4-5.0) g/dL Lipase 34 L (73-393) U/L Discharge Plan Discharge Disposition Patient Disposition: ED Admit(ED Internal Use Only) Discharge Condition Condition: Stable Discharge Order Discharge Orders: ED Use Only Admit Order (Routine); Ordered 09/01/18 Ordered By: Nat Tomlinson Discharge Details Anticipated Discharge Date: 09/01/18 Diagnosis: Intractable abdominal pain Physicians Team ED Provider: Nat Tomlinson Primary Care Provider: [facility] /Orders / Referrals /Forms Prescriptions: No Action atorvastatin 80 mg Tablet 40 mg PO DAILY RF: 0 bethanechol chloride 25 mg Tablet 12.5 mg PO DAILY RF: 0 trazodone 100 mg Tablet 100 mg PO DAILY RF: 0 buspirone 10 mg Tablet 20 mg PO BID RF: 0 aspirin [Aspirin Childrens] 81 mg Tablet,Chewable 81 mg PO DAILY RF: 0 vitamin B complex Capsule 1 cap PO EVERY OTHER DAY RF: 0 aripiprazole 20 mg Tablet 15 mg PO DAILY RF: 0 duloxetine 30 mg Capsule,Delayed Release(Dr/Ec) 90 mg PO DAILY RF: 0 cholecalciferol (vitamin D3) [Vitamin D3] 1,000 unit Tablet 2,000 unit PO BID RF: 0 promethazine [Phenergan] 25 mg suppository 25 mg RECTAL Q6H PRN (Reason: nausea and vomiting) Qty: 12 RF: 0 pantoprazole 40 mg tablet,delayed release (DR/EC) 40 mg PO DAILY Qty: 14 RF: 0 Discharge Interventions Interventions: Vital Signs Last Done: 09/01/18 09:12 Status ED Status: With Doctor
[2018-09-01] MEDS ORDERED: Naloxone Inj 0.4 MG/ML Vial IV.PUSH PRN ×2 (09:17→18:56)
[2018-09-01] MEDS ORDERED: Ketorolac Inj 30 MG/ML (IVP) Vial IV.PUSH ONE (09:19)
[2018-09-01] MEDS ORDERED: Bisacodyl 10 MG Supp RECTAL PRN (09:20)
[2018-09-01] MEDS ORDERED: Acetaminophen 325 MG Tablet PO PRN (09:20)
[2018-09-01] MEDS ORDERED: Dextrose 50% in Water 50 ML Vial IV.PUSH PRN (09:25)
[2018-09-01] MEDS: Sod Chloride 0.9% Inj 1,000 ML IV.CONT SCH ×2 (10:37→19:31)
[2018-09-01] MEDS: Insulin NovoLOG Aspart Correctional Sugar Inj SQ SCH ×3 (11:42→21:25)
[2018-09-01 15:04] LABS: Amphetamine Screen,Urine Neg (Neg); Barbiturate Screen,Urine Neg (Neg); Cannabinoid Screen,Urine Pos (Neg); Cocaine Screen,Urine Neg (Neg)
[2018-09-01 15:20] LABS: Opiate Screen,Urine Neg (Neg)
--- NOTE | 2018-09-01 16:47 | P.HPIM ---
History of Present Illness Primary Care Physician: Physician [facility] History of Present Illness: 48-year-old male with a history of recurrent severe abdominal pain, recurrent chronic pancreatitis, diabetes mellitus, gastroparesis status post endoscopic Botox injections in October of this year who presents with a 3-day history of progressively worsening constant sharp nonradiating, epigastric abdominal pain, nausea with no vomiting. Patient denies any constipation, with most recent bowel movement on Saturday. Patient says he is otherwise feeling all right. He does not want to have opiates for his pain due to previous history of opioid dependence. Review of Systems All other systems reviewed negative except as stated in HPI PMFSH - History History Provided By: Patient - Medical History Medical History: Medical History (Last Reviewed 09/01/18 @ 16:35 by Zack Trujillo MD) Amputation of hand, right Chronic abdominal pain Coronary artery disease Diabetes type 1, controlled Gastroparesis - Surgical History Surgical History: Surgical History (Last Reviewed 09/01/18 @ 16:35 by Zack Trujillo MD) H/O heart artery stent History of cholecystectomy History of partial pancreatectomy History of skin graft History of vascular access device Hx of insertion of insulin pump - Family History Family History: Family History (Last Updated 09/01/18 @ 16:36 by Zack Trujillo MD) Father Healthy adult Mother Healthy adult - Tobacco History Second Hand Smoke Exposure: No Smoking Status: Former smoker Tobacco Type: Cigarettes - Alcohol History How Often Do You Have a Drink Containing Alcohol: Monthly or less - Substance Use History Substance History: No History of Abuse, Active Abuse - Substance Use Type Marijuana Status: Active Route Used: Inhalation Comment: smokes for pain control - Travel History Recent Travel in the [place] Within the Last 8 Weeks: No Recent Travel Out of the Country Within the Last 8 Weeks: No - Immunization History Tetanus Immunization: >5 Years Tetanus Immunization Year if Known: 2013 Medications and Allergies Active Medications: Active Medications Acetaminophen (Tylenol) 650 mg PO Q4H PRN PRN Reason: Temp > 100.4 Al Hydroxide/Mg Hydroxide (Milk Of Magnesia Liq) 30 ml PO Q12H PRN PRN Reason: Mild Constipation Aripiprazole (Abilify) [address] [facility] Aspirin (Aspirin Chew) [address] [facility] Atorvastatin Calcium (Lipitor) [address] [facility] Last Admin: 09/01/18 10:36 Dose: 40 mg Bethanechol Chloride (Urecholine) 12.[address] [facility] Bisacodyl (Dulcolax Supp) 10 mg RECTAL DAILY PRN PRN Reason: SEVERE CONSITIPATION Buspirone HCl (Buspar) [address] [facility] Dextrose (D50w Vial) 50 ml IV.PUSH UNSCH PRN PRN Reason: PER HYPOGLYCEMIA PROTOCOL Duloxetine HCl (Cymbalta) [address] [facility] Gabapentin (Neurontin) [address] [facility] Glucagon (Glucagon Inj) 1 mg OTHER PRN PRN PRN Reason: for Hypoglycemia Protocol Sodium Chloride (Ns Inj) 1,000 mls @ 100 mls/hr IV.CONT .Q10H [facility] Last Infusion: 09/01/18 10:55 Dose: 100 mls/hr Insulin Aspart (Novolog Insulin Correctional Sugar Inj) [address] [facility]; Protocol Last Admin: 09/01/18 11:42 Dose: Not Given Ketamine HCl (Ketalar Inj) 15 mg IV.PUSH ONCE ONE Stop: 09/01/18 16:30 Lactulose (Lactulose Liq) 30 ml PO DAILY PRN PRN Reason: SEVERE CONSITIPATION Naloxone HCl (Narcan Inj) 0.4 mg IV.PUSH UNSCH PRN PRN Reason: SEE LABEL COMMENTS Ondansetron HCl (Zofran Inj) 4 mg IV.PUSH Q6H PRN PRN Reason: NAUSEA OR VOMITING Pantoprazole Sodium (Protonix) [address] [facility] Sennosides (Senokot) 17.2 mg PO Q12H PRN PRN Reason: Moderate Constipation Sodium Chloride (Ns Flush) 2 ml IV.FLUSH PRN PRN PRN Reason: FLUSH AFTER USING IV ACCESS Sodium Chloride (Ns Flush) [address] [facility] Sodium Chloride (Ns Flush) 2 ml IV.FLUSH PRN PRN PRN Reason: FLUSH AFTER USING IV ACCESS Tramadol HCl (Ultram) 50 mg PO Q4H PRN PRN Reason: PAIN SCALE 3 TO 5 Tramadol HCl (Ultram) 100 mg PO Q4H PRN PRN Reason: PAIN SCALE 6 TO 10 Last Admin: 09/01/18 14:36 Dose: 100 mg Trazodone HCl (Desyrel) [address] [facility] Allergies Allergy/AdvReac Type Severity Reaction Status Date / Time quetiapine AdvReac Severe nauseas Verified 09/01/18 02:23 MRI PRECAUTION AdvReac Severe MRI Uncoded 09/01/18 02:23 PRECAUTION Home Medications Medication Instructions Recorded Confirmed Type aripiprazole 15 mg PO DAILY 03/18/18 09/01/18 History aspirin [Aspirin Childrens] 81 mg PO DAILY 03/18/18 09/01/18 History atorvastatin 40 mg PO DAILY 03/18/18 09/01/18 History bethanechol chloride 12.5 mg PO DAILY 03/18/18 09/01/18 History buspirone 20 mg PO BID 03/18/18 09/01/18 History cholecalciferol (vitamin D3) 2,000 unit PO BID 03/18/18 09/01/18 History [Vitamin D3] duloxetine 90 mg PO DAILY 03/18/18 09/01/18 History trazodone 100 mg PO DAILY 03/18/18 09/01/18 History vitamin B complex 1 cap PO EVERY OTHER DAY 03/18/18 09/01/18 History Exam Vital signs: Vital Signs 09/01/18 01:32 09/01/18 04:30 09/01/18 06:31 Temperature 99.0 F Pulse Rate 116 H 88 83 Respiratory Rate 20 18 18 Blood Pressure 152/118 H 156/82 H 126/67 Pulse Oximetry 96 97 09/01/18 06:56 09/01/18 09:12 09/01/18 12:00 Temperature 98.4 F 98.0 F Pulse Rate 86 77 71 Respiratory Rate 16 16 20 Blood Pressure 156/90 H 151/98 H 170/95 H Pulse Oximetry 96 97 99 Intake & Output 08/31/18 09/01/18 09/01/18 18:59 06:59 18:59 Intake Total 1100 / 1100 1290 / 1290 Output Total 200 / 200 Balance 1100 / 1100 1090 / 1090 Weight 63.1 kg Intake: IV 1100 / 1100 1050 / 1050 NS Inj 1,000 ML @ 100 mls/hr IV 50 / 50 .CONT .Q10H NE[facility]AL[facility] Rx#:[id number] Ofirmev Inj 1,000 mg In 100 ml 100 / 100 @ 400 mls/hr IV.SIG ONCE ONE Rx #:[id number] NS Inj 1,000 ML @ 1000 mls/hr 1000 / 1000 1000 / 1000 IV.SIG BOLUS NEFTALI Rx#:[id number] Oral 240 / 240 Output: Urine 200 / 200 Other: Date of Last Bowel Movement 08/30/18 Narrative: GENERAL: Patient lying in bed. Appears uncomfortable. Alert and oriented x3. SKIN: Warm and dry. Extensive scarring. HEAD: Atraumatic. Normocephalic. EYES: Pupils equal and round. No scleral icterus. No injection or drainage. ENT: No nasal bleeding or discharge. Mucous membranes pink and moist. NECK: Trachea midline. No JVD. CARDIOVASCULAR: Regular rate and rhythm. RESPIRATORY: No accessory muscle use. Clear to auscultation. Breath sounds equal bilaterally. GASTROINTESTINAL: Abdomen soft, non-tender, nondistended. Extensive scarring. Hepatic and splenic margins not palpable. MUSCULOSKELETAL: Extremities without edema. Right hand amputation, left hand with multiple digits amputated, well healed. Patient does have right foot dry diabetic foot ulcer which he says he is following with podiatry for NEUROLOGICAL: Awake and alert. No obvious cranial nerve deficits. Motor grossly within normal limits. Five out of 5 muscle strength in the arms and legs. Normal speech. PSYCHIATRIC: Appropriate mood and affect; insight and judgment normal. Results - Labs CBC & Chem 7: 09/01/18 03:13 09/01/18 03:13 Labs: Short CBC 09/01/18 Range/Units 03:13 WBC 6.6 (4.0-11.0) th/mm3 Hgb 13.5 (13.0-17.0) gm/dL Hct 42.1 (39.0-51.0) % Plt Count 202 (150-450) th/mm3 [facility] 09/01/18 03:13 Sodium 134 L Potassium 3.6 Chloride 95 L Carbon Dioxide 29.7 BUN 15 Creatinine 0.75 Calcium 8.7 Liver Function 09/01/18 Range/Units 03:13 Total Bilirubin 1.0 (0.2-1.0) mg/dL AST 16 (15-37) U/L ALT 34 (12-78) U/L Alkaline Phosphatase 102 (45-117) U/L Albumin 3.3 L (3.4-5.0) g/dL Caprini VTE Risk Assessment Caprini VTE Risk Assessment: No/Low Risk (score <= 1) Caprini Risk Assessment Model: Point Value = 1 Point Value = 2 Point Value = 3 Point Value = 5 Age 41-60 Minor surgery BMI > 25 kg/m2 Swollen legs Varicose veins or History of unexplained or recurrent spontaneous Oral contraceptives or hormone replacement Sepsis (< 1 month) Serious lung disease, including pneumonia (< 1 month) Abnormal pulmonary function Acute myocardial infarction Congestive heart failure (< 1 month) History of inflammatory bowel disease Medical patient at bed rest Age 61-74 Arthroscopic surgery Major open surgery (> 45 min) Laparoscopic surgery (> 45 min) Malignancy Confined to bed (> 72 hours) Immobilizing plaster cast Central venous access Age >= 75 History of VTE Family history of VTE Factor V Leiden Prothrombin [id number] Lupus anticoagulant Anticardiolipin antibodies Elevated serum homocysteine Heparin-induced thrombocytopenia Other congenital or acquired thrombophilia Stroke (< 1 month) Elective arthroplasty Hip, pelvis, or leg fracture Acute spinal cord injury (< 1 month) Prophylaxis Regimen: Total Risk Factor Score Risk Level Prophylaxis Regimen 0-1 Low Early ambulation 2 Moderate Order ONE of the following: *Sequential Compression Device (SCD) *Heparin 5000 units SQ BID 3-4 Higher Order ONE of the following medications: *Heparin 5000 units SQ TID *Enoxaparin/Lovenox 40 mg SQ daily (WT < 150 kg, CrCl > 30 mL/min) *Enoxaparin/Lovenox 30 mg SQ daily (WT < 150 kg, CrCl > 10-29 mL/min) *Enoxaparin/Lovenox 30 mg SQ BID (WT < 150 kg, CrCl > 30 mL/min) AND/OR *Sequential Compression Device (SCD) 5 or more Highest Order ONE of the following medications: *Heparin 5000 units SQ TID (Preferred with Epidurals) *Enoxaparin/Lovenox 40 mg SQ daily (WT < 150 kg, CrCl > 30 mL/min) *Enoxaparin/Lovenox 30 mg SQ daily (WT < 150 kg, CrCl > 10-29 mL/min) *Enoxaparin/Lovenox 30 mg SQ BID (WT < 150 kg, CrCl > 30 mL/min) AND *Sequential Compression Device (SCD) Assessment and Plan - Plan //Acute recurrence of abdominal pain //History of chronic recurrent pancreatitis //History of gastroparesis status post Botox injection in October of this year = CT abdomen from last month with findings of chronic pancreatitis. = Consult GI. IV fluids. = Patient does not want narcotics. Will try tramadol. Will continue to try ketamine. //Diabetes mellitus. Treat as type I diabetic due to chronic pancreatitis. Blood glucose stable. Continue insulin sliding scale. //GERD. Chronic. Continue medication //Depression. Chronic. No SI Continue home medication //Hyperlipidemia. Chronic. Continue home medication Discussed Condition With: Patient, nurse, ED physician, knockdown man H&P: Quality - VTE Deep Vein Thrombosis/Pulmonary Embolism Present on Admission: No
--- NOTE | 2018-09-01 17:21 | MB ---
cc: Yury Sethi MD, Jeffrey D MD Zulfiqar, Hassan MD DATE: 09/01/2018 REASON FOR CONSULTATION: Abdominal pain, history of recurrent pancreatitis. HISTORY OF PRESENT ILLNESS: Mr. Shannon is a 48-year-old with a history of pancreatitis since 2004. He says he was severely injured [place], and since then he has been having multiple issues including recurrent abdominal pain and pancreatitis. He has diabetes mellitus and gastroparesis requiring endoscopies with Botox injection. For his pain, he has also been getting celiac plexus blocks and this typically works for him for up to 6 months. At this time, he is due for both a celiac plexus block as well as an EGD with Botox. He says this pain does appear a little different than what his normal pancreatitis pain feels like. He has had previous imaging done here last one about a month ago, all were consistent with some pancreatitis. He has not had an MRCP due to shrapnel injury and spinal cord stimulator placement. REVIEW OF SYSTEMS: Currently, the patient is complaining of central abdominal pain with some nausea. No other symptoms. He is not having any bleeding or diarrhea at this time. PAST MEDICAL HISTORY: Significant for recurrent chronic pancreatitis, diabetes mellitus, gastroparesis, chronic abdominal pain, coronary artery disease. PAST SURGICAL HISTORY: Cardiac stent placement, cholecystectomy, partial pancreatectomy, skin grafting, a vascular access device and insulin pump. FAMILY HISTORY: Noncontributory. SOCIAL HISTORY: The patient has a history of smoking. No alcohol reported. Does use marijuana for pain control. MEDICATIONS: Include: 1. Abilify. 2. Aspirin. 3. Lipitor. 4. Bethanechol. 5. BuSpar. 5. Cymbalta. 6. Neurontin. 7. Ketamine injections. 8. Lactulose. 9. Narcan. 10. Tramadol. LABORATORY DATA: Creatinine 0.75. Amylase and lipase are normal. Liver function tests are normal. Hemoglobin 13.5. CT of the abdomen and pelvis done about a month ago with IV contrast showed multiple nonobstructing renal calculi, nonspecific nonobstructive bowel pattern, status post cholecystectomy, and appearance of pancreas consistent with chronic pancreatitis. IMPRESSION: Gastroparesis, chronic recurrent pancreatitis. RECOMMENDATIONS: Ideally, I would like to obtain an MRCP. I do not think this would be possible with multiple shrapnel injuries and spinal cord stimulator. Consider repeating CT of the abdomen and pelvis with contrast. Monitor labs. Consider pain specialist consultation for celiac plexus block. The patient does report an esophagogastroduodenoscopy and colonoscopy a few months ago at [facility]. He states at that time, there were no acute findings on his exam. I am trying to see if we can locate the results of his recent scopes as well. We will follow with you. Thank you for this referral. MD PIPER Deshpande/oli , 05:02 PM , 05:10 PM
[2018-09-01] MEDS ORDERED: Ketamine Inj 500 MG/10 ML Vial IV.PUSH ONE (17:30)
[2018-09-01] MEDS: Gabapentin 100 MG Capsule PO SCH (18:16)
[2018-09-01] MEDS ORDERED: HYDROmorphone PF Inj 0.5 MG/0.5 ML Syringe IV.PUSH PRN (19:15)
[2018-09-01] MEDS: HYDROmorphone PF Inj 1 MG/ML Ampul IV.PUSH PRN (22:56)
[2018-09-02] MEDS: HYDROmorphone PF Inj 1 MG/ML Ampul IV.PUSH PRN ×4 (03:19→13:10)
[2018-09-02] MEDS: Sod Chloride 0.9% Inj 1,000 ML IV.CONT SCH ×2 (05:55→15:07)
[2018-09-02 07:21] LABS: Baso % (Auto) 0.6 % (0.0-2.0); Eos # (Auto) 0.1 th/mm3 (0.0-0.4); Eos % (Auto) 1.4 % (0.0-4.0); Hematocrit 35.4 % (39.0-51.0); Hemoglobin 11.8 gm/dL (13.0-17.0); Lymph # (Auto) 1.5 th/mm3 (1.0-4.8); Lymph % (Auto) 24.5 % (9.0-44.0); Mean Corpuscular HGB Conc 33.4 % (32.0-36.0); Mean Corpuscular Hemoglobin 28.5 pg (27.0-34.0); Mean Corpuscular Volume 85.2 fL (80.0-100.0); Mean Platelet Volume 7.8 fL (7.0-11.0); Mono # (Auto) 0.4 th/mm3 (0.0-0.9); Mono % (Auto) 5.9 % (0.0-8.0); Neut # (Auto) 4.1 th/mm3 (1.8-7.7); Neut % (Auto) 67.6 % (16.0-70.0); Platelet Count 163 th/mm3 (150-450); Red Blood Count 4.15 mil/mm3 (4.50-5.90); Red Cell Distribution Width 14.3 % (11.6-17.2); White Blood Count 6.1 th/mm3 (4.0-11.0)
[2018-09-02 07:52] LABS: Alanine Aminotransferase 31 U/L (12-78); Albumin 2.9 g/dL (3.4-5.0); Alkaline Phosphatase 74 U/L (45-117); Anion Gap 6 meq/L (5-15); Aspartate Aminotransferase 19 U/L (15-37); Blood Urea Nitrogen 9 mg/dL (7-18); Calcium 8.1 mg/dL (8.5-10.1); Carbon Dioxide 29.8 meq/L (21.0-32.0); Chloride 101 meq/L (98-107); Glomerular Filtration Rate Greater Than 89 mL/min (>89); Glucose,Random 59 mg/dL (74-106); Sodium 137 meq/L (136-145); Total Protein 6.2 g/dL (6.4-8.2)
[2018-09-02 07:55] LABS: Potassium 2.9 meq/L (3.5-5.1)
[2018-09-02] MEDS ORDERED: traZODone 100 MG Tablet PO SCH (09:00)
[2018-09-02] MEDS: Insulin NovoLOG Aspart Correctional Sugar Inj SQ SCH ×3 (10:00→17:23)
[2018-09-02] MEDS: Gabapentin 100 MG Capsule PO SCH ×2 (10:01→13:10)
[2018-09-02 11:26] VITALS: RESP 20
[2018-09-02] MEDS: Potassium Chlor 20 mEq Premix 20 MEQ/100 ML PIGGYBACK IV.SIG SCH ×2 (13:09→13:10)
--- NOTE | 2018-09-02 13:55 | P.PNIM ---
Subjective Interval history: Patient says his abdominal pain has improved on the IV Dilaudid. We discussed the possibility of going home on Dilaudid, and he does not want to go home on narcotics. We also discussed the possibility of him having marijuana hyperemesis syndrome, however he will continue to smoke marijuana for Pain control. He is agreeable to starting on gabapentin. I suggested the patient that he follow-up with pain management [place]. Physical Exam Vital signs: Vital Signs 09/01/18 16:00 09/01/18 20:00 09/02/18 00:00 Temperature 98.2 F 98.7 F 98.6 F Pulse Rate 70 70 70 Respiratory Rate 20 20 16 Blood Pressure 140/78 166/75 H 137/92 H Pulse Oximetry 96 93 L 99 09/02/18 08:00 Temperature 97.9 F Pulse Rate 71 Respiratory Rate 20 Blood Pressure 156/90 H Pulse Oximetry 99 Intake & Output 09/01/18 09/02/18 09/02/18 18:59 06:59 18:59 Intake Total 1530 / 1530 [birth year] Output Total 440 / 440 Balance 1090 / 1090 [birth year] Weight 65.6 kg Intake: IV 1050 / 1050 1949 / 1950 NS Inj 1,000 ML @ 100 mls/hr IV 50 / 50 1949 / 1949 .CONT .Q10H NEFTALI Rx#:[id number] NS Inj 1,000 ML @ 1000 mls/hr 1000 / 1000 IV.SIG BOLUS NEFTALI Rx#:[id number] Oral 480 / 480 Output: Urine 440 / 440 Other: Date of Last Bowel Movement 08/30/18 Narrative: GENERAL: Patient lying in bed. Appears comfortable. Alert and oriented x4. SKIN: Warm and dry. Multiple scars and amputations as before. HEAD: Normocephalic. EYES: No scleral icterus. No injection or drainage. NECK: Supple, trachea midline. No JVD. CARDIOVASCULAR: Regular rate and rhythm without murmurs, gallops, or rubs. RESPIRATORY: Breath sounds equal bilaterally. No accessory muscle use. GASTROINTESTINAL: Abdomen soft, non-tender, nondistended. MUSCULOSKELETAL: No cyanosis, or edema. BACK: Nontender without obvious deformity. No CVA tenderness. Results - Labs CBC & Chem 7: 09/02/18 06:30 09/02/18 06:30 Laboratory Results - last 24 hr 09/01/18 09/01/18 09/01/18 14:30 16:20 21:20 CBC w Diff WBC RBC Hgb Hct MCV MCH MCHC RDW Plt Count MPV Neut % (Auto) Lymph % (Auto) Craig % (Auto) Eos % (Auto) Baso % (Auto) Neut # (Auto) Lymph # (Auto) Craig # (Auto) Eos # (Auto) Baso # (Auto) WBC Differential Differential Comment Sodium Potassium Chloride Carbon Dioxide Anion Gap BUN Creatinine Estimated GFR POC Glucose 77 77 Random Glucose Calcium Magnesium Total Bilirubin AST ALT Alkaline Phosphatase Total Protein Albumin Urine Opiates Screen Neg Ur Barbiturates Screen Neg Ur Amphetamines Screen Neg U Benzodiazepines Scrn Neg Urine Cocaine Screen Neg U Cannabinoids Screen Pos H 09/02/18 09/02/18 09/02/18 06:30 06:30 06:30 CBC w Diff Auto diff final WBC 6.1 RBC 4.15 L Hgb 11.8 L Hct 35.4 L MCV 85.2 MCH 28.5 MCHC 33.4 RDW 14.3 Plt Count 163 MPV 7.8 Neut % (Auto) 67.6 Lymph % (Auto) 24.5 Craig % (Auto) 5.9 Eos % (Auto) 1.4 Baso % (Auto) 0.6 Neut # (Auto) 4.1 Lymph # (Auto) 1.5 Craig # (Auto) 0.4 Eos # (Auto) 0.1 Baso # (Auto) 0.0 WBC Differential . Differential Comment . Sodium 137 Potassium 2.9 L* Chloride 101 Carbon Dioxide 29.8 Anion Gap 6 BUN 9 Creatinine 0.49 L Estimated GFR Greater than 89 POC Glucose Random Glucose 59 L D Calcium 8.1 L Magnesium 1.8 Total Bilirubin 0.6 AST 19 ALT 31 Alkaline Phosphatase 74 Total Protein 6.2 L D Albumin 2.9 L Urine Opiates Screen Ur Barbiturates Screen Ur Amphetamines Screen U Benzodiazepines Scrn Urine Cocaine Screen U Cannabinoids Screen 09/02/18 10:00 CBC w Diff WBC RBC Hgb Hct MCV MCH MCHC RDW Plt Count MPV Neut % (Auto) Lymph % (Auto) Craig % (Auto) Eos % (Auto) Baso % (Auto) Neut # (Auto) Lymph # (Auto) Craig # (Auto) Eos # (Auto) Baso # (Auto) WBC Differential Differential Comment Sodium Potassium Chloride Carbon Dioxide Anion Gap BUN Creatinine Estimated GFR POC Glucose 86 Random Glucose Calcium Magnesium Total Bilirubin AST ALT Alkaline Phosphatase Total Protein Albumin Urine Opiates Screen Ur Barbiturates Screen Ur Amphetamines Screen U Benzodiazepines Scrn Urine Cocaine Screen U Cannabinoids Screen Assessment and Plan - Plan //Acute recurrence of abdominal pain //History of chronic recurrent pancreatitis //History of gastroparesis status post Botox injection in October of this year = CT abdomen from last month with findings of chronic pancreatitis. = Consult GI. IV fluids. = Patient does not want narcotics. Will try tramadol. Will continue to try ketamine. = 09/02. Pain improved with narcotics overnight, however patient does not want to go home on narcotics. Per discussion, will discharge patient on gabapentin which can be increased by primary care or pain management as outpatient. For further treatment, have recommended he follow-up with pain management [place] the [place]. //Hypokalemia. Have replaced. Will order stat recheck. //Diabetes mellitus. Treat as type I diabetic due to chronic pancreatitis. Blood glucose stable. Continue insulin sliding scale. //GERD. Chronic. Continue medication //Depression. Chronic. No SI Continue home medication //Hyperlipidemia. Chronic. Continue home medication Discussed Condition With: Patient, nurse, family at bedside
[2018-09-02] MEDS ORDERED: Heparin Central Flush 100 UNIT/ML 5 ML Vial IV.FLUSH PRN ×2 (15:19)
[2018-09-02 16:25] LABS: Chloride 100 meq/L (98-107); Potassium 3.6 meq/L (3.5-5.1); Sodium 136 meq/L (136-145)
[2018-09-02 16:28] LABS: Anion Gap 6 meq/L (5-15); Blood Urea Nitrogen 7 mg/dL (7-18); Calcium 8.5 mg/dL (8.5-10.1); Carbon Dioxide 30.3 meq/L (21.0-32.0); Glucose,Random 94 mg/dL (74-106)
[2018-09-02 16:32] LABS: Glomerular Filtration Rate Greater Than 89 mL/min (>89)
[2018-09-02 19:42] VITALS: BP 132/86; PULSE 66; TEMP 97; O2SAT 96
== END 2018-09-02 17:47 | disposition home or self-care (01) ==
LOC: PHEDA 01:21 → PHED 01:21 → PH3 11:04
PROVIDERS: ADMIT Internal Medicine; ATTEND Internal Medicine
CPT/HCPCS: 80048; 80053; 80307; 82948; 82962; 83690; 83735; 85025; 90761; 90774; 90775; 90776; 96361; 96374; 96375; 96376; 99285; C8952; G0378; J0131; J1170; J1642; J1885; J2405; J2765; J3480; J7030